=== PATIENT | female | born 1960 | race African-American/Black ===

== ENCOUNTER 2016-08-18 23:24 | Emergency (ER) | payer BC ==
[~2016-08-18] VITALS: Ht 167.6 cm; Wt 75.3 kg
[~2016-08-18 23:24] MED LIST: AMLO10TA4 PO; ASPI325T8 PO; CLOP75TA57 PO; INSU100C4 SQ; INSU100V13 SQ; LISI40TA PO; SIMV40TA3 PO
[2016-08-18] MEDS ORDERED: ONDANSETRON ODT 4 MG TAB.RAPDIS. PO ONE (23:45)
[2016-08-18] MEDS ORDERED: IV NORMAL SALINE 1000ML BAG 1,000 ML IV ONE (23:45)
[2016-08-18 23:48] LABS: BASO # 0.1 x10^3/uL (0.0-0.2); BASO % 1 % (0-3); EOS % 1 % (0-3); HEMATOCRIT 37.3 % (36.0-47.0); HEMOGLOBIN 12.2 g/dL (12.0-15.5); LYMPH # 2.1 x10^3/uL (1.0-4.8); LYMPH % 19 % (24-48); MEAN CORPUSCULAR HEMOGLOBIN 28 pg (25-35); MEAN CORPUSCULAR HGB CONC 33 g/dL (31-37); MEAN CORPUSCULAR VOLUME 85 fL (79-100); MONO % 5 % (0-9); NEUT % 74 % (31-73); PLATELET COUNT 390 x10^3/uL (140-400); RED BLOOD COUNT 4.38 x10^6/uL (3.50-5.40); RED CELL DISTRIBUTION WIDTH 14.1 % (11.5-14.5); WHITE BLOOD COUNT 11.4 x10^3/uL (4.0-11.0)
[2016-08-18 23:58] LABS: CREATININE 1.5 mg/dL (0.6-1.0); GFR 43.8; POTASSIUM 4.1 mmol/L (3.5-5.1)
[2016-08-19 00:04] LABS: ALBUMIN/GLOBULIN RATIO 0.6 (1.0-1.7); TOTAL BILIRUBIN 0.4 mg/dL (0.2-1.0); TOTAL PROTEIN 7.9 g/dL (6.4-8.2)
[2016-08-19 03:09] LABS: BACTERIA,URINE FEW /HPF (0-FEW); BILIRUBIN,URINE NEGATIVE (NEG); GLUCOSE,URINE 100 mg/dL (NEG); NITRITE,URINE NEGATIVE (NEG); PROTEIN,URINE >=300 mg/dL (NEG-TRACE); RBC,URINE OCC /HPF (0-2); SQUAMOUS EPITHELIAL CELL,UR FEW /LPF; UROBILINOGEN,URINE 0.2 mg/dL (0.2 mg/dL)
[2016-08-19] MEDS ORDERED: ONDANSETRON PF 4 MG/2 ML VIAL. IV ONE (03:30)
[2016-08-19 04:30] VITALS: BP 199/101
[2016-08-19 04:42] LABS: NEG OBC FOB NEG; POS OBC FOB POS
[2016-08-19] MEDS ORDERED: ONDA4TAB10 SL (05:08)
--- NOTE | 2016-08-19 05:08 | PHYS DOC ---
Past Medical History Past Medical History: Diabetes-Type II, GERD, Hypertension, Migraines, TIA, Other Additional Past Medical Histor: developmental delay Past Surgical History: Appendectomy Alcohol Use: None Drug Use: None Adult General Chief Complaint Chief Complaint: NAUSEA/VOMITING/DIARRHA HPI HPI Patient is a 56 year [id number] female who presents to the ER today secondary to nausea vomiting diarrhea. Patient denies any fevers shakes chills cough cold runny nose. Patient has any chest pain. Patient reports that she had a little bit of redness in one of the episodes of her vomiting today. Patient has any melena or bright red blood per rectum. Patient complains of some mild midepigastric discomfort in her abdomen. The well-developed well-nourished female in no acute distress. Patient's abdomen was soft nontender no rebound or guarding. Patient's rectal exam was heme-negative brown stool. Patient's ER workup consisted of normal labs. Patient's CBC and chemistry were within normal limits for the patient. Patient was monitored in the ED without any further episodes of nausea vomiting. Patient is given IV fluids and Zofran in the ED and feels much improved. Patient is requesting to be discharged home. Review of systems Constitutional: Denies fever or chills [] Eyes: Denies change in visual acuity, redness, or eye pain [] All other review systems are negative except as documented in the history of present illness portion. Physical exam Constitutional: Well developed, well nourished, no acute distress, non-toxic appearance. [] HENT: Normocephalic, atraumatic, bilateral external ears normal, oropharynx moist, no oral exudates, nose normal. [] Eyes: conjunctiva normal, no discharge. [] Neck: Normal range of motion, no tenderness, supple, no stridor. [] Cardiovascular:Heart rate regular rhythm, Lungs & Thorax: Bilateral breath sounds clear to auscultation [] Abdomen: Bowel sounds normal, soft, no tenderness, no masses, no pulsatile masses. [] Skin: Warm, dry, Back: No tenderness, Extremities: No tenderness, no cyanosis, Neurologic: Alert and oriented X 3, normal motor function, normal sensory function, no focal deficits noted. [] Psychologic: Affect normal, judgement normal, mood normal. [] Assessment and plan 36-year-old female who presents here today with nausea vomiting and diarrhea. Patient is clinically hemodynamically stable. Patient be discharged home in stable condition. Current Medications Current Medications Current Medications Medications (Trade) Dose Ordered Sig/Shirley Start Time Stop Time Status Last Admin Dose Admin Ondansetron HCl (Zofran Odt) 4 mg 1X ONCE 08/18/16 23:45 08/18/16 23:46 DC 08/18/16 23:49 4 MG Ondansetron HCl (Zofran) 4 mg 1X ONCE 08/19/16 03:30 08/19/16 03:31 DC 08/19/16 03:20 4 MG Sodium Chloride 1,000 ml @ 1,000 mls/hr 1X ONCE 08/18/16 23:45 08/19/16 00:44 DC 08/18/16 23:50 1,000 MLS/HR Allergies Allergies Allergies Coded Allergies Type Severity Reaction Last Updated Verified No Known Drug Allergies 12/25/14 No Current Patient Data Vital Signs Vital Signs Date Time Temp Pulse Resp B/P (MAP) Pulse Ox O2 Delivery O2 Flow Rate FiO2 08/19/16 04:30 88 18 199/101 (133) 97 Room Air 08/18/16 23:43 98.6 98.6 Lab Values Laboratory Tests Test 08/18/16 23:40 08/19/16 02:37 08/19/16 04:00 White Blood Count 11.4 x10^3/uL (4.0-11.0) H Red Blood Count 4.38 x10^6/uL (3.50-5.40) Hemoglobin 12.2 g/dL (12.0-15.5) Hematocrit 37.3 % (36.0-47.0) Mean Corpuscular Volume 85 fL (79-100) Mean Corpuscular Hemoglobin 28 pg (25-35) Mean Corpuscular Hemoglobin Concent 33 g/dL (31-37) Red Cell Distribution Width 14.1 % (11.5-14.5) Platelet Count 390 x10^3/uL (140-400) Neutrophils (%) (Auto) 74 % (31-73) H Lymphocytes (%) (Auto) 19 % (24-48) L Monocytes (%) (Auto) 5 % (0-9) Eosinophils (%) (Auto) 1 % (0-3) Basophils (%) (Auto) 1 % (0-3) Neutrophils # (Auto) 8.4 x10^3uL (1.8-7.7) H Lymphocytes # (Auto) 2.1 x10^3/uL (1.0-4.8) Monocytes # (Auto) 0.6 x10^3/uL (0.0-1.1) Eosinophils # (Auto) 0.1 x10^3/uL (0.0-0.7) Basophils # (Auto) 0.1 x10^3/uL (0.0-0.2) Sodium Level 138 mmol/L (136-145) Potassium Level 4.1 mmol/L (3.5-5.1) Chloride Level 101 mmol/L (98-107) Carbon Dioxide Level 29 mmol/L (21-32) Anion Gap 8 (6-14) Blood Urea Nitrogen 23 mg/dL (7-20) H Creatinine 1.5 mg/dL (0.6-1.0) H Estimated GFR (Cockcroft-Gault) 43.8 BUN/Creatinine Ratio 15 (6-20) Glucose Level 178 mg/dL (70-99) H Calcium Level 11.0 mg/dL (8.5-10.1) H Total Bilirubin 0.4 mg/dL (0.2-1.0) Aspartate Amino Transferase (AST) 18 U/L (15-37) Alanine Aminotransferase (ALT) 17 U/L (14-59) Alkaline Phosphatase 74 U/L (46-116) Total Protein 7.9 g/dL (6.4-8.2) Albumin 3.0 g/dL (3.4-5.0) L Albumin/Globulin Ratio 0.6 (1.0-1.7) L Lipase 150 U/L (73-393) Urine Collection Type Unknown Urine Color Yellow Urine Clarity Clear Urine pH 6.0 Urine Specific Dr[place] 1.015 Urine Protein >=300 mg/dL (NEG-TRACE) Urine Glucose (UA) 100 mg/dL (NEG) Urine Ketones (Stick) Trace mg/dL (NEG) Urine Blood Small (NEG) Urine Nitrite Negative (NEG) Urine Bilirubin Negative (NEG) Urine Urobilinogen Dipstick 0.2 mg/dL (0.2 mg/dL) Urine Leukocyte Esterase Negative (NEG) Urine RBC Occ /HPF (0-2) Urine WBC 1-4 /HPF (0-4) Urine Squamous Epithelial Cells Few /LPF Urine Bacteria Few /HPF (0-FEW) Urine Hyaline Casts Few /HPF Urine Mucus Mod /LPF Stool Occult Blood Negative (NEG) Laboratory Tests 08/18/16 23:40 Laboratory Tests 08/18/16 23:40 EKG EKG [] Radiology/Procedures Radiology/Procedures [] Course & Med Decision Making Course & Med Decision Making Pertinent Labs and Imaging studies reviewed. (See chart for details) [] Dragon Disclaimer Dragon Disclaimer This electronic medical record was generated, in whole or in part, using a voice recognition dictation system. Departure Departure Impression: Primary Impression: Vomiting Additional Impression: Hematemesis Disposition: HOME, SELF-CARE Condition: IMPROVED Referrals: UNKNOWN PCP NAME (PCP) Patient Instructions: Hematemesis, Nausea and Vomiting Scripts Ondansetron (ZOFRAN ODT) 4 Mg Tab.rapdis 1 TAB SL Q6HRS Y for NAUSEA, #12 TAB Prov: MIGUEL ANGEL BENITEZ MD 08/19/16 Problem Qualifiers MIGUEL ANGEL BENITEZ MD Aug 19, 2016 05:08
== END 2016-08-19 05:26 | disposition home or self-care (01) ==
LOC: ER 23:24
DX: K92.0 Hematemesis (principal); E11.9 Type 2 diabetes mellitus without complications; K21.9 Gastro-esophageal reflux disease without esophagitis; I10 Essential (primary) hypertension; G43.909 Migraine, unspecified, not intractable, without status migrainosus; R62.50 Unspecified lack of expected normal physiological development in childhood; Z86.73 Personal history of transient ischemic attack (TIA), and cerebral infarction without residual deficits; Z90.49 Acquired absence of other specified parts of digestive tract
CPT/HCPCS: 36415; 80053; 81001; 82274; 83690; 85027; 96361; 96374; 99285; J2405; J7030; Q0162

== ENCOUNTER → 2016-09-18 | Outpatient (CLI) | payer OTHER ==
[2016-08-19 04:30] VITALS: BP 199/101
[~2016-09-18] MED LIST changes: +ONDA4TAB10 SL
--- NOTE | 2016-09-18 12:32 | RAD ---
EXAM: Lumbar spine 2 or 3 views. HISTORY: Low back pain COMPARISON: None. FINDINGS: Alignment is maintained. Vertebral body heights are maintained, and no fractures are identified. Intervertebral disc heights are maintained. Facet osteoarthritis is at least mild from L4 through S1. Atherosclerotic calcifications are noted. An 8 mm calcification in the right flank may be a gallstone or renal calculus. A 15 mm calcification in the left hemipelvis suggests a degenerated fibroid. IMPRESSION: 1. Mild to moderate facet osteoarthritis from L4 through S1. 2. 8-mm gallstone versus right renal calculus.
== END | disposition home or self-care (01) ==
LOC: RAD 10:16
PROVIDERS: ATTEND Neuromusculoskeletal Medicine, Sports Medicine
DX: M47.897 Other spondylosis, lumbosacral region (principal)
CPT/HCPCS: 72100

== ENCOUNTER 2017-03-31 15:27 | Emergency (ER) | payer SELFPAY, OTHER | END 2017-03-31 16:26 | disposition home or self-care (01) | LOC: ER 15:27 | DX: S30.861A Insect bite (nonvenomous) of abdominal wall, initial encounter (principal); S40.862A Insect bite (nonvenomous) of left upper arm, initial encounter; S40.861A Insect bite (nonvenomous) of right upper arm, initial encounter; S00.96XA Insect bite (nonvenomous) of unspecified part of head, initial encounter; S80.862A Insect bite (nonvenomous), left lower leg, initial encounter; S80.861A Insect bite (nonvenomous), right lower leg, initial encounter; S10.96XA Insect bite of unspecified part of neck, initial encounter; S40.262A Insect bite (nonvenomous) of left shoulder, initial encounter; S40.261A Insect bite (nonvenomous) of right shoulder, initial encounter; S30.860A Insect bite (nonvenomous) of lower back and pelvis, initial encounter; S20.462A Insect bite (nonvenomous) of left back wall of thorax, initial encounter; S20.461A Insect bite (nonvenomous) of right back wall of thorax, initial encounter; E11.9 Type 2 diabetes mellitus without complications; K21.9 Gastro-esophageal reflux disease without esophagitis; I10 Essential (primary) hypertension; G43.909 Migraine, unspecified, not intractable, without status migrainosus; Z86.73 Personal history of transient ischemic attack (TIA), and cerebral infarction without residual deficits; Z90.49 Acquired absence of other specified parts of digestive tract; W57.XXXA Bitten or stung by nonvenomous insect and other nonvenomous arthropods, initial encounter; Y93.89 Activity, other specified; Y92.89 Other specified places as the place of occurrence of the external cause; Y99.8 Other external cause status | CPT/HCPCS: 99283 ==

== ENCOUNTER 2017-06-29 14:54 | Inpatient (IN) | payer SELFPAY ==
[2017-06-29 15:50] LABS: ADD MAN DIFF? NO
[2017-06-29 15:52] LABS: BASO # 0.1 x10^3/uL (0.0-0.2); BASO % 1 % (0-3); EOS # 0.1 x10^3/uL (0.0-0.7); EOS % 2 % (0-3); HEMOGLOBIN 10.1 g/dL (12.0-15.5); LYMPH # 2.1 x10^3/uL (1.0-4.8); LYMPH % 25 % (24-48); MEAN CORPUSCULAR HEMOGLOBIN 29 pg (25-35); MEAN CORPUSCULAR HGB CONC 34 g/dL (31-37); MEAN CORPUSCULAR VOLUME 86 fL (79-100); MONO # 0.6 x10^3/uL (0.0-1.1); MONO % 7 % (0-9); NEUT # 5.7 x10^3uL (1.8-7.7); NEUT % 66 % (31-73); PLATELET COUNT 433 x10^3/uL (140-400); RED CELL DISTRIBUTION WIDTH 13.7 % (11.5-14.5); WHITE BLOOD COUNT 8.6 x10^3/uL (4.0-11.0)
[2017-06-29 16:00] LABS: PROTHROMBIN TIME PATIENT 12.8 SEC (11.7-14.0)
[2017-06-29 16:09] LABS: ANION GAP 4 (6-14); BLOOD UREA NITROGEN 21 mg/dL (7-20); CALCIUM 9.3 mg/dL (8.5-10.1); CARBON DIOXIDE 29 mmol/L (21-32); CHLORIDE 103 mmol/L (98-107); GFR 31.3; GLUCOSE 240 mg/dL (70-99); POTASSIUM 5.1 mmol/L (3.5-5.1); SODIUM 136 mmol/L (136-145)
[2017-06-29 16:14] LABS: TROPONINI 0.019 ng/mL (0.000-0.055)
[2017-06-29 16:17] LABS: ALBUMIN 2.9 g/dL (3.4-5.0); ALK PHOS 79 U/L (46-116); ALT (SGPT) 14 U/L (14-59); AST (SGOT) 12 U/L (15-37); DIRECT BILIRUBIN 0.1 mg/dL (0.0-0.2); LIPASE 119 U/L (73-393); MAGNESIUM 1.8 mg/dL (1.8-2.4); TOTAL BILIRUBIN 0.2 mg/dL (0.2-1.0); TOTAL PROTEIN 6.4 g/dL (6.4-8.2)
[2017-06-29 16:21] LABS: THYROID STIM HORMONE (TSH) 1.646 uIU/mL (0.358-3.74)
[2017-06-29 16:23] LABS: CKMB INDEX 1.5 % (0-4); CKMB MASS 1.3 ng/mL (0.0-3.6); CREATINE KINASE 86 U/L (26-192)
[2017-06-29 16:23] LABS: NT-PRO BNP 1281 pg/mL (0-124)
[2017-06-29] MEDS ORDERED: ONDANSETRON PF 4 MG/2 ML VIAL. IV ×2 (17:00→18:15)
[2017-06-29] MEDS ORDERED: MORPHINE SULFATE 4 MG/ML DISP.SYRIN. IV (18:15)
[2017-06-29] MEDS ORDERED: traMADol 50 MG TABLET PO (18:15)
[2017-06-29] MEDS ORDERED: ACETAMINOPHEN 325 MG TABLET. PO (18:15)
[2017-06-29] MEDS ORDERED: DEXTROSE 50% 25 GM / 50ML DISP.SYRIN. IV (18:15)
[2017-06-29] MEDS ORDERED: DOCUSATE SODIUM 100 MG CAPSULE. PO (18:15)
[2017-06-29 18:43] LABS: VITAMIN-B12 517 pg/mL (247-911)
[2017-06-29 19:08] LABS: BARBITURATES NEG (NEG); BENZODIAZEPINES NEG (NEG); CANNABINOIDS NEG (NEG); COCAINE NEG (NEG); METHADONE NEG (NEG); OPIATES POS (NEG); PHENCYCLIDINE NEG (NEG)
[2017-06-29 19:09] LABS: AMPHETAMINE/METHAMPHETAMINE NEG (NEG); ETHANOL, URINE NEG (NEG)
[2017-06-29] MEDS: hydrALAZINE 20 MG/ML VIAL. IVP (20:41)
[2017-06-29] MEDS: HEPARIN PF for SUB-Q USE 5,000 UNIT/0.5 ML VIAL. SQ ×2 (20:42→23:28)
[2017-06-29 21:16] LABS: TROPONINI 0.018 ng/mL (0.000-0.055)
[2017-06-29 21:17] LABS: LACTIC ACID 1.8 mmol/L (0.4-2.0)
[2017-06-29] MEDS: IV NORMAL SALINE 1000ML BAG 1,000 ML IV ×2 (22:20→23:27)
[2017-06-30 05:26] LABS: ADD MAN DIFF? NO
[2017-06-30] MEDS: HEPARIN PF for SUB-Q USE 5,000 UNIT/0.5 ML VIAL. SQ ×3 (05:31→20:19)
[2017-06-30 05:48] LABS: BASO # 0.1 x10^3/uL (0.0-0.2); BASO % 1 % (0-3); EOS # 0.2 x10^3/uL (0.0-0.7); EOS % 2 % (0-3); HEMATOCRIT 30.2 % (36.0-47.0); HEMOGLOBIN 9.9 g/dL (12.0-15.5); LYMPH # 2.8 x10^3/uL (1.0-4.8); LYMPH % 30 % (24-48); MEAN CORPUSCULAR HEMOGLOBIN 28 pg (25-35); MEAN CORPUSCULAR HGB CONC 33 g/dL (31-37); MEAN CORPUSCULAR VOLUME 87 fL (79-100); MONO # 0.9 x10^3/uL (0.0-1.1); MONO % 10 % (0-9); NEUT # 5.2 x10^3uL (1.8-7.7); NEUT % 57 % (31-73); PLATELET COUNT 431 x10^3/uL (140-400); RED BLOOD COUNT 3.49 x10^6/uL (3.50-5.40); RED CELL DISTRIBUTION WIDTH 14.1 % (11.5-14.5); WHITE BLOOD COUNT 9.1 x10^3/uL (4.0-11.0)
[2017-06-30 05:58] LABS: ALBUMIN 2.9 g/dL (3.4-5.0); ALBUMIN/GLOBULIN RATIO 0.7 (1.0-1.7); ALK PHOS 75 U/L (46-116); ALT (SGPT) 14 U/L (14-59); ANION GAP 13 (6-14); AST (SGOT) 13 U/L (15-37); BLOOD UREA NITROGEN 23 mg/dL (7-20); BUN/CREATININE RATIO 12 (6-20); CALCIUM 9.1 mg/dL (8.5-10.1); CARBON DIOXIDE 25 mmol/L (21-32); CHLORIDE 101 mmol/L (98-107); GFR 31.3; GLUCOSE 264 mg/dL (70-99); POTASSIUM 4.8 mmol/L (3.5-5.1); SODIUM 139 mmol/L (136-145); TOTAL BILIRUBIN 0.2 mg/dL (0.2-1.0); TOTAL PROTEIN 7.3 g/dL (6.4-8.2)
[2017-06-30 07:28] LABS: POC GLUCOSE 145 mg/dL (70-99)
[2017-06-30] MEDS: INSULIN LISPRO 300 UNITS/3 ML INSULN.PEN. SQ ×3 (07:37→17:43)
[2017-06-30] MEDS: IV NORMAL SALINE 1000ML BAG 1,000 ML IV ×2 (08:40→20:19)
[2017-06-30 11:28] LABS: POC GLUCOSE 278 mg/dL (70-99)
[2017-06-30] MEDS ORDERED: CALCIUM CARBONATE 500 MG TAB.CHEW PO (12:45)
[2017-06-30] MEDS: PANTOPRAZOLE 40 MG TABLET.DR. PO (14:42)
[2017-06-30] MEDS: ASPIRIN 325 MG TABLET PO (16:15)
[2017-06-30 16:35] LABS: POC GLUCOSE 277 mg/dL (70-99)
[2017-06-30] MEDS: amLODIPine BESYLATE 5 MG TABLET PO (18:07)
[2017-06-30 20:19] LABS: POC GLUCOSE 150 mg/dL (70-99)
[2017-06-30] MEDS: SIMVASTATIN 40 MG TABLET. PO (20:19)
[2017-07-01 05:26] LABS: ADD MAN DIFF? NO
[2017-07-01 05:35] LABS: BASO % 0 % (0-3); EOS # 0.2 x10^3/uL (0.0-0.7); EOS % 2 % (0-3); HEMATOCRIT 27.3 % (36.0-47.0); HEMOGLOBIN 9.1 g/dL (12.0-15.5); LYMPH # 2.2 x10^3/uL (1.0-4.8); LYMPH % 31 % (24-48); MEAN CORPUSCULAR HEMOGLOBIN 29 pg (25-35); MEAN CORPUSCULAR HGB CONC 34 g/dL (31-37); MEAN CORPUSCULAR VOLUME 86 fL (79-100); MONO # 0.6 x10^3/uL (0.0-1.1); MONO % 8 % (0-9); NEUT # 4.1 x10^3uL (1.8-7.7); NEUT % 58 % (31-73); PLATELET COUNT 354 x10^3/uL (140-400); RED CELL DISTRIBUTION WIDTH 13.7 % (11.5-14.5); WHITE BLOOD COUNT 7.1 x10^3/uL (4.0-11.0)
[2017-07-01 05:53] LABS: ANION GAP 10 (6-14); BLOOD UREA NITROGEN 24 mg/dL (7-20); CARBON DIOXIDE 24 mmol/L (21-32); CHLORIDE 106 mmol/L (98-107); CREATININE 1.5 mg/dL (0.6-1.0); GFR 43.6; GLUCOSE 222 mg/dL (70-99); POTASSIUM 4.7 mmol/L (3.5-5.1); SODIUM 140 mmol/L (136-145)
[2017-07-01] MEDS: HEPARIN PF for SUB-Q USE 5,000 UNIT/0.5 ML VIAL. SQ ×3 (06:08→21:31)
[2017-07-01 07:19] LABS: POC GLUCOSE 204 mg/dL (70-99)
[2017-07-01] MEDS: ASPIRIN 325 MG TABLET PO (08:49)
[2017-07-01] MEDS: amLODIPine BESYLATE 5 MG TABLET PO (08:49)
[2017-07-01] MEDS: PANTOPRAZOLE 40 MG TABLET.DR. PO (08:49)
[2017-07-01] MEDS: INSULIN LISPRO 300 UNITS/3 ML INSULN.PEN. SQ ×3 (09:20→18:04)
[2017-07-01 11:40] LABS: POC GLUCOSE 158 mg/dL (70-99)
[2017-07-01] MEDS: IV NORMAL SALINE 1000ML BAG 1,000 ML IV ×2 (16:22→20:53)
[2017-07-01 16:32] LABS: POC GLUCOSE 231 mg/dL (70-99)
[2017-07-01] MEDS: SIMVASTATIN 40 MG TABLET. PO (21:18)
[2017-07-01] MEDS: METOPROLOL TART IMMED RELEASE 25 MG TABLET. PO (21:20)
[2017-07-01 21:24] LABS: POC GLUCOSE 250 mg/dL (70-99)
[2017-07-01] MEDS: INSULIN GLARGINE 300 UNITS/3 ML INSULN.PEN. SQ (21:30)
[2017-07-02 04:47] LABS: ADD MAN DIFF? NO
[2017-07-02 04:52] LABS: BASO # 0.1 x10^3/uL (0.0-0.2); BASO % 1 % (0-3); EOS # 0.2 x10^3/uL (0.0-0.7); EOS % 2 % (0-3); HEMOGLOBIN 9.2 g/dL (12.0-15.5); LYMPH # 2.2 x10^3/uL (1.0-4.8); LYMPH % 30 % (24-48); MEAN CORPUSCULAR HEMOGLOBIN 29 pg (25-35); MEAN CORPUSCULAR HGB CONC 34 g/dL (31-37); MEAN CORPUSCULAR VOLUME 85 fL (79-100); MONO # 0.6 x10^3/uL (0.0-1.1); MONO % 8 % (0-9); NEUT # 4.4 x10^3uL (1.8-7.7); NEUT % 59 % (31-73); PLATELET COUNT 368 x10^3/uL (140-400); RED BLOOD COUNT 3.18 x10^6/uL (3.50-5.40); RED CELL DISTRIBUTION WIDTH 13.5 % (11.5-14.5); WHITE BLOOD COUNT 7.5 x10^3/uL (4.0-11.0)
[2017-07-02 05:16] LABS: ANION GAP 9 (6-14); BLOOD UREA NITROGEN 16 mg/dL (7-20); CALCIUM 8.5 mg/dL (8.5-10.1); CARBON DIOXIDE 25 mmol/L (21-32); CHLORIDE 107 mmol/L (98-107); CREATININE 1.2 mg/dL (0.6-1.0); GFR 56.4; GLUCOSE 196 mg/dL (70-99); POTASSIUM 4.3 mmol/L (3.5-5.1); SODIUM 141 mmol/L (136-145)
[2017-07-02] MEDS: IV NORMAL SALINE 1000ML BAG 1,000 ML IV (05:26)
[2017-07-02] MEDS: HEPARIN PF for SUB-Q USE 5,000 UNIT/0.5 ML VIAL. SQ (05:32)
[2017-07-02 07:28] LABS: POC GLUCOSE 157 mg/dL (70-99)
[2017-07-02] MEDS: ASPIRIN 325 MG TABLET PO (08:13)
[2017-07-02] MEDS: PANTOPRAZOLE 40 MG TABLET.DR. PO (08:13)
[2017-07-02] MEDS: METOPROLOL TART IMMED RELEASE 25 MG TABLET. PO (08:13)
[2017-07-02] MEDS: INSULIN LISPRO 300 UNITS/3 ML INSULN.PEN. SQ ×2 (08:15→12:33)
[2017-07-02 11:37] LABS: POC GLUCOSE 158 mg/dL (70-99)
[2017-07-02] MEDS: NICOTINE 14MG PATCH. TD (11:42)
[2017-07-02] MEDS: CLOPIDOGREL BISULFATE 75 MG TABLET PO (12:32)
[2017-07-02] MEDS: hydrOXYzine PAMOATE 25 MG CAPSULE PO (14:35)
[2017-07-02] MEDS: GABAPENTIN 100 MG CAPSULE. PO (14:35)
[2017-07-02] MEDS ORDERED: SIMVASTATIN 40 MG TABLET. PO (21:00)
[2017-07-03] MEDS ORDERED: ASPIRIN 325 MG TABLET PO (08:00)
== END 2017-07-02 16:20 | disposition home or self-care (01) | DRG 683 ==
LOC: ER 14:54 → 6 SOUTH 16:55
DX: N17.0 Acute kidney failure with tubular necrosis (principal); E44.1 Mild protein-calorie malnutrition; E11.22 Type 2 diabetes mellitus with diabetic chronic kidney disease; E11.65 Type 2 diabetes mellitus with hyperglycemia; R13.10 Dysphagia, unspecified; D64.9 Anemia, unspecified; F17.210 Nicotine dependence, cigarettes, uncomplicated; G43.909 Migraine, unspecified, not intractable, without status migrainosus; I12.9 Hypertensive chronic kidney disease with stage 1 through stage 4 chronic kidney disease, or unspecified chronic kidney disease; I95.1 Orthostatic hypotension; K21.9 Gastro-esophageal reflux disease without esophagitis; N18.3 Chronic kidney disease, stage 3 (moderate); Z82.49 Family history of ischemic heart disease and other diseases of the circulatory system; Z83.3 Family history of diabetes mellitus; Z86.73 Personal history of transient ischemic attack (TIA), and cerebral infarction without residual deficits; Z90.49 Acquired absence of other specified parts of digestive tract; Z91.19 Patient's noncompliance with other medical treatment and regimen; Z91.11 Patient's noncompliance with dietary regimen; Z68.25 Body mass index [BMI] 25.0-25.9, adult
CPT/HCPCS: 36415; 70551; 71045; 76770; 80048; 80053; 80076; 80307; 82306; 82553; 82607; 82962; 83605; 83690; 83735; 83880; 84443; 84484; 85025; 85610; 93005; 97116-GP; 97162-GP; 97165-GO; 99285; 99285-25; J0360; J1815; J7030; Q0177

== ENCOUNTER 2018-05-08 18:36 | Emergency (ER) | payer MEDICAID, OTHER ==
[~2018-05-08] VITALS: Ht 167.6 cm; Wt 70.8 kg
[~2018-05-08 18:36] MED LIST changes: +GABA-585 PO; +HYDR25TA PO; +INSU100I13 SQ; +LISI-130 PO; -LISI40TA PO; +METO25TA4 PO
--- NOTE | 2018-05-08 21:32 | RAD ---
PQRS Compliance Statement: One or more of the following individualized dose reduction techniques were utilized for this examination: 1. Automated exposure control 2. Adjustment of the mA and/or kV according to patient size 3. Use of iterative reconstruction technique CT head, maxillofacial and cervical spine without contrast 05/08/2018 7:48 PM INDICATION: Fall with head and neck pain. COMPARISON: MRI brain June 29, 2017 TECHNIQUE: Multiple axial CT images of the head were obtained from skull base through the vertex without intravenous contrast. Multiple axial CT images of the cervical spine and maxillofacial structures were obtained without intravenous contrast. Coronal and sagittal reformats are provided. FINDINGS: Head and maxillofacial: Ventricles, sulci and basal cisterns are within normal limits. Low-attenuation in the periventricular white matter is suggestive of chronic small vessel ischemic changes. There is no hydrocephalus. Bob-white matter differentiation is normal. There is no acute intracranial hemorrhage. There is no mass, mass effect or midline shift. Posterior fossa is normal in appearance. Their is a remote lacunar infarct involving the left luna. There is a remote lacunar infarct involving the right thalamus. Orbits are normal in appearance. Globes are spherical and contour. There is no lens dislocation. Extraocular muscles are intact. No intraconal or extraconal masses are identified. No osseous deformity of the orbits. Maxillary sinuses are intact. Mild mucosal thickening of the maxillary sinuses is noted. There is occlusion of the left ostiomeatal unit secondary to mucosal thickening. The right ostiomeatal unit is patent. The nasal septum is minimally deviated to the left. Skull base is intact. Temporomandibular joints are well aligned. Middle ears are well aerated. Mastoid air cells are underdeveloped and under pneumatized. Maxilla and mandible are intact. Cervical spine: There is minimal retrolisthesis of C5 on C6. Skull base is intact. Craniocervical junction is normal in appearance. Atlantoaxial articulation is normal. Vertebral body heights are maintained without evidence for acute fracture. Facet joints are within normal limits. No significant osseous neural foraminal stenosis. No significant osseous spinal canal stenosis. Transverse foramen are intact. There is mild disc height loss at C5-C6 with mild anterior marginal osteophytosis at this level. There is no prevertebral soft tissue swelling. Thyroid gland is normal in appearance. Visualized portions of the lung apices are normal without evidence for suspicious pulmonary nodule or infiltrate. IMPRESSION: 1. No acute intracranial hemorrhage. Remote lacunar infarcts are noted involving the left luna and right thalamus. Low-attenuation in the periventricular white matter is suggestive of chronic small vessel ischemic changes. 2. No acute fracture of the cervical spine. There is minimal retrolisthesis of C5 on C6. 3. No acute maxillofacial fracture is identified. There is mild mucosal thickening of the maxillary sinuses. Nasal septum is minimally deviated to the left. 4. Underdeveloped mastoid air cells. Electronically signed by: Brittny Patel MD (05/08/2018 9:29 PM) [facility]
--- NOTE | 2018-05-08 21:58 | PHYS DOC ---
Past Medical History Past Medical History: CVA, Diabetes-Type II, GERD, High Cholesterol, Hypertension, Migraines, TIA, Other Additional Past Medical Histor: developmental delay,CVA X3 (GODFREY BANSAL APRN) Past Surgical History: Appendectomy (GODFREY BANSAL APRN) Alcohol Use: Sober Drug Use: Other (GODFREY BANSAL APRN) Adult General Chief Complaint Chief Complaint: MECHANICAL FALL HPI HPI Patient is a 57 year old female with developmental delay, CVA, hypertension, high cholesterol, who presents to the ED to be evaluated for headache and upper lip swelling after she fell at home. Patient states she sleeps on an air mattress on 05/05/2018 she was at the edge of the bed and fell face forward. Patient denies any loss of consciousness. (GODFREY BANSAL APRN) Review of Systems Review of Systems Constitutional: Denies fever or chills [] Eyes: Denies change in visual acuity, redness, or eye pain [] HENT: Reports upper lip swelling. Denies nasal congestion or sore throat Respiratory: Denies cough or shortness of breath [] Cardiovascular: No additional information not addressed in HPI [] GI: Denies abdominal pain, nausea, vomiting, bloody stools or diarrhea [] : Denies dysuria or hematuria [] Musculoskeletal: Denies back pain or joint pain [] Integument: Denies rash or skin lesions [] Neurologic: Reports headache, denies focal weakness or sensory changes [] All other systems were reviewed and found to be within normal limits, except as documented in this note. (GODFREY BANSAL APRN) Allergies Allergies Allergies Coded Allergies Type Severity Reaction Last Updated Verified No Known Drug Allergies 12/25/14 No (AGUSTÍN HARRINGTON DO) Physical Exam Physical Exam Constitutional: Well developed, well nourished, no acute distress, non-toxic appearance. [] HENT: Normocephalic, bilateral external ears normal, oropharynx moist, no oral exudates, nose normal. Upper lip with mild soft tissue swelling. There is swelling on bilateral lower eyelids, no ecchymosis. Tooth #7 is broken. Eyes: PERRLA, EOMI, conjunctiva normal, no discharge. [] Neck: Normal range of motion, no tenderness, supple, no stridor. [] Cardiovascular:Heart rate regular rhythm, no murmur [] Lungs & Thorax: Bilateral breath sounds clear to auscultation [] Abdomen: Bowel sounds normal, soft, no tenderness, no masses, no pulsatile masses. [] Skin: Warm, dry, no erythema, no rash. [] Back: No tenderness, no CVA tenderness. [] Extremities: No tenderness, no cyanosis, no clubbing, ROM intact, no edema. [] Neurologic: Alert and oriented X 3, normal motor function, normal sensory function, no focal deficits noted. [] Psychologic: Affect normal, judgement normal, mood normal. [] (GODFREY BANSAL APRN) Current Patient Data Vital Signs Vital Signs Date Time Temp Pulse Resp B/P (MAP) Pulse Ox O2 Delivery O2 Flow Rate FiO2 05/08/18 22:33 97 16 99 05/08/18 19:20 98.6 104/63 (77) Room Air 98.6 (HARRINGTONAGUSTÍN LOERA DO) EKG EKG [] (GODFREY BANSAL APRN) Radiology/Procedures Radiology/Procedures [] (GODFREY BANSAL APRN) Course & Med Decision Making Course & Med Decision Making Pertinent Labs and Imaging studies reviewed. (See chart for details) This is a 57-year-old female patient presenting to the ED today to be evaluated status post falling 3 days ago. Patient fell off her bed accidentally. She has developmental delay. She is in the ED with a caregiver who is also the son. Patient herself denies any abuse. CT of the head, face, cervical spine and negative. Discharged to home. Ice elevation of the affected area. Tylenol for pain. Follow-up with PCP in 1-2 weeks. (GODFREY BANSAL APRN) Dragon Disclaimer Dragon Disclaimer This electronic medical record was generated, in whole or in part, using a voice recognition dictation system. (GODFREY BANSAL APRN) Departure Departure Impression: Primary Impression: Fall from bed Additional Impressions: Head contusion Facial contusion Disposition: 01 HOME, SELF-CARE Condition: STABLE Referrals: QUINTIN MONROY JR, MD (PCP) follow up next week Patient Instructions: Contusion, [id number], Fall Prevention in Hospitals Additional Instructions: You were evaluated in the emergency room after falling off your bed. Your CT of the neck, face, and neck are negative for any acute findings. Try to ice and elevate your facial area especially applying ice to the upper lip. Take Tylenol as needed for pain. Follow-up with your own doctor next week. Attending Signature Attending Signature I have reviewed the PA/PRODUCTION WOOD CRAFTSMAN's note and plan of care. I was available for consultation as needed during the patient's visit in the emergency department. I agree with the clinical impression, plan, and disposition. (AGUSTÍN HARRINGTON DO) Problem Qualifiers Primary Impression: Fall from bed Encounter type: initial encounter Qualified Codes: W06.XXXA - Fall from bed , initial encounter Additional Impressions: Head contusion Encounter type: initial encounter Contusion of head detail: scalp Qualified Codes: S00.03XA - Contusion of scalp, initial encounter Facial contusion Encounter type: initial encounter Qualified Codes: S00.83XA - Contusion of other part of head, initial encounter GODFREY BANSAL APRN May 08, 2018 21:58 AGUSTÍN HARRINGTON DO May 09, 2018 04:28
[2018-05-08 22:33] VITALS: BP 134/61
== END 2018-05-08 22:34 | disposition home or self-care (01) ==
LOC: ER 18:36
DX: S00.83XA Contusion of other part of head, initial encounter (principal); S00.03XA Contusion of scalp, initial encounter; K13.0 Diseases of lips; E78.00 Pure hypercholesterolemia, unspecified; K21.9 Gastro-esophageal reflux disease without esophagitis; I10 Essential (primary) hypertension; G43.909 Migraine, unspecified, not intractable, without status migrainosus; E11.9 Type 2 diabetes mellitus without complications; Z86.73 Personal history of transient ischemic attack (TIA), and cerebral infarction without residual deficits; W06.XXXA Fall from bed, initial encounter; Y93.89 Activity, other specified; Y92.89 Other specified places as the place of occurrence of the external cause; Y99.8 Other external cause status
CPT/HCPCS: 70450; 70486; 72125; 99284-25

== ENCOUNTER 2018-05-10 14:21 | Emergency (ER) | payer MEDICAID ==
[~2018-05-10] VITALS: Ht 167.6 cm; Wt 69.9 kg
--- NOTE | 2018-05-10 14:40 | PHYS DOC ---
Past Medical History Past Medical History: CVA, Diabetes-Type II, GERD, High Cholesterol, Hypertension, Migraines, TIA, Other Additional Past Medical Histor: developmental delay,CVA X3 Past Surgical History: Appendectomy Alcohol Use: Sober Drug Use: Other Adult General Chief Complaint Chief Complaint: BLOOD SUGAR PROBLEM HPI HPI Patient is a 57 year old female who presents with elevated blood sugar. EMS reports that there may be a knowledge, family member who is supposed to administer the insulin did not administer it due to concern that it would make the blood sugar higher. Patient reports her blood sugar normally runs in the 200s 300 range. Patient was given insulin as well as 500 mL of saline from EMS due to their bedside glucose reading "high" indicating that would be greater than 600.. Patient denies any cough, chest pain, difficulty breathing, dysuria. Patient reports that there is urinary frequency.[] Review of Systems Review of Systems Constitutional: Denies fever or chills [] Eyes: Denies change in visual acuity, redness, or eye pain [] HENT: Denies nasal congestion or sore throat [] Respiratory: Denies cough or shortness of breath [] Cardiovascular: No chest pain or palpitations[] GI: Denies abdominal pain, nausea, vomiting, bloody stools or diarrhea [] : Denies dysuria or hematuria [] Musculoskeletal: Denies back pain or joint pain [] Integument: Denies rash or skin lesions [] Neurologic: Denies headache, focal weakness or sensory changes [] Endocrine: Denies polydipsia, reports polyuria [] All other systems were reviewed and found to be within normal limits, except as documented in this note. Current Medications Current Medications Current Medications Medications (Trade) Dose Ordered Sig/Shirley Start Time Stop Time Status Last Admin Dose Admin Sodium Chloride 1,000 ml @ 1,000 mls/hr Q1H 05/10/18 14:45 05/10/18 15:44 DC 05/10/18 14:46 1,000 MLS/HR Allergies Allergies Allergies Coded Allergies Type Severity Reaction Last Updated Verified No Known Drug Allergies 12/25/14 No Physical Exam Physical Exam Constitutional: Well developed, well nourished, no acute distress, non-toxic appearance. [] HENT: Normocephalic, atraumatic, bilateral external ears normal, oropharynx moist, no oral exudates, nose normal. [] Eyes: PERRLA, EOMI, conjunctiva normal, no discharge. [] Neck: Normal range of motion, no tenderness, supple, no stridor. [] Cardiovascular:Heart rate regular rhythm, no murmur [] Lungs & Thorax: Bilateral breath sounds clear to auscultation [] Abdomen: Bowel sounds normal, soft, no tenderness, no masses, no pulsatile masses. [] Skin: Warm, dry, no erythema, no rash. [] Back: No tenderness, no CVA tenderness. [] Extremities: No tenderness, no cyanosis, no clubbing, ROM intact, no edema. [] Neurologic: Alert and oriented X 3, normal motor function, normal sensory function, no focal deficits noted. [] Psychologic: Affect normal, judgement normal, mood normal. [] Current Patient Data Vital Signs Vital Signs Date Time Temp Pulse Resp B/P (MAP) Pulse Ox O2 Delivery O2 Flow Rate FiO2 05/10/18 14:35 98.6 81 20 178/79 (112) 100 Room Air 98.6 Lab Values Laboratory Tests Test 05/10/18 14:32 05/10/18 14:40 05/10/18 15:11 05/10/18 15:30 Glucose (Fingerstick) 409 mg/dL (70-99) H White Blood Count 10.7 x10^3/uL (4.0-11.0) Red Blood Count 3.93 x10^6/uL (3.50-5.40) Hemoglobin 10.4 g/dL (12.0-15.5) L Hematocrit 31.1 % (36.0-47.0) L Mean Corpuscular Volume 79 fL (79-100) Mean Corpuscular Hemoglobin 26 pg (25-35) Mean Corpuscular Hemoglobin Concent 33 g/dL (31-37) Red Cell Distribution Width 16.0 % (11.5-14.5) H Platelet Count 416 x10^3/uL (140-400) H Neutrophils (%) (Auto) 77 % (31-73) H Lymphocytes (%) (Auto) 14 % (24-48) L Monocytes (%) (Auto) 7 % (0-9) Eosinophils (%) (Auto) 1 % (0-3) Basophils (%) (Auto) 2 % (0-3) Neutrophils # (Auto) 8.2 x10^3uL (1.8-7.7) H Lymphocytes # (Auto) 1.5 x10^3/uL (1.0-4.8) Monocytes # (Auto) 0.8 x10^3/uL (0.0-1.1) Eosinophils # (Auto) 0.1 x10^3/uL (0.0-0.7) Basophils # (Auto) 0.2 x10^3/uL (0.0-0.2) Sodium Level 133 mmol/L (136-145) L Potassium Level 4.7 mmol/L (3.5-5.1) Chloride Level 97 mmol/L (98-107) L Carbon Dioxide Level 30 mmol/L (21-32) Anion Gap 6 (6-14) Blood Urea Nitrogen 25 mg/dL (7-20) H Creatinine 1.5 mg/dL (0.6-1.0) H Estimated GFR (Cockcroft-Gault) 43.6 BUN/Creatinine Ratio 17 (6-20) Glucose Level 384 mg/dL (70-99) H Calcium Level 8.0 mg/dL (8.5-10.1) L Total Bilirubin 0.2 mg/dL (0.2-1.0) Aspartate Amino Transferase (AST) 11 U/L (15-37) L Alanine Aminotransferase (ALT) 13 U/L (14-59) L Alkaline Phosphatase 105 U/L (46-116) Troponin I Quantitative 0.020 ng/mL (0.000-0.055) Total Protein 6.9 g/dL (6.4-8.2) Albumin 2.0 g/dL (3.4-5.0) L Albumin/Globulin Ratio 0.4 (1.0-1.7) L Acetone Level Neg (NEG) Urine Collection Type Unknown Urine Color Yellow Urine Clarity Clear Urine pH 6.0 Urine Specific [place] 1.020 Urine Protein >=300 mg/dL (NEG-TRACE) Urine Glucose (UA) >=1000 mg/dL (NEG) Urine Ketones (Stick) Negative mg/dL (NEG) Urine Blood Trace (NEG) Urine Nitrite Negative (NEG) Urine Bilirubin Negative (NEG) Urine Urobilinogen Dipstick 1.0 mg/dL (0.2 mg/dL) Urine Leukocyte Esterase Negative (NEG) Urine RBC 3-5 /HPF (0-2) Urine WBC 5-10 /HPF (0-4) Urine Squamous Epithelial Cells Mod /LPF Urine Bacteria Few /HPF (0-FEW) Test 05/10/18 15:40 05/10/18 16:46 Glucose (Fingerstick) 364 mg/dL (70-99) H 323 mg/dL (70-99) H Laboratory Tests 05/10/18 14:40 Laboratory Tests 05/10/18 15:11 EKG EKG EKG shows a sinus rhythm at 81 bpm, left axis, QTC 486 ms, no ST elevation, interpreted by me at 1451[] Radiology/Procedures Radiology/Procedures Portable chest, 05/10/2018: HISTORY: Elevated blood sugar Comparison is made to a study from 11/28/2017. The heart size and pulmonary vascularity are normal. No pulmonary infiltrate is seen. There is no evidence of pleural fluid. IMPRESSION: No acute cardiopulmonary abnormality is detected.[] Course & Med Decision Making Course & Med Decision Making Pertinent Labs and Imaging studies reviewed. (See chart for details) ED course and medical decision making: Patient arrived, was placed in bed, and tolerated exam well. She was noted to have a blood sugar in the 400s after the insulin EMS and given and it decreased to the 300s with additional fluids and additional time for the EMS insulin to work. She does not appear to be in T A, she does appear to have urinary tract infection evidence by the white cells in the urine. There is no evidence of pyelonephritis, patient has no costovertebral angle tenderness. He does not appear to have pneumonia. Believe this is a matter of education given that her family member would not administer insulin because he were concerned that it would raise her blood sugar. Have explained this to the patient to hopefully conveyed to the family member.[] Dragon Disclaimer Dragon Disclaimer This electronic medical record was generated, in whole or in part, using a voice recognition dictation system. Departure Departure Impression: Primary Impression: Poorly controlled diabetes mellitus Additional Impression: Urinary tract infection Disposition: HOME, SELF-CARE Condition: IMPROVED Referrals: QUINTIN MONROY JR, MD (PCP) Follow-up in 2 days Patient Instructions: 2400 Calorie Diet for Diabetes Meal Planning, Diabetes and Exercise-SportsMed, How to Avoid Diabetes Problems, Insulin Treatment in Diabetes, Urinary Tract Infection Additional Instructions: Follow your diabetic diet. Take the insulin and all of your medicines as prescribed. Follow-up with your regular doctor in 2 days. Return to the ER if you develop a fever of more than 101 or any other concerns. Drink plenty of water, coffee, or tea. Do not add sugar to these drinks or drink fruit juices unless your blood sugar is low. Scripts Cephalexin (CEPHALEXIN) 500 Mg Tablet 1 TAB PO TID, #30 TAB Prov: AMITA TURNER DO 05/10/18 Problem Qualifiers Additional Impression: Urinary tract infection Urinary tract infection type: site unspecified Hematuria presence: without hematuria Qualified Codes: N39.0 - Urinary tract infection, site not specified AMITA TURNER DO May 10, 2018 14:40
[2018-05-10] MEDS ORDERED: IV NORMAL SALINE 1000ML BAG 1,000 ML IV SCH (14:45)
[2018-05-10 14:57] LABS: BASO # 0.2 x10^3/uL (0.0-0.2); BASO % 2 % (0-3); EOS # 0.1 x10^3/uL (0.0-0.7); EOS % 1 % (0-3); HEMATOCRIT 31.1 % (36.0-47.0); HEMOGLOBIN 10.4 g/dL (12.0-15.5); LYMPH # 1.5 x10^3/uL (1.0-4.8); LYMPH % 14 % (24-48); MEAN CORPUSCULAR HEMOGLOBIN 26 pg (25-35); MEAN CORPUSCULAR HGB CONC 33 g/dL (31-37); MEAN CORPUSCULAR VOLUME 79 fL (79-100); MONO # 0.8 x10^3/uL (0.0-1.1); MONO % 7 % (0-9); NEUT # 8.2 x10^3uL (1.8-7.7); NEUT % 77 % (31-73); PLATELET COUNT 416 x10^3/uL (140-400); RED BLOOD COUNT 3.93 x10^6/uL (3.50-5.40); WHITE BLOOD COUNT 10.7 x10^3/uL (4.0-11.0)
--- NOTE | 2018-05-10 15:05 | RAD ---
Portable chest, 05/10/2018: HISTORY: Elevated blood sugar Comparison is made to a study from 11/28/2017. The heart size and pulmonary vascularity are normal. No pulmonary infiltrate is seen. There is no evidence of pleural fluid. IMPRESSION: No acute cardiopulmonary abnormality is detected. Electronically signed by: Shoaib Weiss MD (05/10/2018 3:03 PM) [facility]
--- NOTE | 2018-05-10 15:14 | EKG ---
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
[2018-05-10 15:45] LABS: BILIRUBIN,URINE NEGATIVE (NEG); CLARITY,URINE CLEAR; COLOR,URINE YELLOW; NITRITE,URINE NEGATIVE (NEG); PROTEIN,URINE >=300 mg/dL (NEG-TRACE)
[2018-05-10 15:46] LABS: ALBUMIN/GLOBULIN RATIO 0.4 (1.0-1.7); CREATININE 1.5 mg/dL (0.6-1.0); GFR 43.6; POTASSIUM 4.7 mmol/L (3.5-5.1); TOTAL BILIRUBIN 0.2 mg/dL (0.2-1.0); TOTAL PROTEIN 6.9 g/dL (6.4-8.2)
[2018-05-10 15:51] LABS: SQUAMOUS EPITHELIAL CELL,UR MOD /LPF
[2018-05-10 15:53] LABS: BACTERIA,URINE FEW /HPF (0-FEW)
[2018-05-10] MEDS ORDERED: CEPH500T PO (17:05)
[2018-05-10 19:15] VITALS: BP 172/77
== END 2018-05-10 19:33 | disposition home or self-care (01) ==
LOC: ER 14:21
DX: E11.65 Type 2 diabetes mellitus with hyperglycemia (principal); N39.0 Urinary tract infection, site not specified; I10 Essential (primary) hypertension; E78.00 Pure hypercholesterolemia, unspecified; K21.9 Gastro-esophageal reflux disease without esophagitis; G43.909 Migraine, unspecified, not intractable, without status migrainosus; Z86.73 Personal history of transient ischemic attack (TIA), and cerebral infarction without residual deficits; Z90.89 Acquired absence of other organs; Z79.4 Long term (current) use of insulin
CPT/HCPCS: 36415; 71045; 80053; 81001; 82010; 82962; 84484; 85025; 87086; 93005; 96360; 99284; J7030

== ENCOUNTER 2019-07-21 05:46 | Inpatient (IN) | payer MEDICARE, MEDICAID ==
[~2019-07-21] VITALS: Ht 162.6 cm; Wt 59.9 kg
[2019-07-21] VITALS (13 sets, daily range): BP systolic 103–148; BP diastolic 49–69
[~2019-07-21 05:46] MED LIST changes: +ALBU2.5V8 NEB; +BISA10SU4 PR; +CARV25TA2 PO; +CEPH500T PO; +CHOL3000 PO; +CITA20TA6 PO; +CLON1PAT6 TD; +CYAN100031 PO; +CYCL5TAB PO; +DEXTROSE 50% IV; +FERR325T14 PO; +GABA600T7 PO; +INSU100I11 SQ; +LORA2ORA2 PO; +MELA1TAB9 PO; +PANT40TA77 PO; +PANT40VI IVP; +POLY2500 PO; +SENN1TAB37 PO; +SIMV40TA18 PO; -SIMV40TA3 PO; +SODI44SP NS; +TRAM50TA PO; +Tpn Per Pharmacy MC; +WATER IV
[2019-07-21 06:28] LABS: BASE EXCESS ABG 2 mmol/L (-3-3); HCO3 ABG 25 mmol/L (21-28); PCO2 ABG 34 mmHg (35-46); PO2 ABG 102 mmHg (75-108); SAT O2 ABG 98 % (92-99)
[2019-07-21 06:36] LABS: ALBUMIN 1.9 g/dL (3.4-5.0); ALBUMIN/GLOBULIN RATIO 0.4 (1.0-1.7); CALCIUM 8.6 mg/dL (8.5-10.1); CREATININE 1.4 mg/dL (0.6-1.0); GFR 46.9; TOTAL BILIRUBIN 0.3 mg/dL (0.2-1.0); TOTAL PROTEIN 6.3 g/dL (6.4-8.2)
[2019-07-21] MEDS ORDERED: ONDANSETRON PF 4 MG/2 ML VIAL. ONE (06:37)
[2019-07-21 06:38] LABS: BASO % 0 % (0-3); EOS % 0 % (0-3); HEMATOCRIT 26.1 % (36.0-47.0); HEMOGLOBIN 8.2 g/dL (12.0-15.5); LYMPH % 5 % (24-48); MEAN CORPUSCULAR HEMOGLOBIN 27 pg (25-35); MEAN CORPUSCULAR HGB CONC 31 g/dL (31-37); MEAN CORPUSCULAR VOLUME 86 fL (79-100); MONO % 5 % (0-9); NEUT # 19.9 x10^3/uL (1.8-7.7); NEUT % 91 % (31-73); PLATELET COUNT 620 x10^3/uL (140-400); RED BLOOD COUNT 3.04 x10^6/uL (3.50-5.40); RED CELL DISTRIBUTION WIDTH 15.6 % (11.5-14.5); WHITE BLOOD COUNT 21.9 x10^3/uL (4.0-11.0)
[2019-07-21 06:39] LABS: POTASSIUM 6.6 mmol/L (3.5-5.1)
[2019-07-21 06:43] LABS: FIO2 ABG 32
--- NOTE | 2019-07-21 06:51 | EKG ---
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
[2019-07-21] MEDS ORDERED: ONDANSETRON PF 4 MG/2 ML VIAL. IVP ONE (07:00)
[2019-07-21] MEDS ORDERED: INSULIN REGULAR 100 UNIT/ML 3ML VIAL. IV ONE (07:30)
[2019-07-21] MEDS ORDERED: SODIUM BICARB ADULT 8.4% 50 MEQ/50 ML DISP.SYRIN. IV ONE (07:30)
--- NOTE | 2019-07-21 07:32 | RAD ---
CHEST AP ONLY INDICATION: Dyspnea. COMPARISON STUDY: 06/09/2019. FINDINGS: Lungs: Normal lung volume. Scattered left lung opacities. Pleura: No pleural effusion or pneumothorax. Heart and Mediastinum: The cardiomediastinal silhouette is normal. The great vessels of the thorax are normal. IMPRESSION: Scattered opacities in the left lung, concerning for an infectious/inflammatory process. Electronically signed by: Humberto Mccoy MD (07/21/2019 7:29 AM) [id number]
[2019-07-21] MEDS ORDERED: CLINDAMYCIN 900MG PREMIX 50 ML IV ONE (07:45)
[2019-07-21] MEDS ORDERED: CEFEPIME HCL IV Push 2 GM VIAL. IVP ONE (07:45)
--- NOTE | 2019-07-21 08:42 | PHYS DOC ---
Past Medical History Past Medical History: CVA, Diabetes-Type II, GERD, High Cholesterol, Hypertension, Migraines, TIA, Other Additional Past Medical Histor: developmental delay,CVA X3 Past Surgical History: Appendectomy Smoking Status: Former Smoker Alcohol Use: Sober Drug Use: None General Adult EDM: Chief Complaint: SHORTNESS OF BREATH HPI: HPI: Patient is a 59 year old -[place]oz[place] female with history of CVA with left- sided natividad-paresis, expressive aphasia who presents with acute respiratory distress. Patient has a PEG tube in place and reportedly vomited with possible aspiration episode prior to respiratory symptoms. EMS were contacted and patient was noted to be satting 57% on room air on EMS arrival. Patient placed on 3 and half liters of oxygen and maintaining saturation greater than 95%. Moderate tachypnea noted with coarse breath sounds bilaterally. History is limited due to aphasia. [] Review of Systems: Review of Systems: ROS: as per HPI[] Heart Score: Risk Factors: Risk Factors: DM, Current or recent (<one month) smoker, HTN, HLP, family history of CAD, obesity. Risk Scores: Score 0 - 3: 2.5% MACE over next 6 weeks - Discharge Home Score 4 - 6: 20.3% MACE over next 6 weeks - Admit for Clinical Observation Score 7 - 10: 72.7% MACE over next 6 weeks - Early Invasive Strategies Current Medications: Current Medications Medications (Trade) Dose Ordered Sig/Shirley Start Time Stop Time Status Last Admin Dose Admin Cefepime HCl (Maxipime) 2 gm 1X ONCE 07/21/19 07:45 07/21/19 07:46 DC 07/21/19 07:47 2 GM Clindamycin Phosphate 50 ml @ 100 mls/hr 1X ONCE 07/21/19 07:45 07/21/19 08:14 DC 07/21/19 08:31 100 MLS/HR Insulin Human Regular (HumuLIN R VIAL) 10 unit 1X ONCE 07/21/19 07:30 07/21/19 07:31 DC 07/21/19 07:30 10 UNIT Ondansetron HCl (Zofran) 4 mg STK-MED ONCE 07/21/19 06:37 07/21/19 06:37 DC Sodium Bicarbonate (Sodium Bicarb Adult 8.4% Syr) 50 meq 1X ONCE 07/21/19 07:30 07/21/19 07:31 DC 07/21/19 08:25 50 MEQ Allergies: Allergies: Allergies Coded Allergies Type Severity Reaction Last Updated Verified No Known Drug Allergies 06/17/19 No Physical Exam: PE: Constitutional: Well developed, well nourished, tachypnea with increased work of breathing [] HENT: Normocephalic, atraumatic, bilateral external ears normal, oropharynx moist, nose normal. [] Eyes: PERRLA, EOMI, conjunctiva normal. [] Neck: Normal range of motion, no tenderness, supple. [] Cardiovascular:Heart rate regular rhythm, no murmur. [] Lungs & Thorax: Bilateral breath sounds clear to auscultation [] Abdomen: Bowel sounds normal, soft, non-distended, no grimacing in exam. [] Skin: Warm, dry. [] Neurologic: Alert, Left hemiparesis. [] Current Patient Data: Labs: Laboratory Tests Test 07/21/19 06:00 07/21/19 06:25 White Blood Count 21.9 x10^3/uL (4.0-11.0) H Red Blood Count 3.04 x10^6/uL (3.50-5.40) L Hemoglobin 8.2 g/dL (12.0-15.5) L Hematocrit 26.1 % (36.0-47.0) L Mean Corpuscular Volume 86 fL (79-100) Mean Corpuscular Hemoglobin 27 pg (25-35) Mean Corpuscular Hemoglobin Concent 31 g/dL (31-37) Red Cell Distribution Width 15.6 % (11.5-14.5) H Platelet Count 620 x10^3/uL (140-400) H Neutrophils (%) (Auto) 91 % (31-73) H Lymphocytes (%) (Auto) 5 % (24-48) L Monocytes (%) (Auto) 5 % (0-9) Eosinophils (%) (Auto) 0 % (0-3) Basophils (%) (Auto) 0 % (0-3) Neutrophils # (Auto) 19.9 x10^3/uL (1.8-7.7) H Lymphocytes # (Auto) 1.0 x10^3/uL (1.0-4.8) Monocytes # (Auto) 1.0 x10^3/uL (0.0-1.1) Eosinophils # (Auto) 0.0 x10^3/uL (0.0-0.7) Basophils # (Auto) 0.0 x10^3/uL (0.0-0.2) Platelet Estimate Pending Sodium Level 142 mmol/L (136-145) Potassium Level 6.6 mmol/L (3.5-5.1) *H Chloride Level 103 mmol/L (98-107) Carbon Dioxide Level 31 mmol/L (21-32) Anion Gap 8 (6-14) Blood Urea Nitrogen 47 mg/dL (7-20) H Creatinine 1.4 mg/dL (0.6-1.0) H Estimated GFR (Cockcroft-Gault) 46.9 BUN/Creatinine Ratio 34 (6-20) H Glucose Level 290 mg/dL (70-99) H Lactic Acid Level 1.8 mmol/L (0.4-2.0) Calcium Level 8.6 mg/dL (8.5-10.1) Total Bilirubin 0.3 mg/dL (0.2-1.0) Aspartate Amino Transferase (AST) 41 U/L (15-37) H Alanine Aminotransferase (ALT) 73 U/L (14-59) H Alkaline Phosphatase 133 U/L (46-116) H Troponin I Quantitative < 0.017 ng/mL (0.000-0.055) VD-Bmw-Z-Type Natriuretic Peptide 87310 pg/mL (0-124) H Total Protein 6.3 g/dL (6.4-8.2) L Albumin 1.9 g/dL (3.4-5.0) L Albumin/Globulin Ratio 0.4 (1.0-1.7) L O2 Saturation 98 % (92-99) Arterial Blood pH 7.49 (7.35-7.45) H Arterial Blood pCO2 at Patient Temp 34 mmHg (35-46) L Arterial Blood pO2 at Patient Temp 102 mmHg (75-108) Arterial Blood HCO3 25 mmol/L (21-28) Arterial Blood Base Excess 2 mmol/L (-3-3) FiO2 32 Laboratory Tests 07/21/19 06:00 Laboratory Tests 07/21/19 06:00 Vital Signs: Vital Signs Date Time Temp Pulse Resp B/P (MAP) Pulse Ox O2 Delivery O2 Flow Rate FiO2 07/21/19 06:39 101 4 125/59 (81) 96 Nasal Cannula 3.0 07/21/19 05:46 99.1 99.1 EKG: EKG: EKG: reviewed[] Radiology/Procedures: Radiology/Procedures: [CXR: Radiology report reviewed.] Course & Med Decision Making: Course & Med Decision Making Pertinent Labs and Imaging studies reviewed. (See chart for details) Patient remains nauseated with vomiting episodes. IV Zofran given. Patient maintained on oxygen. IV antibiotics given for multi lobar pneumonia. COVID testing ordered. Hyperkalemia addressed. CT abdomen pending as ordered for abdominal evaluation prior to arrival to medical floor.] Dragon Disclaimer: Dragon Disclaimer: This electronic medical record was generated, in whole or in part, using a voice recognition dictation system. Departure Departure Impression: Primary Impression: HCAP (healthcare-associated pneumonia) Additional Impressions: Congestive heart failure Hyperkalemia Vomiting Aspiration into airway Disposition: ADMITTED INPATIENT Condition: GUARDED Referrals: MICHA RODRIGUEZ DO (PCP) CHANEL PARSONS DO July 21, 2019 08:42
[2019-07-21] MEDS ORDERED: METOCLOPRAMIDE HCL 10 MG/2 ML VIAL. IVP ONE (08:45)
[2019-07-21] MEDS ORDERED: IOHEXOL 300 MG/ML 100ML VIAL. IV ONE (09:00)
[2019-07-21 09:22] LABS: % BANDS 30 % (0-9); % LYMPHS 8 % (24-48); % MONOS 13 % (0-10); % SEGS 49 % (35-66); PLT ESTIMATE INCREASED (ADEQUATE)
[2019-07-21 09:24] LABS: ANISOCYTOSIS SLIGHT
[2019-07-21] MEDS ORDERED: ONDANSETRON PF 4 MG/2 ML VIAL. IV PRN ×2 (09:30→11:30)
[2019-07-21] MEDS: IPRATRPIUM/ALBUTEROL 0.5/2.5MG 3 ML NEBU. NEB SCH ×3 (09:50→20:00)
--- NOTE | 2019-07-21 10:40 | PDOC1 ---
History and Physical Date of Admission Date of Admission DATE: 07/21/19 TIME: 10:36 Identification/Chief Complaint Chief Complaint seen in er with suspected aspiration pneumonia , severe [id number] year old -[place]ian female with history of CVA with left-sided natividad-paresis, expressive aphasia who presents with acute respiratory distress. Patient has a PEG tube in place and reportedly vomited with possible aspiration episode prior to respiratory symptoms. EMS were contacted and patient was noted to be satting 57% on room air on EMS arrival. Patient placed on 3 and half liters of oxygen and maintaining saturation greater than 95%. Moderate tachypnea noted with coarse breath sounds bilaterally. screened for covid-19, admit icu bed Past Medical History Past Medical History Past Medical History Past Medical History Past Medical History: CVA, Diabetes-Type II, GERD, High Cholesterol, Hypertension, Migraines, TIA, Other Additional Past Medical Histor: developmental delay,CVA X3 Past Surgical History: Appendectomy Smoking Status: Former Smoker Alcohol Use: Sober Drug Use: None FHX HTN Cardiovascular: HTN Pulmonary: No pertinent hx CENTRAL NERVOUS SYSTEM: TIA GI: GERD, Other Heme/Onc: No pertinent hx Hepatobiliary: No pertinent hx Psych: No pertinent hx Musculoskeletal: low back pain Rheumatologic: No pertinent hx Infectious disease: No pertinent hx Renal/: Chronic renal insuff Endocrine: Diabetes Past Surgical History Past Surgical History: No pertinent history Family History Family History: Heart Disease, Family History Unknown Social History Smoke: No ALCOHOL: none Drugs: None Current Problem List Problem List Problems Medical Problems: (1) Aspiration into airway Status: Acute (2) Congestive heart failure Status: Acute (3) HCAP (healthcare-associated pneumonia) Status: Acute (4) Hyperkalemia Status: Acute Current Medications Current Medications Current Medications Ondansetron HCl (Zofran) 8 mg 1X ONCE IVP Last administered on 07/21/19at 07:42; Start 07/21/19 at 07:00; Stop 07/21/19 at 07:01; Status DC Ondansetron HCl (Zofran) 4 mg STK-MED ONCE .ROUTE ; Start 07/21/19 at 06:37; Stop 07/21/19 at 06:37; Status DC Insulin Human Regular (HumuLIN R VIAL) 10 unit 1X ONCE IV Last administered on 07/21/19at 07:30; Start 07/21/19 at 07:30; Stop 07/21/19 at 07:31; Status DC Sodium Bicarbonate (Sodium Bicarb Adult 8.4% Syr) 50 meq 1X ONCE IV Last administered on 07/21/19at 08:25; Start 07/21/19 at 07:30; Stop 07/21/19 at 07:31; Status DC Clindamycin Phosphate 50 ml @ 100 mls/hr 1X ONCE IV Last administered on 07/21/19at 08:31; Start 07/21/19 at 07:45; Stop 07/21/19 at 08:14; Status DC Cefepime HCl (Maxipime) 2 gm 1X ONCE IVP Last administered on 07/21/19at 07:47; Start 07/21/19 at 07:45; Stop 07/21/19 at 07:46; Status DC Metoclopramide HCl (Reglan Vial) 10 mg 1X ONCE IVP Last administered on 07/21/19at 09:05; Start 07/21/19 at 08:45; Stop 07/21/19 at 08:47; Status DC Iohexol (Omnipaque 300 Mg/ml) 75 ml 1X ONCE IV Last administered on 07/21/19at 10:01; Start 07/21/19 at 09:00; Stop 07/21/19 at 09:01; Status DC Ondansetron HCl (Zofran) 4 mg PRN Q8HRS PRN IV NAUSEA/VOMITING; Start 07/21/19 at 09:30; Stop 07/22/19 at 09:29 Albuterol/ Ipratropium (Duoneb) 3 ml RTQID NEB ; Start 07/21/19 at 12:00; Stop 07/22/19 at 11:59 Active Scripts Active [Tpn Per Pharmacy] 1 EACH Each 1 Each MC PRN DAILY PRN 14 Days Humalog (Insulin Lispro) 100 Unit/1 Ml Insuln.pen 0 Units SQ TIDWMEALS 14 Days Protonix Iv (Pantoprazole Sodium) 40 Mg Vial 40 Mg IVP DAILYAC 14 Days Bisacodyl 10 Mg Supp.rect [address] PRN DAILY PRN 30 Days Deep Sea (Sodium Chloride) 44 Ml [place] 1 Gaurang NS PRN Q1HR PRN 30 Days [Dextrose 50 % In Water] 50 ML Disp.syrin 12.5 Gm IV PRN Q15MIN PRN 10 Days Clonidine Tts-2 (Clonidine) 1 Each Patch.tdwk 1 Patch TD WEEKLY 14 Days Proair Hfa (Albuterol Sulfate) 8.5 Gm Hfa.aer.ad 2.5 Mg NEB PRN Q4HRS PRN 14 Days Zofran Odt (Ondansetron) 4 Mg Tab.rapdis 1 Tab SL Q6HRS PRN Allergies Allergies: Coded Allergies: No Known Drug Allergies (Unverified , 06/17/19) ROS Review of System unable to review due to dysphasia ALLERGY AND IMMUNOLOGY: No: Hives, Insect Bite Sensitivity, Itchy/Watery Eyes, Nasal Congestion, Post Nasal Drip, Seasonal Allergies, Other Respiratory: YES: Cough, Shortness of breath Physical Exam Physical Exam Well developed, well nourished, tachypnea with less increased work of breathing [] HENT: Normocephalic, atraumatic, bilateral external ears normal, oropharynx moist, nose normal. [] Eyes: PERRLA, EOMI, conjunctiva normal. [] Neck: Normal range of motion, no tenderness, supple. [] Cardiovascular:Heart rate regular rhythm, no murmur. [] Lungs & Thorax: Bilateral breath sounds coarse [] Abdomen: Bowel sounds normal, soft, non-distended, no grimacing in exam. [] Skin: Warm, dry. [] Neurologic: Alert, Left hemiparesis. [] General: Cooperative HEENT: Atraumatic Heart: RRR Breasts: Not examined Abdomen: Soft Rectal Exam: not examined PELVIC: Examination not indicated Extremities: No cyanosis, No edema Vitals Vitals Vital Signs Date Time Temp Pulse Resp B/P (MAP) Pulse Ox O2 Delivery O2 Flow Rate FiO2 07/21/19 06:39 101 4 125/59 (81) 96 Nasal Cannula 3.0 07/21/19 05:46 99.1 99.1 Labs Labs Laboratory Tests Test 07/21/19 06:00 07/21/19 06:25 White Blood Count 21.9 x10^3/uL (4.0-11.0) Red Blood Count 3.04 x10^6/uL (3.50-5.40) Hemoglobin 8.2 g/dL (12.0-15.5) Hematocrit 26.1 % (36.0-47.0) Mean Corpuscular Volume 86 fL (79-100) Mean Corpuscular Hemoglobin 27 pg (25-35) Mean Corpuscular Hemoglobin Concent 31 g/dL (31-37) Red Cell Distribution Width 15.6 % (11.5-14.5) Platelet Count 620 x10^3/uL (140-400) Neutrophils (%) (Auto) 91 % (31-73) Lymphocytes (%) (Auto) 5 % (24-48) Monocytes (%) (Auto) 5 % (0-9) Eosinophils (%) (Auto) 0 % (0-3) Basophils (%) (Auto) 0 % (0-3) Neutrophils # (Auto) 19.9 x10^3/uL (1.8-7.7) Lymphocytes # (Auto) 1.0 x10^3/uL (1.0-4.8) Monocytes # (Auto) 1.0 x10^3/uL (0.0-1.1) Eosinophils # (Auto) 0.0 x10^3/uL (0.0-0.7) Basophils # (Auto) 0.0 x10^3/uL (0.0-0.2) Segmented Neutrophils % 49 % (35-66) Band Neutrophils % 30 % (0-9) Lymphocytes % 8 % (24-48) Monocytes % 13 % (0-10) Platelet Estimate Increased (ADEQUATE) Large Platelets Few Giant Platelets Occ Anisocytosis Slight Sodium Level 142 mmol/L (136-145) Potassium Level 6.6 mmol/L (3.5-5.1) Chloride Level 103 mmol/L (98-107) Carbon Dioxide Level 31 mmol/L (21-32) Anion Gap 8 (6-14) Blood Urea Nitrogen 47 mg/dL (7-20) Creatinine 1.4 mg/dL (0.6-1.0) Estimated GFR (Cockcroft-Gault) 46.9 BUN/Creatinine Ratio 34 (6-20) Glucose Level 290 mg/dL (70-99) Lactic Acid Level 1.8 mmol/L (0.4-2.0) Calcium Level 8.6 mg/dL (8.5-10.1) Total Bilirubin 0.3 mg/dL (0.2-1.0) Aspartate Amino Transf (AST/SGOT) 41 U/L (15-37) Alanine Aminotransferase (ALT/SGPT) 73 U/L (14-59) Alkaline Phosphatase 133 U/L (46-116) Troponin I Quantitative < 0.017 ng/mL (0.000-0.055) HS-Swg-X-Type Natriuretic Peptide 61585 pg/mL (0-124) Total Protein 6.3 g/dL (6.4-8.2) Albumin 1.9 g/dL (3.4-5.0) Albumin/Globulin Ratio 0.4 (1.0-1.7) O2 Saturation 98 % (92-99) Arterial Blood pH 7.49 (7.35-7.45) Arterial Blood pCO2 at Patient Temp 34 mmHg (35-46) Arterial Blood pO2 at Patient Temp 102 mmHg (75-108) Arterial Blood HCO3 25 mmol/L (21-28) Arterial Blood Base Excess 2 mmol/L (-3-3) FiO2 32 Laboratory Tests Test 07/21/19 06:00 07/21/19 06:25 White Blood Count 21.9 x10^3/uL (4.0-11.0) Red Blood Count 3.04 x10^6/uL (3.50-5.40) Hemoglobin 8.2 g/dL (12.0-15.5) Hematocrit 26.1 % (36.0-47.0) Mean Corpuscular Volume 86 fL (79-100) Mean Corpuscular Hemoglobin 27 pg (25-35) Mean Corpuscular Hemoglobin Concent 31 g/dL (31-37) Red Cell Distribution Width 15.6 % (11.5-14.5) Platelet Count 620 x10^3/uL (140-400) Neutrophils (%) (Auto) 91 % (31-73) Lymphocytes (%) (Auto) 5 % (24-48) Monocytes (%) (Auto) 5 % (0-9) Eosinophils (%) (Auto) 0 % (0-3) Basophils (%) (Auto) 0 % (0-3) Neutrophils # (Auto) 19.9 x10^3/uL (1.8-7.7) Lymphocytes # (Auto) 1.0 x10^3/uL (1.0-4.8) Monocytes # (Auto) 1.0 x10^3/uL (0.0-1.1) Eosinophils # (Auto) 0.0 x10^3/uL (0.0-0.7) Basophils # (Auto) 0.0 x10^3/uL (0.0-0.2) Segmented Neutrophils % 49 % (35-66) Band Neutrophils % 30 % (0-9) Lymphocytes % 8 % (24-48) Monocytes % 13 % (0-10) Platelet Estimate Increased (ADEQUATE) Large Platelets Few Giant Platelets Occ Anisocytosis Slight Sodium Level 142 mmol/L (136-145) Potassium Level 6.6 mmol/L (3.5-5.1) Chloride Level 103 mmol/L (98-107) Carbon Dioxide Level 31 mmol/L (21-32) Anion Gap 8 (6-14) Blood Urea Nitrogen 47 mg/dL (7-20) Creatinine 1.4 mg/dL (0.6-1.0) Estimated GFR (Cockcroft-Gault) 46.9 BUN/Creatinine Ratio 34 (6-20) Glucose Level 290 mg/dL (70-99) Lactic Acid Level 1.8 mmol/L (0.4-2.0) Calcium Level 8.6 mg/dL (8.5-10.1) Total Bilirubin 0.3 mg/dL (0.2-1.0) Aspartate Amino Transf (AST/SGOT) 41 U/L (15-37) Alanine Aminotransferase (ALT/SGPT) 73 U/L (14-59) Alkaline Phosphatase 133 U/L (46-116) Troponin I Quantitative < 0.017 ng/mL (0.000-0.055) WG-Vts-D-Type Natriuretic Peptide 65404 pg/mL (0-124) Total Protein 6.3 g/dL (6.4-8.2) Albumin 1.9 g/dL (3.4-5.0) Albumin/Globulin Ratio 0.4 (1.0-1.7) O2 Saturation 98 % (92-99) Arterial Blood pH 7.49 (7.35-7.45) Arterial Blood pCO2 at Patient Temp 34 mmHg (35-46) Arterial Blood pO2 at Patient Temp 102 mmHg (75-108) Arterial Blood HCO3 25 mmol/L (21-28) Arterial Blood Base Excess 2 mmol/L (-3-3) FiO2 32 Images Images CHEST AP ONLY INDICATION: Dyspnea. COMPARISON STUDY: 06/09/2019. FINDINGS: Lungs: Normal lung volume. Scattered left lung opacities. Pleura: No pleural effusion or pneumothorax. Heart and Mediastinum: The cardiomediastinal silhouette is normal. The great vessels of the thorax are normal. IMPRESSION: Scattered opacities in the left lung, concerning for an infectious/inflammatory process. Electronically signed by: Humberto Mccyo MD (07/21/2019 7:29 AM) [id number] VTE Prophylaxis Ordered VTE Prophylaxis Devices: No VTE Pharmacological Prophylaxi: Yes Assessment/Plan Assessment/Plan Assessment/Plan Assessment/Plan impression Acute pneumonia, favor aspiration cannot exclude covid-19 Scattered opacities in the left lung, concerning for an infectious/inflammatory process. acute hypoxic respiratory failure H/o CVA, peg feeding dependent HTN, DM GERD CKD STAGE 3-4 severe hyperkalemia PLAN ADMIT consult pulm dvt prophylaxis o2 support icu bed covid-19 screen Nephrology consult emperic iv antibiotics iv fluid support iv pepsid bid COVID-19 CRITERIA: The patient was evaluated during the global COVID-19 pandemic, and that diagnosis was suspected/considered upon their initial presentation. Their evaluation, treatment and testing were consistent with current guidelines for patients who present with complaints or symptoms that may be related to COVID-19 38 min cc time FAUSTO MARCIAL MD July 21, 2019 10:40
--- NOTE | 2019-07-21 10:45 | RAD ---
PQRS Compliance Statement: One or more of the following individualized dose reduction techniques were utilized for this examination: 1. Automated exposure control 2. Adjustment of the mA and/or kV according to patient size 3. Use of iterative reconstruction technique CT abdomen/pelvis with contrast 07/21/2019 8:26 AM INDICATION: Abdominal pain, vomiting COMPARISON: None available TECHNIQUE: Multiple axial CT images of the abdomen and pelvis were obtained after the intravenous administration of 60 mL Omnipaque 300. Coronal and sagittal reformats are provided. FINDINGS: Patchy nodular airspace disease identified in the inferior lingula, left lower lobe and to lesser extent right lower lobe suspicious for pulmonary infiltrates. Heart size within normal limits. Liver, spleen, bilateral adrenal glands, pancreas and gallbladder are normal in appearance. Abdominal aorta is tortuous, normal in caliber with moderate calcified and noncalcified atheromatous plaque. No free fluid or free intraperitoneal air. Kidneys are normal in appearance. No suspicious renal mass is identified. No hydronephrosis. No calculi are identified in the kidneys, ureters or urinary bladder. Phleboliths are identified within the pelvis. Urinary bladder is within normal limits given degree of distention. Uterus contains coarse calcifications within the fundus measuring up to 11 mm which may reflect underlying uterine fibroid. No suspicious adnexal mass is identified. Gastrostomy tube is present. There are no dilated loops of small or large bowel. No bowel obstruction or inflammation. Appendix is not definitively visualized. No pericecal inflammatory changes are identified. No suspicious osseous abnormality is identified. Mild subcutaneous edema is noted along the right gluteal region without definite ulceration. IMPRESSION: 1. Patchy nodular consolidative changes identified predominantly involving the left lower lobe, however involving the inferior lingula and right middle lobe to lesser extent. Findings are most suggestive of pneumonia in the appropriate clinical setting. Aspiration pneumonitis may have similar appearance. Recommend follow-up to ensure resolution and exclude underlying neoplastic causes. 2. No acute abnormalities identified in abdomen and pelvis. Mild subcutis edema noted along the right gluteal region without ulceration. Correlate with any pressure related effect or trauma. Electronically signed by: Brittny Patel MD (07/21/2019 10:42 AM) [facility]
[2019-07-21] MEDS ORDERED: METO25TA4 PO (11:24)
[2019-07-21] MEDS ORDERED: CYCL5TAB PO (11:24)
[2019-07-21] MEDS ORDERED: POLY2500 PO (11:24)
[2019-07-21] MEDS ORDERED: OMEP20TA8 PO (11:24)
[2019-07-21] MEDS ORDERED: CLOP75TA PO (11:24)
[2019-07-21] MEDS ORDERED: BISA10SU4 RC (11:24)
[2019-07-21] MEDS ORDERED: ALBU2.5V5 NEB (11:24)
[2019-07-21] MEDS ORDERED: ACET325T9 PO (11:24)
[2019-07-21] MEDS ORDERED: CHOL500021 PO (11:24)
[2019-07-21] MEDS ORDERED: CARV25TA PO (11:24)
[2019-07-21] MEDS ORDERED: CYAN-25 PO (11:24)
[2019-07-21] MEDS ORDERED: DOCU100C28 PO (11:24)
[2019-07-21] MEDS ORDERED: SENN8.6T99 PO (11:24)
[2019-07-21] MEDS ORDERED: SIMV40TA PO (11:24)
[2019-07-21] MEDS ORDERED: CITA20TA9 PO (11:24)
[2019-07-21] MEDS ORDERED: HYDR25TA PO (11:24)
[2019-07-21] MEDS ORDERED: GABA600T7 PO (11:24)
[2019-07-21] MEDS ORDERED: TRAM50TA PO (11:24)
[2019-07-21] MEDS ORDERED: INSU100I13 SQ (11:24)
[2019-07-21] MEDS ORDERED: HYDR-3164 PO (11:24)
[2019-07-21] MEDS ORDERED: MELA3TAB4 PO (11:24)
[2019-07-21] MEDS ORDERED: ASPI325T8 PO (11:24)
[2019-07-21] MEDS ORDERED: ALBUTEROL SULFATE 2.5 MG/3 ML NEBU. NEB PRN (11:30)
[2019-07-21] MEDS ORDERED: cloNIDine HCL 0.1 MG TABLET PO PRN (11:30)
[2019-07-21] MEDS ORDERED: VANCOMYCIN 1 GM in IV DEXTROSE 5% 250 ML IV ONE (11:30)
[2019-07-21] MEDS ORDERED: SODIUM PHOSPHATES 19/7GM 133 ML ENEMA. PR PRN (11:30)
[2019-07-21] MEDS ORDERED: 0.9 % SODIUM CHLORIDE 10 ML DISP.SYRIN. IV PRN (11:30)
--- NOTE | 2019-07-21 11:30 | NUR ---
Patient has been received to room 115, placed in isolation pending COVID results. Specimen was obtained by ED. IVF NS started at 100ml/hr via IV access right anticubital. Patient NPO. No family present. No belongings brought with patient. O2 at 4L/nc, which was what patient was on in ER per Leia CUMMINGS. Patient went to CT prior to arriving in ICU. Call light within easy reach. Pt placed on telemetry.
--- NOTE | 2019-07-21 11:33 | NUR ---
Spoke with Chester gearcase assembler with [facility]. number [phone] Updated on pat status.
--- NOTE | 2019-07-21 11:33 | PDOC2 ---
CONSULT Date of Consult Date of Consult DATE: 07/21/19 TIME: 11:32 Reason for Consult Reason for Consult: CKD Identification/Chief Complaint Chief Complaint Non Verbal Source Source: Chart review History of Present Illness Reason for Visit: Hx Obtained from Chart review- Pt is Non verbal Pt is a 59 year old -[place] female with history of CVA with left- sided natividad-paresis, expressive aphasia who presents with acute respiratory distress. Patient has a PEG tube in place and reportedly vomited with possible aspiration episode prior to respiratory symptoms. EMS were contacted and patient was noted to be satting 57% on room air on EMS arrival. Patient placed on 3 and half liters of oxygen and maintaining saturation greater than 95%. Screened for covid-19, admit icu bed. K was elevated, repeat labs Normal . She has Dx of CKD Past Medical History Cardiovascular: HTN Pulmonary: No pertinent hx CENTRAL NERVOUS SYSTEM: TIA GI: GERD, Other Heme/Onc: No pertinent hx Hepatobiliary: No pertinent hx Psych: No pertinent hx Musculoskeletal: low back pain Rheumatologic: No pertinent hx Infectious disease: No pertinent hx Renal/: Chronic renal insuff Endocrine: Diabetes Past Surgical History Past Surgical History: No pertinent history Family History Family History: Heart Disease, Family History Unknown Social History No ALCOHOL: none Drugs: None Current Problem List Problem List Problems Medical Problems: (1) Aspiration into airway Status: Acute (2) Congestive heart failure Status: Acute (3) HCAP (healthcare-associated pneumonia) Status: Acute (4) Hyperkalemia Status: Acute Current Medications Current Medications Current Medications Ondansetron HCl (Zofran) 8 mg 1X ONCE IVP Last administered on 07/21/19at 07:42; Start 07/21/19 at 07:00; Stop 07/21/19 at 07:01; Status DC Ondansetron HCl (Zofran) 4 mg STK-MED ONCE .ROUTE ; Start 07/21/19 at 06:37; Stop 07/21/19 at 06:37; Status DC Insulin Human Regular (HumuLIN R VIAL) 10 unit 1X ONCE IV Last administered on 07/21/19at 07:30; Start 07/21/19 at 07:30; Stop 07/21/19 at 07:31; Status DC Sodium Bicarbonate (Sodium Bicarb Adult 8.4% Syr) 50 meq 1X ONCE IV Last administered on 07/21/19at 08:25; Start 07/21/19 at 07:30; Stop 07/21/19 at 07:31; Status DC Clindamycin Phosphate 50 ml @ 100 mls/hr 1X ONCE IV Last administered on at 08:31; Start 07/21/19 at 07:45; Stop 07/21/19 at 08:14; Status DC Cefepime HCl (Maxipime) 2 gm 1X ONCE IVP Last administered on 07/21/19at 07:47; Start 07/21/19 at 07:45; Stop 07/21/19 at 07:46; Status DC Metoclopramide HCl (Reglan Vial) 10 mg 1X ONCE IVP Last administered on 07/21/19at 09:05; Start 07/21/19 at 08:45; Stop 07/21/19 at 08:47; Status DC Iohexol (Omnipaque 300 Mg/ml) 75 ml 1X ONCE IV Last administered on 07/21/19at 10:01; Start 07/21/19 at 09:00; Stop 07/21/19 at 09:01; Status DC Ondansetron HCl (Zofran) 4 mg PRN Q8HRS PRN IV NAUSEA/VOMITING; Start 07/21/19 at 09:30; Stop 07/22/19 at 09:29 Albuterol/ Ipratropium (Duoneb) 3 ml RTQID NEB ; Start 07/21/19 at 12:00; Stop 07/22/19 at 11:59 Cefepime HCl (Maxipime) 2 gm Q12HR IVP ; Start 07/21/19 at 21:00 Sodium Chloride (Normal Saline Flush) 3 ml QSHIFT PRN IV AFTER MEDS AND BLOOD DRAWS; Start 07/21/19 at 11:30 Sodium Chloride 1,000 ml @ 100 mls/hr Q10H IV ; Start 07/21/19 at 11:19 Ondansetron HCl (Zofran) 4 mg PRN Q4HRS PRN IV NAUSEA/VOMITING; Start 07/21/19 at 11:30 Acetaminophen (Tylenol) 650 mg PRN Q4HRS PRN GT TEMP OVER 100.4F OR MILD PAIN; Start 07/21/19 at 11:30 Acetaminophen (Tylenol Supp) 650 mg PRN Q4HRS PRN CO TEMP OVER 100.4F OR MILD PAIN; Start 07/21/19 at 11:30 Clonidine HCl (Catapres) 0.1 mg PRN Q6HRS PRN PO SBP>160 OR DBP>90; Start 07/21/19 at 11:30 Sodium Monofluorophosphate (Fleet Adult) 133 ml PRN DAILY PRN CO CONSTIPATION; Start 07/21/19 at 11:30 Albuterol Sulfate (Ventolin Neb Soln) 2.5 mg PRN Q4HRS PRN NEB SHORTNESS OF BREATH; Start 07/21/19 at 11:30 Enoxaparin Sodium (Lovenox 40mg Syringe) 40 mg Q24H SQ ; Start 07/21/19 at 21:00 Vancomycin HCl 1 gm/Dextrose 250 ml @ 250 mls/hr 1X ONCE IV ; Start 07/21/19 at 11:30; Stop 07/21/19 at 12:29; Status UNV Vancomycin HCl (Vanco Per Pharmacy) 1 each PRN DAILY PRN MC SEE COMMENTS; Start 07/21/19 at 11:45 Active Scripts Active Humalog (Insulin Lispro) 100 Unit/1 Ml Insuln.pen 0 Units SQ TIDWMEALS 14 Days Zofran Odt (Ondansetron) 4 Mg Tab.rapdis 1 Tab SL Q6HRS PRN Reported Zocor (Simvastatin) 40 Mg Tablet 1 Tab PO DAILY Tramadol Hcl 50 Mg Tablet 50 Mg PO BID PRN Senokot (Sennosides) 8.6 Mg Tablet 1 Tab PO BID 20 Days Polyethylene Glycol 3350 2,500 Gm Powder 17 Gm PO DAILY 30 Days Omeprazole 20 Mg Tablet.dr 1 Tab PO DAILY [place] 5-325 Tablet (Acetaminophen/Hydrocodone Bitart) 1 Each Tablet 1 Tab PO BID Metoprolol Tartrate 25 Mg Tablet 1 Tab PO BID Melatonin 3 Mg Tablet 2 Tab PO QHS Lantus Solostar (Insulin Glargine,Hum.rec.anlog) 100 Unit/1 Ml Insuln.pen 30 Unit SQ QHS Hydroxyzine Hcl 25 Mg Tablet 1 Tab PO TID Gabapentin 600 Mg Tablet 600 Mg PO BID Docusate Sodium 100 Mg Capsule 1 Cap PO BID 15 Days Cyclobenzaprine Hcl 5 Mg Tablet 1 Tab PO QHS Vitamin B-12 (Cyanocobalamin (Vitamin B-12)) 1,000 Mcg Tablet 1 Tab PO DAILY 30 Days Coreg (Carvedilol) 25 Mg Tablet 12.5 Mg PO BIDWMEALS Clopidogrel (Clopidogrel Bisulfate) 75 Mg Tablet 1 Tab PO DAILY Celexa (Citalopram Hydrobromide) 20 Mg Tablet 1 Tab PO DAILY D3-50 (Cholecalciferol (Vitamin D3)) 50,000 Unit Capsule 2,000 Unit PO DAILY Bisacodyl 10 Mg Supp.rect 10 Mg RC PRN DAILY PRN Aspirin 325 Mg Tablet 1 Tab PO DAILY Albuterol Sulfate Neb Soln (Albuterol Sulfate) 2.5 Mg/3 Ml Vial.neb 1 Vial NEB PRN Q4HRS Tylenol (Acetaminophen) 325 Mg Tablet 2 Tab PO BID Allergies Allergies: Coded Allergies: No Known Drug Allergies (Unverified , 06/17/19) ROS Review of System Unable to Obtain, Pt is Non verbal Physical Exam Physical Exam GEN: nad HEEN: Om moist , O2 by NC NECK: supple CVS: RRR RESP: decreased at bases, Nonlabored GI: BS + ve Non Tender, PEG + : No CVA tenderness, No Suprapubic Tenderness Neuro- Non verbal Ext No edema Vital Signs Vital Signs Date Time Temp Pulse Resp B/P (MAP) Pulse Ox O2 Delivery O2 Flow Rate FiO2 07/21/19 10:03 95 16 140/60 (86) 100 Nasal Cannula 4.0 07/21/19 05:46 99.1 99.1 Assessment & Plan CKD stage 3 - reviewed labs from [facility] Baseline 1.5-1.8 since at least 2014, US in 2018 normal , stable renal function IVF, Supportive care, strict I/O , Avoid nephrotoxins, Monitor s/p IV contrast with CT this am - Monitor renal function for SHAYLA Fleets enema CI in CKD HyperKalemia- at presentation, Improved Acute hypoxic respiratory failure On o2 by NC, COVID pending Scattered opacities in the left lung, concerning for an infectious/inflammatory process. H/o CVA, peg feeding dependent HTN- stable DM Labs Labs Laboratory Tests Test 07/21/19 06:00 07/21/19 06:25 White Blood Count 21.9 x10^3/uL (4.0-11.0) Red Blood Count 3.04 x10^6/uL (3.50-5.40) Hemoglobin 8.2 g/dL (12.0-15.5) Hematocrit 26.1 % (36.0-47.0) Mean Corpuscular Volume 86 fL (79-100) Mean Corpuscular Hemoglobin 27 pg (25-35) Mean Corpuscular Hemoglobin Concent 31 g/dL (31-37) Red Cell Distribution Width 15.6 % (11.5-14.5) Platelet Count 620 x10^3/uL (140-400) Neutrophils (%) (Auto) 91 % (31-73) Lymphocytes (%) (Auto) 5 % (24-48) Monocytes (%) (Auto) 5 % (0-9) Eosinophils (%) (Auto) 0 % (0-3) Basophils (%) (Auto) 0 % (0-3) Neutrophils # (Auto) 19.9 x10^3/uL (1.8-7.7) Lymphocytes # (Auto) 1.0 x10^3/uL (1.0-4.8) Monocytes # (Auto) 1.0 x10^3/uL (0.0-1.1) Eosinophils # (Auto) 0.0 x10^3/uL (0.0-0.7) Basophils # (Auto) 0.0 x10^3/uL (0.0-0.2) Segmented Neutrophils % 49 % (35-66) Band Neutrophils % 30 % (0-9) Lymphocytes % 8 % (24-48) Monocytes % 13 % (0-10) Platelet Estimate Increased (ADEQUATE) Large Platelets Few Giant Platelets Occ Anisocytosis Slight Sodium Level 142 mmol/L (136-145) Potassium Level 6.6 mmol/L (3.5-5.1) Chloride Level 103 mmol/L (98-107) Carbon Dioxide Level 31 mmol/L (21-32) Anion Gap 8 (6-14) Blood Urea Nitrogen 47 mg/dL (7-20) Creatinine 1.4 mg/dL (0.6-1.0) Estimated GFR (Cockcroft-Gault) 46.9 BUN/Creatinine Ratio 34 (6-20) Glucose Level 290 mg/dL (70-99) Lactic Acid Level 1.8 mmol/L (0.4-2.0) Calcium Level 8.6 mg/dL (8.5-10.1) Total Bilirubin 0.3 mg/dL (0.2-1.0) Aspartate Amino Transf (AST/SGOT) 41 U/L (15-37) Alanine Aminotransferase (ALT/SGPT) 73 U/L (14-59) Alkaline Phosphatase 133 U/L (46-116) Troponin I Quantitative < 0.017 ng/mL (0.000-0.055) QO-Sdt-Z-Type Natriuretic Peptide 12653 pg/mL (0-124) Total Protein 6.3 g/dL (6.4-8.2) Albumin 1.9 g/dL (3.4-5.0) Albumin/Globulin Ratio 0.4 (1.0-1.7) O2 Saturation 98 % (92-99) Arterial Blood pH 7.49 (7.35-7.45) Arterial Blood pCO2 at Patient Temp 34 mmHg (35-46) Arterial Blood pO2 at Patient Temp 102 mmHg (75-108) Arterial Blood HCO3 25 mmol/L (21-28) Arterial Blood Base Excess 2 mmol/L (-3-3) FiO2 32 Laboratory Tests Test 07/21/19 06:00 07/21/19 06:25 White Blood Count 21.9 x10^3/uL (4.0-11.0) Red Blood Count 3.04 x10^6/uL (3.50-5.40) Hemoglobin 8.2 g/dL (12.0-15.5) Hematocrit 26.1 % (36.0-47.0) Mean Corpuscular Volume 86 fL (79-100) Mean Corpuscular Hemoglobin 27 pg (25-35) Mean Corpuscular Hemoglobin Concent 31 g/dL (31-37) Red Cell Distribution Width 15.6 % (11.5-14.5) Platelet Count 620 x10^3/uL (140-400) Neutrophils (%) (Auto) 91 % (31-73) Lymphocytes (%) (Auto) 5 % (24-48) Monocytes (%) (Auto) 5 % (0-9) Eosinophils (%) (Auto) 0 % (0-3) Basophils (%) (Auto) 0 % (0-3) Neutrophils # (Auto) 19.9 x10^3/uL (1.8-7.7) Lymphocytes # (Auto) 1.0 x10^3/uL (1.0-4.8) Monocytes # (Auto) 1.0 x10^3/uL (0.0-1.1) Eosinophils # (Auto) 0.0 x10^3/uL (0.0-0.7) Basophils # (Auto) 0.0 x10^3/uL (0.0-0.2) Segmented Neutrophils % 49 % (35-66) Band Neutrophils % 30 % (0-9) Lymphocytes % 8 % (24-48) Monocytes % 13 % (0-10) Platelet Estimate Increased (ADEQUATE) Large Platelets Few Giant Platelets Occ Anisocytosis Slight Sodium Level 142 mmol/L (136-145) Potassium Level 6.6 mmol/L (3.5-5.1) Chloride Level 103 mmol/L (98-107) Carbon Dioxide Level 31 mmol/L (21-32) Anion Gap 8 (6-14) Blood Urea Nitrogen 47 mg/dL (7-20) Creatinine 1.4 mg/dL (0.6-1.0) Estimated GFR (Cockcroft-Gault) 46.9 BUN/Creatinine Ratio 34 (6-20) Glucose Level 290 mg/dL (70-99) Lactic Acid Level 1.8 mmol/L (0.4-2.0) Calcium Level 8.6 mg/dL (8.5-10.1) Total Bilirubin 0.3 mg/dL (0.2-1.0) Aspartate Amino Transf (AST/SGOT) 41 U/L (15-37) Alanine Aminotransferase (ALT/SGPT) 73 U/L (14-59) Alkaline Phosphatase 133 U/L (46-116) Troponin I Quantitative < 0.017 ng/mL (0.000-0.055) DX-Gue-E-Type Natriuretic Peptide 94774 pg/mL (0-124) Total Protein 6.3 g/dL (6.4-8.2) Albumin 1.9 g/dL (3.4-5.0) Albumin/Globulin Ratio 0.4 (1.0-1.7) O2 Saturation 98 % (92-99) Arterial Blood pH 7.49 (7.35-7.45) Arterial Blood pCO2 at Patient Temp 34 mmHg (35-46) Arterial Blood pO2 at Patient Temp 102 mmHg (75-108) Arterial Blood HCO3 25 mmol/L (21-28) Arterial Blood Base Excess 2 mmol/L (-3-3) FiO2 32 Review All relevant outside records, renal labs, imaging studies, telemetry/EKG's were reviewed. Images Images . CT with IV contrast 07/20 Patchy nodular consolidative changes identified predominantly involving the left lower lobe, however involving the inferior lingula and right middle lobe to lesser extent. Findings are most suggestive of pneumonia in the appropriate clinical setting. Aspiration pneumonitis may have similar appearance. Recommend follow-up to ensure resolution and exclude underlying neoplastic causes. 2. No acute abnormalities identified in abdomen and pelvis. Mild subcutis edema noted along the right gluteal region without ulceration. Correlate with any pressure related effect or trauma. CHUY MITCHELL MD July 21, 2019 11:33
[2019-07-21 11:54] LABS: CREATININE 1.5 mg/dL (0.6-1.0); GFR 43.3; POTASSIUM 5.1 mmol/L (3.5-5.1)
[2019-07-21] MEDS: IV NORMAL SALINE 1000ML BAG 1,000 ML IV SCH ×2 (12:36→21:55)
[2019-07-21] MEDS: INSULIN LISPRO 300 UNITS/3 ML VIAL. SQ SCH ×2 (13:15→18:00)
[2019-07-21] MEDS: ACETAMINOPHEN 650 MG SUPP.RECT. PR PRN ×3 (13:21→21:55)
[2019-07-21] MEDS: VANCOMYCIN PER PHARMACY MC PRN (16:44)
--- NOTE | 2019-07-21 16:45 | NUR ---
Pharmacy Vancomycin Dosing Note S:Consulted to monitor and dose vancomycin started 07/21/19. O:ROBERT VILLA is a 59 year old F with HCAP . Height: 5 feet, 4 inches Weight: 58.0 kg [place] Body Weight: 54.70 Adjusted Body Weight: 56.02 Dosing Weight: Actual Other Antibiotics: CEFEPIME 2GM BID/CLEOCIN 1X LABS: Last BUN: Last Creatinine: 1.4 Creatinine Clearance: 37 mL/min Last WBC: 21.9 Last Procalcitonin: Tmax (past 24 hours): 101 Microbiology: I/O: Drug Levels: Last level: on at Last dose given 07/21/19 at 1230 Vancomycin Dosing: Loading Dose: 1000 mg x1 Dosing Weight: Actual Target Trough: 15-20 A: Based on: 1GM DOSE GIVEN AT 12:30PM TODAY, CRCL 37 P: 1. START Vancomycin 1000 mg IV q24h TOMORROW 2. Follow up Trough level on 07/23/19 at 1230 3. Pharmacy will continue to monitor, follow and adjust therapy as needed. DANTE WELCH Fuentes, 07/21/19 [id number]
--- NOTE | 2019-07-21 16:47 | PDOC ---
PULMONARY PROGRESS NOTES Vitals Vital Signs Date Time Temp Pulse Resp B/P (MAP) Pulse Ox O2 Delivery O2 Flow Rate FiO2 07/21/19 15:00 109 20 142/60 (87) Nasal Cannula 4.0 07/21/19 13:00 101.0 101.0 07/21/19 10:03 100 Lungs: Clear Cardiovascular: S1, S2 Labs Laboratory Tests Test 07/21/19 06:00 07/21/19 06:25 07/21/19 11:15 White Blood Count 21.9 x10^3/uL (4.0-11.0) Red Blood Count 3.04 x10^6/uL (3.50-5.40) Hemoglobin 8.2 g/dL (12.0-15.5) Hematocrit 26.1 % (36.0-47.0) Mean Corpuscular Volume 86 fL (79-100) Mean Corpuscular Hemoglobin 27 pg (25-35) Mean Corpuscular Hemoglobin Concent 31 g/dL (31-37) Red Cell Distribution Width 15.6 % (11.5-14.5) Platelet Count 620 x10^3/uL (140-400) Neutrophils (%) (Auto) 91 % (31-73) Lymphocytes (%) (Auto) 5 % (24-48) Monocytes (%) (Auto) 5 % (0-9) Eosinophils (%) (Auto) 0 % (0-3) Basophils (%) (Auto) 0 % (0-3) Neutrophils # (Auto) 19.9 x10^3/uL (1.8-7.7) Lymphocytes # (Auto) 1.0 x10^3/uL (1.0-4.8) Monocytes # (Auto) 1.0 x10^3/uL (0.0-1.1) Eosinophils # (Auto) 0.0 x10^3/uL (0.0-0.7) Basophils # (Auto) 0.0 x10^3/uL (0.0-0.2) Segmented Neutrophils % 49 % (35-66) Band Neutrophils % 30 % (0-9) Lymphocytes % 8 % (24-48) Monocytes % 13 % (0-10) Platelet Estimate Increased (ADEQUATE) Large Platelets Few Giant Platelets Occ Anisocytosis Slight Sodium Level 142 mmol/L (136-145) 143 mmol/L (136-145) Potassium Level 6.6 mmol/L (3.5-5.1) 5.1 mmol/L (3.5-5.1) Chloride Level 103 mmol/L (98-107) 102 mmol/L (98-107) Carbon Dioxide Level 31 mmol/L (21-32) 32 mmol/L (21-32) Anion Gap 8 (6-14) 9 (6-14) Blood Urea Nitrogen 47 mg/dL (7-20) 50 mg/dL (7-20) Creatinine 1.4 mg/dL (0.6-1.0) 1.5 mg/dL (0.6-1.0) Estimated GFR (Cockcroft-Gault) 46.9 43.3 BUN/Creatinine Ratio 34 (6-20) Glucose Level 290 mg/dL (70-99) 163 mg/dL (70-99) Lactic Acid Level 1.8 mmol/L (0.4-2.0) Calcium Level 8.6 mg/dL (8.5-10.1) 9.0 mg/dL (8.5-10.1) Total Bilirubin 0.3 mg/dL (0.2-1.0) Aspartate Amino Transf (AST/SGOT) 41 U/L (15-37) Alanine Aminotransferase (ALT/SGPT) 73 U/L (14-59) Alkaline Phosphatase 133 U/L (46-116) Troponin I Quantitative < 0.017 ng/mL (0.000-0.055) EG-Uhy-A-Type Natriuretic Peptide 94429 pg/mL (0-124) Total Protein 6.3 g/dL (6.4-8.2) Albumin 1.9 g/dL (3.4-5.0) Albumin/Globulin Ratio 0.4 (1.0-1.7) O2 Saturation 98 % (92-99) Arterial Blood pH 7.49 (7.35-7.45) Arterial Blood pCO2 at Patient Temp 34 mmHg (35-46) Arterial Blood pO2 at Patient Temp 102 mmHg (75-108) Arterial Blood HCO3 25 mmol/L (21-28) Arterial Blood Base Excess 2 mmol/L (-3-3) FiO2 32 Laboratory Tests Test 07/21/19 06:00 07/21/19 06:25 07/21/19 11:15 White Blood Count 21.9 x10^3/uL (4.0-11.0) Red Blood Count 3.04 x10^6/uL (3.50-5.40) Hemoglobin 8.2 g/dL (12.0-15.5) Hematocrit 26.1 % (36.0-47.0) Mean Corpuscular Volume 86 fL (79-100) Mean Corpuscular Hemoglobin 27 pg (25-35) Mean Corpuscular Hemoglobin Concent 31 g/dL (31-37) Red Cell Distribution Width 15.6 % (11.5-14.5) Platelet Count 620 x10^3/uL (140-400) Neutrophils (%) (Auto) 91 % (31-73) Lymphocytes (%) (Auto) 5 % (24-48) Monocytes (%) (Auto) 5 % (0-9) Eosinophils (%) (Auto) 0 % (0-3) Basophils (%) (Auto) 0 % (0-3) Neutrophils # (Auto) 19.9 x10^3/uL (1.8-7.7) Lymphocytes # (Auto) 1.0 x10^3/uL (1.0-4.8) Monocytes # (Auto) 1.0 x10^3/uL (0.0-1.1) Eosinophils # (Auto) 0.0 x10^3/uL (0.0-0.7) Basophils # (Auto) 0.0 x10^3/uL (0.0-0.2) Segmented Neutrophils % 49 % (35-66) Band Neutrophils % 30 % (0-9) Lymphocytes % 8 % (24-48) Monocytes % 13 % (0-10) Platelet Estimate Increased (ADEQUATE) Large Platelets Few Giant Platelets Occ Anisocytosis Slight Sodium Level 142 mmol/L (136-145) 143 mmol/L (136-145) Potassium Level 6.6 mmol/L (3.5-5.1) 5.1 mmol/L (3.5-5.1) Chloride Level 103 mmol/L (98-107) 102 mmol/L (98-107) Carbon Dioxide Level 31 mmol/L (21-32) 32 mmol/L (21-32) Anion Gap 8 (6-14) 9 (6-14) Blood Urea Nitrogen 47 mg/dL (7-20) 50 mg/dL (7-20) Creatinine 1.4 mg/dL (0.6-1.0) 1.5 mg/dL (0.6-1.0) Estimated GFR (Cockcroft-Gault) 46.9 43.3 BUN/Creatinine Ratio 34 (6-20) Glucose Level 290 mg/dL (70-99) 163 mg/dL (70-99) Lactic Acid Level 1.8 mmol/L (0.4-2.0) Calcium Level 8.6 mg/dL (8.5-10.1) 9.0 mg/dL (8.5-10.1) Total Bilirubin 0.3 mg/dL (0.2-1.0) Aspartate Amino Transf (AST/SGOT) 41 U/L (15-37) Alanine Aminotransferase (ALT/SGPT) 73 U/L (14-59) Alkaline Phosphatase 133 U/L (46-116) Troponin I Quantitative < 0.017 ng/mL (0.000-0.055) IS-Iku-E-Type Natriuretic Peptide 08875 pg/mL (0-124) Total Protein 6.3 g/dL (6.4-8.2) Albumin 1.9 g/dL (3.4-5.0) Albumin/Globulin Ratio 0.4 (1.0-1.7) O2 Saturation 98 % (92-99) Arterial Blood pH 7.49 (7.35-7.45) Arterial Blood pCO2 at Patient Temp 34 mmHg (35-46) Arterial Blood pO2 at Patient Temp 102 mmHg (75-108) Arterial Blood HCO3 25 mmol/L (21-28) Arterial Blood Base Excess 2 mmol/L (-3-3) FiO2 32 Medications Active Scripts Medications Dose Route/Sig Max Daily Dose Days Date Category Zocor (Simvastatin) 40 Mg Tablet 1 Tab PO DAILY 07/21/19 Reported Tramadol Hcl 50 Mg Tablet 50 Mg PO BID PRN 07/21/19 Reported Senokot (Sennosides) 8.6 Mg Tablet 1 Tab PO BID 20 07/21/19 Reported Polyethylene Glycol 3350 2,500 Gm Powder 17 Gm PO DAILY 30 07/21/19 Reported Omeprazole 20 Mg Tablet.dr 1 Tab PO DAILY 07/21/19 Reported [place] 5-325 Tablet (Acetaminophen/Hydrocodone Bitart) 1 Each Tablet 1 Tab PO BID 07/21/19 Reported Metoprolol Tartrate 25 Mg Tablet 1 Tab PO BID 07/21/19 Reported Melatonin 3 Mg Tablet 2 Tab PO QHS 07/21/19 Reported Lantus Solostar (Insulin Glargine,Hum.rec.anlog) 100 Unit/1 Ml Insuln.pen 30 Unit SQ QHS 07/21/19 Reported Hydroxyzine Hcl 25 Mg Tablet 1 Tab PO TID 07/21/19 Reported Gabapentin 600 Mg Tablet 600 Mg PO BID 07/21/19 Reported Docusate Sodium 100 Mg Capsule 1 Cap PO BID 15 07/21/19 Reported Cyclobenzaprine Hcl 5 Mg Tablet 1 Tab PO QHS 07/21/19 Reported Vitamin B-12 (Cyanocobalamin (Vitamin B-12)) 1,000 Mcg Tablet 1 Tab PO DAILY 30 07/21/19 Reported Coreg (Carvedilol) 25 Mg Tablet 12.5 Mg PO BIDWMEALS 07/21/19 Reported Clopidogrel (Clopidogrel Bisulfate) 75 Mg Tablet 1 Tab PO DAILY 07/21/19 Reported Celexa (Citalopram Hydrobromide) 20 Mg Tablet 1 Tab PO DAILY 07/21/19 Reported D3-50 (Cholecalciferol (Vitamin D3)) 50,000 Unit Capsule 2,000 Unit PO DAILY 07/21/19 Reported Bisacodyl 10 Mg Supp.rect 10 Mg RC PRN DAILY PRN 07/21/19 Reported Aspirin 325 Mg Tablet 1 Tab PO DAILY 07/21/19 Reported Albuterol Sulfate Neb Soln (Albuterol Sulfate) 2.5 Mg/3 Ml Vial.neb 1 Vial NEB PRN Q4HRS 07/21/19 Reported Tylenol (Acetaminophen) 325 Mg Tablet 2 Tab PO BID 07/21/19 Reported Humalog (Insulin Lispro) 100 Unit/1 Ml Insuln.pen 0 Units SQ TIDWMEALS 14 06/06/19 Rx Zofran Odt (Ondansetron) 4 Mg Tab.rapdis 1 Tab SL Q6HRS PRN 08/19/16 Rx Impression . Full note dictated Agree with current medical management, treat for aspiration pneumonia, possibly sepsis. HOLLY LI MD July 21, 2019 16:47
--- NOTE | 2019-07-21 17:42 | NUR ---
Wound Care Wound Type/Assessment: Right heel unstageable PU (Eschar and DTI), Right medial and lateral foot multiple DTI and unstageable PU's (dry slough and DTI) Coccyx unstageable PU (Slough covered). Treatment Recommendations/Plan: Coccyx dressing with aquacel ag and medi-honey covered with foam. Right foot and heel- all wounds painted with betadine and covered with ABDs and kerlix, recommend to change all every 3 days Education provided: Pt unable to retain teaching due to mental status Offloading surface/device: ICU bed, heel protector, pillows, will order rooke boot Recommended Referrals/Tests: none Discharge Recommendations for dressings: Continue as directed above
[2019-07-21] MEDS: FAMOTIDINE 20 MG/2 ML VIAL IVP SCH (20:45)
[2019-07-21] MEDS: CEFEPIME HCL IV Push 2 GM VIAL. IVP SCH (20:45)
[2019-07-21] MEDS: ENOXAPARIN 40 MG/0.4 ML SYRINGE. SQ SCH (20:45)
--- NOTE | 2019-07-21 21:47 | CONS ---
DATE OF CONSULTATION: 07/21/2019 ATTENDING PHYSICIAN: Flo Orosco M.D. CONSULTING PHYSICIAN: Holly Li M.D. REASON FOR CONSULTATION: The patient seen in pulmonary consultation at the request of Dr. Orosco for acute hypoxemic respiratory failure, possible aspiration. HISTORY OF PRESENT ILLNESS: The patient is a 59-year-old female with a history of cerebrovascular accident, left-sided hemiparesis, expressive aphasia with acute respiratory distress. The patient does have a PEG in place. There was some emesis reported prior to arrival to the Emergency Department. The patient was found to have saturation of 57% on room air by EMS. She was placed on oxygen. She is currently in the intensive care unit. She is currently being tested for SARS-CoV-2 during the COVID-19 pandemic, unable to obtain any information from the patient herself. PAST MEDICAL AND PAST SURGICAL HISTORY: Remarkable for cerebrovascular accident, type 2 diabetes, gastroesophageal reflux, hyperlipidemia, hypertension, migraine. She is status post appendectomy. SOCIAL HISTORY: She is a former smoker. REVIEW OF SYSTEMS: Unobtainable secondary to the patient's condition. CURRENT MEDICATION: List was reviewed. PHYSICAL EXAMINATION: VITAL SIGNS: Stable. O2 saturation was greater than 92%, currently on 3 liters. She has a temperature of 101.0. HEENT: Eyes, the sclerae were nonicteric. NECK: Jugular venous distention could not be assessed. LUNGS: Anteriorly with crackles. CARDIOVASCULAR: Regular rate and rhythm. ABDOMEN: PEG in place. EXTREMITIES: She has some contractures. LABORATORY DATA: White count was elevated. Hemoglobin and hematocrit were noted. She had lymphopenia. Arterial blood gas, pH of 7.49, PaCO2 of 34, pO2 of 102. Initially the potassium was elevated. BUN and creatinine elevated. BNP was elevated. Albumin was low. Chest x-ray was reviewed revealing scattered opacities. She had a CT abdomen and pelvis revealing patchy nodular consolidation in the bases of the left lung. No acute abnormalities are identified in the abdomen or pelvis. IMPRESSION: 1. Acute hypoxemic respiratory failure. 2. Aspiration pneumonia. 3. Rpjdw-bo-tjpgthg kidney disease. 4. Abnormal x-ray. 5. COVID-19 suspect. 6. 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 7. Severe protein malnutrition, present upon admission. 8. Hyperkalemia. 9. Elevated liver chemistries. PLAN: 1. We will continue support with antibiotics. 2. Oxygen supplementation. 3. Noticed the patient is a full code. We will try to see if she is truly a full code and has some advanced directive, she does get intubated. Prognosis will be very poor. 4. Empiric antibiotics to cover both gram-negative and gram-positive organisms. 5. Deep venous thrombosis prophylaxis. 6. IV fluids. 7. Follow Nephrology input. Total cumulative critical care time of 40 minutes reviewing data, chest x-ray, labs, and formulating a diet, formulating a plan. HOLLY LI MD DR: DANIEL/nitin JOB#: [id number] / [id number]
[2019-07-22] VITALS (12 sets, daily range): BP systolic 120–166; BP diastolic 49–83
[2019-07-22 04:43] LABS: BASO # 0.1 x10^3/uL (0.0-0.2); BASO % 0 % (0-3); EOS % 0 % (0-3); HEMATOCRIT 24.8 % (36.0-47.0); HEMOGLOBIN 7.8 g/dL (12.0-15.5); LYMPH # 1.6 x10^3/uL (1.0-4.8); LYMPH % 8 % (24-48); MEAN CORPUSCULAR HEMOGLOBIN 27 pg (25-35); MEAN CORPUSCULAR HGB CONC 32 g/dL (31-37); MEAN CORPUSCULAR VOLUME 87 fL (79-100); MONO # 1.6 x10^3/uL (0.0-1.1); MONO % 8 % (0-9); NEUT # 18.4 x10^3/uL (1.8-7.7); NEUT % 85 % (31-73); PLATELET COUNT 526 x10^3/uL (140-400); RED BLOOD COUNT 2.87 x10^6/uL (3.50-5.40); RED CELL DISTRIBUTION WIDTH 15.8 % (11.5-14.5); WHITE BLOOD COUNT 21.7 x10^3/uL (4.0-11.0)
[2019-07-22 05:08] LABS: CALCIUM 8.4 mg/dL (8.5-10.1); CREATININE 1.5 mg/dL (0.6-1.0); GFR 43.3; POTASSIUM 4.5 mmol/L (3.5-5.1)
[2019-07-22] MEDS: INSULIN LISPRO 300 UNITS/3 ML VIAL. SQ SCH ×4 (05:30→18:00)
[2019-07-22] MEDS ORDERED: ALBUTEROL SULFATE 2.5 MG/3 ML NEBU. NEB SCH (06:45)
[2019-07-22] MEDS: VANCOMYCIN PER PHARMACY MC PRN (07:29)
--- NOTE | 2019-07-22 08:23 | PDOC ---
PULMONARY PROGRESS NOTES Subjective Patient in no respiratory distress Vitals Vital Signs Date Time Temp Pulse Resp B/P (MAP) Pulse Ox O2 Delivery O2 Flow Rate FiO2 07/22/19 06:00 95 18 135/61 (85) 100 Nasal Cannula 2.0 07/22/19 04:00 98.9 98.9 Lungs: Clear Cardiovascular: S1, S2 Abdomen: Soft Extremities: Other (Contractures muscle wasting) Skin: Warm Labs Laboratory Tests Test 07/21/19 06:00 07/21/19 06:25 07/21/19 11:15 07/21/19 13:26 White Blood Count 21.9 x10^3/uL (4.0-11.0) Red Blood Count 3.04 x10^6/uL (3.50-5.40) Hemoglobin 8.2 g/dL (12.0-15.5) Hematocrit 26.1 % (36.0-47.0) Mean Corpuscular Volume 86 fL (79-100) Mean Corpuscular Hemoglobin 27 pg (25-35) Mean Corpuscular Hemoglobin Concent 31 g/dL (31-37) Red Cell Distribution Width 15.6 % (11.5-14.5) Platelet Count 620 x10^3/uL (140-400) Neutrophils (%) (Auto) 91 % (31-73) Lymphocytes (%) (Auto) 5 % (24-48) Monocytes (%) (Auto) 5 % (0-9) Eosinophils (%) (Auto) 0 % (0-3) Basophils (%) (Auto) 0 % (0-3) Neutrophils # (Auto) 19.9 x10^3/uL (1.8-7.7) Lymphocytes # (Auto) 1.0 x10^3/uL (1.0-4.8) Monocytes # (Auto) 1.0 x10^3/uL (0.0-1.1) Eosinophils # (Auto) 0.0 x10^3/uL (0.0-0.7) Basophils # (Auto) 0.0 x10^3/uL (0.0-0.2) Segmented Neutrophils % 49 % (35-66) Band Neutrophils % 30 % (0-9) Lymphocytes % 8 % (24-48) Monocytes % 13 % (0-10) Platelet Estimate Increased (ADEQUATE) Large Platelets Few Giant Platelets Occ Anisocytosis Slight Sodium Level 142 mmol/L (136-145) 143 mmol/L (136-145) Potassium Level 6.6 mmol/L (3.5-5.1) 5.1 mmol/L (3.5-5.1) Chloride Level 103 mmol/L (98-107) 102 mmol/L (98-107) Carbon Dioxide Level 31 mmol/L (21-32) 32 mmol/L (21-32) Anion Gap 8 (6-14) 9 (6-14) Blood Urea Nitrogen 47 mg/dL (7-20) 50 mg/dL (7-20) Creatinine 1.4 mg/dL (0.6-1.0) 1.5 mg/dL (0.6-1.0) Estimated GFR (Cockcroft-Gault) 46.9 43.3 BUN/Creatinine Ratio 34 (6-20) Glucose Level 290 mg/dL (70-99) 163 mg/dL (70-99) Lactic Acid Level 1.8 mmol/L (0.4-2.0) Calcium Level 8.6 mg/dL (8.5-10.1) 9.0 mg/dL (8.5-10.1) Total Bilirubin 0.3 mg/dL (0.2-1.0) Aspartate Amino Transf (AST/SGOT) 41 U/L (15-37) Alanine Aminotransferase (ALT/SGPT) 73 U/L (14-59) Alkaline Phosphatase 133 U/L (46-116) Troponin I Quantitative < 0.017 ng/mL (0.000-0.055) JH-Bfb-H-Type Natriuretic Peptide 11283 pg/mL (0-124) Total Protein 6.3 g/dL (6.4-8.2) Albumin 1.9 g/dL (3.4-5.0) Albumin/Globulin Ratio 0.4 (1.0-1.7) O2 Saturation 98 % (92-99) Arterial Blood pH 7.49 (7.35-7.45) Arterial Blood pCO2 at Patient Temp 34 mmHg (35-46) Arterial Blood pO2 at Patient Temp 102 mmHg (75-108) Arterial Blood HCO3 25 mmol/L (21-28) Arterial Blood Base Excess 2 mmol/L (-3-3) FiO2 32 Glucose (Fingerstick) 170 mg/dL (70-99) Test 07/21/19 17:58 07/21/19 23:46 07/22/19 04:30 07/22/19 05:24 Glucose (Fingerstick) 187 mg/dL (70-99) 203 mg/dL (70-99) 208 mg/dL (70-99) White Blood Count 21.7 x10^3/uL (4.0-11.0) Red Blood Count 2.87 x10^6/uL (3.50-5.40) Hemoglobin 7.8 g/dL (12.0-15.5) Hematocrit 24.8 % (36.0-47.0) Mean Corpuscular Volume 87 fL (79-100) Mean Corpuscular Hemoglobin 27 pg (25-35) Mean Corpuscular Hemoglobin Concent 32 g/dL (31-37) Red Cell Distribution Width 15.8 % (11.5-14.5) Platelet Count 526 x10^3/uL (140-400) Neutrophils (%) (Auto) 85 % (31-73) Lymphocytes (%) (Auto) 8 % (24-48) Monocytes (%) (Auto) 8 % (0-9) Eosinophils (%) (Auto) 0 % (0-3) Basophils (%) (Auto) 0 % (0-3) Neutrophils # (Auto) 18.4 x10^3/uL (1.8-7.7) Lymphocytes # (Auto) 1.6 x10^3/uL (1.0-4.8) Monocytes # (Auto) 1.6 x10^3/uL (0.0-1.1) Eosinophils # (Auto) 0.0 x10^3/uL (0.0-0.7) Basophils # (Auto) 0.1 x10^3/uL (0.0-0.2) Sodium Level 145 mmol/L (136-145) Potassium Level 4.5 mmol/L (3.5-5.1) Chloride Level 107 mmol/L (98-107) Carbon Dioxide Level 28 mmol/L (21-32) Anion Gap 10 (6-14) Blood Urea Nitrogen 52 mg/dL (7-20) Creatinine 1.5 mg/dL (0.6-1.0) Estimated GFR (Cockcroft-Gault) 43.3 Glucose Level 225 mg/dL (70-99) Calcium Level 8.4 mg/dL (8.5-10.1) Laboratory Tests Test 07/21/19 11:15 07/21/19 13:26 07/21/19 17:58 07/21/19 23:46 Sodium Level 143 mmol/L (136-145) Potassium Level 5.1 mmol/L (3.5-5.1) Chloride Level 102 mmol/L (98-107) Carbon Dioxide Level 32 mmol/L (21-32) Anion Gap 9 (6-14) Blood Urea Nitrogen 50 mg/dL (7-20) Creatinine 1.5 mg/dL (0.6-1.0) Estimated GFR (Cockcroft-Gault) 43.3 Glucose Level 163 mg/dL (70-99) Calcium Level 9.0 mg/dL (8.5-10.1) Glucose (Fingerstick) 170 mg/dL (70-99) 187 mg/dL (70-99) 203 mg/dL (70-99) Test 07/22/19 04:30 07/22/19 05:24 White Blood Count 21.7 x10^3/uL (4.0-11.0) Red Blood Count 2.87 x10^6/uL (3.50-5.40) Hemoglobin 7.8 g/dL (12.0-15.5) Hematocrit 24.8 % (36.0-47.0) Mean Corpuscular Volume 87 fL (79-100) Mean Corpuscular Hemoglobin 27 pg (25-35) Mean Corpuscular Hemoglobin Concent 32 g/dL (31-37) Red Cell Distribution Width 15.8 % (11.5-14.5) Platelet Count 526 x10^3/uL (140-400) Neutrophils (%) (Auto) 85 % (31-73) Lymphocytes (%) (Auto) 8 % (24-48) Monocytes (%) (Auto) 8 % (0-9) Eosinophils (%) (Auto) 0 % (0-3) Basophils (%) (Auto) 0 % (0-3) Neutrophils # (Auto) 18.4 x10^3/uL (1.8-7.7) Lymphocytes # (Auto) 1.6 x10^3/uL (1.0-4.8) Monocytes # (Auto) 1.6 x10^3/uL (0.0-1.1) Eosinophils # (Auto) 0.0 x10^3/uL (0.0-0.7) Basophils # (Auto) 0.1 x10^3/uL (0.0-0.2) Sodium Level 145 mmol/L (136-145) Potassium Level 4.5 mmol/L (3.5-5.1) Chloride Level 107 mmol/L (98-107) Carbon Dioxide Level 28 mmol/L (21-32) Anion Gap 10 (6-14) Blood Urea Nitrogen 52 mg/dL (7-20) Creatinine 1.5 mg/dL (0.6-1.0) Estimated GFR (Cockcroft-Gault) 43.3 Glucose Level 225 mg/dL (70-99) Calcium Level 8.4 mg/dL (8.5-10.1) Glucose (Fingerstick) 208 mg/dL (70-99) Medications Active Scripts Medications Dose Route/Sig Max Daily Dose Days Date Category Zocor (Simvastatin) 40 Mg Tablet 1 Tab PO DAILY 07/21/19 Reported Tramadol Hcl 50 Mg Tablet 50 Mg PO BID PRN 07/21/19 Reported Senokot (Sennosides) 8.6 Mg Tablet 1 Tab PO BID 20 07/21/19 Reported Polyethylene Glycol 3350 2,500 Gm Powder 17 Gm PO DAILY 30 07/21/19 Reported Omeprazole 20 Mg Tablet.dr 1 Tab PO DAILY 07/21/19 Reported [place] 5-325 Tablet (Acetaminophen/Hydrocodone Bitart) 1 Each Tablet 1 Tab PO BID 07/21/19 Reported Metoprolol Tartrate 25 Mg Tablet 1 Tab PO BID 07/21/19 Reported Melatonin 3 Mg Tablet 2 Tab PO QHS 07/21/19 Reported Lantus Solostar (Insulin Glargine,Hum.rec.anlog) 100 Unit/1 Ml Insuln.pen 30 Unit SQ QHS 07/21/19 Reported Hydroxyzine Hcl 25 Mg Tablet 1 Tab PO TID 07/21/19 Reported Gabapentin 600 Mg Tablet 600 Mg PO BID 07/21/19 Reported Docusate Sodium 100 Mg Capsule 1 Cap PO BID 15 07/21/19 Reported Cyclobenzaprine Hcl 5 Mg Tablet 1 Tab PO QHS 07/21/19 Reported Vitamin B-12 (Cyanocobalamin (Vitamin B-12)) 1,000 Mcg Tablet 1 Tab PO DAILY 30 07/21/19 Reported Coreg (Carvedilol) 25 Mg Tablet 12.5 Mg PO BIDWMEALS 07/21/19 Reported Clopidogrel (Clopidogrel Bisulfate) 75 Mg Tablet 1 Tab PO DAILY 07/21/19 Reported Celexa (Citalopram Hydrobromide) 20 Mg Tablet 1 Tab PO DAILY 07/21/19 Reported D3-50 (Cholecalciferol (Vitamin D3)) 50,000 Unit Capsule 2,000 Unit PO DAILY 07/21/19 Reported Bisacodyl 10 Mg Supp.rect 10 Mg RC PRN DAILY PRN 07/21/19 Reported Aspirin 325 Mg Tablet 1 Tab PO DAILY 07/21/19 Reported Albuterol Sulfate Neb Soln (Albuterol Sulfate) 2.5 Mg/3 Ml Vial.neb 1 Vial NEB PRN Q4HRS 07/21/19 Reported Tylenol (Acetaminophen) 325 Mg Tablet 2 Tab PO BID 07/21/19 Reported Humalog (Insulin Lispro) 100 Unit/1 Ml Insuln.pen 0 Units SQ TIDWMEALS 14 06/06/19 Rx Zofran Odt (Ondansetron) 4 Mg Tab.rapdis 1 Tab SL Q6HRS PRN 08/19/16 Rx Impression . IMPRESSION: 1. Acute hypoxemic respiratory failure. 2. Aspiration pneumonia. 3. Mtgfg-um-jiujhps kidney disease. 4. Abnormal x-ray. 5. COVID-19 suspect. 6. 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 7. Severe protein malnutrition, present upon admission. 8. Hyperkalemia. 9. Elevated liver chemistries. Plan . Continue current support 1. We will continue support with antibiotics. 2. Oxygen supplementation. 3. Noticed the patient is a full code. 4. Empiric antibiotics to cover both gram-negative and gram-positive organisms. 5. Deep venous thrombosis prophylaxis. 6. IV fluids. 7. Follow Nephrology input. Total cumulative critical care time of 30 minutes reviewing data, chest x-ray, labs, and formulating a diet, formulating a plan. HOLLY LI MD July 22, 2019 08:23
[2019-07-22] MEDS: IV NORMAL SALINE 1000ML BAG 1,000 ML IV SCH ×2 (08:38→21:01)
[2019-07-22] MEDS: CEFEPIME HCL IV Push 2 GM VIAL. IVP SCH ×2 (08:39→21:02)
--- NOTE | 2019-07-22 09:17 | PDOC ---
SUBJECTIVE ROS stable OBJECTIVE Vital Signs Vital Signs Date Time Temp Pulse Resp B/P (MAP) Pulse Ox O2 Delivery O2 Flow Rate FiO2 07/22/19 06:00 95 18 135/61 (85) 100 Nasal Cannula 2.0 07/22/19 04:00 98.9 98.9 I & 0 Intake and Output 07/22/19 07:00 Intake Total 1350 ml Output Total 300 ml Balance 1050 ml Intake IV Total 1350 ml Output Urine Total 300 ml # Voids 1 PHYSICAL EXAM Physical Exam GEN: nad HEEN: Om moist , O2 by NC NECK: supple CVS: RRR RESP: decreased at bases, Nonlabored GI: BS + ve Non Tender, PEG + : No CVA tenderness, No Suprapubic Tenderness, No stapleton Neuro- Non verbal Ext No edema DIAGNOSIS/ASSESSMENT Assessment & Plan CKD stage 3 - Baseline 1.5-1.8 since at least 2014, stable renal function Supportive care, strict I/O , Avoid nephrotoxins, Monitor s/p IV contrast with CT on 07/20 - Monitor renal function for SHAYLA Fleets enema CI in CKD HyperKalemia- at presentation, Improved Acute hypoxic respiratory failure On o2 by NC, COVID pending Scattered opacities in the left lung, concerning for an infectious/inflammatory process. H/o CVA, peg feeding dependent HTN- stable DM COMMENT/RELEVANT DATA Meds Current Medications Medications (Trade) Dose Ordered Sig/Shirley Start Time Stop Time Status Last Admin Dose Admin Acetaminophen (Tylenol Supp) 650 mg PRN Q4HRS PRN 07/21/19 11:30 07/21/19 21:55 650 MG Acetaminophen (Tylenol) 650 mg PRN Q4HRS PRN 07/21/19 11:30 Albuterol Sulfate (Ventolin Neb Soln) 2.5 mg PRN Q4HRS 07/22/19 06:45 07/22/19 11:59 Albuterol/ Ipratropium (Duoneb) 3 ml RTQID 07/21/19 12:00 07/22/19 06:42 DC Cefepime HCl (Maxipime) 2 gm Q12HR 07/21/19 21:00 07/22/19 08:39 2 GM Clindamycin Phosphate 50 ml @ 100 mls/hr 1X ONCE 07/21/19 07:45 07/21/19 08:14 DC 07/21/19 08:31 100 MLS/HR Clonidine HCl (Catapres) 0.1 mg PRN Q6HRS PRN 07/21/19 11:30 Dextrose (Dextrose 50%-Water Syringe) 12.5 gm PRN Q15MIN PRN 07/21/19 13:15 Enoxaparin Sodium (Lovenox 40mg Syringe) 40 mg Q24H 07/21/19 21:00 07/21/19 20:45 40 MG Famotidine (Pepcid Vial) 20 mg DAILY 07/21/19 21:00 07/21/19 20:45 20 MG Insulin Human Lispro (HumaLOG) 0-5 UNITS Q6HRS 07/21/19 13:15 Insulin Human Regular (HumuLIN R VIAL) 10 unit 1X ONCE 07/21/19 07:30 07/21/19 07:31 DC 07/21/19 07:30 10 UNIT Iohexol (Omnipaque 300 Mg/ml) 75 ml 1X ONCE 07/21/19 09:00 07/21/19 09:01 DC 07/21/19 10:01 75 ML Metoclopramide HCl (Reglan Vial) 10 mg 1X ONCE 07/21/19 08:45 07/21/19 08:47 DC 07/21/19 09:05 10 MG Ondansetron HCl (Zofran) 4 mg PRN Q4HRS PRN 07/21/19 11:30 Sodium Monofluorophosphate (Fleet Adult) 133 ml PRN DAILY PRN 07/21/19 11:30 Sodium Bicarbonate (Sodium Bicarb Adult 8.4% Syr) 50 meq 1X ONCE 07/21/19 07:30 07/21/19 07:31 DC 07/21/19 08:25 50 MEQ Sodium Chloride 1,000 ml @ 100 mls/hr Q10H 07/21/19 11:19 07/22/19 08:38 100 MLS/HR Sodium Chloride (Normal Saline Flush) 3 ml QSHIFT PRN 07/21/19 11:30 Vancomycin HCl (Vanco Per Pharmacy) 1 each PRN DAILY PRN 07/21/19 11:45 07/22/19 07:29 1 EACH Vancomycin HCl (Vancomycin Trough Level) 1 each 1X ONCE 07/23/19 12:30 07/23/19 12:31 Vancomycin HCl 1 gm/Dextrose 250 ml @ 250 mls/hr 1X ONCE 07/21/19 11:30 07/21/19 12:29 DC 07/21/19 12:36 250 MLS/HR Vancomycin HCl 1 gm/Sodium Chloride 250 ml @ 250 mls/hr Q24H 07/22/19 13:00 Lab Laboratory Tests Test 07/21/19 11:15 07/21/19 13:26 07/21/19 17:58 07/21/19 23:46 Sodium Level 143 mmol/L (136-145) Potassium Level 5.1 mmol/L (3.5-5.1) Chloride Level 102 mmol/L (98-107) Carbon Dioxide Level 32 mmol/L (21-32) Anion Gap 9 (6-14) Blood Urea Nitrogen 50 mg/dL (7-20) Creatinine 1.5 mg/dL (0.6-1.0) Estimated GFR (Cockcroft-Gault) 43.3 Glucose Level 163 mg/dL (70-99) Calcium Level 9.0 mg/dL (8.5-10.1) Glucose (Fingerstick) 170 mg/dL (70-99) 187 mg/dL (70-99) 203 mg/dL (70-99) Test 07/22/19 04:30 07/22/19 05:24 White Blood Count 21.7 x10^3/uL (4.0-11.0) Red Blood Count 2.87 x10^6/uL (3.50-5.40) Hemoglobin 7.8 g/dL (12.0-15.5) Hematocrit 24.8 % (36.0-47.0) Mean Corpuscular Volume 87 fL (79-100) Mean Corpuscular Hemoglobin 27 pg (25-35) Mean Corpuscular Hemoglobin Concent 32 g/dL (31-37) Red Cell Distribution Width 15.8 % (11.5-14.5) Platelet Count 526 x10^3/uL (140-400) Neutrophils (%) (Auto) 85 % (31-73) Lymphocytes (%) (Auto) 8 % (24-48) Monocytes (%) (Auto) 8 % (0-9) Eosinophils (%) (Auto) 0 % (0-3) Basophils (%) (Auto) 0 % (0-3) Neutrophils # (Auto) 18.4 x10^3/uL (1.8-7.7) Lymphocytes # (Auto) 1.6 x10^3/uL (1.0-4.8) Monocytes # (Auto) 1.6 x10^3/uL (0.0-1.1) Eosinophils # (Auto) 0.0 x10^3/uL (0.0-0.7) Basophils # (Auto) 0.1 x10^3/uL (0.0-0.2) Sodium Level 145 mmol/L (136-145) Potassium Level 4.5 mmol/L (3.5-5.1) Chloride Level 107 mmol/L (98-107) Carbon Dioxide Level 28 mmol/L (21-32) Anion Gap 10 (6-14) Blood Urea Nitrogen 52 mg/dL (7-20) Creatinine 1.5 mg/dL (0.6-1.0) Estimated GFR (Cockcroft-Gault) 43.3 Glucose Level 225 mg/dL (70-99) Calcium Level 8.4 mg/dL (8.5-10.1) Glucose (Fingerstick) 208 mg/dL (70-99) Results All relevant outside records, renal labs, imaging studies, telemetry/EKG's were reviewed. CHUY MITCHELL MD July 22, 2019 09:17
[2019-07-22] MEDS: FAMOTIDINE 20 MG/2 ML VIAL IVP SCH (09:33)
--- NOTE | 2019-07-22 09:39 | NUR ---
SS following for discharge planning. SS reviewed pt chart and discussed with RN, Jovanna. Pt is LTC resident from [facility], ; fax [phone]. Pt is COVID19 pending and is currently requiring oxygen. SS will continue to follow for discharge planning.
--- NOTE | 2019-07-22 11:55 | PDOC ---
[employer] PROGRESS NOTE Chief Complaint Chief Complaint Acute pneumonia, favor aspiration cannot exclude covid- Scattered opacities in the left lung, concerning for an infectious/inflammatory process. acute hypoxic respiratory failure H/o CVA, peg feeding dependent HTN, DM GERD CKD STAGE 3-4 severe hyperkalemia History of Present Illness History of Present Illness 07/22/2019 Patient seen and examined in the COVID-19 ICU Her test just came back negative we are planning to transfer to another floor Discussed with RN Chart reviewed Vitals/I&O Vitals/I&O: Vital Signs Date Time Temp Pulse Resp B/P (MAP) Pulse Ox O2 Delivery O2 Flow Rate FiO2 07/22/19 08:00 Nasal Cannula 2.0 07/22/19 06:00 95 18 135/61 (85) 100 07/22/19 04:00 98.9 98.9 l I & O 07/21/19 07/21/19 07/22/19 15:00 23:00 07:00 Intake Total 100 ml 1250 ml Output Total 300 ml Balance 100 ml 1250 ml -300 ml Physical Exam General: Cooperative Heart: Regular rate Lungs: Clear Abdomen: Soft Extremities: No cyanosis, No edema Skin: No rashes Labs Labs: Laboratory Tests Test 07/21/19 13:26 07/21/19 17:58 07/21/19 23:46 07/22/19 04:30 Glucose (Fingerstick) 170 mg/dL (70-99) 187 mg/dL (70-99) 203 mg/dL (70-99) White Blood Count 21.7 x10^3/uL (4.0-11.0) Red Blood Count 2.87 x10^6/uL (3.50-5.40) Hemoglobin 7.8 g/dL (12.0-15.5) Hematocrit 24.8 % (36.0-47.0) Mean Corpuscular Volume 87 fL (79-100) Mean Corpuscular Hemoglobin 27 pg (25-35) Mean Corpuscular Hemoglobin Concent 32 g/dL (31-37) Red Cell Distribution Width 15.8 % (11.5-14.5) Platelet Count 526 x10^3/uL (140-400) Neutrophils (%) (Auto) 85 % (31-73) Lymphocytes (%) (Auto) 8 % (24-48) Monocytes (%) (Auto) 8 % (0-9) Eosinophils (%) (Auto) 0 % (0-3) Basophils (%) (Auto) 0 % (0-3) Neutrophils # (Auto) 18.4 x10^3/uL (1.8-7.7) Lymphocytes # (Auto) 1.6 x10^3/uL (1.0-4.8) Monocytes # (Auto) 1.6 x10^3/uL (0.0-1.1) Eosinophils # (Auto) 0.0 x10^3/uL (0.0-0.7) Basophils # (Auto) 0.1 x10^3/uL (0.0-0.2) Sodium Level 145 mmol/L (136-145) Potassium Level 4.5 mmol/L (3.5-5.1) Chloride Level 107 mmol/L (98-107) Carbon Dioxide Level 28 mmol/L (21-32) Anion Gap 10 (6-14) Blood Urea Nitrogen 52 mg/dL (7-20) Creatinine 1.5 mg/dL (0.6-1.0) Estimated GFR (Cockcroft-Gault) 43.3 Glucose Level 225 mg/dL (70-99) Calcium Level 8.4 mg/dL (8.5-10.1) Test 07/22/19 05:24 Glucose (Fingerstick) 208 mg/dL (70-99) Review of Systems Review of Systems: No new Assessment and Plan Assessmemt and Plan Problems Medical Problems: (1) Aspiration into airway Status: Acute (2) Congestive heart failure Status: Acute (3) HCAP (healthcare-associated pneumonia) Status: Acute (4) Hyperkalemia Status: Acute Acute pneumonia, favor aspiration cannot exclude covid-19 Scattered opacities in the left lung, concerning for an infectious/inflammatory process. acute hypoxic respiratory failure H/o CVA, peg feeding dependent HTN, DM GERD CKD STAGE 3-4 severe hyperkalemia Plan IV antibiotics O2 per nasal cannula Nebulizers Home meds DVT prophylaxis PEG feeds Rehab screening Full code Pulmonary is following appreciate their input Nephrology is following as well GI prophylaxis Long-term prognosis guarded Comment Review of Relevant I have reviewed the following items satish (where applicable) has been applied. Medications: Current Medications Medications (Trade) Dose Ordered Sig/Shirley Route PRN Reason Start Time Stop Time Status Last Admin Dose Admin Cefepime HCl (Maxipime) 2 gm Q12HR IVP 07/21/19 21:00 07/22/19 08:39 Enoxaparin Sodium (Lovenox 40mg Syringe) 40 mg Q24H SQ 07/21/19 21:00 07/21/19 20:45 Famotidine (Pepcid Vial) 20 mg DAILY IVP 07/21/19 21:00 07/22/19 09:33 PRISCILLA MARK III DO July 22, 2019 11:55
[2019-07-22] MEDS: VANCOMYCIN 1 GM in IV NORMAL SALINE 250ML 250 ML IV SCH (12:48)
[2019-07-22] MEDS: ACETAMINOPHEN 650 MG/20.3 ML SOLUTION. GT PRN (21:02)
[2019-07-22] MEDS: ENOXAPARIN 40 MG/0.4 ML SYRINGE. SQ SCH (21:02)
[2019-07-23] VITALS (7 sets, daily range): BP systolic 146–166; BP diastolic 69–86
[2019-07-23] MEDS: INSULIN LISPRO 300 UNITS/3 ML VIAL. SQ SCH ×4 (06:00→16:42)
[2019-07-23 06:53] LABS: CREATININE 1.6 mg/dL (0.6-1.0); GFR 40.2
--- NOTE | 2019-07-23 07:12 | NUR ---
IP: Pt is COVID negative.
--- NOTE | 2019-07-23 08:31 | NUR ---
DR. LI NOTIFIED OF PATIENT NEGATIVE COVID TEST. NO ORDERS TO RE-SWAB AT THIS TIME. WILL CONTINUE TO MONITOR.
[2019-07-23] MEDS: CEFEPIME HCL IV Push 2 GM VIAL. IVP SCH ×2 (08:44→21:16)
[2019-07-23] MEDS: FAMOTIDINE 20 MG/2 ML VIAL IVP SCH (08:44)
[2019-07-23] MEDS: IV NORMAL SALINE 1000ML BAG 1,000 ML IV SCH ×3 (08:45→21:21)
[2019-07-23] MEDS: ACETAMINOPHEN 650 MG/20.3 ML SOLUTION. GT PRN (09:10)
--- NOTE | 2019-07-23 10:30 | NUR ---
DR. LUONG NOTIFIED OF PATIENT EPISODE OF VOMITING AFTER GIVEN TYLENOL VIA PEG TUBE. NO FURTHER ORDERS RECEIVED AT THIS TIME. WILL CONTINUE TO MONITOR.
[2019-07-23] MEDS: ACETAMINOPHEN 650 MG SUPP.RECT. PR PRN ×2 (11:55→16:52)
--- NOTE | 2019-07-23 12:55 | PDOC ---
SUBJECTIVE ROS stable OBJECTIVE Vital Signs Vital Signs Date Time Temp Pulse Resp B/P (MAP) Pulse Ox O2 Delivery O2 Flow Rate FiO2 07/23/19 11:49 100.1 107 18 160/79 (106) 100 Nasal Cannula 1.5 100.1 I & 0 Intake and Output 07/23/19 07:00 Intake Total 1950 ml Output Total 475 ml Balance 1475 ml Intake Oral 0 ml IV Total 1950 ml Output Urine Total 475 ml # Voids 1 PHYSICAL EXAM Physical Exam GEN: nad HEEN: Om moist , O2 by NC NECK: supple CVS: RRR RESP: decreased at bases, Nonlabored GI: BS + ve Non Tender, PEG + : No CVA tenderness, No Suprapubic Tenderness, No stapleton Neuro- Non verbal Ext No edema DIAGNOSIS/ASSESSMENT Assessment & Plan DIAGNOSIS/ASSESSMENT Assessment & Plan CKD stage 3 - Baseline 1.5-1.8 since at least 2014, stable renal function Supportive care, strict I/O , Avoid nephrotoxins, Monitor Recd IV contrast with CT on 07/20 - Monitor renal function for SHAYLA Fleets enema CI in CKD HyperKalemia- at presentation, Improved Acute hypoxic respiratory failure On o2 by NC, COVID pending Scattered opacities in the left lung, concerning for an infectious/inflammatory process. H/o CVA, peg feeding dependent HTN- stable DM COMMENT/RELEVANT DATA Meds Current Medications Medications (Trade) Dose Ordered Sig/Shirley Start Time Stop Time Status Last Admin Dose Admin Acetaminophen (Tylenol Supp) 650 mg PRN Q4HRS PRN 07/21/19 11:30 07/23/19 11:55 650 MG Acetaminophen (Tylenol) 650 mg PRN Q4HRS PRN 07/21/19 11:30 07/23/19 09:10 650 MG Albuterol Sulfate (Ventolin Neb Soln) 2.5 mg PRN Q4HRS 07/22/19 06:45 07/22/19 11:59 DC Albuterol/ Ipratropium (Duoneb) 3 ml RTQID 07/21/19 12:00 07/22/19 06:42 DC Cefepime HCl (Maxipime) 2 gm Q12HR 07/21/19 21:00 07/23/19 08:44 2 GM Clindamycin Phosphate 50 ml @ 100 mls/hr 1X ONCE 5/18/20 07:45 07/21/19 08:14 DC 07/21/19 08:31 100 MLS/HR Clonidine HCl (Catapres) 0.1 mg PRN Q6HRS PRN 07/21/19 11:30 Dextrose (Dextrose 50%-Water Syringe) 12.5 gm PRN Q15MIN PRN 07/21/19 13:15 Enoxaparin Sodium (Lovenox 40mg Syringe) 40 mg Q24H 07/21/19 21:00 07/22/19 21:02 40 MG Famotidine (Pepcid Vial) 20 mg DAILY 07/21/19 21:00 07/23/19 08:44 20 MG Insulin Human Lispro (HumaLOG) 0-5 UNITS Q6HRS 07/21/19 13:15 07/23/19 11:57 2 UNITS Insulin Human Regular (HumuLIN R VIAL) 10 unit 1X ONCE 07/21/19 07:30 07/21/19 07:31 DC 07/21/19 07:30 10 UNIT Iohexol (Omnipaque 300 Mg/ml) 75 ml 1X ONCE 07/21/19 09:00 07/21/19 09:01 DC 07/21/19 10:01 75 ML Metoclopramide HCl (Reglan Vial) 10 mg 1X ONCE 07/21/19 08:45 07/21/19 08:47 DC 07/21/19 09:05 10 MG Ondansetron HCl (Zofran) 4 mg PRN Q4HRS PRN 07/21/19 11:30 07/23/19 10:05 4 MG Sodium Monofluorophosphate (Fleet Adult) 133 ml PRN DAILY PRN 07/21/19 11:30 Sodium Bicarbonate (Sodium Bicarb Adult 8.4% Syr) 50 meq 1X ONCE 07/21/19 07:30 07/21/19 07:31 DC 07/21/19 08:25 50 MEQ Sodium Chloride 1,000 ml @ 100 mls/hr Q10H 07/21/19 11:19 07/23/19 08:45 100 MLS/HR Sodium Chloride (Normal Saline Flush) 3 ml QSHIFT PRN 07/21/19 11:30 Vancomycin HCl (Vanco Per Pharmacy) 1 each PRN DAILY PRN 07/21/19 11:45 07/22/19 07:29 1 EACH Vancomycin HCl (Vancomycin Trough Level) 1 each 1X ONCE 07/23/19 12:30 07/23/19 12:31 DC 07/23/19 11:57 1 EACH Vancomycin HCl 1 gm/Dextrose 250 ml @ 250 mls/hr 1X ONCE 07/21/19 11:30 07/21/19 12:29 DC 07/21/19 12:36 250 MLS/HR Vancomycin HCl 1 gm/Sodium Chloride 250 ml @ 250 mls/hr Q24H 07/22/19 13:00 07/22/19 12:48 250 MLS/HR Lab Laboratory Tests Test 07/22/19 18:18 07/23/19 02:56 07/23/19 03:40 07/23/19 05:26 Glucose (Fingerstick) 119 mg/dL (70-99) 227 mg/dL (70-99) 250 mg/dL (70-99) Creatinine 1.6 mg/dL (0.6-1.0) Estimated GFR (Cockcroft-Gault) 40.2 Test 07/23/19 10:52 Glucose (Fingerstick) 263 mg/dL (70-99) Results All relevant outside records, renal labs, imaging studies, telemetry/EKG's were reviewed. CHUY MITCHELL MD July 23, 2019 12:55
[2019-07-23] MEDS: VANCOMYCIN 1 GM in IV NORMAL SALINE 250ML 250 ML IV SCH (13:00)
--- NOTE | 2019-07-23 13:03 | PDOC ---
PULMONARY PROGRESS NOTES Subjective Patient in no respiratory distress Vitals Vital Signs Date Time Temp Pulse Resp B/P (MAP) Pulse Ox O2 Delivery O2 Flow Rate FiO2 07/23/19 11:49 100.1 107 18 160/79 (106) 100 Nasal Cannula 1.5 100.1 Lungs: Clear Cardiovascular: S1, S2 Abdomen: Soft Extremities: Other (Contractures muscle wasting) Skin: Warm Labs Laboratory Tests Test 07/21/19 13:26 07/21/19 17:58 07/21/19 23:46 07/22/19 04:30 Glucose (Fingerstick) 170 mg/dL (70-99) 187 mg/dL (70-99) 203 mg/dL (70-99) White Blood Count 21.7 x10^3/uL (4.0-11.0) Red Blood Count 2.87 x10^6/uL (3.50-5.40) Hemoglobin 7.8 g/dL (12.0-15.5) Hematocrit 24.8 % (36.0-47.0) Mean Corpuscular Volume 87 fL (79-100) Mean Corpuscular Hemoglobin 27 pg (25-35) Mean Corpuscular Hemoglobin Concent 32 g/dL (31-37) Red Cell Distribution Width 15.8 % (11.5-14.5) Platelet Count 526 x10^3/uL (140-400) Neutrophils (%) (Auto) 85 % (31-73) Lymphocytes (%) (Auto) 8 % (24-48) Monocytes (%) (Auto) 8 % (0-9) Eosinophils (%) (Auto) 0 % (0-3) Basophils (%) (Auto) 0 % (0-3) Neutrophils # (Auto) 18.4 x10^3/uL (1.8-7.7) Lymphocytes # (Auto) 1.6 x10^3/uL (1.0-4.8) Monocytes # (Auto) 1.6 x10^3/uL (0.0-1.1) Eosinophils # (Auto) 0.0 x10^3/uL (0.0-0.7) Basophils # (Auto) 0.1 x10^3/uL (0.0-0.2) Sodium Level 145 mmol/L (136-145) Potassium Level 4.5 mmol/L (3.5-5.1) Chloride Level 107 mmol/L (98-107) Carbon Dioxide Level 28 mmol/L (21-32) Anion Gap 10 (6-14) Blood Urea Nitrogen 52 mg/dL (7-20) Creatinine 1.5 mg/dL (0.6-1.0) Estimated GFR (Cockcroft-Gault) 43.3 Glucose Level 225 mg/dL (70-99) Calcium Level 8.4 mg/dL (8.5-10.1) Test 07/22/19 05:24 07/22/19 18:18 07/23/19 02:56 07/23/19 03:40 Glucose (Fingerstick) 208 mg/dL (70-99) 119 mg/dL (70-99) 227 mg/dL (70-99) Creatinine 1.6 mg/dL (0.6-1.0) Estimated GFR (Cockcroft-Gault) 40.2 Test 07/23/19 05:26 07/23/19 10:52 Glucose (Fingerstick) 250 mg/dL (70-99) 263 mg/dL (70-99) Laboratory Tests Test 07/22/19 18:18 07/23/19 02:56 07/23/19 03:40 07/23/19 05:26 Glucose (Fingerstick) 119 mg/dL (70-99) 227 mg/dL (70-99) 250 mg/dL (70-99) Creatinine 1.6 mg/dL (0.6-1.0) Estimated GFR (Cockcroft-Gault) 40.2 Test 07/23/19 10:52 Glucose (Fingerstick) 263 mg/dL (70-99) Medications Active Scripts Medications Dose Route/Sig Max Daily Dose Days Date Category Zocor (Simvastatin) 40 Mg Tablet 1 Tab PO DAILY 07/21/19 Reported Tramadol Hcl 50 Mg Tablet 50 Mg PO BID PRN 07/21/19 Reported Senokot (Sennosides) 8.6 Mg Tablet 1 Tab PO BID 20 07/21/19 Reported Polyethylene Glycol 3350 2,500 Gm Powder 17 Gm PO DAILY 30 07/21/19 Reported Omeprazole 20 Mg Tablet.dr 1 Tab PO DAILY 07/21/19 Reported [place] 5-325 Tablet (Acetaminophen/Hydrocodone Bitart) 1 Each Tablet 1 Tab PO BID 07/21/19 Reported Metoprolol Tartrate 25 Mg Tablet 1 Tab PO BID 07/21/19 Reported Melatonin 3 Mg Tablet 2 Tab PO QHS 07/21/19 Reported Lantus Solostar (Insulin Glargine,Hum.rec.anlog) 100 Unit/1 Ml Insuln.pen 30 Unit SQ QHS 07/21/19 Reported Hydroxyzine Hcl 25 Mg Tablet 1 Tab PO TID 07/21/19 Reported Gabapentin 600 Mg Tablet 600 Mg PO BID 07/21/19 Reported Docusate Sodium 100 Mg Capsule 1 Cap PO BID 15 07/21/19 Reported Cyclobenzaprine Hcl 5 Mg Tablet 1 Tab PO QHS 07/21/19 Reported Vitamin B-12 (Cyanocobalamin (Vitamin B-12)) 1,000 Mcg Tablet 1 Tab PO DAILY 30 07/21/19 Reported Coreg (Carvedilol) 25 Mg Tablet 12.5 Mg PO BIDWMEALS 07/21/19 Reported Clopidogrel (Clopidogrel Bisulfate) 75 Mg Tablet 1 Tab PO DAILY 07/21/19 Reported Celexa (Citalopram Hydrobromide) 20 Mg Tablet 1 Tab PO DAILY 07/21/19 Reported D3-50 (Cholecalciferol (Vitamin D3)) 50,000 Unit Capsule 2,000 Unit PO DAILY 07/21/19 Reported Bisacodyl 10 Mg Supp.rect 10 Mg RC PRN DAILY PRN 07/21/19 Reported Aspirin 325 Mg Tablet 1 Tab PO DAILY 07/21/19 Reported Albuterol Sulfate Neb Soln (Albuterol Sulfate) 2.5 Mg/3 Ml Vial.neb 1 Vial NEB PRN Q4HRS 07/21/19 Reported Tylenol (Acetaminophen) 325 Mg Tablet 2 Tab PO BID 07/21/19 Reported Humalog (Insulin Lispro) 100 Unit/1 Ml Insuln.pen 0 Units SQ TIDWMEALS 14 06/06/19 Rx Zofran Odt (Ondansetron) 4 Mg Tab.rapdis 1 Tab SL Q6HRS PRN 08/19/16 Rx Impression . IMPRESSION: 1. Acute hypoxemic respiratory failure. 2. Aspiration pneumonia. 3. Nwroj-ey-wjxwpra kidney disease. 4. Abnormal x-ray. 5. SARS-CoV-2 negative 6. 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 7. Severe protein malnutrition, present upon admission. 8. Hyperkalemia. 9. Elevated liver chemistries. Plan . Patient transferred out of the intensive care unit SARS-CoV-2 negative No need to retest Continue empiric antibiotics Follow nephrology input DVT GI prophylaxis If continues to improve may switch to oral antibiotics and transfer back to long term HOLLY LI MD July 23, 2019 13:03
[2019-07-23 13:57] LABS: VANC TR 17.3 mcg/mL (10.0-20.0)
--- NOTE | 2019-07-23 15:19 | PDOC ---
PROGRESS NOTES Chief Complaint Chief Complaint Acute pneumonia, favor aspiration cannot exclude covid-19 Scattered opacities in the left lung, concerning for an infectious/inflammatory process. acute hypoxic respiratory failure H/o CVA, peg feeding dependent, expressive aphasia HTN, DM GERD CKD STAGE 3-4 severe hyperkalemia Developmental delay History of Present Illness History of Present Illness 07/22/2019 Patient seen and examined in the COVID-19 ICU Her test just came back negative we are planning to transfer to another floor Discussed with RN Chart reviewed 07/23/2019 No acute events reported overnight, case discussed with nursing staff patient in no acute distress no complaints during my visit unable to have a meaningful conversation with the patient due to expressive aphasia as a consequence of her CVA Vitals Vitals Vital Signs Date Time Temp Pulse Resp B/P (MAP) Pulse Ox O2 Delivery O2 Flow Rate FiO2 07/23/19 11:49 100.1 107 18 160/79 (106) 100 Nasal Cannula 1.5 100.1 Physical Exam Physical Exam Well developed, well nourished, tachypnea with less increased work of breathing [] HENT: Normocephalic, atraumatic, bilateral external ears normal, oropharynx moist, nose normal. [] Eyes: PERRLA, EOMI, conjunctiva normal. [] Neck: Normal range of motion, no tenderness, supple. [] Cardiovascular:Heart rate regular rhythm, no murmur. [] Lungs & Thorax: Bilateral breath sounds coarse [] Abdomen: Bowel sounds normal, soft, non-distended, no grimacing in exam. [] Skin: Warm, dry. [] Neurologic: Alert, Left hemiparesis. [] General: Cooperative HEENT: Atraumatic Heart: RRR Breasts: Not examined Abdomen: Soft Rectal Exam: not examined PELVIC: Examination not indicated Extremities: No cyanosis, No edema General: Cooperative, No acute distress Heart: Regular rate Lungs: Clear Abdomen: Soft Extremities: No cyanosis, No edema Skin: No rashes Labs LABS Laboratory Tests Test 07/22/19 18:18 07/23/19 02:56 07/23/19 03:40 07/23/19 05:26 Glucose (Fingerstick) 119 mg/dL (70-99) 227 mg/dL (70-99) 250 mg/dL (70-99) Creatinine 1.6 mg/dL (0.6-1.0) Estimated GFR (Cockcroft-Gault) 40.2 Test 07/23/19 10:52 07/23/19 13:00 Glucose (Fingerstick) 263 mg/dL (70-99) Vancomycin Level Trough 17.3 mcg/mL (10.0-20.0) Vancomycin Last Dose Date 07/22/19 Vancomycin Last Dose Time 1300 Review of Systems Review of Systems Unable to assess Assessment and Plan Assessmemt and Plan Problems Medical Problems: (1) Aspiration into airway Status: Acute (2) Congestive heart failure Status: Acute (3) HCAP (healthcare-associated pneumonia) Status: Acute (4) Hyperkalemia Status: Acute Comment Review of Relevant I have reviewed the following items satish (where applicable) has been applied. Labs Laboratory Tests Test 07/21/19 17:58 07/21/19 23:46 07/22/19 04:30 07/22/19 05:24 Glucose (Fingerstick) 187 mg/dL (70-99) 203 mg/dL (70-99) 208 mg/dL (70-99) White Blood Count 21.7 x10^3/uL (4.0-11.0) Red Blood Count 2.87 x10^6/uL (3.50-5.40) Hemoglobin 7.8 g/dL (12.0-15.5) Hematocrit 24.8 % (36.0-47.0) Mean Corpuscular Volume 87 fL (79-100) Mean Corpuscular Hemoglobin 27 pg (25-35) Mean Corpuscular Hemoglobin Concent 32 g/dL (31-37) Red Cell Distribution Width 15.8 % (11.5-14.5) Platelet Count 526 x10^3/uL (140-400) Neutrophils (%) (Auto) 85 % (31-73) Lymphocytes (%) (Auto) 8 % (24-48) Monocytes (%) (Auto) 8 % (0-9) Eosinophils (%) (Auto) 0 % (0-3) Basophils (%) (Auto) 0 % (0-3) Neutrophils # (Auto) 18.4 x10^3/uL (1.8-7.7) Lymphocytes # (Auto) 1.6 x10^3/uL (1.0-4.8) Monocytes # (Auto) 1.6 x10^3/uL (0.0-1.1) Eosinophils # (Auto) 0.0 x10^3/uL (0.0-0.7) Basophils # (Auto) 0.1 x10^3/uL (0.0-0.2) Sodium Level 145 mmol/L (136-145) Potassium Level 4.5 mmol/L (3.5-5.1) Chloride Level 107 mmol/L (98-107) Carbon Dioxide Level 28 mmol/L (21-32) Anion Gap 10 (6-14) Blood Urea Nitrogen 52 mg/dL (7-20) Creatinine 1.5 mg/dL (0.6-1.0) Estimated GFR (Cockcroft-Gault) 43.3 Glucose Level 225 mg/dL (70-99) Calcium Level 8.4 mg/dL (8.5-10.1) Test 07/22/19 18:18 07/23/19 02:56 07/23/19 03:40 07/23/19 05:26 Glucose (Fingerstick) 119 mg/dL (70-99) 227 mg/dL (70-99) 250 mg/dL (70-99) Creatinine 1.6 mg/dL (0.6-1.0) Estimated GFR (Cockcroft-Gault) 40.2 Test 07/23/19 10:52 07/23/19 13:00 Glucose (Fingerstick) 263 mg/dL (70-99) Vancomycin Level Trough 17.3 mcg/mL (10.0-20.0) Vancomycin Last Dose Date 07/22/19 Vancomycin Last Dose Time 1300 Laboratory Tests Test 07/22/19 18:18 07/23/19 02:56 07/23/19 03:40 07/23/19 05:26 Glucose (Fingerstick) 119 mg/dL (70-99) 227 mg/dL (70-99) 250 mg/dL (70-99) Creatinine 1.6 mg/dL (0.6-1.0) Estimated GFR (Cockcroft-Gault) 40.2 Test 07/23/19 10:52 07/23/19 13:00 Glucose (Fingerstick) 263 mg/dL (70-99) Vancomycin Level Trough 17.3 mcg/mL (10.0-20.0) Vancomycin Last Dose Date 07/22/19 Vancomycin Last Dose Time 1300 Microbiology 07/21/19 Blood Culture - Preliminary, Resulted NO GROWTH AFTER 2 DAYS Medications Current Medications Ondansetron HCl (Zofran) 8 mg 1X ONCE IVP Last administered on 07/21/19at 07:42; Start 07/21/19 at 07:00; Stop 07/21/19 at 07:01; Status DC Ondansetron HCl (Zofran) 4 mg STK-MED ONCE .ROUTE ; Start 07/21/19 at 06:37; Stop 07/21/19 at 06:37; Status DC Insulin Human Regular (HumuLIN R VIAL) 10 unit 1X ONCE IV Last administered on 07/21/19at 07:30; Start 07/21/19 at 07:30; Stop 07/21/19 at 07:31; Status DC Sodium Bicarbonate (Sodium Bicarb Adult 8.4% Syr) 50 meq 1X ONCE IV Last administered on 07/21/19at 08:25; Start 07/21/19 at 07:30; Stop 07/21/19 at 07:31; Status DC Clindamycin Phosphate 50 ml @ 100 mls/hr 1X ONCE IV Last administered on 07/21/19at 08:31; Start 07/21/19 at 07:45; Stop 07/21/19 at 08:14; Status DC Cefepime HCl (Maxipime) 2 gm 1X ONCE IVP Last administered on 07/21/19at 07:47; Start 07/21/19 at 07:45; Stop 07/21/19 at 07:46; Status DC Metoclopramide HCl (Reglan Vial) 10 mg 1X ONCE IVP Last administered on 07/21/19at 09:05; Start 07/21/19 at 08:45; Stop 07/21/19 at 08:47; Status DC Iohexol (Omnipaque 300 Mg/ml) 75 ml 1X ONCE IV Last administered on 07/21/19at 10:01; Start 07/21/19 at 09:00; Stop 07/21/19 at 09:01; Status DC Ondansetron HCl (Zofran) 4 mg PRN Q8HRS PRN IV NAUSEA/VOMITING; Start 07/21/19 at 09:30; Stop 07/22/19 at 07:25; Status DC Albuterol/ Ipratropium (Duoneb) 3 ml RTQID NEB ; Start 07/21/19 at 12:00; Stop 07/22/19 at 06:42; Status DC Cefepime HCl (Maxipime) 2 gm Q12HR IVP Last administered on 07/23/19at 08:44; Start 07/21/19 at 21:00 Sodium Chloride (Normal Saline Flush) 3 ml QSHIFT PRN IV AFTER MEDS AND BLOOD DRAWS; Start 07/21/19 at 11:30 Sodium Chloride 1,000 ml @ 100 mls/hr Q10H IV Last administered on 07/23/19 08:45; Start 07/21/19 at 11:19 Ondansetron HCl (Zofran) 4 mg PRN Q4HRS PRN IV NAUSEA/VOMITING Last administered on 07/23/19at 10:05; Start 07/21/19 at 11:30 Acetaminophen (Tylenol) 650 mg PRN Q4HRS PRN GT TEMP OVER 100.4F OR MILD PAIN Last administered on 07/23/19at 09:10; Start 07/21/19 at 11:30 Acetaminophen (Tylenol Supp) 650 mg PRN Q4HRS PRN [place] TEMP OVER 100.4F OR MILD PAIN Last administered on 07/23/19at 11:55; Start 07/21/19 at 11:30 Clonidine HCl (Catapres) 0.1 mg PRN Q6HRS PRN PO SBP>160 OR DBP>90; Start 07/20 at 11:30 Sodium Monofluorophosphate (Fleet Adult) 133 ml PRN DAILY PRN [place] CONSTIPATION; Start 07/21/19 at 11:30 Albuterol Sulfate (Ventolin Neb Soln) 2.5 mg PRN Q4HRS PRN NEB SHORTNESS OF BREATH; Start 07/21/19 at 11:30; Status Cancel Enoxaparin Sodium (Lovenox 40mg Syringe) 40 mg Q24H SQ Last administered on 07/22/19at 21:02; Start 07/21/19 at 21:00 Vancomycin HCl 1 gm/Dextrose 250 ml @ 250 mls/hr 1X ONCE IV Last administered on 07/21/19at 12:36; Start 07/21/19 at 11:30; Stop 07/21/19 at 12:29; Status DC Vancomycin HCl (Vanco Per Pharmacy) 1 each PRN DAILY PRN MC SEE COMMENTS Last administered on 07/22/19at 07:29; Start 07/21/19 at 11:45 Famotidine (Pepcid Vial) 20 mg DAILY IVP Last administered on 07/23/19at 08:44; Start 07/21/19 at 21:00 Insulin Human Lispro (HumaLOG) 0-5 UNITS Q6HRS SQ Last administered on 07/23/19at 11:57; Start 07/21/19 at 13:15 Dextrose (Dextrose 50%-Water Syringe) 12.5 gm PRN Q15MIN PRN IV SEE COMMENTS; Start 07/21/19 at 13:15 Vancomycin HCl 1 gm/Sodium Chloride 250 ml @ 250 mls/hr Q24H IV Last administered on 07/23/19at 13:00; Start 07/22/19 at 13:00 Vancomycin HCl (Vancomycin Trough Level) 1 each 1X ONCE MC Last administered on 07/23/19at 11:57; Start 07/23/19 at 12:30; Stop 07/23/19 at 12:31; Status DC Albuterol Sulfate (Ventolin Neb Soln) 2.5 mg PRN Q4HRS NEB ; Start 07/22/19 at 06:45; Stop 07/22/19 at 11:59; Status DC Active Scripts Active Humalog (Insulin Lispro) 100 Unit/1 Ml Insuln.pen 0 Units SQ TIDWMEALS 14 Days Zofran Odt (Ondansetron) 4 Mg Tab.rapdis 1 Tab SL Q6HRS PRN Reported Zocor (Simvastatin) 40 Mg Tablet 1 Tab PO DAILY Tramadol Hcl 50 Mg Tablet 50 Mg PO BID PRN Senokot (Sennosides) 8.6 Mg Tablet 1 Tab PO BID 20 Days Polyethylene Glycol 3350 2,500 Gm Powder 17 Gm PO DAILY 30 Days Omeprazole 20 Mg Tablet.dr 1 Tab PO DAILY [place] 5-325 Tablet (Acetaminophen/Hydrocodone Bitart) 1 Each Tablet 1 Tab PO BID Metoprolol Tartrate 25 Mg Tablet 1 Tab PO BID Melatonin 3 Mg Tablet 2 Tab PO QHS Lantus Solostar (Insulin Glargine,Hum.rec.anlog) 100 Unit/1 Ml Insuln.pen 30 Unit SQ QHS Hydroxyzine Hcl 25 Mg Tablet 1 Tab PO TID Gabapentin 600 Mg Tablet 600 Mg PO BID Docusate Sodium 100 Mg Capsule 1 Cap PO BID 15 Days Cyclobenzaprine Hcl 5 Mg Tablet 1 Tab PO QHS Vitamin B-12 (Cyanocobalamin (Vitamin B-12)) 1,000 Mcg Tablet 1 Tab PO DAILY 30 Days Coreg (Carvedilol) 25 Mg Tablet 12.5 Mg PO BIDWMEALS Clopidogrel (Clopidogrel Bisulfate) 75 Mg Tablet 1 Tab PO DAILY Celexa (Citalopram Hydrobromide) 20 Mg Tablet 1 Tab PO DAILY D3-50 (Cholecalciferol (Vitamin D3)) 50,000 Unit Capsule 2,000 Unit PO DAILY Bisacodyl 10 Mg Supp.rect 10 Mg RC PRN DAILY PRN Aspirin 325 Mg Tablet 1 Tab PO DAILY Albuterol Sulfate Neb Soln (Albuterol Sulfate) 2.5 Mg/3 Ml Vial.neb 1 Vial NEB PRN Q4HRS Tylenol (Acetaminophen) 325 Mg Tablet 2 Tab PO BID Vitals/I & O Vital Sign - Last 24 Hours 07/22/19 07/22/19 07/22/19 07/23/19 16:00 20:00 20:00 00:00 Temp 99.3 98.7 98.3 99.3 98.7 98.3 Pulse 88 98 96 Resp 20 16 16 B/P (MAP) 131/67 (88) 160/82 (108) 166/76 (106) Pulse Ox 100 100 O2 Delivery Nasal Cannula Nasal Cannula Nasal Cannula Nasal Cannula O2 Flow Rate 2.0 1.0 2.0 07/23/19 07/23/19 07/23/19 07/23/19 03:00 07:00 08:00 11:49 Temp 98.6 100.2 100.1 98.6 100.2 100.1 Pulse 100 108 107 Resp 16 16 18 B/P (MAP) 164/74 (104) 152/72 (98) 160/79 (106) Pulse Ox 100 95 100 O2 Delivery Nasal Cannula Room Air Nasal Cannula Nasal Cannula O2 Flow Rate 1.0 2.0 1.5 Intake and Output 07/22/19 07/22/19 07/23/19 15:00 23:00 07:00 Intake Total 1000 ml 950 ml 0 ml Output Total 475 ml Balance 1000 ml 475 ml 0 ml Nutrition Consultation Dietary Evaluation: Recommendations by RD: Dietary education by RD, Increase Calorie Intake, Protein supplementation Comments: REC resume TFs per order at residential: Glucerna 1.5@goal rate 40 ml/hr w/120 ml water flushes q4 hrs REC Kalyan BID via PEG tube (wound healing), mix each packet w/4oz water to dissolve and flush tube w/~30 ml water after each packet REC liquid MVI via PEG (wound healing) Expected Outcomes/Goals: TF initiation/infusion to meet >75% est needs Malnutrition Findings: Body Fat Depletion (Non Severe: Mild Depletion Weight Status: Appropriate DOT LUONG MD July 23, 2019 15:19
--- NOTE | 2019-07-23 17:20 | NUR ---
NOTIFIED DR. HAMILTON OF PATIENT ELEVATED TEMPERATURE DESPITE TYLENOL ADMINISTRATION THROUGHOUT THE DAY. WAS ADVISED PATIENT WAS STILL ABLE TO MOVE OFF THE COVID UNIT. NO FURTHER ORDERS RECEIVED AT THIS TIME.
--- NOTE | 2019-07-23 18:54 | NUR ---
PT TRANSFERRED TO ROOM 436. REPORT CALLED TO MEILIANO CAMACHO. PT TRANSPORTED VIA BED, ALL BELONGINGS LEFT WITH PATIENT AT THE TIME OF TRANSFER.
[2019-07-23] MEDS: VANCOMYCIN PER PHARMACY MC PRN (19:01)
--- NOTE | 2019-07-23 19:01 | NUR ---
Pharmacy Vancomycin Dosing Note S:Consulted to monitor and dose vancomycin started 07/21/19. O:ROBERT VILLA is a 59 year old F with HCAP . Height: 5 feet, 4 inches Weight: 58.3 kg [place] Body Weight: 192.70 Adjusted Body Weight: 138.94 Dosing Weight: Actual Other Antibiotics: CEFEPIME 2GM BID/CLEOCIN 1X LABS: Last BUN: 52 Last Creatinine: 1.5 Creatinine Clearance: 37 mL/min Last WBC: 21.7 Last Procalcitonin: -- Tmax (past 24 hours): 99.8 Microbiology: 07/20: blood cx: NGTD I/O: 1350/ 300 (1 void) Drug Levels: Last Trough level: 17.3 on 07/23/19 at 1300 Last dose given 07/21/19 at 1236 Vancomycin Dosing: Loading Dose: 1000 mg x1 Dosing Weight: Actual Target Trough: 15-20 A: Based on: LEVEL P: 1. Continue Vancomycin 1000 mg IV q24h 2. Follow up Trough level NEEDED 3. Pharmacy will continue to monitor, follow and adjust therapy as needed. DANTE WELCH Fuentes, 07/23/19 [id number]
[2019-07-23] MEDS: ENOXAPARIN 40 MG/0.4 ML SYRINGE. SQ SCH (21:16)
[2019-07-24 02:58] VITALS: BP 150/72
[2019-07-24] MEDS: INSULIN LISPRO 300 UNITS/3 ML VIAL. SQ SCH ×5 (05:50→23:36)
[2019-07-24 06:44] LABS: CALCIUM 7.5 mg/dL (8.5-10.1); CREATININE 1.6 mg/dL (0.6-1.0); GFR 40.2; POTASSIUM 4.1 mmol/L (3.5-5.1)
[2019-07-24 07:00] VITALS: BP 152/76
[2019-07-24] MEDS: FAMOTIDINE 20 MG/2 ML VIAL IVP SCH (09:05)
[2019-07-24] MEDS: CEFEPIME HCL IV Push 2 GM VIAL. IVP SCH ×2 (09:09→22:35)
[2019-07-24] MEDS: INSULIN GLARGINE SYRINGE. SQ SCH ×2 (09:13→23:35)
[2019-07-24] MEDS: IV NORMAL SALINE 1000ML BAG 1,000 ML IV SCH (09:14)
[2019-07-24 10:45] VITALS: BP 117/62
--- NOTE | 2019-07-24 10:47 | PDOC ---
SUBJECTIVE ROS stable OBJECTIVE Vital Signs Vital Signs Date Time Temp Pulse Resp B/P (MAP) Pulse Ox O2 Delivery O2 Flow Rate FiO2 07/24/19 07:00 98.4 97 16 152/76 (101) 100 Nasal Cannula 1.5 98.4 I & 0 Intake and Output 07/24/19 07:00 Intake Total 250 ml Output Total 100 ml Balance 150 ml Intake Oral 0 ml IV Total 250 ml Output Urine Total 100 ml # Voids 5 PHYSICAL EXAM Physical Exam GEN: nad HEEN: Om moist , O2 by NC NECK: supple CVS: RRR RESP: decreased at bases, Nonlabored GI: BS + ve Non Tender, PEG + : No CVA tenderness, No Suprapubic Tenderness, No stapleton Neuro- Non verbal Ext No edema DIAGNOSIS/ASSESSMENT Assessment & Plan CKD stage 3 - Baseline 1.5-1.8 since at least 2014, stable renal function Supportive care, strict I/O , Avoid nephrotoxins, Monitor Recd IV contrast with CT on 07/20 - Monitor renal function for SHAYLA Fleets enema CI in CKD HyperKalemia- at presentation, Improved Acute hypoxic respiratory failure On o2 by NC, COVID pending Scattered opacities in the left lung, concerning for an infectious/inflammatory process. H/o CVA, peg feeding dependent HTN- stable DM COMMENT/RELEVANT DATA Meds Current Medications Medications (Trade) Dose Ordered Sig/Shirley Start Time Stop Time Status Last Admin Dose Admin Acetaminophen (Tylenol Supp) 650 mg PRN Q4HRS PRN 07/21/19 11:30 07/23/19 16:52 650 MG Acetaminophen (Tylenol) 650 mg PRN Q4HRS PRN 07/21/19 11:30 07/23/19 09:10 650 MG Albuterol Sulfate (Ventolin Neb Soln) 2.5 mg PRN Q4HRS 07/22/19 06:45 07/22/19 11:59 DC Albuterol/ Ipratropium (Duoneb) 3 ml RTQID 07/21/19 12:00 07/22/19 06:42 DC Cefepime HCl (Maxipime) 2 gm Q12HR 07/21/19 21:00 07/24/19 09:09 2 GM Clindamycin Phosphate 50 ml @ 100 mls/hr 1X ONCE 07/21/19 07:45 07/21/19 08:14 DC 07/21/19 08:31 100 MLS/HR Clonidine HCl (Catapres) 0.1 mg PRN Q6HRS PRN 07/21/19 11:30 Dextrose (Dextrose 50%-Water Syringe) 12.5 gm PRN Q15MIN PRN 07/21/19 13:15 Enoxaparin Sodium (Lovenox 40mg Syringe) 40 mg Q24H 07/21/19 21:00 07/23/19 21:16 40 MG Famotidine (Pepcid Vial) 20 mg DAILY 07/21/19 21:00 07/24/19 09:05 20 MG Insulin Glargine (Lantus Syringe) 8 unit BID 07/24/19 09:00 07/24/19 09:13 8 UNIT Insulin Human Lispro (HumaLOG) 0-5 UNITS Q6HRS 07/21/19 13:15 07/24/19 05:50 2 UNITS Insulin Human Regular (HumuLIN R VIAL) 10 unit 1X ONCE 07/21/19 07:30 07/21/19 07:31 DC 07/21/19 07:30 10 UNIT Iohexol (Omnipaque 300 Mg/ml) 75 ml 1X ONCE 07/21/19 09:00 07/21/19 09:01 DC 07/21/19 10:01 75 ML Metoclopramide HCl (Reglan Vial) 10 mg 1X ONCE 07/21/19 08:45 07/21/19 08:47 DC 07/21/19 09:05 10 MG Ondansetron HCl (Zofran) 4 mg PRN Q4HRS PRN 07/21/19 11:30 07/23/19 10:05 4 MG Sodium Monofluorophosphate (Fleet Adult) 133 ml PRN DAILY PRN 07/21/19 11:30 Sodium Bicarbonate (Sodium Bicarb Adult 8.4% Syr) 50 meq 1X ONCE 07/21/19 07:30 07/21/19 07:31 DC 07/21/19 08:25 50 MEQ Sodium Chloride 1,000 ml @ 100 mls/hr Q10H 07/21/19 11:19 07/24/19 09:14 100 MLS/HR Sodium Chloride (Normal Saline Flush) 3 ml QSHIFT PRN 07/21/19 11:30 Vancomycin HCl (Vanco Per Pharmacy) 1 each PRN DAILY PRN 07/21/19 11:45 07/23/19 19:01 1 EACH Vancomycin HCl (Vancomycin Trough Level) 1 each 1X ONCE 07/23/19 12:30 07/23/19 12:31 DC 07/23/19 11:57 1 EACH Vancomycin HCl 1 gm/Dextrose 250 ml @ 250 mls/hr 1X ONCE 07/21/19 11:30 07/21/19 12:29 DC 07/21/19 12:36 250 MLS/HR Vancomycin HCl 1 gm/Sodium Chloride 250 ml @ 250 mls/hr Q24H 07/22/19 13:00 07/23/19 13:00 250 MLS/HR Lab Laboratory Tests Test 07/23/19 10:52 07/23/19 13:00 07/23/19 16:38 07/24/19 00:00 Glucose (Fingerstick) 263 mg/dL (70-99) 163 mg/dL (70-99) 247 mg/dL (70-99) Vancomycin Level Trough 17.3 mcg/mL (10.0-20.0) Vancomycin Last Dose Date 07/22/19 Vancomycin Last Dose Time 1300 Test 07/24/19 05:43 07/24/19 06:00 Glucose (Fingerstick) 265 mg/dL (70-99) Sodium Level 154 mmol/L (136-145) Potassium Level 4.1 mmol/L (3.5-5.1) Chloride Level 117 mmol/L (98-107) Carbon Dioxide Level 21 mmol/L (21-32) Anion Gap 16 (6-14) Blood Urea Nitrogen 52 mg/dL (7-20) Creatinine 1.6 mg/dL (0.6-1.0) Estimated GFR (Cockcroft-Gault) 40.2 Glucose Level 284 mg/dL (70-99) Calcium Level 7.5 mg/dL (8.5-10.1) Results All relevant outside records, renal labs, imaging studies, telemetry/EKG's were reviewed. CHUY MITCHELL MD July 24, 2019 10:47
--- NOTE | 2019-07-24 11:19 | PDOC ---
PULMONARY PROGRESS NOTES Subjective Patient more awake today no apparent distress Vitals Vital Signs Date Time Temp Pulse Resp B/P (MAP) Pulse Ox O2 Delivery O2 Flow Rate FiO2 07/24/19 10:45 98.3 100 18 117/62 (80) 100 Nasal Cannula 1.5 98.3 Lungs: Clear Cardiovascular: S1, S2 Abdomen: Soft Extremities: Other (Contractures muscle wasting) Skin: Warm Labs Laboratory Tests Test 07/22/19 18:18 07/23/19 02:56 07/23/19 03:40 07/23/19 05:26 Glucose (Fingerstick) 119 mg/dL (70-99) 227 mg/dL (70-99) 250 mg/dL (70-99) Creatinine 1.6 mg/dL (0.6-1.0) Estimated GFR (Cockcroft-Gault) 40.2 Test 07/23/19 10:52 07/23/19 13:00 07/23/19 16:38 07/24/19 00:00 Glucose (Fingerstick) 263 mg/dL (70-99) 163 mg/dL (70-99) 247 mg/dL (70-99) Vancomycin Level Trough 17.3 mcg/mL (10.0-20.0) Vancomycin Last Dose Date 07/22/19 Vancomycin Last Dose Time 1300 Test 07/24/19 05:43 07/24/19 06:00 Glucose (Fingerstick) 265 mg/dL (70-99) Sodium Level 154 mmol/L (136-145) Potassium Level 4.1 mmol/L (3.5-5.1) Chloride Level 117 mmol/L (98-107) Carbon Dioxide Level 21 mmol/L (21-32) Anion Gap 16 (6-14) Blood Urea Nitrogen 52 mg/dL (7-20) Creatinine 1.6 mg/dL (0.6-1.0) Estimated GFR (Cockcroft-Gault) 40.2 Glucose Level 284 mg/dL (70-99) Calcium Level 7.5 mg/dL (8.5-10.1) Laboratory Tests Test 07/23/19 13:00 07/23/19 16:38 07/24/19 00:00 07/24/19 05:43 Vancomycin Level Trough 17.3 mcg/mL (10.0-20.0) Vancomycin Last Dose Date 07/22/19 Vancomycin Last Dose Time 1300 Glucose (Fingerstick) 163 mg/dL (70-99) 247 mg/dL (70-99) 265 mg/dL (70-99) Test 07/24/19 06:00 Sodium Level 154 mmol/L (136-145) Potassium Level 4.1 mmol/L (3.5-5.1) Chloride Level 117 mmol/L (98-107) Carbon Dioxide Level 21 mmol/L (21-32) Anion Gap 16 (6-14) Blood Urea Nitrogen 52 mg/dL (7-20) Creatinine 1.6 mg/dL (0.6-1.0) Estimated GFR (Cockcroft-Gault) 40.2 Glucose Level 284 mg/dL (70-99) Calcium Level 7.5 mg/dL (8.5-10.1) Medications Active Scripts Medications Dose Route/Sig Max Daily Dose Days Date Category Zocor (Simvastatin) 40 Mg Tablet 1 Tab PO DAILY 07/21/19 Reported Tramadol Hcl 50 Mg Tablet 50 Mg PO BID PRN 07/21/19 Reported Senokot (Sennosides) 8.6 Mg Tablet 1 Tab PO BID 20 07/21/19 Reported Polyethylene Glycol 3350 2,500 Gm Powder 17 Gm PO DAILY 30 07/21/19 Reported Omeprazole 20 Mg Tablet.dr 1 Tab PO DAILY 07/21/[address] [place] [address] 5-325 Tablet (Acetaminophen/Hydrocodone Bitart) 1 Each Tablet 1 Tab PO BID 07/21/19 Reported Metoprolol Tartrate 25 Mg Tablet 1 Tab PO BID 07/21/19 Reported Melatonin 3 Mg Tablet 2 Tab PO QHS 07/21/19 Reported Lantus Solostar (Insulin Glargine,Hum.rec.anlog) 100 Unit/1 Ml Insuln.pen 30 Unit SQ QHS 07/21/19 Reported Hydroxyzine Hcl 25 Mg Tablet 1 Tab PO TID 07/21/19 Reported Gabapentin 600 Mg Tablet 600 Mg PO BID 07/21/19 Reported Docusate Sodium 100 Mg Capsule 1 Cap PO BID 15 07/21/19 Reported Cyclobenzaprine Hcl 5 Mg Tablet 1 Tab PO QHS 07/21/19 Reported Vitamin B-12 (Cyanocobalamin (Vitamin B-12)) 1,000 Mcg Tablet 1 Tab PO DAILY 30 07/21/19 Reported Coreg (Carvedilol) 25 Mg Tablet 12.5 Mg PO BIDWMEALS 07/21/19 Reported Clopidogrel (Clopidogrel Bisulfate) 75 Mg Tablet 1 Tab PO DAILY 07/21/19 Reported Celexa (Citalopram Hydrobromide) 20 Mg Tablet 1 Tab PO DAILY 07/21/19 Reported D3-50 (Cholecalciferol (Vitamin D3)) 50,000 Unit Capsule 2,000 Unit PO DAILY 07/21/19 Reported Bisacodyl 10 Mg Supp.rect 10 Mg RC PRN DAILY PRN 07/21/19 Reported Aspirin 325 Mg Tablet 1 Tab PO DAILY 07/21/19 Reported Albuterol Sulfate Neb Soln (Albuterol Sulfate) 2.5 Mg/3 Ml Vial.neb 1 Vial NEB PRN Q4HRS 07/21/19 Reported Tylenol (Acetaminophen) 325 Mg Tablet 2 Tab PO BID 07/21/19 Reported Humalog (Insulin Lispro) 100 Unit/1 Ml Insuln.pen 0 Units SQ TIDWMEALS 14 06/06/19 Rx Zofran Odt (Ondansetron) 4 Mg Tab.rapdis 1 Tab SL Q6HRS PRN 08/19/16 Rx Impression . IMPRESSION: 1. Acute hypoxemic respiratory failure. 2. Aspiration pneumonia. 3. [id number] kidney disease. 4. Abnormal x-ray. 5. SARS-CoV-2 negative 6. 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 7. Severe protein malnutrition, present upon admission. 8. Hyperkalemia. 9. Elevated liver chemistries. Plan . Patient more awake today no apparent distress we will continue the same SARS-CoV-2 negative No need to retest Continue empiric antibiotics Follow nephrology input DVT GI prophylaxis If continues to improve may switch to oral antibiotics and transfer back to senior living HOLLY LI MD July 24, 2019 11:19
[2019-07-24] MEDS: VANCOMYCIN 1 GM in IV NORMAL SALINE 250ML 250 ML IV SCH (12:54)
--- NOTE | 2019-07-24 13:23 | NUR ---
Notified Dr. Green that patient vomited after radio news writer put Kalyan into peg tube. [employer] Marketing Manager set up tube feeding to start at 20mL/hour. Per Dr. Green if patient vomits again stop the tube feeding and consult GI.
[2019-07-24 14:43] VITALS: BP 141/63
[2019-07-24] MEDS: VANCOMYCIN PER PHARMACY MC PRN (15:52)
[2019-07-24 19:00] VITALS: BP 133/107
[2019-07-24] MEDS: ENOXAPARIN 40 MG/0.4 ML SYRINGE. SQ SCH (22:38)
[2019-07-24 23:00] VITALS: BP 153/80
[2019-07-25] VITALS (12 sets, daily range): BP systolic 149–162; BP diastolic 69–86
[2019-07-25] MEDS: INSULIN LISPRO 300 UNITS/3 ML VIAL. SQ SCH ×3 (07:32→17:04)
[2019-07-25] MEDS: FAMOTIDINE 20 MG/2 ML VIAL IVP SCH (08:59)
[2019-07-25] MEDS: CEFEPIME HCL IV Push 2 GM VIAL. IVP SCH ×2 (09:04→22:19)
[2019-07-25] MEDS: INSULIN GLARGINE SYRINGE. SQ SCH ×2 (09:07→22:46)
--- NOTE | 2019-07-25 10:16 | PDOC ---
PROGRESS NOTES Chief Complaint Chief Complaint IMPRESSION Acute pneumonia, favor aspiration cannot exclude covid-19 Scattered opacities in the left lung, concerning for an infectious/inflammatory process. acute hypoxic respiratory failure H/o CVA, peg feeding dependent, expressive aphasia HTN, DM GERD CKD STAGE 3-4 severe hyperkalemia HyperKalemia- at presentation, Improved Developmental delay D/W RN History of Present Illness History of Present Illness 07/22/2019 Patient seen and examined in the COVID-19 ICU Her test just came back negative we are planning to transfer to another floor Discussed with RN Chart reviewed 07/23/2019 No acute events reported overnight, case discussed with nursing staff patient in no acute distress no complaints during my visit unable to have a meaningful conversation with the patient due to expressive aphasia as a consequence of her CVA Vitals Vitals Vital Signs Date Time Temp Pulse Resp B/P (MAP) Pulse Ox O2 Delivery O2 Flow Rate FiO2 07/25/19 08:00 Nasal Cannula 1.5 07/25/19 07:00 99.7 110 16 159/81 (107) 96 99.7 Physical Exam Physical Exam Well developed, well nourished, tachypnea with less increased work of breathing [] HENT: Normocephalic, atraumatic, bilateral external ears normal, oropharynx moist, nose normal. [] Eyes: PERRLA, EOMI, conjunctiva normal. [] Neck: Normal range of motion, no tenderness, supple. [] Cardiovascular:Heart rate regular rhythm, no murmur. [] Lungs & Thorax: Bilateral breath sounds coarse [] Abdomen: Bowel sounds normal, soft, non-distended, no grimacing in exam. [] Skin: Warm, dry. [] Neurologic: Alert, Left hemiparesis. [] General: Cooperative HEENT: Atraumatic Heart: RRR Breasts: Not examined Abdomen: Soft Rectal Exam: not examined PELVIC: Examination not indicated Extremities: No cyanosis, No edema General: Cooperative, No acute distress Heart: Regular rate Lungs: Clear Abdomen: Soft Extremities: No cyanosis, No edema Skin: No rashes Labs LABS Laboratory Tests Test 07/24/19 11:35 07/24/19 17:39 07/24/19 23:34 07/25/19 06:36 Glucose (Fingerstick) 199 mg/dL (70-99) 266 mg/dL (70-99) 120 mg/dL (70-99) 211 mg/dL (70-99) Assessment and Plan Assessmemt and Plan Problems Medical Problems: (1) Aspiration into airway Status: Acute (2) Congestive heart failure Status: Acute (3) HCAP (healthcare-associated pneumonia) Status: Acute (4) Hyperkalemia Status: Acute Comment Review of Relevant I have reviewed the following items satish (where applicable) has been applied. Labs Laboratory Tests Test 07/23/19 10:52 07/23/19 13:00 07/23/19 16:38 07/24/19 00:00 Glucose (Fingerstick) 263 mg/dL (70-99) 163 mg/dL (70-99) 247 mg/dL (70-99) Vancomycin Level Trough 17.3 mcg/mL (10.0-20.0) Vancomycin Last Dose Date 07/22/19 Vancomycin Last Dose Time 1300 Test 07/24/19 05:43 07/24/19 06:00 07/24/19 11:35 07/24/19 17:39 Glucose (Fingerstick) 265 mg/dL (70-99) 199 mg/dL (70-99) 266 mg/dL (70-99) Sodium Level 154 mmol/L (136-145) Potassium Level 4.1 mmol/L (3.5-5.1) Chloride Level 117 mmol/L (98-107) Carbon Dioxide Level 21 mmol/L (21-32) Anion Gap 16 (6-14) Blood Urea Nitrogen 52 mg/dL (7-20) Creatinine 1.6 mg/dL (0.6-1.0) Estimated GFR (Cockcroft-Gault) 40.2 Glucose Level 284 mg/dL (70-99) Calcium Level 7.5 mg/dL (8.5-10.1) Test 07/24/19 23:34 07/25/19 06:36 Glucose (Fingerstick) 120 mg/dL (70-99) 211 mg/dL (70-99) Laboratory Tests Test 07/24/19 11:35 07/24/19 17:39 07/24/19 23:34 07/25/19 06:36 Glucose (Fingerstick) 199 mg/dL (70-99) 266 mg/dL (70-99) 120 mg/dL (70-99) 211 mg/dL (70-99) Microbiology 07/21/19 Blood Culture - Preliminary, Resulted NO GROWTH AFTER 4 DAYS Medications Current Medications Ondansetron HCl (Zofran) 8 mg 1X ONCE IVP Last administered on 07/21/19at 07:42; Start 07/21/19 at 07:00; Stop 07/21/19 at 07:01; Status DC Ondansetron HCl (Zofran) 4 mg STK-MED ONCE .ROUTE ; Start 07/21/19 at 06:37; Stop 07/21/19 at 06:37; Status DC Insulin Human Regular (HumuLIN R VIAL) 10 unit 1X ONCE IV Last administered on 07/21/19at 07:30; Start 07/21/19 at 07:30; Stop 07/21/19 at 07:31; Status DC Sodium Bicarbonate (Sodium Bicarb Adult 8.4% Syr) 50 meq 1X ONCE IV Last administered on 07/21/19at 08:25; Start 07/21/19 at 07:30; Stop 07/21/19 at 07:31; Status DC Clindamycin Phosphate 50 ml @ 100 mls/hr 1X ONCE IV Last administered on 07/21/19at 08:31; Start 07/21/19 at 07:45; Stop 07/21/19 at 08:14; Status DC Cefepime HCl (Maxipime) 2 gm 1X ONCE IVP Last administered on 07/21/19at 07:47; Start 07/21/19 at 07:45; Stop 07/21/19 at 07:46; Status DC Metoclopramide HCl (Reglan Vial) 10 mg 1X ONCE IVP Last administered on 07/21/19at 09:05; Start 07/21/19 at 08:45; Stop 07/21/19 at 08:47; Status DC Iohexol (Omnipaque 300 Mg/ml) 75 ml 1X ONCE IV Last administered on 07/21/19at 10:01; Start 07/21/19 at 09:00; Stop 07/21/19 at 09:01; Status DC Ondansetron HCl (Zofran) 4 mg PRN Q8HRS PRN IV NAUSEA/VOMITING; Start 07/21/19 at 09:30; Stop 07/22/19 at 07:25; Status DC Albuterol/ Ipratropium (Duoneb) 3 ml RTQID NEB ; Start 07/21/19 at 12:00; Stop 07/22/19 at 06:42; Status DC Cefepime HCl (Maxipime) 2 gm Q12HR IVP Last administered on 07/25/19at 09:04; Start 07/21/19 at 21:00 Sodium Chloride (Normal Saline Flush) 3 ml QSHIFT PRN IV AFTER MEDS AND BLOOD DRAWS; Start 07/21/19 at 11:30 Sodium Chloride 1,000 ml @ 100 mls/hr Q10H IV Last administered on 07/24/19at 09:14; Start 07/21/19 at 11:19; Stop 07/24/19 at 11:45; Status DC Ondansetron HCl (Zofran) 4 mg PRN Q4HRS PRN IV NAUSEA/VOMITING Last administered on 07/23/19at 10:05; Start 07/21/19 at 11:30 Acetaminophen (Tylenol) 650 mg PRN Q4HRS PRN GT TEMP OVER 100.4F OR MILD PAIN Last administered on 07/23/19at 09:10; Start 07/21/19 at 11:30 Acetaminophen (Tylenol Supp) 650 mg PRN Q4HRS PRN MT TEMP OVER 100.4F OR MILD PAIN Last administered on 07/23/19at 16:52; Start 07/21/19 at 11:30 Clonidine HCl (Catapres) 0.1 mg PRN Q6HRS PRN PO SBP>160 OR DBP>90; Start 07/21/19 at 11:30 Sodium Monofluorophosphate (Fleet Adult) 133 ml PRN DAILY PRN MT CONSTIPATION; Start 07/21/19 at 11:30 Albuterol Sulfate (Ventolin Neb Soln) 2.5 mg PRN Q4HRS PRN NEB SHORTNESS OF BREATH; Start 07/21/19 at 11:30; Status Cancel Enoxaparin Sodium (Lovenox 40mg Syringe) 40 mg Q24H SQ Last administered on 07/24/19at 22:38; Start 07/21/19 at 21:00 Vancomycin HCl 1 gm/Dextrose 250 ml @ 250 mls/hr 1X ONCE IV Last administered on 07/21/19at 12:36; Start 07/21/19 at 11:30; Stop 07/21/19 at 12:29; Status DC Vancomycin HCl (Vanco Per Pharmacy) 1 each PRN DAILY PRN MC SEE COMMENTS Last administered on 07/24/19at 15:52; Start 07/21/19 at 11:45 Famotidine (Pepcid Vial) 20 mg DAILY IVP Last administered on 07/25/19at 08:59; Start 07/21/19 at 21:00 Insulin Human Lispro (HumaLOG) 0-5 UNITS Q6HRS SQ Last administered on 07/25/19at 07:32; Start 07/21/19 at 13:15 Dextrose (Dextrose 50%-Water Syringe) 12.5 gm PRN Q15MIN PRN IV SEE COMMENTS; Start 07/21/19 at 13:15 Vancomycin HCl 1 gm/Sodium Chloride 250 ml @ 250 mls/hr Q24H IV Last administered on 07/24/19at 12:54; Start 07/22/19 at 13:00 Vancomycin HCl (Vancomycin Trough Level) 1 each 1X ONCE MC Last administered on 07/23/19at 11:57; Start 07/23/19 at 12:30; Stop 07/23/19 at 12:31; Status DC Albuterol Sulfate (Ventolin Neb Soln) 2.5 mg PRN Q4HRS NEB ; Start 07/22/19 at 06:45; Stop 07/22/19 at 11:59; Status DC Insulin Glargine (Lantus Syringe) 8 unit BID SQ Last administered on 07/25/19at 09:07; Start 07/24/19 at 09:00 Active Scripts Active Humalog (Insulin Lispro) 100 Unit/1 Ml Insuln.pen 0 Units SQ TIDWMEALS 14 Days Zofran Odt (Ondansetron) 4 Mg Tab.rapdis 1 Tab SL Q6HRS PRN Reported Zocor (Simvastatin) 40 Mg Tablet 1 Tab PO DAILY Tramadol Hcl 50 Mg Tablet 50 Mg PO BID PRN Senokot (Sennosides) 8.6 Mg Tablet 1 Tab PO BID 20 Days Polyethylene Glycol 3350 2,500 Gm Powder 17 Gm PO DAILY 30 Days Omeprazole 20 Mg Tablet.dr 1 Tab PO DAILY [place] 5-325 Tablet (Acetaminophen/Hydrocodone Bitart) 1 Each Tablet 1 Tab PO BID Metoprolol Tartrate 25 Mg Tablet 1 Tab PO BID Melatonin 3 Mg Tablet 2 Tab PO QHS Lantus Solostar (Insulin Glargine,Hum.rec.anlog) 100 Unit/1 Ml Insuln.pen 30 Unit SQ QHS Hydroxyzine Hcl 25 Mg Tablet 1 Tab PO TID Gabapentin 600 Mg Tablet 600 Mg PO BID Docusate Sodium 100 Mg Capsule 1 Cap PO BID 15 Days Cyclobenzaprine Hcl 5 Mg Tablet 1 Tab PO QHS Vitamin B-12 (Cyanocobalamin (Vitamin B-12)) 1,000 Mcg Tablet 1 Tab PO DAILY 30 Days Coreg (Carvedilol) 25 Mg Tablet 12.5 Mg PO BIDWMEALS Clopidogrel (Clopidogrel Bisulfate) 75 Mg Tablet 1 Tab PO DAILY Celexa (Citalopram Hydrobromide) 20 Mg Tablet 1 Tab PO DAILY D3-50 (Cholecalciferol (Vitamin D3)) 50,000 Unit Capsule 2,000 Unit PO DAILY Bisacodyl 10 Mg Supp.rect 10 Mg RC PRN DAILY PRN Aspirin 325 Mg Tablet 1 Tab PO DAILY Albuterol Sulfate Neb Soln (Albuterol Sulfate) 2.5 Mg/3 Ml Vial.neb 1 Vial NEB PRN Q4HRS Tylenol (Acetaminophen) 325 Mg Tablet 2 Tab PO BID Vitals/I & O Vital Sign - Last 24 Hours 07/24/19 07/24/19 07/24/19 07/24/19 10:45 14:43 19:00 20:00 Temp 98.3 98.4 98.3 98.3 98.4 98.3 Pulse 100 103 98 Resp 18 16 16 B/P (MAP) 117/62 (80) 141/63 (89) 133/107 (116) Pulse Ox 100 100 97 O2 Delivery Nasal Cannula Nasal Cannula Nasal Cannula Nasal Cannula O2 Flow Rate 1.5 1.5 1.5 1.5 07/24/19 07/25/19 07/25/19 07/25/19 23:00 03:00 07:00 08:00 Temp 98.0 98.0 99.7 98.0 98.0 99.7 Pulse 99 118 110 Resp 16 16 16 B/P (MAP) 153/80 (104) 152/84 (106) 159/81 (107) Pulse Ox 96 95 96 O2 Delivery Nasal Cannula Nasal Cannula Room Air Nasal Cannula O2 Flow Rate 1.5 1.5 1.5 Intake and Output 07/24/19 07/24/19 07/25/19 15:00 23:00 07:00 Intake Total 120 ml Balance 120 ml Nutrition Consultation Dietary Evaluation: Recommendations by RD: Dietary education by RD, Increase Calorie Intake, Protein supplementation Comments: REC TFs per order at long-term: Glucerna 1.5@goal rate 40 ml/hr w/120 ml water flushes q4 hrs REC Kalyan BID via PEG tube (wound healing), mix each packet w/4oz water to dissolve and flush tube w/~30 ml water after each packet REC liquid MVI via PEG (wound healing) Expected Outcomes/Goals: TF initiation/infusion to meet >75% est needs Malnutrition Findings: Body Fat Depletion (Non Severe: Mild Depletion Weight Status: Appropriate FAUSTO MARCIAL MD July 25, 2019 10:16
--- NOTE | 2019-07-25 10:54 | PDOC ---
SUBJECTIVE ROS stable OBJECTIVE Vital Signs Vital Signs Date Time Temp Pulse Resp B/P (MAP) Pulse Ox O2 Delivery O2 Flow Rate FiO2 07/25/19 08:00 Nasal Cannula 1.5 07/25/19 07:00 99.7 110 16 159/81 (107) 96 99.7 I & 0 Intake and Output 07/25/19 07:00 Intake Total 120 ml Balance 120 ml Tube Feeding 120 ml # Voids 4 # Bowel Movements 1 PHYSICAL EXAM Physical Exam GEN: nad HEEN: Om moist , O2 by NC NECK: supple CVS: RRR RESP: decreased at bases, Nonlabored GI: BS + ve Non Tender, PEG + : No CVA tenderness, No Suprapubic Tenderness, No stapleton Neuro- Non verbal Ext No edema DIAGNOSIS/ASSESSMENT Assessment & Plan CKD stage 3 - Baseline 1.5-1.8 since at least 2014, stable renal function, Supportive care, strict I/O , Avoid nephrotoxins, Monitor Recd IV contrast with CT on 07/20 - Monitor renal function for SHAYLA Fleets enema CI in CKD HyperKalemia- at presentation, Improved Acute hypoxic respiratory failure On o2 by NC, COVID pending Scattered opacities in the left lung, concerning for an infectious/inflammatory process. H/o CVA, peg feeding dependent HTN- stable DM COMMENT/RELEVANT DATA Meds Current Medications Medications (Trade) Dose Ordered Sig/Shirley Start Time Stop Time Status Last Admin Dose Admin Acetaminophen (Tylenol Supp) 650 mg PRN Q4HRS PRN 07/21/19 11:30 07/23/19 16:52 650 MG Acetaminophen (Tylenol) 650 mg PRN Q4HRS PRN 07/21/19 11:30 07/23/19 09:10 650 MG Albuterol Sulfate (Ventolin Neb Soln) 2.5 mg PRN Q4HRS 07/22/19 06:45 07/22/19 11:59 DC Albuterol/ Ipratropium (Duoneb) 3 ml RTQID 07/21/19 12:00 07/22/19 06:42 DC Cefepime HCl (Maxipime) 2 gm Q12HR 07/21/19 21:00 07/25/19 09:04 2 GM Clindamycin Phosphate 50 ml @ 100 mls/hr 1X ONCE 07/21/19 07:45 07/21/19 08:14 DC 07/21/19 08:31 100 MLS/HR Clonidine HCl (Catapres) 0.1 mg PRN Q6HRS PRN 07/21/19 11:30 Dextrose (Dextrose 50%-Water Syringe) 12.5 gm PRN Q15MIN PRN 07/21/19 13:15 Enoxaparin Sodium (Lovenox 40mg Syringe) 40 mg Q24H 07/21/19 21:00 07/24/19 22:38 40 MG Famotidine (Pepcid Vial) 20 mg DAILY 07/21/19 21:00 07/25/19 08:59 20 MG Insulin Glargine (Lantus Syringe) 8 unit BID 07/24/19 09:00 07/25/19 09:07 8 UNIT Insulin Human Lispro (HumaLOG) 0-5 UNITS Q6HRS 07/21/19 13:15 07/25/19 07:32 3 UNITS Insulin Human Regular (HumuLIN R VIAL) 10 unit 1X ONCE 07/21/19 07:30 07/21/19 07:31 DC 07/21/19 07:30 10 UNIT Iohexol (Omnipaque 300 Mg/ml) 75 ml 1X ONCE 07/21/19 09:00 07/21/19 09:01 DC 07/21/19 10:01 75 ML Metoclopramide HCl (Reglan Vial) 10 mg 1X ONCE 07/21/19 08:45 07/21/19 08:47 DC 07/21/19 09:05 10 MG Ondansetron HCl (Zofran) 4 mg PRN Q4HRS PRN 07/21/19 11:30 07/23/19 10:05 4 MG Sodium Monofluorophosphate (Fleet Adult) 133 ml PRN DAILY PRN 07/21/19 11:30 Sodium Bicarbonate (Sodium Bicarb Adult 8.4% Syr) 50 meq 1X ONCE 07/21/19 07:30 07/21/19 07:31 DC 07/21/19 08:25 50 MEQ Sodium Chloride 1,000 ml @ 100 mls/hr Q10H 07/21/19 11:19 07/24/19 11:45 DC 07/24/19 09:14 100 MLS/HR Sodium Chloride (Normal Saline Flush) 3 ml QSHIFT PRN 07/21/19 11:30 Vancomycin HCl (Vanco Per Pharmacy) 1 each PRN DAILY PRN 07/21/19 11:45 07/24/19 15:52 1 EACH Vancomycin HCl (Vancomycin Trough Level) 1 each 1X ONCE 07/23/19 12:30 07/23/19 12:31 DC 07/23/19 11:57 1 EACH Vancomycin HCl 1 gm/Dextrose 250 ml @ 250 mls/hr 1X ONCE 07/21/19 11:30 07/21/19 12:29 DC 07/21/19 12:36 250 MLS/HR Vancomycin HCl 1 gm/Sodium Chloride 250 ml @ 250 mls/hr Q24H 07/22/19 13:00 07/24/19 12:54 250 MLS/HR Lab Laboratory Tests Test 07/24/19 11:35 07/24/19 17:39 07/24/19 23:34 07/25/19 06:36 Glucose (Fingerstick) 199 mg/dL (70-99) 266 mg/dL (70-99) 120 mg/dL (70-99) 211 mg/dL (70-99) Results All relevant outside records, renal labs, imaging studies, telemetry/EKG's were reviewed. CHUY MITCHELL MD July 25, 2019 10:54
[2019-07-25] MEDS: VANCOMYCIN 1 GM in IV NORMAL SALINE 250ML 250 ML IV SCH (11:53)
[2019-07-25 13:28] LABS: BASO % 0 % (0-3); EOS % 0 % (0-3); HEMATOCRIT 22.8 % (36.0-47.0); LYMPH # 1.8 x10^3/uL (1.0-4.8); LYMPH % 10 % (24-48); MEAN CORPUSCULAR HEMOGLOBIN 26 pg (25-35); MEAN CORPUSCULAR HGB CONC 31 g/dL (31-37); MEAN CORPUSCULAR VOLUME 86 fL (79-100); MONO # 1.4 x10^3/uL (0.0-1.1); MONO % 8 % (0-9); NEUT # 15.2 x10^3/uL (1.8-7.7); NEUT % 83 % (31-73); PLATELET COUNT 467 x10^3/uL (140-400); RED BLOOD COUNT 2.66 x10^6/uL (3.50-5.40); RED CELL DISTRIBUTION WIDTH 15.6 % (11.5-14.5); WHITE BLOOD COUNT 18.3 x10^3/uL (4.0-11.0)
[2019-07-25 13:38] LABS: ALBUMIN 1.6 g/dL (3.4-5.0); ALBUMIN/GLOBULIN RATIO 0.3 (1.0-1.7); CALCIUM 7.5 mg/dL (8.5-10.1); CREATININE 1.5 mg/dL (0.6-1.0); GFR 43.3; TOTAL BILIRUBIN 0.3 mg/dL (0.2-1.0); TOTAL PROTEIN 6.4 g/dL (6.4-8.2)
[2019-07-25 13:45] LABS: POTASSIUM 2.9 mmol/L (3.5-5.1)
--- NOTE | 2019-07-25 13:49 | PDOC ---
PULMONARY PROGRESS NOTES Subjective Patient less responsive today Vitals Vital Signs Date Time Temp Pulse Resp B/P (MAP) Pulse Ox O2 Delivery O2 Flow Rate FiO2 07/25/19 11:00 98.3 113 18 162/78 (106) 94 Room Air 98.3 07/25/19 08:00 1.5 Lungs: Clear Cardiovascular: S1, S2 Abdomen: Soft Extremities: Other (Contractures muscle wasting) Skin: Warm Labs Laboratory Tests Test 07/23/19 16:38 07/24/19 00:00 07/24/19 05:43 07/24/19 06:00 Glucose (Fingerstick) 163 mg/dL (70-99) 247 mg/dL (70-99) 265 mg/dL (70-99) Sodium Level 154 mmol/L (136-145) Potassium Level 4.1 mmol/L (3.5-5.1) Chloride Level 117 mmol/L (98-107) Carbon Dioxide Level 21 mmol/L (21-32) Anion Gap 16 (6-14) Blood Urea Nitrogen 52 mg/dL (7-20) Creatinine 1.6 mg/dL (0.6-1.0) Estimated GFR (Cockcroft-Gault) 40.2 Glucose Level 284 mg/dL (70-99) Calcium Level 7.5 mg/dL (8.5-10.1) Test 07/24/19 11:35 07/24/19 17:39 07/24/19 23:34 07/25/19 06:36 Glucose (Fingerstick) 199 mg/dL (70-99) 266 mg/dL (70-99) 120 mg/dL (70-99) 211 mg/dL (70-99) Test 07/25/19 10:55 07/25/19 13:10 Glucose (Fingerstick) 118 mg/dL (70-99) White Blood Count 18.3 x10^3/uL (4.0-11.0) Red Blood Count 2.66 x10^6/uL (3.50-5.40) Hemoglobin 7.0 g/dL (12.0-15.5) Hematocrit 22.8 % (36.0-47.0) Mean Corpuscular Volume 86 fL (79-100) Mean Corpuscular Hemoglobin 26 pg (25-35) Mean Corpuscular Hemoglobin Concent 31 g/dL (31-37) Red Cell Distribution Width 15.6 % (11.5-14.5) Platelet Count 467 x10^3/uL (140-400) Neutrophils (%) (Auto) 83 % (31-73) Lymphocytes (%) (Auto) 10 % (24-48) Monocytes (%) (Auto) 8 % (0-9) Eosinophils (%) (Auto) 0 % (0-3) Basophils (%) (Auto) 0 % (0-3) Neutrophils # (Auto) 15.2 x10^3/uL (1.8-7.7) Lymphocytes # (Auto) 1.8 x10^3/uL (1.0-4.8) Monocytes # (Auto) 1.4 x10^3/uL (0.0-1.1) Eosinophils # (Auto) 0.0 x10^3/uL (0.0-0.7) Basophils # (Auto) 0.0 x10^3/uL (0.0-0.2) Sodium Level 161 mmol/L (136-145) Potassium Level 2.9 mmol/L (3.5-5.1) Chloride Level 123 mmol/L (98-107) Carbon Dioxide Level 25 mmol/L (21-32) Anion Gap 13 (6-14) Blood Urea Nitrogen 52 mg/dL (7-20) Creatinine 1.5 mg/dL (0.6-1.0) Estimated GFR (Cockcroft-Gault) 43.3 BUN/Creatinine Ratio 35 (6-20) Glucose Level 101 mg/dL (70-99) Calcium Level 7.5 mg/dL (8.5-10.1) Total Bilirubin 0.3 mg/dL (0.2-1.0) Aspartate Amino Transf (AST/SGOT) 28 U/L (15-37) Alanine Aminotransferase (ALT/SGPT) 66 U/L (14-59) Alkaline Phosphatase 153 U/L (46-116) Total Protein 6.4 g/dL (6.4-8.2) Albumin 1.6 g/dL (3.4-5.0) Albumin/Globulin Ratio 0.3 (1.0-1.7) Laboratory Tests Test 07/24/19 17:39 07/24/19 23:34 07/25/19 06:36 07/25/19 10:55 Glucose (Fingerstick) 266 mg/dL (70-99) 120 mg/dL (70-99) 211 mg/dL (70-99) 118 mg/dL (70-99) Test 07/25/19 13:10 White Blood Count 18.3 x10^3/uL (4.0-11.0) Red Blood Count 2.66 x10^6/uL (3.50-5.40) Hemoglobin 7.0 g/dL (12.0-15.5) Hematocrit 22.8 % (36.0-47.0) Mean Corpuscular Volume 86 fL (79-100) Mean Corpuscular Hemoglobin 26 pg (25-35) Mean Corpuscular Hemoglobin Concent 31 g/dL (31-37) Red Cell Distribution Width 15.6 % (11.5-14.5) Platelet Count 467 x10^3/uL (140-400) Neutrophils (%) (Auto) 83 % (31-73) Lymphocytes (%) (Auto) 10 % (24-48) Monocytes (%) (Auto) 8 % (0-9) Eosinophils (%) (Auto) 0 % (0-3) Basophils (%) (Auto) 0 % (0-3) Neutrophils # (Auto) 15.2 x10^3/uL (1.8-7.7) Lymphocytes # (Auto) 1.8 x10^3/uL (1.0-4.8) Monocytes # (Auto) 1.4 x10^3/uL (0.0-1.1) Eosinophils # (Auto) 0.0 x10^3/uL (0.0-0.7) Basophils # (Auto) 0.0 x10^3/uL (0.0-0.2) Sodium Level 161 mmol/L (136-145) Potassium Level 2.9 mmol/L (3.5-5.1) Chloride Level 123 mmol/L (98-107) Carbon Dioxide Level 25 mmol/L (21-32) Anion Gap 13 (6-14) Blood Urea Nitrogen 52 mg/dL (7-20) Creatinine 1.5 mg/dL (0.6-1.0) Estimated GFR (Cockcroft-Gault) 43.3 BUN/Creatinine Ratio 35 (6-20) Glucose Level 101 mg/dL (70-99) Calcium Level 7.5 mg/dL (8.5-10.1) Total Bilirubin 0.3 mg/dL (0.2-1.0) Aspartate Amino Transf (AST/SGOT) 28 U/L (15-37) Alanine Aminotransferase (ALT/SGPT) 66 U/L (14-59) Alkaline Phosphatase 153 U/L (46-116) Total Protein 6.4 g/dL (6.4-8.2) Albumin 1.6 g/dL (3.4-5.0) Albumin/Globulin Ratio 0.3 (1.0-1.7) Medications Active Scripts Medications Dose Route/Sig Max Daily Dose Days Date Category Zocor (Simvastatin) 40 Mg Tablet 1 Tab PO DAILY 07/21/19 Reported Tramadol Hcl 50 Mg Tablet 50 Mg PO BID PRN 07/21/19 Reported Senokot (Sennosides) 8.6 Mg Tablet 1 Tab PO BID 20 07/21/19 Reported Polyethylene Glycol 3350 2,500 Gm Powder 17 Gm PO DAILY 30 07/21/19 Reported Omeprazole 20 Mg Tablet.dr 1 Tab PO DAILY 07/21/19 Reported [place] 5-325 Tablet (Acetaminophen/Hydrocodone Bitart) 1 Each Tablet 1 Tab PO BID 07/21/19 Reported Metoprolol Tartrate 25 Mg Tablet 1 Tab PO BID 07/21/19 Reported Melatonin 3 Mg Tablet 2 Tab PO QHS 07/21/19 Reported Lantus Solostar (Insulin Glargine,Hum.rec.anlog) 100 Unit/1 Ml Insuln.pen 30 Unit SQ QHS 07/21/19 Reported Hydroxyzine Hcl 25 Mg Tablet 1 Tab PO TID 07/21/19 Reported Gabapentin 600 Mg Tablet 600 Mg PO BID 07/21/19 Reported Docusate Sodium 100 Mg Capsule 1 Cap PO BID 15 07/21/19 Reported Cyclobenzaprine Hcl 5 Mg Tablet 1 Tab PO QHS 07/21/19 Reported Vitamin B-12 (Cyanocobalamin (Vitamin B-12)) 1,000 Mcg Tablet 1 Tab PO DAILY 30 07/21/19 Reported Coreg (Carvedilol) 25 Mg Tablet 12.5 Mg PO BIDWMEALS 07/21/19 Reported Clopidogrel (Clopidogrel Bisulfate) 75 Mg Tablet 1 Tab PO DAILY 07/21/19 Reported Celexa (Citalopram Hydrobromide) 20 Mg Tablet 1 Tab PO DAILY 07/21/19 Reported D3-50 (Cholecalciferol (Vitamin D3)) 50,000 Unit Capsule 2,000 Unit PO DAILY 07/21/19 Reported Bisacodyl 10 Mg Supp.rect 10 Mg RC PRN DAILY PRN 07/21/19 Reported Aspirin 325 Mg Tablet 1 Tab PO DAILY 07/21/19 Reported Albuterol Sulfate Neb Soln (Albuterol Sulfate) 2.5 Mg/3 Ml Vial.neb 1 Vial NEB PRN Q4HRS 07/21/19 Reported Tylenol (Acetaminophen) 325 Mg Tablet 2 Tab PO BID 07/21/19 Reported Humalog (Insulin Lispro) 100 Unit/1 Ml Insuln.pen 0 Units SQ TIDWMEALS 14 06/06/19 Rx Zofran Odt (Ondansetron) 4 Mg Tab.rapdis 1 Tab SL Q6HRS PRN 08/19/16 Rx Impression . IMPRESSION: 1. Acute hypoxemic respiratory failure. 2. Aspiration pneumonia. 3. [id number] kidney disease. 4. Abnormal x-ray. 5. SARS-CoV-2 negative 6. 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 7. Severe protein malnutrition, present upon admission. 8. Hyperkalemia. 9. Elevated liver chemistries. 10. Hype per natremia 11. Hypokalemia Plan . Nephrology following replace potassium, monitor BUN and creatinine SARS-CoV-2 negative, No need to retest Continue empiric antibiotics Follow nephrology input DVT GI prophylaxis HOLLY LI MD July 25, 2019 13:49
[2019-07-25] MEDS: IV DEXTROSE 5% 1,000 ML IV SCH (14:31)
[2019-07-25] MEDS: POTASSIUM CHLORIDE 10MEQ 100 ML IV SCH ×3 (14:36→17:33)
[2019-07-25 15:06] LABS: % BANDS 1 % (0-9); % LYMPHS 15 % (24-48); % MONOS 2 % (0-10); % SEGS 82 % (35-66); NUCLEATED RBC 1
[2019-07-25 15:07] LABS: PLT ESTIMATE INCREASED (ADEQUATE); SMUDGE CELLS PRESENT
[2019-07-25] MEDS: VANCOMYCIN PER PHARMACY MC PRN (16:02)
[2019-07-25] MEDS: ENOXAPARIN 40 MG/0.4 ML SYRINGE. SQ SCH (22:20)
--- NOTE | 2019-07-25 23:37 | NUR ---
Administered adelso this evening. Pt. tolerated well.
[2019-07-26] VITALS (7 sets, daily range): BP systolic 135–163; BP diastolic 66–83
[2019-07-26 00:15] LABS: HEMATOCRIT 26.6 % (36.0-47.0); HEMOGLOBIN 8.5 g/dL (12.0-15.5)
[2019-07-26] MEDS: INSULIN LISPRO 300 UNITS/3 ML VIAL. SQ SCH ×5 (00:17→23:38)
[2019-07-26] MEDS: IV DEXTROSE 5% 1,000 ML IV SCH (00:20)
--- NOTE | 2019-07-26 00:42 | NUR ---
New bottle of glucerna was hung. RN changed tubing at this time.
[2019-07-26 08:51] LABS: BASO % 0 % (0-3); EOS # 0.2 x10^3/uL (0.0-0.7); EOS % 1 % (0-3); HEMATOCRIT 25.8 % (36.0-47.0); HEMOGLOBIN 8.2 g/dL (12.0-15.5); LYMPH # 1.6 x10^3/uL (1.0-4.8); LYMPH % 9 % (24-48); MEAN CORPUSCULAR HEMOGLOBIN 27 pg (25-35); MEAN CORPUSCULAR HGB CONC 32 g/dL (31-37); MEAN CORPUSCULAR VOLUME 84 fL (79-100); MONO # 1.2 x10^3/uL (0.0-1.1); MONO % 7 % (0-9); NEUT # 14.7 x10^3/uL (1.8-7.7); NEUT % 83 % (31-73); PLATELET COUNT 424 x10^3/uL (140-400); RED BLOOD COUNT 3.08 x10^6/uL (3.50-5.40); WHITE BLOOD COUNT 17.8 x10^3/uL (4.0-11.0)
[2019-07-26 09:04] LABS: CALCIUM 7.4 mg/dL (8.5-10.1); CREATININE 1.4 mg/dL (0.6-1.0); GFR 46.9; POTASSIUM 3.2 mmol/L (3.5-5.1)
[2019-07-26] MEDS: FAMOTIDINE 20 MG/2 ML VIAL IVP SCH (10:03)
[2019-07-26] MEDS: CEFEPIME HCL IV Push 2 GM VIAL. IVP SCH ×2 (10:05→22:17)
[2019-07-26] MEDS: INSULIN GLARGINE SYRINGE. SQ SCH ×2 (10:22→22:31)
[2019-07-26] MEDS: VANCOMYCIN PER PHARMACY MC PRN (11:28)
--- NOTE | 2019-07-26 11:56 | PDOC ---
PULMONARY PROGRESS NOTES Subjective on , open eyes w verbal stimuli, appears comfortable. Vitals Vital Signs Date Time Temp Pulse Resp B/P (MAP) Pulse Ox O2 Delivery O2 Flow Rate FiO2 07/26/19 07:59 98.5 100 22 143/83 (103) 100 Nasal Cannula 1.5 98.5 Lungs: Clear Cardiovascular: S1, S2 Abdomen: Soft Extremities: Other (Contractures muscle wasting) Skin: Warm Labs Laboratory Tests Test 07/24/19 17:39 07/24/19 23:34 07/25/19 06:36 07/25/19 10:55 Glucose (Fingerstick) 266 mg/dL (70-99) 120 mg/dL (70-99) 211 mg/dL (70-99) 118 mg/dL (70-99) Test 07/25/19 13:10 07/25/19 16:46 07/26/19 00:05 07/26/19 00:12 White Blood Count 18.3 x10^3/uL (4.0-11.0) Red Blood Count 2.66 x10^6/uL (3.50-5.40) Hemoglobin 7.0 g/dL (12.0-15.5) 8.5 g/dL (12.0-15.5) Hematocrit 22.8 % (36.0-47.0) 26.6 % (36.0-47.0) Mean Corpuscular Volume 86 fL (79-100) Mean Corpuscular Hemoglobin 26 pg (25-35) Mean Corpuscular Hemoglobin Concent 31 g/dL (31-37) 32 g/dL (31-37) Red Cell Distribution Width 15.6 % (11.5-14.5) Platelet Count 467 x10^3/uL (140-400) Neutrophils (%) (Auto) 83 % (31-73) Lymphocytes (%) (Auto) 10 % (24-48) Monocytes (%) (Auto) 8 % (0-9) Eosinophils (%) (Auto) 0 % (0-3) Basophils (%) (Auto) 0 % (0-3) Neutrophils # (Auto) 15.2 x10^3/uL (1.8-7.7) Lymphocytes # (Auto) 1.8 x10^3/uL (1.0-4.8) Monocytes # (Auto) 1.4 x10^3/uL (0.0-1.1) Eosinophils # (Auto) 0.0 x10^3/uL (0.0-0.7) Basophils # (Auto) 0.0 x10^3/uL (0.0-0.2) Segmented Neutrophils % 82 % (35-66) Band Neutrophils % 1 % (0-9) Lymphocytes % 15 % (24-48) Monocytes % 2 % (0-10) Nucleated Red Blood Cells 1 Smudge Cells Present Platelet Estimate Increased (ADEQUATE) Sodium Level 161 mmol/L (136-145) Potassium Level 2.9 mmol/L (3.5-5.1) Chloride Level 123 mmol/L (98-107) Carbon Dioxide Level 25 mmol/L (21-32) Anion Gap 13 (6-14) Blood Urea Nitrogen 52 mg/dL (7-20) Creatinine 1.5 mg/dL (0.6-1.0) Estimated GFR (Cockcroft-Gault) 43.3 BUN/Creatinine Ratio 35 (6-20) Glucose Level 101 mg/dL (70-99) Calcium Level 7.5 mg/dL (8.5-10.1) Total Bilirubin 0.3 mg/dL (0.2-1.0) Aspartate Amino Transf (AST/SGOT) 28 U/L (15-37) Alanine Aminotransferase (ALT/SGPT) 66 U/L (14-59) Alkaline Phosphatase 153 U/L (46-116) Total Protein 6.4 g/dL (6.4-8.2) Albumin 1.6 g/dL (3.4-5.0) Albumin/Globulin Ratio 0.3 (1.0-1.7) Glucose (Fingerstick) 100 mg/dL (70-99) 164 mg/dL (70-99) Test 07/26/19 01:45 07/26/19 06:08 07/26/19 07:36 07/26/19 08:30 Lactic Acid Level 1.6 mmol/L (0.4-2.0) Glucose (Fingerstick) 145 mg/dL (70-99) 157 mg/dL (70-99) White Blood Count 17.8 x10^3/uL (4.0-11.0) Red Blood Count 3.08 x10^6/uL (3.50-5.40) Hemoglobin 8.2 g/dL (12.0-15.5) Hematocrit 25.8 % (36.0-47.0) Mean Corpuscular Volume 84 fL (79-100) Mean Corpuscular Hemoglobin 27 pg (25-35) Mean Corpuscular Hemoglobin Concent 32 g/dL (31-37) Red Cell Distribution Width 17.0 % (11.5-14.5) Platelet Count 424 x10^3/uL (140-400) Neutrophils (%) (Auto) 83 % (31-73) Lymphocytes (%) (Auto) 9 % (24-48) Monocytes (%) (Auto) 7 % (0-9) Eosinophils (%) (Auto) 1 % (0-3) Basophils (%) (Auto) 0 % (0-3) Neutrophils # (Auto) 14.7 x10^3/uL (1.8-7.7) Lymphocytes # (Auto) 1.6 x10^3/uL (1.0-4.8) Monocytes # (Auto) 1.2 x10^3/uL (0.0-1.1) Eosinophils # (Auto) 0.2 x10^3/uL (0.0-0.7) Basophils # (Auto) 0.0 x10^3/uL (0.0-0.2) Sodium Level 151 mmol/L (136-145) Potassium Level 3.2 mmol/L (3.5-5.1) Chloride Level 114 mmol/L (98-107) Carbon Dioxide Level 26 mmol/L (21-32) Anion Gap 11 (6-14) Blood Urea Nitrogen 43 mg/dL (7-20) Creatinine 1.4 mg/dL (0.6-1.0) Estimated GFR (Cockcroft-Gault) 46.9 Glucose Level 167 mg/dL (70-99) Calcium Level 7.4 mg/dL (8.5-10.1) Test 07/26/19 11:41 Glucose (Fingerstick) 163 mg/dL (70-99) Laboratory Tests Test 07/25/19 13:10 07/25/19 16:46 07/26/19 00:05 07/26/19 00:12 White Blood Count 18.3 x10^3/uL (4.0-11.0) Red Blood Count 2.66 x10^6/uL (3.50-5.40) Hemoglobin 7.0 g/dL (12.0-15.5) 8.5 g/dL (12.0-15.5) Hematocrit 22.8 % (36.0-47.0) 26.6 % (36.0-47.0) Mean Corpuscular Volume 86 fL (79-100) Mean Corpuscular Hemoglobin 26 pg (25-35) Mean Corpuscular Hemoglobin Concent 31 g/dL (31-37) 32 g/dL (31-37) Red Cell Distribution Width 15.6 % (11.5-14.5) Platelet Count 467 x10^3/uL (140-400) Neutrophils (%) (Auto) 83 % (31-73) Lymphocytes (%) (Auto) 10 % (24-48) Monocytes (%) (Auto) 8 % (0-9) Eosinophils (%) (Auto) 0 % (0-3) Basophils (%) (Auto) 0 % (0-3) Neutrophils # (Auto) 15.2 x10^3/uL (1.8-7.7) Lymphocytes # (Auto) 1.8 x10^3/uL (1.0-4.8) Monocytes # (Auto) 1.4 x10^3/uL (0.0-1.1) Eosinophils # (Auto) 0.0 x10^3/uL (0.0-0.7) Basophils # (Auto) 0.0 x10^3/uL (0.0-0.2) Segmented Neutrophils % 82 % (35-66) Band Neutrophils % 1 % (0-9) Lymphocytes % 15 % (24-48) Monocytes % 2 % (0-10) Nucleated Red Blood Cells 1 Smudge Cells Present Platelet Estimate Increased (ADEQUATE) Sodium Level 161 mmol/L (136-145) Potassium Level 2.9 mmol/L (3.5-5.1) Chloride Level 123 mmol/L (98-107) Carbon Dioxide Level 25 mmol/L (21-32) Anion Gap 13 (6-14) Blood Urea Nitrogen 52 mg/dL (7-20) Creatinine 1.5 mg/dL (0.6-1.0) Estimated GFR (Cockcroft-Gault) 43.3 BUN/Creatinine Ratio 35 (6-20) Glucose Level 101 mg/dL (70-99) Calcium Level 7.5 mg/dL (8.5-10.1) Total Bilirubin 0.3 mg/dL (0.2-1.0) Aspartate Amino Transf (AST/SGOT) 28 U/L (15-37) Alanine Aminotransferase (ALT/SGPT) 66 U/L (14-59) Alkaline Phosphatase 153 U/L (46-116) Total Protein 6.4 g/dL (6.4-8.2) Albumin 1.6 g/dL (3.4-5.0) Albumin/Globulin Ratio 0.3 (1.0-1.7) Glucose (Fingerstick) 100 mg/dL (70-99) 164 mg/dL (70-99) Test 07/26/19 01:45 07/26/19 06:08 07/26/19 07:36 07/26/19 08:30 Lactic Acid Level 1.6 mmol/L (0.4-2.0) Glucose (Fingerstick) 145 mg/dL (70-99) 157 mg/dL (70-99) White Blood Count 17.8 x10^3/uL (4.0-11.0) Red Blood Count 3.08 x10^6/uL (3.50-5.40) Hemoglobin 8.2 g/dL (12.0-15.5) Hematocrit 25.8 % (36.0-47.0) Mean Corpuscular Volume 84 fL (79-100) Mean Corpuscular Hemoglobin 27 pg (25-35) Mean Corpuscular Hemoglobin Concent 32 g/dL (31-37) Red Cell Distribution Width 17.0 % (11.5-14.5) Platelet Count 424 x10^3/uL (140-400) Neutrophils (%) (Auto) 83 % (31-73) Lymphocytes (%) (Auto) 9 % (24-48) Monocytes (%) (Auto) 7 % (0-9) Eosinophils (%) (Auto) 1 % (0-3) Basophils (%) (Auto) 0 % (0-3) Neutrophils # (Auto) 14.7 x10^3/uL (1.8-7.7) Lymphocytes # (Auto) 1.6 x10^3/uL (1.0-4.8) Monocytes # (Auto) 1.2 x10^3/uL (0.0-1.1) Eosinophils # (Auto) 0.2 x10^3/uL (0.0-0.7) Basophils # (Auto) 0.0 x10^3/uL (0.0-0.2) Sodium Level 151 mmol/L (136-145) Potassium Level 3.2 mmol/L (3.5-5.1) Chloride Level 114 mmol/L (98-107) Carbon Dioxide Level 26 mmol/L (21-32) Anion Gap 11 (6-14) Blood Urea Nitrogen 43 mg/dL (7-20) Creatinine 1.4 mg/dL (0.6-1.0) Estimated GFR (Cockcroft-Gault) 46.9 Glucose Level 167 mg/dL (70-99) Calcium Level 7.4 mg/dL (8.5-10.1) Test 07/26/19 11:41 Glucose (Fingerstick) 163 mg/dL (70-99) Medications Active Scripts Medications Dose Route/Sig Max Daily Dose Days Date Category Zocor (Simvastatin) 40 Mg Tablet 1 Tab PO DAILY 07/21/19 Reported Tramadol Hcl 50 Mg Tablet 50 Mg PO BID PRN 07/21/19 Reported Senokot (Sennosides) 8.6 Mg Tablet 1 Tab PO BID 20 07/21/19 Reported Polyethylene Glycol 3350 2,500 Gm Powder 17 Gm PO DAILY 30 07/21/19 Reported Omeprazole 20 Mg Tablet.dr 1 Tab PO DAILY 07/21/19 Reported [place] 5-325 Tablet (Acetaminophen/Hydrocodone Bitart) 1 Each Tablet 1 Tab PO BID 07/21/19 Reported Metoprolol Tartrate 25 Mg Tablet 1 Tab PO BID 07/21/19 Reported Melatonin 3 Mg Tablet 2 Tab PO QHS 07/21/19 Reported Lantus Solostar (Insulin Glargine,Hum.rec.anlog) 100 Unit/1 Ml Insuln.pen 30 Unit SQ QHS 07/21/19 Reported Hydroxyzine Hcl 25 Mg Tablet 1 Tab PO TID 07/21/19 Reported Gabapentin 600 Mg Tablet 600 Mg PO BID 07/21/19 Reported Docusate Sodium 100 Mg Capsule 1 Cap PO BID 15 07/21/19 Reported Cyclobenzaprine Hcl 5 Mg Tablet 1 Tab PO QHS 07/21/19 Reported Vitamin B-12 (Cyanocobalamin (Vitamin B-12)) 1,000 Mcg Tablet 1 Tab PO DAILY 30 07/21/19 Reported Coreg (Carvedilol) 25 Mg Tablet 12.5 Mg PO BIDWMEALS 07/21/19 Reported Clopidogrel (Clopidogrel Bisulfate) 75 Mg Tablet 1 Tab PO DAILY 07/21/19 Reported Celexa (Citalopram Hydrobromide) 20 Mg Tablet 1 Tab PO DAILY 07/21/19 Reported D3-50 (Cholecalciferol (Vitamin D3)) 50,000 Unit Capsule 2,000 Unit PO DAILY 07/21/19 Reported Bisacodyl 10 Mg Supp.rect 10 Mg RC PRN DAILY PRN 07/21/19 Reported Aspirin 325 Mg Tablet 1 Tab PO DAILY 07/21/19 Reported Albuterol Sulfate Neb Soln (Albuterol Sulfate) 2.5 Mg/3 Ml Vial.neb 1 Vial NEB PRN Q4HRS 07/21/19 Reported Tylenol (Acetaminophen) 325 Mg Tablet 2 Tab PO BID 07/21/19 Reported Humalog (Insulin Lispro) 100 Unit/1 Ml Insuln.pen 0 Units SQ TIDWMEALS 14 06/06/19 Rx Zofran Odt (Ondansetron) 4 Mg Tab.rapdis 1 Tab SL Q6HRS PRN 08/19/16 Rx Impression . IMPRESSION: 1. Acute hypoxemic respiratory failure. 2. Aspiration pneumonia. 3. Zkdxu-ov-ufourzn kidney disease. 4. Abnormal x-ray. 5. SARS-CoV-2 negative 6. 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 7. Severe protein malnutrition, present upon admission. 8. Hypokalemia. 9. Elevated liver chemistries. 10. Hype per natremia Plan . Nephrology following replace potassium, monitor BUN and creatinine SARS-CoV-2 negative, No need to retest Continue empiric antibiotics Follow nephrology input DVT GI prophylaxis elevate hob discussed w MANUEL Jaquez MD July 26, 2019 11:56
[2019-07-26] MEDS: VANCOMYCIN 1 GM in IV NORMAL SALINE 250ML 250 ML IV SCH (13:18)
--- NOTE | 2019-07-26 13:22 | PDOC ---
SUBJECTIVE ROS Follow-up for chronic kidney disease/ELISA/electrolyte abnormalities Patient remains nonverbal. Tolerating tube feeds well OBJECTIVE Vital Signs Vital Signs Date Time Temp Pulse Resp B/P (MAP) Pulse Ox O2 Delivery O2 Flow Rate FiO2 07/26/19 11:59 98.6 95 22 138/66 (90) 97 Nasal Cannula 1.5 98.6 I & 0 Intake and Output 07/26/19 07:00 Intake Total 240 ml Balance 240 ml Tube Feeding 240 ml # Voids 5 # Bowel Movements 6 PHYSICAL EXAM Physical Exam GEN: nad HEEN: Om moist NECK: supple CVS: S1-S2 RESP: decreased at bases, Nonlabored GI: BS + ve Non Tender, PEG + : No CVA tenderness, No Suprapubic Tenderness, No stapleton Neuro- Non verbal Ext No edema, contractures DIAGNOSIS/ASSESSMENT Assessment & Plan CKD stage 3 : Baseline 1.5-1.8 since at least 2014, stable renal function, for now. Creatinine slightly better HypoKalemia-supplement as needed. Nonrenal tube feeds ongoing currently. Check mag and correct if needed Acute hypoxic respiratory failure: Appears to be much improved currently Hypernatremia: Continue free water repletion is ongoing COMMENT/RELEVANT DATA Meds Current Medications Medications (Trade) Dose Ordered Sig/Shirley Start Time Stop Time Status Last Admin Dose Admin Acetaminophen (Tylenol Supp) 650 mg PRN Q4HRS PRN 07/21/19 11:30 07/23/19 16:52 650 MG Acetaminophen (Tylenol) 650 mg PRN Q4HRS PRN 07/21/19 11:30 07/23/19 09:10 650 MG Albuterol Sulfate (Ventolin Neb Soln) 2.5 mg PRN Q4HRS 07/22/19 06:45 07/22/19 11:59 DC Albuterol/ Ipratropium (Duoneb) 3 ml RTQID 07/21/19 12:00 07/22/19 06:42 DC Cefepime HCl (Maxipime) 2 gm Q12HR 07/21/19 21:00 07/26/19 10:05 2 GM Clindamycin Phosphate 50 ml @ 100 mls/hr 1X ONCE 07/21/19 07:45 07/21/19 08:14 DC 07/21/19 08:31 100 MLS/HR Clonidine HCl (Catapres) 0.1 mg PRN Q6HRS PRN 07/21/19 11:30 Dextrose 1,000 ml @ 100 mls/hr Q10H 07/25/19 14:00 07/26/19 00:20 100 MLS/HR Dextrose (Dextrose 50%-Water Syringe) 12.5 gm PRN Q15MIN PRN 07/21/19 13:15 Enoxaparin Sodium (Lovenox 40mg Syringe) 40 mg Q24H 07/21/19 21:00 07/25/19 22:20 40 MG Famotidine (Pepcid Vial) 20 mg DAILY 07/21/19 21:00 07/26/19 10:03 20 MG Insulin Glargine (Lantus Syringe) 8 unit BID 07/24/19 09:00 07/26/19 10:22 8 UNIT Insulin Human Lispro (HumaLOG) 0-5 UNITS Q6HRS 07/21/19 13:15 07/26/19 00:17 2 UNITS Insulin Human Regular (HumuLIN R VIAL) 10 unit 1X ONCE 07/21/19 07:30 07/21/19 07:31 DC 07/21/19 07:30 10 UNIT Iohexol (Omnipaque 300 Mg/ml) 75 ml 1X ONCE 07/21/19 09:00 07/21/19 09:01 DC 07/21/19 10:01 75 ML Metoclopramide HCl (Reglan Vial) 10 mg 1X ONCE 07/21/19 08:45 07/21/19 08:47 DC 07/21/19 09:05 10 MG Ondansetron HCl (Zofran) 4 mg PRN Q4HRS PRN 07/21/19 11:30 07/23/19 10:05 4 MG Potassium Chloride/Water 100 ml @ 75 mls/hr 1400,1520,1640 07/25/19 14:00 07/25/19 17:59 DC 07/25/19 17:33 75 MLS/HR Sodium Monofluorophosphate (Fleet Adult) 133 ml PRN DAILY PRN 07/21/19 11:30 Sodium Bicarbonate (Sodium Bicarb Adult 8.4% Syr) 50 meq 1X ONCE 07/21/19 07:30 07/21/19 07:31 DC 07/21/19 08:25 50 MEQ Sodium Chloride 1,000 ml @ 100 mls/hr Q10H 07/21/19 11:19 07/24/19 11:45 DC 07/24/19 09:14 100 MLS/HR Sodium Chloride (Normal Saline Flush) 3 ml QSHIFT PRN 07/21/19 11:30 Vancomycin HCl (Vanco Per Pharmacy) 1 each PRN DAILY PRN 07/21/19 11:45 07/26/19 11:28 1 EACH Vancomycin HCl (Vancomycin Trough Level) 1 each 1X ONCE 07/23/19 12:30 07/23/19 12:31 DC 07/23/19 11:57 1 EACH Vancomycin HCl 1 gm/Dextrose 250 ml @ 250 mls/hr 1X ONCE 07/21/19 11:30 07/21/19 12:29 DC 07/21/19 12:36 250 MLS/HR Vancomycin HCl 1 gm/Sodium Chloride 250 ml @ 250 mls/hr Q24H 07/22/19 13:00 07/25/19 11:53 250 MLS/HR Lab Laboratory Tests Test 07/25/19 16:46 07/26/19 00:05 07/26/19 00:12 07/26/19 01:45 Glucose (Fingerstick) 100 mg/dL (70-99) 164 mg/dL (70-99) Hemoglobin 8.5 g/dL (12.0-15.5) Hematocrit 26.6 % (36.0-47.0) Mean Corpuscular Hemoglobin Concent 32 g/dL (31-37) Lactic Acid Level 1.6 mmol/L (0.4-2.0) Test 07/26/19 06:08 07/26/19 07:36 07/26/19 08:30 07/26/19 11:41 Glucose (Fingerstick) 145 mg/dL (70-99) 157 mg/dL (70-99) 163 mg/dL (70-99) White Blood Count 17.8 x10^3/uL (4.0-11.0) Red Blood Count 3.08 x10^6/uL (3.50-5.40) Hemoglobin 8.2 g/dL (12.0-15.5) Hematocrit 25.8 % (36.0-47.0) Mean Corpuscular Volume 84 fL (79-100) Mean Corpuscular Hemoglobin 27 pg (25-35) Mean Corpuscular Hemoglobin Concent 32 g/dL (31-37) Red Cell Distribution Width 17.0 % (11.5-14.5) Platelet Count 424 x10^3/uL (140-400) Neutrophils (%) (Auto) 83 % (31-73) Lymphocytes (%) (Auto) 9 % (24-48) Monocytes (%) (Auto) 7 % (0-9) Eosinophils (%) (Auto) 1 % (0-3) Basophils (%) (Auto) 0 % (0-3) Neutrophils # (Auto) 14.7 x10^3/uL (1.8-7.7) Lymphocytes # (Auto) 1.6 x10^3/uL (1.0-4.8) Monocytes # (Auto) 1.2 x10^3/uL (0.0-1.1) Eosinophils # (Auto) 0.2 x10^3/uL (0.0-0.7) Basophils # (Auto) 0.0 x10^3/uL (0.0-0.2) Sodium Level 151 mmol/L (136-145) Potassium Level 3.2 mmol/L (3.5-5.1) Chloride Level 114 mmol/L (98-107) Carbon Dioxide Level 26 mmol/L (21-32) Anion Gap 11 (6-14) Blood Urea Nitrogen 43 mg/dL (7-20) Creatinine 1.4 mg/dL (0.6-1.0) Estimated GFR (Cockcroft-Gault) 46.9 Glucose Level 167 mg/dL (70-99) Calcium Level 7.4 mg/dL (8.5-10.1) Results All relevant outside records, renal labs, imaging studies, telemetry/EKG's were reviewed. DAVID GARCIA MD July 26, 2019 13:22
[2019-07-26] MEDS ORDERED: MAGNESIUM SULFATE 2GM 50 ML IV PRN (13:30)
[2019-07-26] MEDS: DEXTROSE 5% IV SCH ×2 (17:17→23:39)
[2019-07-26] MEDS: POTASSIUM CHLORIDE IV SCH ×2 (17:17→23:39)
--- NOTE | 2019-07-26 18:18 | PDOC ---
PROGRESS NOTES Chief Complaint Chief Complaint IMPRESSION Acute pneumonia, favor aspiration negative COVID testing Scattered opacities in the left lung, concerning for an infectious/inflammatory process. Hypernatremia secondary to severe dehydration acute hypoxic respiratory failure H/o CVA, peg feeding dependent, expressive aphasia HTN, DM GERD CKD STAGE 3-4 HyperKalemia- at presentation, Improved Developmental delay D/W RN History of Present Illness History of Present Illness 07/22/2019 Patient seen and examined in the [facility] ICU Her test just came back negative we are planning to transfer to another floor Discussed with RN Chart reviewed 07/23/2019 No acute events reported overnight, case discussed with nursing staff patient in no acute distress no complaints during my visit unable to have a meaningful conversation with the patient due to expressive aphasia as a consequence of her CVA 07/26/2019 No acute events reported overnight, case discussed with nursing staff patient in no acute distress no complaints during my visit, electrolyte disturbance seems to be improving now that her feeding tubes have been restarted, appreciate nephrology recommendation Vitals Vitals Vital Signs Date Time Temp Pulse Resp B/P (MAP) Pulse Ox O2 Delivery O2 Flow Rate FiO2 07/26/19 15:59 98.1 99 20 137/77 (97) 100 Nasal Cannula 1.5 98.1 Physical Exam Physical Exam Well developed, well nourished, tachypnea with less increased work of breathing [] HENT: Normocephalic, atraumatic, bilateral external ears normal, oropharynx moist, nose normal. [] Eyes: PERRLA, EOMI, conjunctiva normal. [] Neck: Normal range of motion, no tenderness, supple. [] Cardiovascular:Heart rate regular rhythm, no murmur. [] Lungs & Thorax: Bilateral breath sounds coarse [] Abdomen: Bowel sounds normal, soft, non-distended, no grimacing in exam. [] Skin: Warm, dry. [] Neurologic: Alert, Left hemiparesis. [] General: Cooperative HEENT: Atraumatic Heart: RRR Breasts: Not examined Abdomen: Soft Rectal Exam: not examined PELVIC: Examination not indicated Extremities: No cyanosis, No edema General: Cooperative, No acute distress Heart: Regular rate Lungs: Clear Abdomen: Soft Extremities: No cyanosis, No edema Skin: No rashes Labs LABS Laboratory Tests Test 07/26/19 00:05 07/26/19 00:12 07/26/19 01:45 07/26/19 06:08 Hemoglobin 8.5 g/dL (12.0-15.5) Hematocrit 26.6 % (36.0-47.0) Mean Corpuscular Hemoglobin Concent 32 g/dL (31-37) Glucose (Fingerstick) 164 mg/dL (70-99) 145 mg/dL (70-99) Lactic Acid Level 1.6 mmol/L (0.4-2.0) Test 07/26/19 07:36 07/26/19 08:30 07/26/19 11:41 07/26/19 17:12 Glucose (Fingerstick) 157 mg/dL (70-99) 163 mg/dL (70-99) 96 mg/dL (70-99) White Blood Count 17.8 x10^3/uL (4.0-11.0) Red Blood Count 3.08 x10^6/uL (3.50-5.40) Hemoglobin 8.2 g/dL (12.0-15.5) Hematocrit 25.8 % (36.0-47.0) Mean Corpuscular Volume 84 fL (79-100) Mean Corpuscular Hemoglobin 27 pg (25-35) Mean Corpuscular Hemoglobin Concent 32 g/dL (31-37) Red Cell Distribution Width 17.0 % (11.5-14.5) Platelet Count 424 x10^3/uL (140-400) Neutrophils (%) (Auto) 83 % (31-73) Lymphocytes (%) (Auto) 9 % (24-48) Monocytes (%) (Auto) 7 % (0-9) Eosinophils (%) (Auto) 1 % (0-3) Basophils (%) (Auto) 0 % (0-3) Neutrophils # (Auto) 14.7 x10^3/uL (1.8-7.7) Lymphocytes # (Auto) 1.6 x10^3/uL (1.0-4.8) Monocytes # (Auto) 1.2 x10^3/uL (0.0-1.1) Eosinophils # (Auto) 0.2 x10^3/uL (0.0-0.7) Basophils # (Auto) 0.0 x10^3/uL (0.0-0.2) Sodium Level 151 mmol/L (136-145) Potassium Level 3.2 mmol/L (3.5-5.1) Chloride Level 114 mmol/L (98-107) Carbon Dioxide Level 26 mmol/L (21-32) Anion Gap 11 (6-14) Blood Urea Nitrogen 43 mg/dL (7-20) Creatinine 1.4 mg/dL (0.6-1.0) Estimated GFR (Cockcroft-Gault) 46.9 Glucose Level 167 mg/dL (70-99) Calcium Level 7.4 mg/dL (8.5-10.1) Assessment and Plan Assessmemt and Plan Problems Medical Problems: (1) Aspiration into airway Status: Acute (2) Congestive heart failure Status: Acute (3) HCAP (healthcare-associated pneumonia) Status: Acute (4) Hyperkalemia Status: Acute Comment Review of Relevant I have reviewed the following items satish (where applicable) has been applied. Labs Laboratory Tests Test 07/24/19 23:34 07/25/19 06:36 07/25/19 10:55 07/25/19 13:10 Glucose (Fingerstick) 120 mg/dL (70-99) 211 mg/dL (70-99) 118 mg/dL (70-99) White Blood Count 18.3 x10^3/uL (4.0-11.0) Red Blood Count 2.66 x10^6/uL (3.50-5.40) Hemoglobin 7.0 g/dL (12.0-15.5) Hematocrit 22.8 % (36.0-47.0) Mean Corpuscular Volume 86 fL (79-100) Mean Corpuscular Hemoglobin 26 pg (25-35) Mean Corpuscular Hemoglobin Concent 31 g/dL (31-37) Red Cell Distribution Width 15.6 % (11.5-14.5) Platelet Count 467 x10^3/uL (140-400) Neutrophils (%) (Auto) 83 % (31-73) Lymphocytes (%) (Auto) 10 % (24-48) Monocytes (%) (Auto) 8 % (0-9) Eosinophils (%) (Auto) 0 % (0-3) Basophils (%) (Auto) 0 % (0-3) Neutrophils # (Auto) 15.2 x10^3/uL (1.8-7.7) Lymphocytes # (Auto) 1.8 x10^3/uL (1.0-4.8) Monocytes # (Auto) 1.4 x10^3/uL (0.0-1.1) Eosinophils # (Auto) 0.0 x10^3/uL (0.0-0.7) Basophils # (Auto) 0.0 x10^3/uL (0.0-0.2) Segmented Neutrophils % 82 % (35-66) Band Neutrophils % 1 % (0-9) Lymphocytes % 15 % (24-48) Monocytes % 2 % (0-10) Nucleated Red Blood Cells 1 Smudge Cells Present Platelet Estimate Increased (ADEQUATE) Sodium Level 161 mmol/L (136-145) Potassium Level 2.9 mmol/L (3.5-5.1) Chloride Level 123 mmol/L (98-107) Carbon Dioxide Level 25 mmol/L (21-32) Anion Gap 13 (6-14) Blood Urea Nitrogen 52 mg/dL (7-20) Creatinine 1.5 mg/dL (0.6-1.0) Estimated GFR (Cockcroft-Gault) 43.3 BUN/Creatinine Ratio 35 (6-20) Glucose Level 101 mg/dL (70-99) Calcium Level 7.5 mg/dL (8.5-10.1) Total Bilirubin 0.3 mg/dL (0.2-1.0) Aspartate Amino Transf (AST/SGOT) 28 U/L (15-37) Alanine Aminotransferase (ALT/SGPT) 66 U/L (14-59) Alkaline Phosphatase 153 U/L (46-116) Total Protein 6.4 g/dL (6.4-8.2) Albumin 1.6 g/dL (3.4-5.0) Albumin/Globulin Ratio 0.3 (1.0-1.7) Test 07/25/19 16:46 07/26/19 00:05 07/26/19 00:12 07/26/19 01:45 Glucose (Fingerstick) 100 mg/dL (70-99) 164 mg/dL (70-99) Hemoglobin 8.5 g/dL (12.0-15.5) Hematocrit 26.6 % (36.0-47.0) Mean Corpuscular Hemoglobin Concent 32 g/dL (31-37) Lactic Acid Level 1.6 mmol/L (0.4-2.0) Test 07/26/19 06:08 07/26/19 07:36 07/26/19 08:30 07/26/19 11:41 Glucose (Fingerstick) 145 mg/dL (70-99) 157 mg/dL (70-99) 163 mg/dL (70-99) White Blood Count 17.8 x10^3/uL (4.0-11.0) Red Blood Count 3.08 x10^6/uL (3.50-5.40) Hemoglobin 8.2 g/dL (12.0-15.5) Hematocrit 25.8 % (36.0-47.0) Mean Corpuscular Volume 84 fL (79-100) Mean Corpuscular Hemoglobin 27 pg (25-35) Mean Corpuscular Hemoglobin Concent 32 g/dL (31-37) Red Cell Distribution Width 17.0 % (11.5-14.5) Platelet Count 424 x10^3/uL (140-400) Neutrophils (%) (Auto) 83 % (31-73) Lymphocytes (%) (Auto) 9 % (24-48) Monocytes (%) (Auto) 7 % (0-9) Eosinophils (%) (Auto) 1 % (0-3) Basophils (%) (Auto) 0 % (0-3) Neutrophils # (Auto) 14.7 x10^3/uL (1.8-7.7) Lymphocytes # (Auto) 1.6 x10^3/uL (1.0-4.8) Monocytes # (Auto) 1.2 x10^3/uL (0.0-1.1) Eosinophils # (Auto) 0.2 x10^3/uL (0.0-0.7) Basophils # (Auto) 0.0 x10^3/uL (0.0-0.2) Sodium Level 151 mmol/L (136-145) Potassium Level 3.2 mmol/L (3.5-5.1) Chloride Level 114 mmol/L (98-107) Carbon Dioxide Level 26 mmol/L (21-32) Anion Gap 11 (6-14) Blood Urea Nitrogen 43 mg/dL (7-20) Creatinine 1.4 mg/dL (0.6-1.0) Estimated GFR (Cockcroft-Gault) 46.9 Glucose Level 167 mg/dL (70-99) Calcium Level 7.4 mg/dL (8.5-10.1) Test 07/26/19 17:12 Glucose (Fingerstick) 96 mg/dL (70-99) Laboratory Tests Test 07/26/19 00:05 07/26/19 00:12 07/26/19 01:45 07/26/19 06:08 Hemoglobin 8.5 g/dL (12.0-15.5) Hematocrit 26.6 % (36.0-47.0) Mean Corpuscular Hemoglobin Concent 32 g/dL (31-37) Glucose (Fingerstick) 164 mg/dL (70-99) 145 mg/dL (70-99) Lactic Acid Level 1.6 mmol/L (0.4-2.0) Test 07/26/19 07:36 07/26/19 08:30 07/26/19 11:41 07/26/19 17:12 Glucose (Fingerstick) 157 mg/dL (70-99) 163 mg/dL (70-99) 96 mg/dL (70-99) White Blood Count 17.8 x10^3/uL (4.0-11.0) Red Blood Count 3.08 x10^6/uL (3.50-5.40) Hemoglobin 8.2 g/dL (12.0-15.5) Hematocrit 25.8 % (36.0-47.0) Mean Corpuscular Volume 84 fL (79-100) Mean Corpuscular Hemoglobin 27 pg (25-35) Mean Corpuscular Hemoglobin Concent 32 g/dL (31-37) Red Cell Distribution Width 17.0 % (11.5-14.5) Platelet Count 424 x10^3/uL (140-400) Neutrophils (%) (Auto) 83 % (31-73) Lymphocytes (%) (Auto) 9 % (24-48) Monocytes (%) (Auto) 7 % (0-9) Eosinophils (%) (Auto) 1 % (0-3) Basophils (%) (Auto) 0 % (0-3) Neutrophils # (Auto) 14.7 x10^3/uL (1.8-7.7) Lymphocytes # (Auto) 1.6 x10^3/uL (1.0-4.8) Monocytes # (Auto) 1.2 x10^3/uL (0.0-1.1) Eosinophils # (Auto) 0.2 x10^3/uL (0.0-0.7) Basophils # (Auto) 0.0 x10^3/uL (0.0-0.2) Sodium Level 151 mmol/L (136-145) Potassium Level 3.2 mmol/L (3.5-5.1) Chloride Level 114 mmol/L (98-107) Carbon Dioxide Level 26 mmol/L (21-32) Anion Gap 11 (6-14) Blood Urea Nitrogen 43 mg/dL (7-20) Creatinine 1.4 mg/dL (0.6-1.0) Estimated GFR (Cockcroft-Gault) 46.9 Glucose Level 167 mg/dL (70-99) Calcium Level 7.4 mg/dL (8.5-10.1) Microbiology 07/21/19 Blood Culture - Final, Complete NO GROWTH AFTER 5 DAYS Medications Current Medications Ondansetron HCl (Zofran) 8 mg 1X ONCE IVP Last administered on 07/21/19at 07:42; Start 07/21/19 at 07:00; Stop 07/21/19 at 07:01; Status DC Ondansetron HCl (Zofran) 4 mg STK-MED ONCE .ROUTE ; Start 07/21/19 at 06:37; Stop 07/21/19 at 06:37; Status DC Insulin Human Regular (HumuLIN R VIAL) 10 unit 1X ONCE IV Last administered on 07/21/19at 07:30; Start 07/21/19 at 07:30; Stop 07/21/19 at 07:31; Status DC Sodium Bicarbonate (Sodium Bicarb Adult 8.4% Syr) 50 meq 1X ONCE IV Last administered on 07/21/19at 08:25; Start 07/21/19 at 07:30; Stop 07/21/19 at 07:31; Status DC Clindamycin Phosphate 50 ml @ 100 mls/hr 1X ONCE IV Last administered on 07/21/19at 08:31; Start 07/21/19 at 07:45; Stop 07/21/19 at 08:14; Status DC Cefepime HCl (Maxipime) 2 gm 1X ONCE IVP Last administered on 07/21/19at 07:47; Start 07/21/19 at 07:45; Stop 07/21/19 at 07:46; Status DC Metoclopramide HCl (Reglan Vial) 10 mg 1X ONCE IVP Last administered on 07/21/19at 09:05; Start 07/21/19 at 08:45; Stop 07/21/19 at 08:47; Status DC Iohexol (Omnipaque 300 Mg/ml) 75 ml 1X ONCE IV Last administered on 07/21/19at 10:01; Start 07/21/19 at 09:00; Stop 07/21/19 at 09:01; Status DC Ondansetron HCl (Zofran) 4 mg PRN Q8HRS PRN IV NAUSEA/VOMITING; Start 07/21/19 at 09:30; Stop 07/22/19 at 07:25; Status DC Albuterol/ Ipratropium (Duoneb) 3 ml RTQID NEB ; Start 07/21/19 at 12:00; Stop 07/22/19 at 06:42; Status DC Cefepime HCl (Maxipime) 2 gm Q12HR IVP Last administered on 07/26/19at 10:05; Start 07/21/19 at 21:00 Sodium Chloride (Normal Saline Flush) 3 ml QSHIFT PRN IV AFTER MEDS AND BLOOD DRAWS; Start 07/21/19 at 11:30 Sodium Chloride 1,000 ml @ 100 mls/hr Q10H IV Last administered on 07/24/19at 09:14; Start 07/21/19 at 11:19; Stop 07/24/19 at 11:45; Status DC Ondansetron HCl (Zofran) 4 mg PRN Q4HRS PRN IV NAUSEA/VOMITING Last administered on 07/23/19at 10:05; Start 07/21/19 at 11:30 Acetaminophen (Tylenol) 650 mg PRN Q4HRS PRN GT TEMP OVER 100.4F OR MILD PAIN Last administered on 07/23/19at 09:10; Start 07/21/19 at 11:30 Acetaminophen (Tylenol Supp) 650 mg PRN Q4HRS PRN OH TEMP OVER 100.4F OR MILD PAIN Last administered on 07/23/19at 16:52; Start 07/21/19 at 11:30 Clonidine HCl (Catapres) 0.1 mg PRN Q6HRS PRN PO SBP>160 OR DBP>90; Start 07/21/19 at 11:30 Sodium Monofluorophosphate (Fleet Adult) 133 ml PRN DAILY PRN OH CONSTIPATION; Start 07/21/19 at 11:30; Stop 07/26/19 at 13:25; Status DC Albuterol Sulfate (Ventolin Neb Soln) 2.5 mg PRN Q4HRS PRN NEB SHORTNESS OF BREATH; Start 07/21/19 at 11:30; Status Cancel Enoxaparin Sodium (Lovenox 40mg Syringe) 40 mg Q24H SQ Last administered on 07/25/19at 22:20; Start 07/21/19 at 21:00 Vancomycin HCl 1 gm/Dextrose 250 ml @ 250 mls/hr 1X ONCE IV Last administered on 07/21/19at 12:36; Start 07/21/19 at 11:30; Stop 07/21/19 at 12:29; Status DC Vancomycin HCl (Vanco Per Pharmacy) 1 each PRN DAILY PRN MC SEE COMMENTS Last administered on 07/26/19at 11:28; Start 07/21/19 at 11:45 Famotidine (Pepcid Vial) 20 mg DAILY IVP Last administered on 07/26/19at 10:03; Start 07/21/19 at 21:00 Insulin Human Lispro (HumaLOG) 0-5 UNITS Q6HRS SQ Last administered on 07/26/19at 13:27; Start 07/21/19 at 13:15 Dextrose (Dextrose 50%-Water Syringe) 12.5 gm PRN Q15MIN PRN IV SEE COMMENTS; Start 07/21/19 at 13:15 Vancomycin HCl 1 gm/Sodium Chloride 250 ml @ 250 mls/hr Q24H IV Last administered on 07/26/19at 13:18; Start 07/22/19 at 13:00 Vancomycin HCl (Vancomycin Trough Level) 1 each 1X ONCE MC Last administered on 07/23/19at 11:57; Start 07/23/19 at 12:30; Stop 07/23/19 at 12:31; Status DC Albuterol Sulfate (Ventolin Neb Soln) 2.5 mg PRN Q4HRS NEB ; Start 07/22/19 at 06:45; Stop 07/22/19 at 11:59; Status DC Insulin Glargine (Lantus Syringe) 8 unit BID SQ Last administered on 07/26/19at 10:22; Start 07/24/19 at 09:00 Potassium Chloride/Water 100 ml @ 75 mls/hr 1400,1520,1640 IV Last administered on 07/25/19at 17:33; Start 07/25/19 at 14:00; Stop 07/25/19 at 17: 59; Status DC Dextrose 1,000 ml @ 100 mls/hr Q10H IV Last administered on 07/26/19at 00:20; Start 07/25/19 at 14:00; Stop 07/26/19 at 13:25; Status DC Potassium Chloride 30 meq/ Dextrose 1,015 ml @ 100 mls/hr Q10H9M IV Last administered on 07/26/19at 17:17; Start 07/26/19 at 13:30 Magnesium Sulfate 50 ml @ 25 mls/hr PRN DAILY PRN IV for Mag < 1.7 on am labs; Start 07/26/19 at 13:30 Active Scripts Active Humalog (Insulin Lispro) 100 Unit/1 Ml Insuln.pen 0 Units SQ TIDWMEALS 14 Days Zofran Odt (Ondansetron) 4 Mg Tab.rapdis 1 Tab SL Q6HRS PRN Reported Zocor (Simvastatin) 40 Mg Tablet 1 Tab PO DAILY Tramadol Hcl 50 Mg Tablet 50 Mg PO BID PRN Senokot (Sennosides) 8.6 Mg Tablet 1 Tab PO BID 20 Days Polyethylene Glycol 3350 2,500 Gm Powder 17 Gm PO DAILY 30 Days Omeprazole 20 Mg Tablet.dr 1 Tab PO DAILY [place] 5-325 Tablet (Acetaminophen/Hydrocodone Bitart) 1 Each Tablet 1 Tab PO BID Metoprolol Tartrate 25 Mg Tablet 1 Tab PO BID Melatonin 3 Mg Tablet 2 Tab PO QHS Lantus Solostar (Insulin Glargine,Hum.rec.anlog) 100 Unit/1 Ml Insuln.pen 30 Unit SQ QHS Hydroxyzine Hcl 25 Mg Tablet 1 Tab PO TID Gabapentin 600 Mg Tablet 600 Mg PO BID Docusate Sodium 100 Mg Capsule 1 Cap PO BID 15 Days Cyclobenzaprine Hcl 5 Mg Tablet 1 Tab PO QHS Vitamin B-12 (Cyanocobalamin (Vitamin B-12)) 1,000 Mcg Tablet 1 Tab PO DAILY 30 Days Coreg (Carvedilol) 25 Mg Tablet 12.5 Mg PO BIDWMEALS Clopidogrel (Clopidogrel Bisulfate) 75 Mg Tablet 1 Tab PO DAILY Celexa (Citalopram Hydrobromide) 20 Mg Tablet 1 Tab PO DAILY D3-50 (Cholecalciferol (Vitamin D3)) 50,000 Unit Capsule 2,000 Unit PO DAILY Bisacodyl 10 Mg Supp.rect 10 Mg RC PRN DAILY PRN Aspirin 325 Mg Tablet 1 Tab PO DAILY Albuterol Sulfate Neb Soln (Albuterol Sulfate) 2.5 Mg/3 Ml Vial.neb 1 Vial NEB PRN Q4HRS Tylenol (Acetaminophen) 325 Mg Tablet 2 Tab PO BID Vitals/I & O Vital Sign - Last 24 Hours 07/25/19 07/25/19 07/25/19 07/25/19 19:30 20:00 20:08 20:23 Temp 98.2 98.9 98.5 98.2 98.9 98.5 Pulse 103 104 102 Resp B/P (MAP) 149/71 (97) 150/74 153/76 Pulse Ox 100 O2 Delivery Nasal Cannula Nasal Cannula O2 Flow Rate 1.5 1.5 07/25/19 07/25/19 07/25/19 07/25/19 21:25 21:31 22:23 23:00 Temp 98.0 98.0 98.1 98.2 98.0 98.0 98.1 98.2 Pulse 64 97 98 101 Resp B/P (MAP) 161/85 161/85 (110) 158/86 155/77 (103) Pulse Ox 100 100 O2 Delivery Nasal Cannula Nasal Cannula O2 Flow Rate 1.5 1.5 07/25/19 07/26/19 07/26/19 07/26/19 23:09 00:10 03:30 07:59 Temp 98.2 98.0 99.0 98.5 98.2 98.0 99.0 98.5 Pulse 101 104 101 100 Resp B/P (MAP) 155/77 151/73 135/68 (90) 143/83 (103) Pulse Ox 100 100 O2 Delivery Nasal Cannula Nasal Cannula O2 Flow Rate 1.5 1.5 07/26/19 07/26/19 07/26/19 08:00 11:59 15:59 Temp 98.6 98.1 98.6 98.1 Pulse 95 99 Resp 20 B/P (MAP) 138/66 (90) 137/77 (97) Pulse Ox 97 100 O2 Delivery Nasal Cannula Nasal Cannula Nasal Cannula O2 Flow Rate 1.5 1.5 1.5 Intake and Output 07/25/19 07/25/19 07/26/19 15:00 23:00 07:00 Intake Total 120 ml 120 ml Balance 120 ml 120 ml Nutrition Consultation Dietary Evaluation: Recommendations by RD: Dietary education by RD, Increase Calorie Intake, Protein supplementation Comments: REC TFs per order at [facility]: Glucerna 1.5@goal rate 40 ml/hr w/120 ml water flushes q4 hrs REC Kalyan BID via PEG tube (wound healing), mix each packet w/4oz water to dissolve and flush tube w/~30 ml water after each packet REC liquid MVI via PEG (wound healing) Expected Outcomes/Goals: TF initiation/infusion to meet >75% est needs Malnutrition Findings: Body Fat Depletion (Non Severe: Mild Depletion Weight Status: Appropriate DOT LUONG MD July 26, 2019 18:18
[2019-07-26] MEDS: ENOXAPARIN 40 MG/0.4 ML SYRINGE. SQ SCH (22:17)
[2019-07-27 03:00] VITALS: BP 141/80
[2019-07-27] MEDS: INSULIN LISPRO 300 UNITS/3 ML VIAL. SQ SCH ×4 (06:00→23:39)
[2019-07-27 07:59] VITALS: BP 124/57
[2019-07-27] MEDS: FAMOTIDINE 20 MG/2 ML VIAL IVP SCH (09:18)
[2019-07-27] MEDS: CEFEPIME HCL IV Push 2 GM VIAL. IVP SCH ×2 (09:19→22:03)
[2019-07-27] MEDS: INSULIN GLARGINE SYRINGE. SQ SCH ×2 (09:34→22:04)
[2019-07-27] MEDS: DEXTROSE 5% IV SCH (09:48)
[2019-07-27] MEDS: POTASSIUM CHLORIDE IV SCH (09:48)
--- NOTE | 2019-07-27 10:30 | PDOC ---
PROGRESS NOTES Chief Complaint Chief Complaint IMPRESSION Acute pneumonia, favor aspiration negative COVID testing Scattered opacities in the left lung, concerning for an infectious/inflammatory process. Hypernatremia secondary to severe dehydration acute hypoxic respiratory failure H/o CVA, peg feeding dependent, expressive aphasia HTN, DM GERD CKD STAGE 3-4 HyperKalemia- at presentation, Improved Developmental delay D/W RN CXR 37 MIN pt exam, chart review, > 50% of time spent with exam, chart review, pt care coordination History of Present Illness History of Present Illness 07/26 Patient seen and examined more coarse Discussed with RN Chart reviewed 07/23/2019 No acute events reported overnight, case discussed with nursing staff patient in no acute distress no complaints during my visit unable to have a meaningful conversation with the patient due to expressive aphasia as a consequence of her CVA 07/26/2019 No acute events reported overnight, case discussed with nursing staff patient in no acute distress no complaints during my visit, electrolyte disturbance seems to be improving now that her feeding tubes have been restarted, appreciate nephrology recommendation Vitals Vitals Vital Signs Date Time Temp Pulse Resp B/P (MAP) Pulse Ox O2 Delivery O2 Flow Rate FiO2 07/27/19 08:00 Nasal Cannula 1.5 07/27/19 07:59 99.3 100 18 124/57 (79) 100 99.3 Physical Exam Physical Exam Well developed, well nourished, tachypnea with less increased work of breathing [] HENT: Normocephalic, atraumatic, bilateral external ears normal, oropharynx moist, nose normal. [] Eyes: PERRLA, EOMI, conjunctiva normal. [] Neck: Normal range of motion, no tenderness, supple. [] Cardiovascular:Heart rate regular rhythm, no murmur. [] Lungs & Thorax: Bilateral breath sounds coarse [] Abdomen: Bowel sounds normal, soft, non-distended, no grimacing in exam. [] Skin: Warm, dry. [] Neurologic: Alert, Left hemiparesis. [] General: Cooperative HEENT: Atraumatic Heart: RRR Breasts: Not examined Abdomen: Soft Rectal Exam: not examined PELVIC: Examination not indicated Extremities: No cyanosis, No edema General: Alert, Cooperative, No acute distress Heart: Regular rate Lungs: Clear, Wheezing, Crackles, Other (COARSE) Abdomen: Soft, No tenderness Extremities: No cyanosis, No edema Skin: No rashes Labs LABS Laboratory Tests Test 07/26/19 11:41 07/26/19 17:12 07/26/19 23:37 07/27/19 06:00 Glucose (Fingerstick) 163 mg/dL (70-99) 96 mg/dL (70-99) 188 mg/dL (70-99) Magnesium Level 1.4 mg/dL (1.8-2.4) Test 07/27/19 06:28 Glucose (Fingerstick) 193 mg/dL (70-99) Assessment and Plan Assessmemt and Plan Problems Medical Problems: (1) Aspiration into airway Status: Acute (2) Congestive heart failure Status: Acute (3) HCAP (healthcare-associated pneumonia) Status: Acute (4) Hyperkalemia Status: Acute Comment Review of Relevant I have reviewed the following items satish (where applicable) has been applied. Labs Laboratory Tests Test 07/25/19 10:55 07/25/19 13:10 07/25/19 16:46 07/26/19 00:05 Glucose (Fingerstick) 118 mg/dL (70-99) 100 mg/dL (70-99) White Blood Count 18.3 x10^3/uL (4.0-11.0) Red Blood Count 2.66 x10^6/uL (3.50-5.40) Hemoglobin 7.0 g/dL (12.0-15.5) 8.5 g/dL (12.0-15.5) Hematocrit 22.8 % (36.0-47.0) 26.6 % (36.0-47.0) Mean Corpuscular Volume 86 fL (79-100) Mean Corpuscular Hemoglobin 26 pg (25-35) Mean Corpuscular Hemoglobin Concent 31 g/dL (31-37) 32 g/dL (31-37) Red Cell Distribution Width 15.6 % (11.5-14.5) Platelet Count 467 x10^3/uL (140-400) Neutrophils (%) (Auto) 83 % (31-73) Lymphocytes (%) (Auto) 10 % (24-48) Monocytes (%) (Auto) 8 % (0-9) Eosinophils (%) (Auto) 0 % (0-3) Basophils (%) (Auto) 0 % (0-3) Neutrophils # (Auto) 15.2 x10^3/uL (1.8-7.7) Lymphocytes # (Auto) 1.8 x10^3/uL (1.0-4.8) Monocytes # (Auto) 1.4 x10^3/uL (0.0-1.1) Eosinophils # (Auto) 0.0 x10^3/uL (0.0-0.7) Basophils # (Auto) 0.0 x10^3/uL (0.0-0.2) Segmented Neutrophils % 82 % (35-66) Band Neutrophils % 1 % (0-9) Lymphocytes % 15 % (24-48) Monocytes % 2 % (0-10) Nucleated Red Blood Cells 1 Smudge Cells Present Platelet Estimate Increased (ADEQUATE) Sodium Level 161 mmol/L (136-145) Potassium Level 2.9 mmol/L (3.5-5.1) Chloride Level 123 mmol/L (98-107) Carbon Dioxide Level 25 mmol/L (21-32) Anion Gap 13 (6-14) Blood Urea Nitrogen 52 mg/dL (7-20) Creatinine 1.5 mg/dL (0.6-1.0) Estimated GFR (Cockcroft-Gault) 43.3 BUN/Creatinine Ratio 35 (6-20) Glucose Level 101 mg/dL (70-99) Calcium Level 7.5 mg/dL (8.5-10.1) Total Bilirubin 0.3 mg/dL (0.2-1.0) Aspartate Amino Transf (AST/SGOT) 28 U/L (15-37) Alanine Aminotransferase (ALT/SGPT) 66 U/L (14-59) Alkaline Phosphatase 153 U/L (46-116) Total Protein 6.4 g/dL (6.4-8.2) Albumin 1.6 g/dL (3.4-5.0) Albumin/Globulin Ratio 0.3 (1.0-1.7) Test 07/26/19 00:12 07/26/19 01:45 07/26/19 06:08 07/26/19 07:36 Glucose (Fingerstick) 164 mg/dL (70-99) 145 mg/dL (70-99) 157 mg/dL (70-99) Lactic Acid Level 1.6 mmol/L (0.4-2.0) Test 07/26/19 08:30 07/26/19 11:41 07/26/19 17:12 07/26/19 23:37 White Blood Count 17.8 x10^3/uL (4.0-11.0) Red Blood Count 3.08 x10^6/uL (3.50-5.40) Hemoglobin 8.2 g/dL (12.0-15.5) Hematocrit 25.8 % (36.0-47.0) Mean Corpuscular Volume 84 fL (79-100) Mean Corpuscular Hemoglobin 27 pg (25-35) Mean Corpuscular Hemoglobin Concent 32 g/dL (31-37) Red Cell Distribution Width 17.0 % (11.5-14.5) Platelet Count 424 x10^3/uL (140-400) Neutrophils (%) (Auto) 83 % (31-73) Lymphocytes (%) (Auto) 9 % (24-48) Monocytes (%) (Auto) 7 % (0-9) Eosinophils (%) (Auto) 1 % (0-3) Basophils (%) (Auto) 0 % (0-3) Neutrophils # (Auto) 14.7 x10^3/uL (1.8-7.7) Lymphocytes # (Auto) 1.6 x10^3/uL (1.0-4.8) Monocytes # (Auto) 1.2 x10^3/uL (0.0-1.1) Eosinophils # (Auto) 0.2 x10^3/uL (0.0-0.7) Basophils # (Auto) 0.0 x10^3/uL (0.0-0.2) Sodium Level 151 mmol/L (136-145) Potassium Level 3.2 mmol/L (3.5-5.1) Chloride Level 114 mmol/L (98-107) Carbon Dioxide Level 26 mmol/L (21-32) Anion Gap 11 (6-14) Blood Urea Nitrogen 43 mg/dL (7-20) Creatinine 1.4 mg/dL (0.6-1.0) Estimated GFR (Cockcroft-Gault) 46.9 Glucose Level 167 mg/dL (70-99) Calcium Level 7.4 mg/dL (8.5-10.1) Glucose (Fingerstick) 163 mg/dL (70-99) 96 mg/dL (70-99) 188 mg/dL (70-99) Test 07/27/19 06:00 07/27/19 06:28 Magnesium Level 1.4 mg/dL (1.8-2.4) Glucose (Fingerstick) 193 mg/dL (70-99) Laboratory Tests Test 07/26/19 11:41 07/26/19 17:12 07/26/19 23:37 07/27/19 06:00 Glucose (Fingerstick) 163 mg/dL (70-99) 96 mg/dL (70-99) 188 mg/dL (70-99) Magnesium Level 1.4 mg/dL (1.8-2.4) Test 07/27/19 06:28 Glucose (Fingerstick) 193 mg/dL (70-99) Microbiology 07/26/19 Blood Culture - Preliminary, Resulted NO GROWTH AFTER 1 DAY Medications Current Medications Ondansetron HCl (Zofran) 8 mg 1X ONCE IVP Last administered on 07/21/19at 07:42; Start 07/21/19 at 07:00; Stop 07/21/19 at 07:01; Status DC Ondansetron HCl (Zofran) 4 mg STK-MED ONCE .ROUTE ; Start 07/21/19 at 06:37; Stop 07/21/19 at 06:37; Status DC Insulin Human Regular (HumuLIN R VIAL) 10 unit 1X ONCE IV Last administered on 07/21/19at 07:30; Start 07/21/19 at 07:30; Stop 07/21/19 at 07:31; Status DC Sodium Bicarbonate (Sodium Bicarb Adult 8.4% Syr) 50 meq 1X ONCE IV Last adm inistered on 07/21/19at 08:25; Start 07/21/19 at 07:30; Stop 07/21/19 at 07:31; Status DC Clindamycin Phosphate 50 ml @ 100 mls/hr 1X ONCE IV Last administered on 07/21/19at 08:31; Start 07/21/19 at 07:45; Stop 07/21/19 at 08:14; Status DC Cefepime HCl (Maxipime) 2 gm 1X ONCE IVP Last administered on 07/21/19at 07:47; Start 07/21/19 at 07:45; Stop 07/21/19 at 07:46; Status DC Metoclopramide HCl (Reglan Vial) 10 mg 1X ONCE IVP Last administered on 07/21/19at 09:05; Start 07/21/19 at 08:45; Stop 07/21/19 at 08:47; Status DC Iohexol (Omnipaque 300 Mg/ml) 75 ml 1X ONCE IV Last administered on 07/21/19at 10:01; Start 07/21/19 at 09:00; Stop 07/21/19 at 09:01; Status DC Ondansetron HCl (Zofran) 4 mg PRN Q8HRS PRN IV NAUSEA/VOMITING; Start 07/21/19 at 09:30; Stop 07/22/19 at 07:25; Status DC Albuterol/ Ipratropium (Duoneb) 3 ml RTQID NEB ; Start 07/21/19 at 12:00; Stop 07/22/19 at 06:42; Status DC Cefepime HCl (Maxipime) 2 gm Q12HR IVP Last administered on 07/27/19at 09:19; Start 07/21/19 at 21:00 Sodium Chloride (Normal Saline Flush) 3 ml QSHIFT PRN IV AFTER MEDS AND BLOOD DRAWS; Start 07/21/19 at 11:30 Sodium Chloride 1,000 ml @ 100 mls/hr Q10H IV Last administered on 07/24/19at 09:14; Start 07/21/19 at 11:19; Stop 07/24/19 at 11:45; Status DC Ondansetron HCl (Zofran) 4 mg PRN Q4HRS PRN IV NAUSEA/VOMITING Last administered on 07/23/19at 10:05; Start 07/21/19 at 11:30 Acetaminophen (Tylenol) 650 mg PRN Q4HRS PRN GT TEMP OVER 100.4F OR MILD PAIN Last administered on 07/23/19at 09:10; Start 07/21/19 at 11:30 Acetaminophen (Tylenol Supp) 650 mg PRN Q4HRS PRN [place] TEMP OVER 100.4F OR MILD PAIN Last administered on 07/23/19at 16:52; Start 07/21/19 at 11:30 Clonidine HCl (Catapres) 0.1 mg PRN Q6HRS PRN PO SBP>160 OR DBP>90; Start 07/21/19 at 11:30 Sodium Monofluorophosphate (Fleet Adult) 133 ml PRN DAILY PRN [place] CONSTIPATION; Start 07/21/19 at 11:30; Stop 07/26/19 at 13:25; Status DC Albuterol Sulfate (Ventolin Neb Soln) 2.5 mg PRN Q4HRS PRN NEB SHORTNESS OF BREATH; Start 07/21/19 at 11:30; Status Cancel Enoxaparin Sodium (Lovenox 40mg Syringe) 40 mg Q24H SQ Last administered on 07/26/19at 22:17; Start 07/21/19 at 21:00 Vancomycin HCl 1 gm/Dextrose 250 ml @ 250 mls/hr 1X ONCE IV Last administered on 07/21/19at 12:36; Start 07/21/19 at 11:30; Stop 07/21/19 at 12:29; Status DC Vancomycin HCl (Vanco Per Pharmacy) 1 each PRN DAILY PRN MC SEE COMMENTS Last administered on 07/26/19at 11:28; Start 07/21/19 at 11:45 Famotidine (Pepcid Vial) 20 mg DAILY IVP Last administered on 07/27/19at 09:18; Start 07/21/19 at 21:00 Insulin Human Lispro (HumaLOG) 0-5 UNITS Q6HRS SQ Last administered on 07/26/19at 13:27; Start 07/21/19 at 13:15 Dextrose (Dextrose 50%-Water Syringe) 12.5 gm PRN Q15MIN PRN IV SEE COMMENTS; Start 07/21/19 at 13:15 Vancomycin HCl 1 gm/Sodium Chloride 250 ml @ 250 mls/hr Q24H IV Last administered on 07/26/19at 13:18; Start 07/22/19 at 13:00 Vancomycin HCl (Vancomycin Trough Level) 1 each 1X ONCE MC Last administered on 07/23/19at 11:57; Start 07/23/19 at 12:30; Stop 07/23/19 at 12:31; Status DC Albuterol Sulfate (Ventolin Neb Soln) 2.5 mg PRN Q4HRS NEB ; Start 07/22/19 at 06:45; Stop 07/22/19 at 11:59; Status DC Insulin Glargine (Lantus Syringe) 8 unit BID SQ Last administered on 07/27/19at 09:34; Start 07/24/19 at 09:00 Potassium Chloride/Water 100 ml @ 75 mls/hr 1400,1520,1640 IV Last administered on 07/25/19at 17:33; Start 07/25/19 at 14:00; Stop 07/25/19 at 17:59; Status DC Dextrose 1,000 ml @ 100 mls/hr Q10H IV Last administered on 07/26/19at 00:20; Start 07/25/19 at 14:00; Stop 07/26/19 at 13:25; Status DC Potassium Chloride 30 meq/ Dextrose 1,015 ml @ 100 mls/hr Q10H9M IV Last administered on 07/26/19at 23:39; Start 07/26/19 at 13:30 Magnesium Sulfate 50 ml @ 25 mls/hr PRN DAILY PRN IV for Mag < 1.7 on am labs; Start 07/26/19 at 13:30 Active Scripts Active Humalog (Insulin Lispro) 100 Unit/1 Ml Insuln.pen 0 Units SQ TIDWMEALS 14 Days Zofran Odt (Ondansetron) 4 Mg Tab.rapdis 1 Tab SL Q6HRS PRN Reported Zocor (Simvastatin) 40 Mg Tablet 1 Tab PO DAILY Tramadol Hcl 50 Mg Tablet 50 Mg PO BID PRN Senokot (Sennosides) 8.6 Mg Tablet 1 Tab PO BID 20 Days Polyethylene Glycol 3350 2,500 Gm Powder 17 Gm PO DAILY 30 Days Omeprazole 20 Mg Tablet.dr 1 Tab PO DAILY [place] 5-325 Tablet (Acetaminophen/Hydrocodone Bitart) 1 Each Tablet 1 Tab PO BID Metoprolol Tartrate 25 Mg Tablet 1 Tab PO BID Melatonin 3 Mg Tablet 2 Tab PO QHS Lantus Solostar (Insulin Glargine,Hum.rec.anlog) 100 Unit/1 Ml Insuln.pen 30 Unit SQ QHS Hydroxyzine Hcl 25 Mg Tablet 1 Tab PO TID Gabapentin 600 Mg Tablet 600 Mg PO BID Docusate Sodium 100 Mg Capsule 1 Cap PO BID 15 Days Cyclobenzaprine Hcl 5 Mg Tablet 1 Tab PO QHS Vitamin B-12 (Cyanocobalamin (Vitamin B-12)) 1,000 Mcg Tablet 1 Tab PO DAILY 30 Days Coreg (Carvedilol) 25 Mg Tablet 12.5 Mg PO BIDWMEALS Clopidogrel (Clopidogrel Bisulfate) 75 Mg Tablet 1 Tab PO DAILY Celexa (Citalopram Hydrobromide) 20 Mg Tablet 1 Tab PO DAILY D3-50 (Cholecalciferol (Vitamin D3)) 50,000 Unit Capsule 2,000 Unit PO DAILY Bisacodyl 10 Mg Supp.rect 10 Mg RC PRN DAILY PRN Aspirin 325 Mg Tablet 1 Tab PO DAILY Albuterol Sulfate Neb Soln (Albuterol Sulfate) 2.5 Mg/3 Ml Vial.neb 1 Vial NEB PRN Q4HRS Tylenol (Acetaminophen) 325 Mg Tablet 2 Tab PO BID Vitals/I & O Vital Sign - Last 24 Hours 07/26/19 07/26/19 07/26/19 07/26/19 11:59 15:59 19:00 20:00 Temp 98.6 98.1 100.7 98.6 98.1 100.7 Pulse 95 99 102 Resp 22 20 18 B/P (MAP) 138/66 (90) 137/77 (97) 163/80 (107) Pulse Ox 97 100 100 O2 Delivery Nasal Cannula Nasal Cannula Nasal Cannula Nasal Cannula O2 Flow Rate 1.5 1.5 1.5 1.5 07/26/19 07/27/19 07/27/19 07/27/19 23:00 03:00 07:59 08:00 Temp 99.8 99.8 99.3 99.8 99.8 99.3 Pulse 103 100 100 Resp 16 18 18 B/P (MAP) 139/74 (95) 141/80 (100) 124/57 (79) Pulse Ox 100 100 100 O2 Delivery Nasal Cannula Nasal Cannula Nasal Cannula Nasal Cannula O2 Flow Rate 1.5 1.5 1.5 1.5 Intake and Output 07/26/19 07/26/19 07/27/19 15:00 23:00 07:00 Intake Total 356 ml 356 ml Output Total 150 ml Balance 206 ml 356 ml Nutrition Consultation Dietary Evaluation: Recommendations by RD: Dietary education by RD, Increase Calorie Intake, Protein supplementation Comments: REC TFs per order at retirement: Glucerna 1.5@goal rate 40 ml/hr w/120 ml water flushes q4 hrs REC Kalyan BID via PEG tube (wound healing), mix each packet w/4oz water to dissolve and flush tube w/~30 ml water after each packet REC liquid MVI via PEG (wound healing) Expected Outcomes/Goals: TF initiation/infusion to meet >75% est needs Malnutrition Findings: Body Fat Depletion (Non Severe: Mild Depletion Weight Status: Appropriate FAUSTO MARCIAL MD July 27, 2019 10:30
[2019-07-27] MEDS: VANCOMYCIN PER PHARMACY MC PRN (11:00)
--- NOTE | 2019-07-27 12:37 | PDOC ---
SUBJECTIVE ROS Follow-up for ELISA and electrolyte abnormalities Patient remains nonverbal has numerous contractures OBJECTIVE Vital Signs Vital Signs Date Time Temp Pulse Resp B/P (MAP) Pulse Ox O2 Delivery O2 Flow Rate FiO2 07/27/19 08:00 Nasal Cannula 1.5 07/27/19 07:59 99.3 100 18 124/57 (79) 100 99.3 I & 0 Intake and Output 07/27/19 07:00 Intake Total 712 ml Output Total 150 ml Balance 562 ml Tube Feeding 712 ml Output Urine Total 150 ml Gastric Drainage Total 0 ml # Voids 3 # Bowel Movements 6 PHYSICAL EXAM Physical Exam GEN: nad HEEN: Om moist NECK: supple CVS: S1-S2 RESP: decreased at bases, Nonlabored GI: BS + ve Non Tender, PEG + : No CVA tenderness, No Suprapubic Tenderness, No stapleton Neuro- Non verbal Ext No edema, contractures DIAGNOSIS/ASSESSMENT Assessment & Plan CKD stage 3 : Baseline 1.5-1.8 since at least 2014, stable renal function, for now. Creatinine slightly better yesterday. No labs for today HypoKalemia-supplement as needed. Nonrenal tube feeds ongoing currently. Mag will need correction. No reliable IV access available. Hypernatremia: Continue free water repletion is ongoing. Check labs in the morning Hypomagnesemia: Replace as ordered. Marginal calcium levels, no recent albumin levels. Reevaluate after mag is replaced COMMENT/RELEVANT DATA Meds Current Medications Medications (Trade) Dose Ordered Sig/Shirley Start Time Stop Time Status Last Admin Dose Admin Acetaminophen (Tylenol Supp) 650 mg PRN Q4HRS PRN 07/21/19 11:30 07/23/19 16:52 650 MG Acetaminophen (Tylenol) 650 mg PRN Q4HRS PRN 07/21/19 11:30 07/23/19 09:10 650 MG Albuterol Sulfate (Ventolin Neb Soln) 2.5 mg PRN Q4HRS 07/22/19 06:45 07/22/19 11:59 DC Albuterol/ Ipratropium (Duoneb) 3 ml RTQID 07/21/19 12:00 07/22/19 06:42 DC Cefepime HCl (Maxipime) 2 gm Q12HR 07/21/19 21:00 07/27/19 09:19 2 GM Clindamycin Phosphate 50 ml @ 100 mls/hr 1X ONCE 07/21/19 07:45 07/21/19 08:14 DC 07/21/19 08:31 100 MLS/HR Clonidine HCl (Catapres) 0.1 mg PRN Q6HRS PRN 07/21/19 11:30 Dextrose 1,000 ml @ 100 mls/hr Q10H 07/25/19 14:00 07/26/19 13:25 DC 07/26/19 00:20 100 MLS/HR Dextrose (Dextrose 50%-Water Syringe) 12.5 gm PRN Q15MIN PRN 07/21/19 13:15 Enoxaparin Sodium (Lovenox 40mg Syringe) 40 mg Q24H 07/21/19 21:00 07/26/19 22:17 40 MG Famotidine (Pepcid Vial) 20 mg DAILY 07/21/19 21:00 07/27/19 09:18 20 MG Insulin Glargine (Lantus Syringe) 8 unit BID 07/24/19 09:00 07/27/19 09:34 8 UNIT Insulin Human Lispro (HumaLOG) 0-5 UNITS Q6HRS 07/21/19 13:15 07/26/19 13:27 2 UNITS Insulin Human Regular (HumuLIN R VIAL) 10 unit 1X ONCE 07/21/19 07:30 07/21/19 07:31 DC 07/21/19 07:30 10 UNIT Iohexol (Omnipaque 300 Mg/ml) 75 ml 1X ONCE 07/21/19 09:00 07/21/19 09:01 DC 07/21/19 10:01 75 ML Magnesium Sulfate 50 ml @ 25 mls/hr PRN DAILY PRN 07/26/19 13:30 Metoclopramide HCl (Reglan Vial) 10 mg 1X ONCE 07/21/19 08:45 07/21/19 08:47 DC 07/21/19 09:05 10 MG Ondansetron HCl (Zofran) 4 mg PRN Q4HRS PRN 07/21/19 11:30 07/23/19 10:05 4 MG Potassium Chloride 30 meq/ Dextrose 1,015 ml @ 100 mls/hr Q10H9M 07/26/19 13:30 07/26/19 23:39 100 MLS/HR Potassium Chloride/Water 100 ml @ 75 mls/hr 1400,1520,1640 07/25/19 14:00 07/25/19 17:59 DC 07/25/19 17:33 75 MLS/HR Sodium Monofluorophosphate (Fleet Adult) 133 ml PRN DAILY PRN 07/21/19 11:30 07/26/19 13:25 DC Sodium Bicarbonate (Sodium Bicarb Adult 8.4% Syr) 50 meq 1X ONCE 07/21/19 07:30 07/21/19 07:31 DC 07/21/19 08:25 50 MEQ Sodium Chloride 1,000 ml @ 100 mls/hr Q10H 07/21/19 11:19 07/24/19 11:45 DC 07/24/19 09:14 100 MLS/HR Sodium Chloride (Normal Saline Flush) 3 ml QSHIFT PRN 07/21/19 11:30 Vancomycin HCl (Vanco Per Pharmacy) 1 each PRN DAILY PRN 07/21/19 11:45 07/27/19 11:00 1 EACH Vancomycin HCl (Vancomycin Trough Level) 1 each 1X ONCE 07/28/19 12:30 07/28/19 12:31 Vancomycin HCl 1 gm/Dextrose 250 ml @ 250 mls/hr 1X ONCE 07/21/19 11:30 07/21/19 12:29 DC 07/21/19 12:36 250 MLS/HR Vancomycin HCl 1 gm/Sodium Chloride 250 ml @ 250 mls/hr Q24H 07/22/19 13:00 07/26/19 13:18 250 MLS/HR Lab Laboratory Tests Test 07/26/19 17:12 07/26/19 23:37 07/27/19 06:00 07/27/19 06:28 Glucose (Fingerstick) 96 mg/dL (70-99) 188 mg/dL (70-99) 193 mg/dL (70-99) Magnesium Level 1.4 mg/dL (1.8-2.4) Test 07/27/19 12:07 Glucose (Fingerstick) 188 mg/dL (70-99) Results All relevant outside records, renal labs, imaging studies, telemetry/EKG's were reviewed. DAVID GARCIA MD July 27, 2019 12:37
--- NOTE | 2019-07-27 13:22 | RAD ---
Single view chest dated 07/27/2019. Comparison made to 07/21/2019. CLINICAL INDICATION: Pneumonia. FINDINGS: Single upright portable exam performed. Heart and mediastinal contours are stable. Patchy airspace disease in the left perihilar region is somewhat improved from prior study. There is blunting of the left costophrenic sulcus. No pneumothorax. Right lung remains clear. IMPRESSION: 1. Improving left-sided airspace disease. 2. Possible small left pleural effusion. Electronically signed by: Anton Keenan MD (07/27/2019 1:20 PM) PATRIZIA
[2019-07-27] MEDS: IV DEXTROSE 5% 1,000 ML IV SCH ×2 (14:10→23:39)
[2019-07-27] MEDS: ACETAMINOPHEN 650 MG/20.3 ML SOLUTION. GT PRN (14:11)
[2019-07-27] MEDS: VANCOMYCIN 1 GM in IV NORMAL SALINE 250ML 250 ML IV SCH (14:11)
[2019-07-27 15:00] VITALS: BP 137/74
[2019-07-27] MEDS: IPRATRPIUM/ALBUTEROL 0.5/2.5MG 3 ML NEBU. NEB SCH ×2 (16:00→19:42)
[2019-07-27] MEDS: MAGNESIUM OXIDE 400 MG TABLET PO SCH ×2 (18:03→22:01)
--- NOTE | 2019-07-27 18:43 | PDOC ---
PULMONARY PROGRESS NOTES Subjective on 02, open eyes w verbal stimuli, appears comfortable. per rn the pt answered some Qs Vitals Vital Signs Date Time Temp Pulse Resp B/P (MAP) Pulse Ox O2 Delivery O2 Flow Rate FiO2 07/27/19 16:00 100 1.5 07/27/19 15:00 99.1 96 16 137/74 (95) Nasal Cannula 99.1 Lungs: Wheezing, Crackles, Other (COARSE) Cardiovascular: S1, S2 Abdomen: Soft Extremities: Other (Contractures muscle wasting) Skin: Warm Labs Laboratory Tests Test 07/26/19 00:05 07/26/19 00:12 07/26/19 01:45 07/26/19 06:08 Hemoglobin 8.5 g/dL (12.0-15.5) Hematocrit 26.6 % (36.0-47.0) Mean Corpuscular Hemoglobin Concent 32 g/dL (31-37) Glucose (Fingerstick) 164 mg/dL (70-99) 145 mg/dL (70-99) Lactic Acid Level 1.6 mmol/L (0.4-2.0) Test 07/26/19 07:36 07/26/19 08:30 07/26/19 11:41 07/26/19 17:12 Glucose (Fingerstick) 157 mg/dL (70-99) 163 mg/dL (70-99) 96 mg/dL (70-99) White Blood Count 17.8 x10^3/uL (4.0-11.0) Red Blood Count 3.08 x10^6/uL (3.50-5.40) Hemoglobin 8.2 g/dL (12.0-15.5) Hematocrit 25.8 % (36.0-47.0) Mean Corpuscular Volume 84 fL (79-100) Mean Corpuscular Hemoglobin 27 pg (25-35) Mean Corpuscular Hemoglobin Concent 32 g/dL (31-37) Red Cell Distribution Width 17.0 % (11.5-14.5) Platelet Count 424 x10^3/uL (140-400) Neutrophils (%) (Auto) 83 % (31-73) Lymphocytes (%) (Auto) 9 % (24-48) Monocytes (%) (Auto) 7 % (0-9) Eosinophils (%) (Auto) 1 % (0-3) Basophils (%) (Auto) 0 % (0-3) Neutrophils # (Auto) 14.7 x10^3/uL (1.8-7.7) Lymphocytes # (Auto) 1.6 x10^3/uL (1.0-4.8) Monocytes # (Auto) 1.2 x10^3/uL (0.0-1.1) Eosinophils # (Auto) 0.2 x10^3/uL (0.0-0.7) Basophils # (Auto) 0.0 x10^3/uL (0.0-0.2) Sodium Level 151 mmol/L (136-145) Potassium Level 3.2 mmol/L (3.5-5.1) Chloride Level 114 mmol/L (98-107) Carbon Dioxide Level 26 mmol/L (21-32) Anion Gap 11 (6-14) Blood Urea Nitrogen 43 mg/dL (7-20) Creatinine 1.4 mg/dL (0.6-1.0) Estimated GFR (Cockcroft-Gault) 46.9 Glucose Level 167 mg/dL (70-99) Calcium Level 7.4 mg/dL (8.5-10.1) Test 07/26/19 23:37 07/27/19 06:00 07/27/19 06:28 07/27/19 12:07 Glucose (Fingerstick) 188 mg/dL (70-99) 193 mg/dL (70-99) 188 mg/dL (70-99) Potassium Level 4.9 mmol/L (3.5-5.1) Magnesium Level 1.4 mg/dL (1.8-2.4) Test 07/27/19 17:51 Glucose (Fingerstick) 154 mg/dL (70-99) Laboratory Tests Test 07/26/19 23:37 07/27/19 06:00 07/27/19 06:28 07/27/19 12:07 Glucose (Fingerstick) 188 mg/dL (70-99) 193 mg/dL (70-99) 188 mg/dL (70-99) Potassium Level 4.9 mmol/L (3.5-5.1) Magnesium Level 1.4 mg/dL (1.8-2.4) Test 07/27/19 17:51 Glucose (Fingerstick) 154 mg/dL (70-99) Medications Active Scripts Medications Dose Route/Sig Max Daily Dose Days Date Category Zocor (Simvastatin) 40 Mg Tablet 1 Tab PO DAILY 07/21/19 Reported Tramadol Hcl 50 Mg Tablet 50 Mg PO BID PRN 07/21/19 Reported Senokot (Sennosides) 8.6 Mg Tablet 1 Tab PO BID 20 07/21/19 Reported Polyethylene Glycol 3350 2,500 Gm Powder 17 Gm PO DAILY 30 07/21/19 Reported Omeprazole 20 Mg Tablet.dr 1 Tab PO DAILY 07/21/19 Reported [place] 5-325 Tablet (Acetaminophen/Hydrocodone Bitart) 1 Each Tablet 1 Tab PO BID 07/21/19 Reported Metoprolol Tartrate 25 Mg Tablet 1 Tab PO BID 07/21/19 Reported Melatonin 3 Mg Tablet 2 Tab PO QHS 07/21/19 Reported Lantus Solostar (Insulin Glargine,Hum.rec.anlog) 100 Unit/1 Ml Insuln.pen 30 Unit SQ QHS 07/21/19 Reported Hydroxyzine Hcl 25 Mg Tablet 1 Tab PO TID 07/21/19 Reported Gabapentin 600 Mg Tablet 600 Mg PO BID 07/21/19 Reported Docusate Sodium 100 Mg Capsule 1 Cap PO BID 15 07/21/19 Reported Cyclobenzaprine Hcl 5 Mg Tablet 1 Tab PO QHS 07/21/19 Reported Vitamin B-12 (Cyanocobalamin (Vitamin B-12)) 1,000 Mcg Tablet 1 Tab PO DAILY 30 07/21/19 Reported Coreg (Carvedilol) 25 Mg Tablet 12.5 Mg PO BIDWMEALS 07/21/19 Reported Clopidogrel (Clopidogrel Bisulfate) 75 Mg Tablet 1 Tab PO DAILY 07/21/19 Reported Celexa (Citalopram Hydrobromide) 20 Mg Tablet 1 Tab PO DAILY 07/21/19 Reported D3-50 (Cholecalciferol (Vitamin D3)) 50,000 Unit Capsule 2,000 Unit PO DAILY 07/21/19 Reported Bisacodyl 10 Mg Supp.rect 10 Mg RC PRN DAILY PRN 07/21/19 Reported Aspirin 325 Mg Tablet 1 Tab PO DAILY 07/21/19 Reported Albuterol Sulfate Neb Soln (Albuterol Sulfate) 2.5 Mg/3 Ml Vial.neb 1 Vial NEB PRN Q4HRS 07/21/19 Reported Tylenol (Acetaminophen) 325 Mg Tablet 2 Tab PO BID 07/21/19 Reported Humalog (Insulin Lispro) 100 Unit/1 Ml Insuln.pen 0 Units SQ TIDWMEALS 14 06/06/19 Rx Zofran Odt (Ondansetron) 4 Mg Tab.rapdis 1 Tab SL Q6HRS PRN 08/19/16 Rx Impression . IMPRESSION: 1. Acute hypoxemic respiratory failure. 2. Aspiration pneumonia. 3. Xqjel-xh-cviksyg kidney disease. 4. Abnormal x-ray. 5. SARS-CoV-2 negative 6. 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 7. Severe protein malnutrition, present upon admission. 8. Hypokalemia. 9. Elevated liver chemistries. 10. wheezing Plan . has wheezing, add BD Nephrology following replace potassium, monitor BUN and creatinine SARS-CoV-2 negative, No need to retest Continue empiric antibiotics Follow nephrology input DVT GI prophylaxis elevate hob discussed w MANUEL Jaquez MD July 27, 2019 18:43
[2019-07-27 19:00] VITALS: BP 121/56
[2019-07-27] MEDS: ENOXAPARIN 40 MG/0.4 ML SYRINGE. SQ SCH (22:01)
[2019-07-27 23:00] VITALS: BP 140/82
[2019-07-28 03:08] VITALS: BP 126/71
[2019-07-28] MEDS: INSULIN LISPRO 300 UNITS/3 ML VIAL. SQ SCH ×3 (06:00→18:00)
[2019-07-28 07:00] VITALS: BP 160/76
[2019-07-28] MEDS: IPRATRPIUM/ALBUTEROL 0.5/2.5MG 3 ML NEBU. NEB SCH ×4 (07:22→19:55)
--- NOTE | 2019-07-28 08:24 | PDOC ---
PULMONARY PROGRESS NOTES Subjective Pt. doesn't verbally interact, awake and alert, on room air no S/S of distress Vitals Vital Signs Date Time Temp Pulse Resp B/P (MAP) Pulse Ox O2 Delivery O2 Flow Rate FiO2 07/28/19 07:22 Room Air 07/28/19 03:08 98.1 101 18 126/71 (89) 100 98.1 07/27/19 20:00 1.5 Comments unable to report ROS 2/2 non-verbal General: Alert Lungs: Clear Cardiovascular: S1, S2 Abdomen: Soft, Non-tender, Other (Peg in place ) Extremities: Other (Contractures muscle wasting, BLE wounds ) Skin: Warm Labs Laboratory Tests Test 07/26/19 08:30 07/26/19 11:41 07/26/19 17:12 07/26/19 23:37 White Blood Count 17.8 x10^3/uL (4.0-11.0) Red Blood Count 3.08 x10^6/uL (3.50-5.40) Hemoglobin 8.2 g/dL (12.0-15.5) Hematocrit 25.8 % (36.0-47.0) Mean Corpuscular Volume 84 fL (79-100) Mean Corpuscular Hemoglobin 27 pg (25-35) Mean Corpuscular Hemoglobin Concent 32 g/dL (31-37) Red Cell Distribution Width 17.0 % (11.5-14.5) Platelet Count 424 x10^3/uL (140-400) Neutrophils (%) (Auto) 83 % (31-73) Lymphocytes (%) (Auto) 9 % (24-48) Monocytes (%) (Auto) 7 % (0-9) Eosinophils (%) (Auto) 1 % (0-3) Basophils (%) (Auto) 0 % (0-3) Neutrophils # (Auto) 14.7 x10^3/uL (1.8-7.7) Lymphocytes # (Auto) 1.6 x10^3/uL (1.0-4.8) Monocytes # (Auto) 1.2 x10^3/uL (0.0-1.1) Eosinophils # (Auto) 0.2 x10^3/uL (0.0-0.7) Basophils # (Auto) 0.0 x10^3/uL (0.0-0.2) Sodium Level 151 mmol/L (136-145) Potassium Level 3.2 mmol/L (3.5-5.1) Chloride Level 114 mmol/L (98-107) Carbon Dioxide Level 26 mmol/L (21-32) Anion Gap 11 (6-14) Blood Urea Nitrogen 43 mg/dL (7-20) Creatinine 1.4 mg/dL (0.6-1.0) Estimated GFR (Cockcroft-Gault) 46.9 Glucose Level 167 mg/dL (70-99) Calcium Level 7.4 mg/dL (8.5-10.1) Glucose (Fingerstick) 163 mg/dL (70-99) 96 mg/dL (70-99) 188 mg/dL (70-99) Test 07/27/19 06:00 07/27/19 06:28 07/27/19 12:07 07/27/19 17:51 Potassium Level 4.9 mmol/L (3.5-5.1) Magnesium Level 1.4 mg/dL (1.8-2.4) Glucose (Fingerstick) 193 mg/dL (70-99) 188 mg/dL (70-99) 154 mg/dL (70-99) Test 07/27/19 20:33 07/27/19 23:35 07/28/19 05:35 Glucose (Fingerstick) 166 mg/dL (70-99) 186 mg/dL (70-99) 159 mg/dL (70-99) Laboratory Tests Test 07/27/19 12:07 07/27/19 17:51 07/27/19 20:33 07/27/19 23:35 Glucose (Fingerstick) 188 mg/dL (70-99) 154 mg/dL (70-99) 166 mg/dL (70-99) 186 mg/dL (70-99) Test 07/28/19 05:35 Glucose (Fingerstick) 159 mg/dL (70-99) Medications Active Scripts Medications Dose Route/Sig Max Daily Dose Days Date Category Zocor (Simvastatin) 40 Mg Tablet 1 Tab PO DAILY 07/21/19 Reported Tramadol Hcl 50 Mg Tablet 50 Mg PO BID PRN 07/21/19 Reported Senokot (Sennosides) 8.6 Mg Tablet 1 Tab PO BID 20 07/21/19 Reported Polyethylene Glycol 3350 2,500 Gm Powder 17 Gm PO DAILY 30 07/21/19 Reported Omeprazole 20 Mg Tablet.dr 1 Tab PO DAILY 07/21/19 Reported Scammon 5-325 Tablet (Acetaminophen/Hydrocodone Bitart) 1 Each Tablet 1 Tab PO BID 07/21/19 Reported Metoprolol Tartrate 25 Mg Tablet 1 Tab PO BID 07/21/19 Reported Melatonin 3 Mg Tablet 2 Tab PO QHS 07/21/19 Reported Lantus Solostar (Insulin Glargine,Hum.rec.anlog) 100 Unit/1 Ml Insuln.pen 30 Unit SQ QHS 07/21/19 Reported Hydroxyzine Hcl 25 Mg Tablet 1 Tab PO TID 07/21/19 Reported Gabapentin 600 Mg Tablet 600 Mg PO BID 07/21/19 Reported Docusate Sodium 100 Mg Capsule 1 Cap PO BID 15 07/21/19 Reported Cyclobenzaprine Hcl 5 Mg Tablet 1 Tab PO QHS 07/21/19 Reported Vitamin B-12 (Cyanocobalamin (Vitamin B-12)) 1,000 Mcg Tablet 1 Tab PO DAILY 30 07/21/19 Reported Coreg (Carvedilol) 25 Mg Tablet 12.5 Mg PO BIDWMEALS 07/21/19 Reported Clopidogrel (Clopidogrel Bisulfate) 75 Mg Tablet 1 Tab PO DAILY 07/21/19 Reported Celexa (Citalopram Hydrobromide) 20 Mg Tablet 1 Tab PO DAILY 07/21/19 Reported D3-50 (Cholecalciferol (Vitamin D3)) 50,000 Unit Capsule 2,000 Unit PO DAILY 07/21/19 Reported Bisacodyl 10 Mg Supp.rect 10 Mg RC PRN DAILY PRN 07/21/19 Reported Aspirin 325 Mg Tablet 1 Tab PO DAILY 07/21/19 Reported Albuterol Sulfate Neb Soln (Albuterol Sulfate) 2.5 Mg/3 Ml Vial.neb 1 Vial NEB PRN Q4HRS 07/21/19 Reported Tylenol (Acetaminophen) 325 Mg Tablet 2 Tab PO BID 07/21/19 Reported Humalog (Insulin Lispro) 100 Unit/1 Ml Insuln.pen 0 Units SQ TIDWMEALS 14 06/06/19 Rx Zofran Odt (Ondansetron) 4 Mg Tab.rapdis 1 Tab SL Q6HRS PRN 08/19/16 Rx Comments CXR - 07/27/2019 IMPRESSION: 1. Improving left-sided airspace disease. 2. Possible small left pleural effusion. Impression . IMPRESSION: 1. Acute hypoxemic respiratory failure--resolved 2. Aspiration pneumonia. 3. Zhaol-ln-kkvtxcz kidney disease. 4. Abnormal x-ray. 5. SARS-CoV-2 negative 6. 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 7. Severe protein malnutrition, present upon admission. 8. Hypokalemia. 9. Elevated liver chemistries. 10. wheezing-resolved 11. Hypernatermia Plan . 1. supplemental oxygen if needed, on room air, continue bronchodilators 2. Follow nephrology recs 3. COVID-19(-) 4. Cont. ABX 5. Continue TF , with HOB elevated 30 degrees 6. Monitor Electrolytes-- NA+ was improved on 07/26/2019 7. Q 2 turn and wound care as needed D/W RN DVT/GI PPX: lovenox/ pepcid HOLLY LI MD July 28, 2019 08:24
[2019-07-28] MEDS: FAMOTIDINE 20 MG/2 ML VIAL IVP SCH (09:00)
[2019-07-28] MEDS: CEFEPIME HCL IV Push 2 GM VIAL. IVP SCH (09:00)
[2019-07-28] MEDS: MAGNESIUM OXIDE 400 MG TABLET PO SCH ×2 (09:58→20:12)
[2019-07-28] MEDS: IV DEXTROSE 5% 1,000 ML IV SCH ×2 (10:00→20:00)
[2019-07-28] MEDS: INSULIN GLARGINE SYRINGE. SQ SCH ×2 (10:00→20:51)
--- NOTE | 2019-07-28 10:58 | PDOC ---
PROGRESS NOTES Chief Complaint Chief Complaint A/P: Acute pneumonia, favor aspiration negative COVID testing Scattered opacities in the left lung, concerning for an infectious/inflammatory process. Hypernatremia secondary to severe dehydration acute hypoxic respiratory failure H/o CVA, peg feeding dependent, expressive aphasia HTN, DM GERD HyperKalemia- at presentation, Improved Developmental delay Acute hypoxemic respiratory failure. Pedbj-yw-dnqqvoo kidney disease. Abnormal x-ray. COVID-19 suspected - negative Previous cerebrovascular accident with hemiparesis and expressive aphasia. Severe protein malnutrition, present upon admission. Hyperkalemia. Elevated liver chemistries. D/W RN CXR 37 MIN pt exam, chart review, > 50% of time spent with exam, chart review, pt care coordination History of Present Illness History of Present Illness Ms Parker is a 59 yo F w/ PMHx DM2, GERD, HLD, HTN, migraines, CVA with left- sided hemiparesis, expressive aphasia s/p PEG placement who presented to ED with acute respiratory distress, found to have O2 saturation of 57% on room air by EMS. Negative for SARS-CoV-2 during the COVID-19 pandemic, unable to obtain any information from the patient herself. 07/24: No acute events reported overnight, case discussed with nursing staff patient in no acute distress no complaints during my visit unable to have a meaningful conversation with the patient due to expressive aphasia as a consequence of her CVA 07/25: No acute events reported overnight, case discussed with nursing staff patient in no acute distress no complaints during my visit, electrolyte disturbance seems to be improving now that her feeding tubes have been restarted, appreciate nephrology recommendation 07/26: more coarse Lost IV access. Afebrile. Some sputum this morning, unclear if it is emesis. 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 Faye MIRANDA, requests not to place another PICC line and informs me that she is FULL CODE but is on comfort care measures at her SNF and she would like her to return [facility]. She wants patient to remain full code, states she is waiting for life insurance. She does note the patient had previously noted she would never want to be on a ventilator. Plan: Change to PO augmentin syrup TF on hold, can resume at 33cc/hr Vitals Vitals Vital Signs Date Time Temp Pulse Resp B/P (MAP) Pulse Ox O2 Delivery O2 Flow Rate FiO2 07/28/19 08:00 Room Air 07/28/19 07:00 97.8 107 16 160/76 (104) 99 97.8 07/27/19 20:00 1.5 Physical Exam Physical Exam Well developed, well nourished, tachypnea with less increased work of breathing [] HENT: Normocephalic, atraumatic, bilateral external ears normal, oropharynx moist, nose normal. [] Eyes: PERRLA, EOMI, conjunctiva normal. [] Neck: Normal range of motion, no tenderness, supple. [] Cardiovascular:Heart rate regular rhythm, no murmur. [] Lungs & Thorax: Bilateral breath sounds coarse [] Abdomen: Bowel sounds normal, soft, non-distended, no grimacing in exam. [] Skin: Warm, dry. [] Neurologic: Alert, Left hemiparesis. [] General: Cooperative HEENT: Atraumatic Heart: RRR Breasts: Not examined Abdomen: Soft Rectal Exam: not examined PELVIC: Examination not indicated Extremities: No cyanosis, No edema General: Alert, Cooperative, No acute distress Heart: Regular rate Lungs: Clear Abdomen: Soft, No tenderness Extremities: No cyanosis, No edema Skin: No rashes Labs LABS Laboratory Tests Test 07/27/19 12:07 07/27/19 17:51 07/27/19 20:33 07/27/19 23:35 Glucose (Fingerstick) 188 mg/dL (70-99) 154 mg/dL (70-99) 166 mg/dL (70-99) 186 mg/dL (70-99) Test 07/28/19 05:35 Glucose (Fingerstick) 159 mg/dL (70-99) Assessment and Plan Assessmemt and Plan Problems Medical Problems: (1) Aspiration into airway Status: Acute (2) Congestive heart failure Status: Acute (3) HCAP (healthcare-associated pneumonia) Status: Acute (4) Hyperkalemia Status: Acute Comment Review of Relevant I have reviewed the following items satish (where applicable) has been applied. Labs Laboratory Tests Test 07/26/19 11:41 07/26/19 17:12 07/26/19 23:37 07/27/19 06:00 Glucose (Fingerstick) 163 mg/dL (70-99) 96 mg/dL (70-99) 188 mg/dL (70-99) Potassium Level 4.9 mmol/L (3.5-5.1) Magnesium Level 1.4 mg/dL (1.8-2.4) Test 07/27/19 06:28 07/27/19 12:07 07/27/19 17:51 07/27/19 20:33 Glucose (Fingerstick) 193 mg/dL (70-99) 188 mg/dL (70-99) 154 mg/dL (70-99) 166 mg/dL (70-99) Test 07/27/19 23:35 07/28/19 05:35 Glucose (Fingerstick) 186 mg/dL (70-99) 159 mg/dL (70-99) Laboratory Tests Test 07/27/19 12:07 07/27/19 17:51 07/27/19 20:33 07/27/19 23:35 Glucose (Fingerstick) 188 mg/dL (70-99) 154 mg/dL (70-99) 166 mg/dL (70-99) 186 mg/dL (70-99) Test 07/28/19 05:35 Glucose (Fingerstick) 159 mg/dL (70-99) Microbiology 07/26/19 Blood Culture - Preliminary, Resulted NO GROWTH AFTER 2 DAYS Medications Current Medications Ondansetron HCl (Zofran) 8 mg 1X ONCE IVP Last administered on 07/21/19at 07:42; Start 07/21/19 at 07:00; Stop 07/21/19 at 07:01; Status DC Ondansetron HCl (Zofran) 4 mg STK-MED ONCE .ROUTE ; Start 07/21/19 at 06:37; Stop 07/21/19 at 06:37; Status DC Insulin Human Regular (HumuLIN R VIAL) 10 unit 1X ONCE IV Last administered on 07/21/19at 07:30; Start 07/21/19 at 07:30; Stop 07/21/19 at 07:31; Status DC Sodium Bicarbonate (Sodium Bicarb Adult 8.4% Syr) 50 meq 1X ONCE IV Last administered on 07/21/19at 08:25; Start 07/21/19 at 07:30; Stop 07/21/19 at 07:31; Status DC Clindamycin Phosphate 50 ml @ 100 mls/hr 1X ONCE IV Last administered on 07/21/19at 08:31; Start 07/21/19 at 07:45; Stop 07/21/19 at 08:14; Status DC Cefepime HCl (Maxipime) 2 gm 1X ONCE IVP Last administered on 07/21/19at 07:47; Start 07/21/19 at 07:45; Stop 07/21/19 at 07:46; Status DC Metoclopramide HCl (Reglan Vial) 10 mg 1X ONCE IVP Last administered on 07/21/19at 09:05; Start 07/21/19 at 08:45; Stop 07/21/19 at 08:47; Status DC Iohexol (Omnipaque 300 Mg/ml) 75 ml 1X ONCE IV Last administered on 07/21/19at 10:01; Start 07/21/19 at 09:00; Stop 07/21/19 at 09:01; Status DC Ondansetron HCl (Zofran) 4 mg PRN Q8HRS PRN IV NAUSEA/VOMITING; Start 07/21/19 at 09:30; Stop 07/22/19 at 07:25; Status DC Albuterol/ Ipratropium (Duoneb) 3 ml RTQID NEB ; Start 07/21/19 at 12:00; Stop 07/22/19 at 06:42; Status DC Cefepime HCl (Maxipime) 2 gm Q12HR IVP Last administered on 07/27/19at 22:03; Start 07/21/19 at 21:00 Sodium Chloride (Normal Saline Flush) 3 ml QSHIFT PRN IV AFTER MEDS AND BLOOD DRAWS; Start 07/21/19 at 11:30 Sodium Chloride 1,000 ml @ 100 mls/hr Q10H IV Last administered on 07/24/19at 09:14; Start 07/21/19 at 11:19; Stop 07/24/19 at 11:45; Status DC Ondansetron HCl (Zofran) 4 mg PRN Q4HRS PRN IV NAUSEA/VOMITING Last administered on 07/23/19at 10:05; Start 07/21/19 at 11:30 Acetaminophen (Tylenol) 650 mg PRN Q4HRS PRN GT TEMP OVER 100.4F OR MILD PAIN Last administered on 07/27/19at 14:11; Start 07/21/19 at 11:30 Acetaminophen (Tylenol Supp) [address] Q4HRS [address] TEMP OVER 100.4F OR MILD PAIN Last administered on 07/23/19 16:52; Start 07/21/19 at 11:30 Clonidine HCl (Catapres) 0.1 mg PRN Q6HRS PRN PO SBP>160 OR DBP>90; Start 07/21/19 at 11:30 Sodium Monofluorophosphate (Fleet Adult) [address] CONSTIPATION; Start 07/21/19 at 11:30; Stop 07/26/19 at 13:25; Status DC Albuterol Sulfate (Ventolin Neb Soln) 2.5 mg PRN Q4HRS PRN NEB SHORTNESS OF BREATH; Start 07/21/19 at 11:30; Status Cancel Enoxaparin Sodium (Lovenox 40mg Syringe) 40 mg Q24H SQ Last administered on 07/27/19 22:01; Start 07/21/19 at 21:00 Vancomycin HCl 1 gm/Dextrose 250 ml @ 250 mls/hr 1X ONCE IV Last administered on 07/21/19 12:36; Start 07/21/19 at 11:30; Stop 07/21/19 at 12:29; Status DC Vancomycin HCl (Vanco Per Pharmacy) 1 each PRN DAILY PRN MC SEE COMMENTS Last administered on 07/27/19at 11:00; Start 07/21/19 at 11:45 Famotidine (Pepcid Vial) 20 mg DAILY IVP Last administered on 07/27/19at 09:18; Start 07/21/19 at 21:00 Insulin Human Lispro (HumaLOG) 0-5 UNITS Q6HRS SQ Last administered on 07/27/19 14:27; Start 07/21/19 at 13:15 Dextrose (Dextrose 50%-Water Syringe) 12.5 gm PRN Q15MIN PRN IV SEE COMMENTS; Start 07/21/19 at 13:15 Vancomycin HCl 1 gm/Sodium Chloride 250 ml @ 250 mls/hr Q24H IV Last administered on 07/27/19at 14:11; Start 07/22/19 at 13:00 Vancomycin HCl (Vancomycin Trough Level) 1 each 1X ONCE MC Last administered on 07/23/19at 11:57; Start 07/23/19 at 12:30; Stop 07/23/19 at 12:31; Status DC Albuterol Sulfate (Ventolin Neb Soln) 2.5 mg PRN Q4HRS NEB ; Start 07/22/19 at 06:45; Stop 07/22/19 at 11:59; Status DC Insulin Glargine (Lantus Syringe) 8 unit BID SQ Last administered on 07/28/19at 10:00; Start 07/24/19 at 09:00 Potassium Chloride/Water 100 ml @ 75 mls/hr 1400,1520,1640 IV Last administered on 07/25/19at 17:33; Start 07/25/19 at 14:00; Stop 07/25/19 at 17:59; Status DC Dextrose 1,000 ml @ 100 mls/hr Q10H IV Last administered on 07/26/19at 00:20; Start 07/25/19 at 14:00; Stop 07/26/19 at 13:25; Status DC Potassium Chloride 30 meq/ Dextrose 1,015 ml @ 100 mls/hr Q10H9M IV Last administered on 07/26/19at 23:39; Start 07/26/19 at 13:30; Stop 07/27/19 at 13:44; Status DC Magnesium Sulfate 50 ml @ 25 mls/hr PRN DAILY PRN IV for Mag < 1.7 on am labs; Start 07/26/19 at 13:30; Stop 07/27/19 at 13:44; Status DC Vancomycin HCl (Vancomycin Trough Level) 1 each 1X ONCE MC ; Start 07/28/19 at 12:30; Stop 07/28/19 at 12:31 Albuterol/ Ipratropium (Duoneb) 3 ml RTQID NEB Last administered on 07/28/19at 07:22; Start 07/27/19 at 16:00 Magnesium Oxide (Magnesium Oxide) 400 mg BID PO Last administered on 07/28/19at 09:58; Start 07/27/19 at 15:00; Stop 07/28/19 at 21:01 Dextrose 1,000 ml @ 100 mls/hr Q10H IV Last administered on 07/27/19at 14:10; Start 07/27/19 at 14:00 Active Scripts Active Humalog (Insulin Lispro) 100 Unit/1 Ml Insuln.pen 0 Units SQ TIDWMEALS 14 Days Zofran Odt (Ondansetron) 4 Mg Tab.rapdis 1 Tab SL Q6HRS PRN Reported Zocor (Simvastatin) 40 Mg Tablet 1 Tab PO DAILY Tramadol Hcl 50 Mg Tablet 50 Mg PO BID PRN Senokot (Sennosides) 8.6 Mg Tablet 1 Tab PO BID 20 Days Polyethylene Glycol 3350 2,500 Gm Powder 17 Gm PO DAILY 30 Days Omeprazole 20 Mg Tablet.dr 1 Tab PO DAILY Bowen 5-325 Tablet (Acetaminophen/Hydrocodone Bitart) 1 Each Tablet 1 Tab PO BID Metoprolol Tartrate 25 Mg Tablet 1 Tab PO BID Melatonin 3 Mg Tablet 2 Tab PO QHS Lantus Solostar (Insulin Glargine,Hum.rec.anlog) 100 Unit/1 Ml Insuln.pen 30 Unit SQ QHS Hydroxyzine Hcl 25 Mg Tablet 1 Tab PO TID Gabapentin 600 Mg Tablet 600 Mg PO BID Docusate Sodium 100 Mg Capsule 1 Cap PO BID 15 Days Cyclobenzaprine Hcl 5 Mg Tablet 1 Tab PO QHS Vitamin B-12 (Cyanocobalamin (Vitamin B-12)) 1,000 Mcg Tablet 1 Tab PO DAILY 30 Days Coreg (Carvedilol) 25 Mg Tablet 12.5 Mg PO BIDWMEALS Clopidogrel (Clopidogrel Bisulfate) 75 Mg Tablet 1 Tab PO DAILY Celexa (Citalopram Hydrobromide) 20 Mg Tablet 1 Tab PO DAILY D3-50 (Cholecalciferol (Vitamin D3)) 50,000 Unit Capsule 2,000 Unit PO DAILY Bisacodyl 10 Mg Supp.rect 10 Mg RC PRN DAILY PRN Aspirin 325 Mg Tablet 1 Tab PO DAILY Albuterol Sulfate Neb Soln (Albuterol Sulfate) 2.5 Mg/3 Ml Vial.neb 1 Vial NEB PRN Q4HRS Tylenol (Acetaminophen) 325 Mg Tablet 2 Tab PO BID Vitals/I & O Vital Sign - Last 24 Hours 07/27/19 07/27/19 07/27/19 07/27/19 15:00 16:00 19:00 19:44 Temp 99.1 99.0 99.1 99.0 Pulse 96 99 Resp 16 20 B/P (MAP) 137/74 (95) 121/56 (77) Pulse Ox 100 100 99 95 O2 Delivery Nasal Cannula Room Air Room Air O2 Flow Rate 1.5 1.5 07/27/19 07/27/19 07/28/19 07/28/19 20:00 23:00 03:08 07:00 Temp 99.4 98.1 97.8 99.4 98.1 97.8 Pulse 106 101 107 Resp 20 18 16 B/P (MAP) 140/82 (101) 126/71 (89) 160/76 (104) Pulse Ox 100 100 99 O2 Delivery Nasal Cannula Room Air Room Air Room Air O2 Flow Rate 1.5 07/28/19 07/28/19 07:22 08:00 O2 Delivery Room Air Room Air Intake and Output 07/27/19 07/27/19 07/28/19 15:00 23:00 07:00 Intake Total 356 ml 356 ml Balance 356 ml 356 ml Nutrition Consultation Dietary Evaluation: Recommendations by RD: Dietary education by RD, Increase Calorie Intake, Protein supplementation Comments: REC TFs per order at retirement: Glucerna 1.5@goal rate 40 ml/hr w/120 ml water flushes q4 hrs REC Kalyan BID via PEG tube (wound healing), mix each packet w/4oz water to dissolve and flush tube w/~30 ml water after each packet REC liquid MVI via PEG (wound healing) Expected Outcomes/Goals: TF initiation/infusion to meet >75% est needs Malnutrition Findings: Body Fat Depletion (Non Severe: Mild Depletion Weight Status: Appropriate LINDSAY GARG MD July 28, 2019 10:58
[2019-07-28 11:00] VITALS: BP 160/74
[2019-07-28 13:32] LABS: BASO % 0 % (0-3); EOS # 0.2 x10^3/uL (0.0-0.7); EOS % 1 % (0-3); HEMATOCRIT 27.1 % (36.0-47.0); HEMOGLOBIN 8.7 g/dL (12.0-15.5); LYMPH # 1.3 x10^3/uL (1.0-4.8); LYMPH % 9 % (24-48); MEAN CORPUSCULAR HEMOGLOBIN 27 pg (25-35); MEAN CORPUSCULAR HGB CONC 32 g/dL (31-37); MEAN CORPUSCULAR VOLUME 84 fL (79-100); MONO # 1.1 x10^3/uL (0.0-1.1); MONO % 7 % (0-9); NEUT # 12.7 x10^3/uL (1.8-7.7); NEUT % 83 % (31-73); PLATELET COUNT 529 x10^3/uL (140-400); RED BLOOD COUNT 3.25 x10^6/uL (3.50-5.40); RED CELL DISTRIBUTION WIDTH 16.3 % (11.5-14.5); WHITE BLOOD COUNT 15.3 x10^3/uL (4.0-11.0)
[2019-07-28 13:45] LABS: CALCIUM 7.7 mg/dL (8.5-10.1); CREATININE 1.3 mg/dL (0.6-1.0); GFR 51.1; MAGNESIUM 1.6 mg/dL (1.8-2.4); POTASSIUM 3.8 mmol/L (3.5-5.1)
[2019-07-28] MEDS: AMOXICILLIN/CLAV 400MG/57MG 5 ML ORAL.SUSP. PEG SCH ×2 (14:12→20:13)
[2019-07-28 15:00] VITALS: BP 158/72
[2019-07-28 19:00] VITALS: BP 97/58
[2019-07-28] MEDS: ENOXAPARIN 40 MG/0.4 ML SYRINGE. SQ SCH (20:14)
[2019-07-28 23:00] VITALS: BP 165/86
[2019-07-29] MEDS ORDERED: GLUCAGON,HUMAN RECOMBINANT 1 MG/ML VIAL. IM ONE (01:00)
[2019-07-29 03:00] VITALS: BP 115/77
[2019-07-29 05:15] LABS: CALCIUM 7.5 mg/dL (8.5-10.1); CREATININE 1.1 mg/dL (0.6-1.0); GFR 61.9; MAGNESIUM 1.7 mg/dL (1.8-2.4); POTASSIUM 3.9 mmol/L (3.5-5.1)
[2019-07-29] MEDS: IV DEXTROSE 5% 1,000 ML IV SCH (06:00)
[2019-07-29] MEDS: INSULIN LISPRO 300 UNITS/3 ML VIAL. SQ SCH ×4 (06:00→18:00)
[2019-07-29 07:00] VITALS: BP 124/64
[2019-07-29] MEDS: IPRATRPIUM/ALBUTEROL 0.5/2.5MG 3 ML NEBU. NEB SCH ×4 (07:08→20:12)
[2019-07-29] MEDS: INSULIN GLARGINE SYRINGE. SQ SCH ×2 (09:00→21:00)
[2019-07-29] MEDS: FAMOTIDINE 20 MG/2 ML VIAL IVP SCH (09:00)
[2019-07-29] MEDS: AMOXICILLIN/CLAV 400MG/57MG 5 ML ORAL.SUSP. PEG SCH ×2 (09:43→22:21)
--- NOTE | 2019-07-29 10:56 | PDOC ---
Renal-Progress Notes Subjective Notes Notes NO NEW COMPLAINTS History of Present Illness Hx of present illness STABLE Vitals Vitals Vital Signs Date Time Temp Pulse Resp B/P (MAP) Pulse Ox O2 Delivery O2 Flow Rate FiO2 07/29/19 08:00 Room Air 07/29/19 07:00 98.0 107 16 124/64 (84) 97 98.0 Weight Weight [ ] I.O. Intake and Output Intake and Output 07/29/19 07:00 Intake Total 590 ml Balance 590 ml Tube Feeding 590 ml # Voids 3 # Bowel Movements 1 Labs Labs Laboratory Tests Test 07/28/19 13:00 07/28/19 18:17 07/29/19 00:07 07/29/19 00:50 White Blood Count 15.3 x10^3/uL (4.0-11.0) Red Blood Count 3.25 x10^6/uL (3.50-5.40) Hemoglobin 8.7 g/dL (12.0-15.5) Hematocrit 27.1 % (36.0-47.0) Mean Corpuscular Volume 84 fL (79-100) Mean Corpuscular Hemoglobin 27 pg (25-35) Mean Corpuscular Hemoglobin Concent 32 g/dL (31-37) Red Cell Distribution Width 16.3 % (11.5-14.5) Platelet Count 529 x10^3/uL (140-400) Neutrophils (%) (Auto) 83 % (31-73) Lymphocytes (%) (Auto) 9 % (24-48) Monocytes (%) (Auto) 7 % (0-9) Eosinophils (%) (Auto) 1 % (0-3) Basophils (%) (Auto) 0 % (0-3) Neutrophils # (Auto) 12.7 x10^3/uL (1.8-7.7) Lymphocytes # (Auto) 1.3 x10^3/uL (1.0-4.8) Monocytes # (Auto) 1.1 x10^3/uL (0.0-1.1) Eosinophils # (Auto) 0.2 x10^3/uL (0.0-0.7) Basophils # (Auto) 0.0 x10^3/uL (0.0-0.2) Sodium Level 143 mmol/L (136-145) Potassium Level 3.8 mmol/L (3.5-5.1) Chloride Level 107 mmol/L (98-107) Carbon Dioxide Level 27 mmol/L (21-32) Anion Gap 9 (6-14) Blood Urea Nitrogen 42 mg/dL (7-20) Creatinine 1.3 mg/dL (0.6-1.0) Estimated GFR (Cockcroft-Gault) 51.1 Glucose Level 163 mg/dL (70-99) Calcium Level 7.7 mg/dL (8.5-10.1) Magnesium Level 1.6 mg/dL (1.8-2.4) Glucose (Fingerstick) 87 mg/dL (70-99) 58 mg/dL (70-99) 73 mg/dL (70-99) Test 07/29/19 01:17 07/29/19 04:30 07/29/19 06:20 07/29/19 07:06 Glucose (Fingerstick) 101 mg/dL (70-99) 69 mg/dL (70-99) 74 mg/dL (70-99) Sodium Level 145 mmol/L (136-145) Potassium Level 3.9 mmol/L (3.5-5.1) Chloride Level 110 mmol/L (98-107) Carbon Dioxide Level 27 mmol/L (21-32) Anion Gap 8 (6-14) Blood Urea Nitrogen 34 mg/dL (7-20) Creatinine 1.1 mg/dL (0.6-1.0) Estimated GFR (Cockcroft-Gault) 61.9 Glucose Level 68 mg/dL (70-99) Calcium Level 7.5 mg/dL (8.5-10.1) Magnesium Level 1.7 mg/dL (1.8-2.4) Micro Micro Microbiology 07/26/19 Blood Culture - Preliminary, Resulted NO GROWTH AFTER 3 DAYS Review of Systems Constitutional: yes: alert Ears/Nose/Throat: Yes: no symptom reported Eyes: Yes: no symptom reported Pulmonary: Yes dyspnea Cardiovascular: Yes no symptom reported Gastrointestional: Yes: constipation Genitourinary: Yes: no symptom reported Musculoskeletal: Yes: muscle stiffness Skin: Yes no symptom reported Psychiatric/Neurological: Yes: no symptom reported Endocrine: Yes: no symptom reported Physical Exam General Appearance: no apparent distress Skin: warm Respiratory: decreased breath sounds Heart: S1S2 Abdomen: soft, bowel sounds present Genitourinary: bladder flat Neurology: alert Musculoskeletal: low back pain Assessment Assessment IMP ELISA-RESOLVING WITH CR OF 1.1 HYPOMAGNESEMIA DEHYDRATION ACUTE PNEUMONIA HYPERNATREMIA HX CVA WITH EXPRESSIVE APHASIA PLAN HYDRATION FREE WATER ANTIBIOTICS REPLACE MAG LOUISE SELBY MD July 29, 2019 10:56
[2019-07-29 11:00] VITALS: BP 146/73
--- NOTE | 2019-07-29 11:22 | PDOC ---
PROGRESS NOTES Chief Complaint Chief Complaint impression Acute pneumonia, favor aspiration negative COVID testing Scattered opacities in the left lung, concerning for an infectious/inflammatory process. Hypernatremia secondary to severe dehydration acute hypoxic respiratory failure H/o CVA, peg feeding dependent, expressive aphasia HTN, DM GERD HyperKalemia- at presentation, Improved Developmental delay Acute hypoxemic respiratory failure. [id number] kidney disease. Abnormal x-ray. COVID-19 suspected - negative Previous cerebrovascular accident with hemiparesis and expressive aphasia. Severe protein malnutrition, present upon admission. Hyperkalemia. Elevated liver chemistries. D/W RN tube feeding ,HOB elevated 30 degrees DVT/GI PPX: lovenox/ pepcid 27 MIN pt exam, chart review, > 50% of time spent with exam, chart review, pt care coordination History of Present Illness History of Present Illness Ms Parker is a 59 yo F w/ PMHx DM2, GERD, HLD, HTN, migraines, CVA with left- sided hemiparesis, expressive aphasia s/p PEG placement who presented to ED with acute respiratory distress, found to have O2 saturation of 57% on room air by EMS. Negative for SARS-CoV-2 during the COVID-19 pandemic, unable to obtain any information from the patient herself. 07/24: No acute events reported overnight, case discussed with nursing staff patient in no acute distress no complaints during my visit unable to have a meaningful conversation with the patient due to expressive aphasia as a consequence of her CVA 07/25: No acute events reported overnight, case discussed with nursing staff patient in no acute distress no complaints during my visit, electrolyte disturbance seems to be improving now that her feeding tubes have been restarted, appreciate nephrology recommendation 07/26: more coarse Lost IV access. Afebrile. Some sputum this morning, unclear if it is emesis. 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 Faye MIRANDA, requests not to place another PICC line and informs me that she is FULL CODE but is on comfort care measures at her SNF and she would like her to return [place]. She wants patient to remain full code, states she is waiting for life insurance. She does note the patient had previously noted she would never want to be on a ventilator. Plan: Change to PO augmentin syrup TF on hold, can resume at 33cc/hr Vitals Vitals Vital Signs Date Time Temp Pulse Resp B/P (MAP) Pulse Ox O2 Delivery O2 Flow Rate FiO2 07/29/19 08:00 Room Air 07/29/19 07:00 98.0 107 16 124/64 (84) 97 98.0 Physical Exam Physical Exam Well developed, well nourished, tachypnea with less increased work of breathing [] HENT: Normocephalic, atraumatic, bilateral external ears normal, oropharynx moist, nose normal. [] Eyes: PERRLA, EOMI, conjunctiva normal. [] Neck: Normal range of motion, no tenderness, supple. [] Cardiovascular:Heart rate regular rhythm, no murmur. [] Lungs & Thorax: Bilateral breath sounds coarse [] Abdomen: Bowel sounds normal, soft, non-distended, no grimacing in exam. [] Skin: Warm, dry. [] Neurologic: Alert, Left hemiparesis. [] General: Cooperative HEENT: Atraumatic Heart: RRR Breasts: Not examined Abdomen: Soft Rectal Exam: not examined PELVIC: Examination not indicated Extremities: No cyanosis, No edema General: Alert, Cooperative, No acute distress Heart: Regular rate Lungs: Other (coarse ) Abdomen: Soft, No tenderness Extremities: No cyanosis, No edema Skin: No rashes Labs LABS Single view chest dated 07/27/2019. Comparison made to 07/21/2019. CLINICAL INDICATION: Pneumonia. FINDINGS: Single upright portable exam performed. Heart and mediastinal contours are stable. Patchy airspace disease in the left perihilar region is somewhat improved from prior study. There is blunting of the left costophrenic sulcus. No pneumothorax. Right lung remains clear. IMPRESSION: 1. Improving left-sided airspace disease. 2. Possible small left pleural effusion. Electronically signed by: Anton Keenan MD (07/27/2019 1:20 PM) [facility] [place] DICTATED and SIGNED BY: ANTON KEENAN MD DATE: 07/27/19 1320 Laboratory Tests Test 07/28/19 13:00 07/28/19 18:17 07/29/19 00:07 07/29/19 00:50 White Blood Count 15.3 x10^3/uL (4.0-11.0) Red Blood Count 3.25 x10^6/uL (3.50-5.40) Hemoglobin 8.7 g/dL (12.0-15.5) Hematocrit 27.1 % (36.0-47.0) Mean Corpuscular Volume 84 fL (79-100) Mean Corpuscular Hemoglobin 27 pg (25-35) Mean Corpuscular Hemoglobin Concent 32 g/dL (31-37) Red Cell Distribution Width 16.3 % (11.5-14.5) Platelet Count 529 x10^3/uL (140-400) Neutrophils (%) (Auto) 83 % (31-73) Lymphocytes (%) (Auto) 9 % (24-48) Monocytes (%) (Auto) 7 % (0-9) Eosinophils (%) (Auto) 1 % (0-3) Basophils (%) (Auto) 0 % (0-3) Neutrophils # (Auto) 12.7 x10^3/uL (1.8-7.7) Lymphocytes # (Auto) 1.3 x10^3/uL (1.0-4.8) Monocytes # (Auto) 1.1 x10^3/uL (0.0-1.1) Eosinophils # (Auto) 0.2 x10^3/uL (0.0-0.7) Basophils # (Auto) 0.0 x10^3/uL (0.0-0.2) Sodium Level 143 mmol/L (136-145) Potassium Level 3.8 mmol/L (3.5-5.1) Chloride Level 107 mmol/L (98-107) Carbon Dioxide Level 27 mmol/L (21-32) Anion Gap 9 (6-14) Blood Urea Nitrogen 42 mg/dL (7-20) Creatinine 1.3 mg/dL (0.6-1.0) Estimated GFR (Cockcroft-Gault) 51.1 Glucose Level 163 mg/dL (70-99) Calcium Level 7.7 mg/dL (8.5-10.1) Magnesium Level 1.6 mg/dL (1.8-2.4) Glucose (Fingerstick) 87 mg/dL (70-99) 58 mg/dL (70-99) 73 mg/dL (70-99) Test 07/29/19 01:17 07/29/19 04:30 07/29/19 06:20 07/29/19 07:06 Glucose (Fingerstick) 101 mg/dL (70-99) 69 mg/dL (70-99) 74 mg/dL (70-99) Sodium Level 145 mmol/L (136-145) Potassium Level 3.9 mmol/L (3.5-5.1) Chloride Level 110 mmol/L (98-107) Carbon Dioxide Level 27 mmol/L (21-32) Anion Gap 8 (6-14) Blood Urea Nitrogen 34 mg/dL (7-20) Creatinine 1.1 mg/dL (0.6-1.0) Estimated GFR (Cockcroft-Gault) 61.9 Glucose Level 68 mg/dL (70-99) Calcium Level 7.5 mg/dL (8.5-10.1) Magnesium Level 1.7 mg/dL (1.8-2.4) Assessment and Plan Assessmemt and Plan Problems Medical Problems: (1) Aspiration into airway Status: Acute (2) Congestive heart failure Status: Acute (3) HCAP (healthcare-associated pneumonia) Status: Acute (4) Hyperkalemia Status: Acute Comment Review of Relevant I have reviewed the following items satish (where applicable) has been applied. Labs Laboratory Tests Test 07/27/19 12:07 07/27/19 17:51 07/27/19 20:33 07/27/19 23:35 Glucose (Fingerstick) 188 mg/dL (70-99) 154 mg/dL (70-99) 166 mg/dL (70-99) 186 mg/dL (70-99) Test 07/28/19 05:35 07/28/19 13:00 07/28/19 18:17 07/29/19 00:07 Glucose (Fingerstick) 159 mg/dL (70-99) 87 mg/dL (70-99) 58 mg/dL (70-99) White Blood Count 15.3 x10^3/uL (4.0-11.0) Red Blood Count 3.25 x10^6/uL (3.50-5.40) Hemoglobin 8.7 g/dL (12.0-15.5) Hematocrit 27.1 % (36.0-47.0) Mean Corpuscular Volume 84 fL (79-100) Mean Corpuscular Hemoglobin 27 pg (25-35) Mean Corpuscular Hemoglobin Concent 32 g/dL (31-37) Red Cell Distribution Width 16.3 % (11.5-14.5) Platelet Count 529 x10^3/uL (140-400) Neutrophils (%) (Auto) 83 % (31-73) Lymphocytes (%) (Auto) 9 % (24-48) Monocytes (%) (Auto) 7 % (0-9) Eosinophils (%) (Auto) 1 % (0-3) Basophils (%) (Auto) 0 % (0-3) Neutrophils # (Auto) 12.7 x10^3/uL (1.8-7.7) Lymphocytes # (Auto) 1.3 x10^3/uL (1.0-4.8) Monocytes # (Auto) 1.1 x10^3/uL (0.0-1.1) Eosinophils # (Auto) 0.2 x10^3/uL (0.0-0.7) Basophils # (Auto) 0.0 x10^3/uL (0.0-0.2) Sodium Level 143 mmol/L (136-145) Potassium Level 3.8 mmol/L (3.5-5.1) Chloride Level 107 mmol/L (98-107) Carbon Dioxide Level 27 mmol/L (21-32) Anion Gap 9 (6-14) Blood Urea Nitrogen 42 mg/dL (7-20) Creatinine 1.3 mg/dL (0.6-1.0) Estimated GFR (Cockcroft-Gault) 51.1 Glucose Level 163 mg/dL (70-99) Calcium Level 7.7 mg/dL (8.5-10.1) Magnesium Level 1.6 mg/dL (1.8-2.4) Test 07/29/19 00:50 07/29/19 01:17 07/29/19 04:30 07/29/19 06:20 Glucose (Fingerstick) 73 mg/dL (70-99) 101 mg/dL (70-99) 69 mg/dL (70-99) Sodium Level 145 mmol/L (136-145) Potassium Level 3.9 mmol/L (3.5-5.1) Chloride Level 110 mmol/L (98-107) Carbon Dioxide Level 27 mmol/L (21-32) Anion Gap 8 (6-14) Blood Urea Nitrogen 34 mg/dL (7-20) Creatinine 1.1 mg/dL (0.6-1.0) Estimated GFR (Cockcroft-Gault) 61.9 Glucose Level 68 mg/dL (70-99) Calcium Level 7.5 mg/dL (8.5-10.1) Magnesium Level 1.7 mg/dL (1.8-2.4) Test 07/29/19 07:06 Glucose (Fingerstick) 74 mg/dL (70-99) Laboratory Tests Test 07/28/19 13:00 07/28/19 18:17 07/29/19 00:07 07/29/19 00:50 White Blood Count 15.3 x10^3/uL (4.0-11.0) Red Blood Count 3.25 x10^6/uL (3.50-5.40) Hemoglobin 8.7 g/dL (12.0-15.5) Hematocrit 27.1 % (36.0-47.0) Mean Corpuscular Volume 84 fL (79-100) Mean Corpuscular Hemoglobin 27 pg (25-35) Mean Corpuscular Hemoglobin Concent 32 g/dL (31-37) Red Cell Distribution Width 16.3 % (11.5-14.5) Platelet Count 529 x10^3/uL (140-400) Neutrophils (%) (Auto) 83 % (31-73) Lymphocytes (%) (Auto) 9 % (24-48) Monocytes (%) (Auto) 7 % (0-9) Eosinophils (%) (Auto) 1 % (0-3) Basophils (%) (Auto) 0 % (0-3) Neutrophils # (Auto) 12.7 x10^3/uL (1.8-7.7) Lymphocytes # (Auto) 1.3 x10^3/uL (1.0-4.8) Monocytes # (Auto) 1.1 x10^3/uL (0.0-1.1) Eosinophils # (Auto) 0.2 x10^3/uL (0.0-0.7) Basophils # (Auto) 0.0 x10^3/uL (0.0-0.2) Sodium Level 143 mmol/L (136-145) Potassium Level 3.8 mmol/L (3.5-5.1) Chloride Level 107 mmol/L (98-107) Carbon Dioxide Level 27 mmol/L (21-32) Anion Gap 9 (6-14) Blood Urea Nitrogen 42 mg/dL (7-20) Creatinine 1.3 mg/dL (0.6-1.0) Estimated GFR (Cockcroft-Gault) 51.1 Glucose Level 163 mg/dL (70-99) Calcium Level 7.7 mg/dL (8.5-10.1) Magnesium Level 1.6 mg/dL (1.8-2.4) Glucose (Fingerstick) 87 mg/dL (70-99) 58 mg/dL (70-99) 73 mg/dL (70-99) Test 07/29/19 01:17 07/29/19 04:30 07/29/19 06:20 07/29/19 07:06 Glucose (Fingerstick) 101 mg/dL (70-99) 69 mg/dL (70-99) 74 mg/dL (70-99) Sodium Level 145 mmol/L (136-145) Potassium Level 3.9 mmol/L (3.5-5.1) Chloride Level 110 mmol/L (98-107) Carbon Dioxide Level 27 mmol/L (21-32) Anion Gap 8 (6-14) Blood Urea Nitrogen 34 mg/dL (7-20) Creatinine 1.1 mg/dL (0.6-1.0) Estimated GFR (Cockcroft-Gault) 61.9 Glucose Level 68 mg/dL (70-99) Calcium Level 7.5 mg/dL (8.5-10.1) Magnesium Level 1.7 mg/dL (1.8-2.4) Microbiology 07/26/19 Blood Culture - Preliminary, Resulted NO GROWTH AFTER 3 DAYS Medications Current Medications Ondansetron HCl (Zofran) 8 mg 1X ONCE IVP Last administered on 07/21/19at 07:42; Start 07/21/19 at 07:00; Stop 07/21/19 at 07:01; Status DC Ondansetron HCl (Zofran) 4 mg STK-MED ONCE .ROUTE ; Start 07/21/19 at 06:37; Stop 07/21/19 at 06:37; Status DC Insulin Human Regular (HumuLIN R VIAL) 10 unit 1X ONCE IV Last administered on 07/21/19at 07:30; Start 07/21/19 at 07:30; Stop 07/21/19 at 07:31; Status DC Sodium Bicarbonate (Sodium Bicarb Adult 8.4% Syr) 50 meq 1X ONCE IV Last administered on 07/21/19at 08:25; Start 07/21/19 at 07:30; Stop 07/21/19 at 07:31; Status DC Clindamycin Phosphate 50 ml @ 100 mls/hr 1X ONCE IV Last administered on 07/21/19at 08:31; Start 07/21/19 at 07:45; Stop 07/21/19 at 08:14; Status DC Cefepime HCl (Maxipime) 2 gm 1X ONCE IVP Last administered on 07/21/19at 07:47; Start 07/21/19 at 07:45; Stop 07/21/19 at 07:46; Status DC Metoclopramide HCl (Reglan Vial) 10 mg 1X ONCE IVP Last administered on 07/21/19at 09:05; Start 07/21/19 at 08:45; Stop 07/21/19 at 08:47; Status DC Iohexol (Omnipaque 300 Mg/ml) 75 ml 1X ONCE IV Last administered on 07/21/19at 10:01; Start 07/21/19 at 09:00; Stop 07/21/19 at 09:01; Status DC Ondansetron HCl (Zofran) 4 mg PRN Q8HRS PRN IV NAUSEA/VOMITING; Start 07/21/19 at 09:30; Stop 07/22/19 at 07:25; Status DC Albuterol/ Ipratropium (Duoneb) 3 ml RTQID NEB ; Start 07/21/19 at 12:00; Stop 07/22/19 at 06:42; Status DC Cefepime HCl (Maxipime) 2 gm Q12HR IVP Last administered on 07/27/19at 22:03; Start 07/21/19 at 21:00; Stop 07/28/19 at 12:16; Status DC Sodium Chloride (Normal Saline Flush) 3 ml QSHIFT PRN IV AFTER MEDS AND BLOOD DRAWS; Start 5/18/20 at 11:30 Sodium Chloride 1,000 ml @ 100 mls/hr Q10H IV Last administered on 07/24/19at 09:14; Start 07/21/19 at 11:19; Stop 07/24/19 at 11:45; Status DC Ondansetron HCl (Zofran) 4 mg PRN Q4HRS PRN IV NAUSEA/VOMITING Last administered on 07/23/19at 10:05; Start 07/21/19 at 11:30 Acetaminophen (Tylenol) 650 mg PRN Q4HRS PRN GT TEMP OVER 100.4F OR MILD PAIN Last administered on 07/27/19at 14:11; Start 07/21/19 at 11:30 Acetaminophen (Tylenol Supp) 650 mg PRN Q4HRS PRN FL TEMP OVER 100.4F OR MILD PAIN Last administered on 07/23/19at 16:52; Start 07/21/19 at 11:30 Clonidine HCl (Catapres) 0.1 mg PRN Q6HRS PRN PO SBP>160 OR DBP>90; Start 07/21/19 at 11:30 Sodium Monofluorophosphate (Fleet Adult) 133 ml PRN DAILY PRN FL CONSTIPATION; Start 07/21/19 at 11:30; Stop 07/26/19 at 13:25; Status DC Albuterol Sulfate (Ventolin Neb Soln) 2.5 mg PRN Q4HRS PRN NEB SHORTNESS OF BREATH; Start 07/21/19 at 11:30; Status Cancel Enoxaparin Sodium (Lovenox 40mg Syringe) 40 mg Q24H SQ Last administered on 07/28/19at 20:14; Start 07/21/19 at 21:00 Vancomycin HCl 1 gm/Dextrose 250 ml @ 250 mls/hr 1X ONCE IV Last administered on 07/21/19at 12:36; Start 07/21/19 at 11:30; Stop 07/21/19 at 12:29; Status DC Vancomycin HCl (Vanco Per Pharmacy) 1 each PRN DAILY PRN MC SEE COMMENTS Last administered on 07/27/19at 11:00; Start 07/21/19 at 11:45; Stop 07/28/19 at 12:16; Status DC Famotidine (Pepcid Vial) 20 mg DAILY IVP Last administered on 07/27/19at 09:18; Start 07/21/19 at 21:00 Insulin Human Lispro (HumaLOG) 0-5 UNITS Q6HRS SQ Last administered on 07/27/19at 14:27; Start 07/21/19 at 13:15 Dextrose (Dextrose 50%-Water Syringe) 12.5 gm PRN Q15MIN PRN IV SEE COMMENTS; Start 07/21/19 at 13:15 Vancomycin HCl 1 gm/Sodium Chloride 250 ml @ 250 mls/hr Q24H IV Last administered on 07/27/19at 14:11; Start 07/22/19 at 13:00; Stop 07/28/19 at 12:16; Status DC Vancomycin HCl (Vancomycin Trough Level) 1 each 1X ONCE MC Last administered on 07/23/19at 11:57; Start 07/23/19 at 12:30; Stop 07/23/19 at 12:31; Status DC Albuterol Sulfate (Ventolin Neb Soln) 2.5 mg PRN Q4HRS NEB ; Start 07/22/19 at 06:45; Stop 07/22/19 at 11:59; Status DC Insulin Glargine (Lantus Syringe) 8 unit BID SQ Last administered on 07/28/19at 20:51; Start 07/24/19 at 09:00 Potassium Chloride/Water 100 ml @ 75 mls/hr 1400,1520,1640 IV Last administered on 07/25/19at 17:33; Start 07/25/19 at 14:00; Stop 07/25/19 at 17:59; Status DC Dextrose 1,000 ml @ 100 mls/hr Q10H IV Last administered on 07/26/19at 00:20; Start 07/25/19 at 14:00; Stop 07/26/19 at 13:25; Status DC Potassium Chloride 30 meq/ Dextrose 1,015 ml @ 100 mls/hr Q10H9M IV Last administered on 07/26/19at 23:39; Start 07/26/19 at 13:30; Stop 07/27/19 at 13:44; Status DC Magnesium Sulfate 50 ml @ 25 mls/hr PRN DAILY PRN IV for Mag < 1.7 on am labs; Start 07/26/19 at 13:30; Stop 07/27/19 at 13:44; Status DC Vancomycin HCl (Vancomycin Trough Level) 1 each 1X ONCE MC ; Start 07/28/19 at 12:30; Stop 07/28/19 at 12:31; Status Cancel Albuterol/ Ipratropium (Duoneb) 3 ml RTQID NEB Last administered on 07/29/19at 11:16; Start 07/27/19 at 16:00 Magnesium Oxide (Magnesium Oxide) 400 mg BID PO Last administered on 07/28/19at 20:12; Start 07/27/19 at 15:00; Stop 07/28/19 at 21:01; Status DC Dextrose 1,000 ml @ 100 mls/hr Q10H IV Last administered on 07/27/19at 14:10; Start 07/27/19 at 14:00 Amoxicillin/ Clavulanate Potassium (Augmentin 400-57mg/5ml Susp) 5 ml Q12HR PEG Last administered on 07/29/19at 09:43; Start 07/28/19 at 13:00 Glucagon (Glucagen) 1 mg 1X ONCE IM Last administered on 07/29/19at 00:28; Start 07/29/19 at 01:00; Stop 07/29/19 at 01:01; Status DC Active Scripts Active Humalog (Insulin Lispro) 100 Unit/1 Ml Insuln.pen 0 Units SQ TIDWMEALS 14 Days Zofran Odt (Ondansetron) 4 Mg Tab.rapdis 1 Tab SL Q6HRS PRN Reported Zocor (Simvastatin) 40 Mg Tablet 1 Tab PO DAILY Tramadol Hcl 50 Mg Tablet 50 Mg PO BID PRN Senokot (Sennosides) 8.6 Mg Tablet 1 Tab PO BID 20 Days Polyethylene Glycol 3350 2,500 Gm Powder 17 Gm PO DAILY 30 Days Omeprazole 20 Mg Tablet.dr 1 Tab PO DAILY [place] 5-325 Tablet (Acetaminophen/Hydrocodone Bitart) 1 Each Tablet 1 Tab PO BID Metoprolol Tartrate 25 Mg Tablet 1 Tab PO BID Melatonin 3 Mg Tablet 2 Tab PO QHS Lantus Solostar (Insulin Glargine,Hum.rec.anlog) 100 Unit/1 Ml Insuln.pen 30 Unit SQ QHS Hydroxyzine Hcl 25 Mg Tablet 1 Tab PO TID Gabapentin 600 Mg Tablet 600 Mg PO BID Docusate Sodium 100 Mg Capsule 1 Cap PO BID 15 Days Cyclobenzaprine Hcl 5 Mg Tablet 1 Tab PO QHS Vitamin B-12 (Cyanocobalamin (Vitamin B-12)) 1,000 Mcg Tablet 1 Tab PO DAILY 30 Days Coreg (Carvedilol) 25 Mg Tablet 12.5 Mg PO BIDWMEALS Clopidogrel (Clopidogrel Bisulfate) 75 Mg Tablet 1 Tab PO DAILY Celexa (Citalopram Hydrobromide) 20 Mg Tablet 1 Tab PO DAILY D3-50 (Cholecalciferol (Vitamin D3)) 50,000 Unit Capsule 2,000 Unit PO DAILY Bisacodyl 10 Mg Supp.rect 10 Mg RC PRN DAILY PRN Aspirin 325 Mg Tablet 1 Tab PO DAILY Albuterol Sulfate Neb Soln (Albuterol Sulfate) 2.5 Mg/3 Ml Vial.neb 1 Vial NEB PRN Q4HRS Tylenol (Acetaminophen) 325 Mg Tablet 2 Tab PO BID Vitals/I & O Vital Sign - Last 24 Hours 07/28/19 07/28/19 07/28/19 07/28/19 12:43 15:00 15:49 19:00 Temp 97.8 98.2 97.8 98.2 Pulse 104 102 Resp 16 18 B/P (MAP) 158/72 (100) 97/58 (71) Pulse Ox 100 96 O2 Delivery Room Air Room Air Room Air Room Air 07/28/19 07/28/19 07/28/19 07/29/19 19:56 20:00 23:00 03:00 Temp 99.7 97.8 99.7 97.8 Pulse 113 111 Resp 18 B/P (MAP) 165/86 (112) 115/77 (90) Pulse Ox 98 99 95 O2 Delivery Room Air Room Air Room Air Room Air 07/29/19 07/29/19 07/29/19 07:00 07:11 08:00 Temp 98.0 98.0 Pulse 107 Resp 16 B/P (MAP) 124/64 (84) Pulse Ox 97 O2 Delivery Room Air Room Air Room Air Intake and Output 07/28/19 07/28/19 07/29/19 14:59 22:59 06:59 Intake Total 295 ml 295 ml Balance 295 ml 295 ml Nutrition Consultation Dietary Evaluation: Recommendations by RD: Dietary education by RD, Increase Calorie Intake, Protein supplementation Comments: REC TFs per order at detention: Glucerna 1.5@goal rate 40 ml/hr w/120 ml water flushes q4 hrs REC Kalyan BID via PEG tube (wound healing), mix each packet w/4oz water to dissolve and flush tube w/~30 ml water after each packet REC liquid MVI via PEG (wound healing) Expected Outcomes/Goals: TF initiation/infusion to meet >75% est needs Malnutrition Findings: Body Fat Depletion (Non Severe: Mild Depletion Weight Status: Appropriate FAUSTO MARCIAL MD July 29, 2019 11:22
--- NOTE | 2019-07-29 11:35 | PDOC ---
PULMONARY PROGRESS NOTES Subjective Pt. doesn't verbally interact, awake and alert, on room air no S/S of distress Vitals Vital Signs Date Time Temp Pulse Resp B/P (MAP) Pulse Ox O2 Delivery O2 Flow Rate FiO2 07/29/19 11:20 Room Air 07/29/19 11:00 98.3 103 16 146/73 (97) 100 98.3 Comments unable to report ROS 2/2 non-verbal General: Alert Lungs: Other (coarse ) Cardiovascular: S1, S2 Abdomen: Soft, Non-tender, Other (Peg in place ) Extremities: Other (Contractures muscle wasting, BLE wounds ) Skin: Warm Labs Laboratory Tests Test 07/27/19 12:07 07/27/19 17:51 07/27/19 20:33 07/27/19 23:35 Glucose (Fingerstick) 188 mg/dL (70-99) 154 mg/dL (70-99) 166 mg/dL (70-99) 186 mg/dL (70-99) Test 07/28/19 05:35 07/28/19 13:00 07/28/19 18:17 07/29/19 00:07 Glucose (Fingerstick) 159 mg/dL (70-99) 87 mg/dL (70-99) 58 mg/dL (70-99) White Blood Count 15.3 x10^3/uL (4.0-11.0) Red Blood Count 3.25 x10^6/uL (3.50-5.40) Hemoglobin 8.7 g/dL (12.0-15.5) Hematocrit 27.1 % (36.0-47.0) Mean Corpuscular Volume 84 fL (79-100) Mean Corpuscular Hemoglobin 27 pg (25-35) Mean Corpuscular Hemoglobin Concent 32 g/dL (31-37) Red Cell Distribution Width 16.3 % (11.5-14.5) Platelet Count 529 x10^3/uL (140-400) Neutrophils (%) (Auto) 83 % (31-73) Lymphocytes (%) (Auto) 9 % (24-48) Monocytes (%) (Auto) 7 % (0-9) Eosinophils (%) (Auto) 1 % (0-3) Basophils (%) (Auto) 0 % (0-3) Neutrophils # (Auto) 12.7 x10^3/uL (1.8-7.7) Lymphocytes # (Auto) 1.3 x10^3/uL (1.0-4.8) Monocytes # (Auto) 1.1 x10^3/uL (0.0-1.1) Eosinophils # (Auto) 0.2 x10^3/uL (0.0-0.7) Basophils # (Auto) 0.0 x10^3/uL (0.0-0.2) Sodium Level 143 mmol/L (136-145) Potassium Level 3.8 mmol/L (3.5-5.1) Chloride Level 107 mmol/L (98-107) Carbon Dioxide Level 27 mmol/L (21-32) Anion Gap 9 (6-14) Blood Urea Nitrogen 42 mg/dL (7-20) Creatinine 1.3 mg/dL (0.6-1.0) Estimated GFR (Cockcroft-Gault) 51.1 Glucose Level 163 mg/dL (70-99) Calcium Level 7.7 mg/dL (8.5-10.1) Magnesium Level 1.6 mg/dL (1.8-2.4) Test 07/29/19 00:50 07/29/19 01:17 07/29/19 04:30 07/29/19 06:20 Glucose (Fingerstick) 73 mg/dL (70-99) 101 mg/dL (70-99) 69 mg/dL (70-99) Sodium Level 145 mmol/L (136-145) Potassium Level 3.9 mmol/L (3.5-5.1) Chloride Level 110 mmol/L (98-107) Carbon Dioxide Level 27 mmol/L (21-32) Anion Gap 8 (6-14) Blood Urea Nitrogen 34 mg/dL (7-20) Creatinine 1.1 mg/dL (0.6-1.0) Estimated GFR (Cockcroft-Gault) 61.9 Glucose Level 68 mg/dL (70-99) Calcium Level 7.5 mg/dL (8.5-10.1) Magnesium Level 1.7 mg/dL (1.8-2.4) Test 07/29/19 07:06 Glucose (Fingerstick) 74 mg/dL (70-99) Laboratory Tests Test 07/28/19 13:00 07/28/19 18:17 07/29/19 00:07 07/29/19 00:50 White Blood Count 15.3 x10^3/uL (4.0-11.0) Red Blood Count 3.25 x10^6/uL (3.50-5.40) Hemoglobin 8.7 g/dL (12.0-15.5) Hematocrit 27.1 % (36.0-47.0) Mean Corpuscular Volume 84 fL (79-100) Mean Corpuscular Hemoglobin 27 pg (25-35) Mean Corpuscular Hemoglobin Concent 32 g/dL (31-37) Red Cell Distribution Width 16.3 % (11.5-14.5) Platelet Count 529 x10^3/uL (140-400) Neutrophils (%) (Auto) 83 % (31-73) Lymphocytes (%) (Auto) 9 % (24-48) Monocytes (%) (Auto) 7 % (0-9) Eosinophils (%) (Auto) 1 % (0-3) Basophils (%) (Auto) 0 % (0-3) Neutrophils # (Auto) 12.7 x10^3/uL (1.8-7.7) Lymphocytes # (Auto) 1.3 x10^3/uL (1.0-4.8) Monocytes # (Auto) 1.1 x10^3/uL (0.0-1.1) Eosinophils # (Auto) 0.2 x10^3/uL (0.0-0.7) Basophils # (Auto) 0.0 x10^3/uL (0.0-0.2) Sodium Level 143 mmol/L (136-145) Potassium Level 3.8 mmol/L (3.5-5.1) Chloride Level 107 mmol/L (98-107) Carbon Dioxide Level 27 mmol/L (21-32) Anion Gap 9 (6-14) Blood Urea Nitrogen 42 mg/dL (7-20) Creatinine 1.3 mg/dL (0.6-1.0) Estimated GFR (Cockcroft-Gault) 51.1 Glucose Level 163 mg/dL (70-99) Calcium Level 7.7 mg/dL (8.5-10.1) Magnesium Level 1.6 mg/dL (1.8-2.4) Glucose (Fingerstick) 87 mg/dL (70-99) 58 mg/dL (70-99) 73 mg/dL (70-99) Test 07/29/19 01:17 07/29/19 04:30 07/29/19 06:20 07/29/19 07:06 Glucose (Fingerstick) 101 mg/dL (70-99) 69 mg/dL (70-99) 74 mg/dL (70-99) Sodium Level 145 mmol/L (136-145) Potassium Level 3.9 mmol/L (3.5-5.1) Chloride Level 110 mmol/L (98-107) Carbon Dioxide Level 27 mmol/L (21-32) Anion Gap 8 (6-14) Blood Urea Nitrogen 34 mg/dL (7-20) Creatinine 1.1 mg/dL (0.6-1.0) Estimated GFR (Cockcroft-Gault) 61.9 Glucose Level 68 mg/dL (70-99) Calcium Level 7.5 mg/dL (8.5-10.1) Magnesium Level 1.7 mg/dL (1.8-2.4) Medications Active Scripts Medications Dose Route/Sig Max Daily Dose Days Date Category Zocor (Simvastatin) 40 Mg Tablet 1 Tab PO DAILY 07/21/19 Reported Tramadol Hcl 50 Mg Tablet 50 Mg PO BID PRN 07/21/19 Reported Senokot (Sennosides) 8.6 Mg Tablet 1 Tab PO BID 20 07/21/19 Reported Polyethylene Glycol 3350 2,500 Gm Powder 17 Gm PO DAILY 30 07/21/19 Reported Omeprazole 20 Mg Tablet.dr 1 Tab PO DAILY 07/21/19 Reported [place] 5-325 Tablet (Acetaminophen/Hydrocodone Bitart) 1 Each Tablet 1 Tab PO BID 07/21/19 Reported Metoprolol Tartrate 25 Mg Tablet 1 Tab PO BID 07/21/19 Reported Melatonin 3 Mg Tablet 2 Tab PO QHS 07/21/19 Reported Lantus Solostar (Insulin Glargine,Hum.rec.anlog) 100 Unit/1 Ml Insuln.pen 30 Unit SQ QHS 07/21/19 Reported Hydroxyzine Hcl 25 Mg Tablet 1 Tab PO TID 07/21/19 Reported Gabapentin 600 Mg Tablet 600 Mg PO BID 07/21/19 Reported Docusate Sodium 100 Mg Capsule 1 Cap PO BID 15 07/21/19 Reported Cyclobenzaprine Hcl 5 Mg Tablet 1 Tab PO QHS 07/21/19 Reported Vitamin B-12 (Cyanocobalamin (Vitamin B-12)) 1,000 Mcg Tablet 1 Tab PO DAILY 30 07/21/19 Reported Coreg (Carvedilol) 25 Mg Tablet 12.5 Mg PO BIDWMEALS 07/21/19 Reported Clopidogrel (Clopidogrel Bisulfate) 75 Mg Tablet 1 Tab PO DAILY 07/21/19 Reported Celexa (Citalopram Hydrobromide) 20 Mg Tablet 1 Tab PO DAILY 07/21/19 Reported D3-50 (Cholecalciferol (Vitamin D3)) 50,000 Unit Capsule 2,000 Unit PO DAILY 07/21/19 Reported Bisacodyl 10 Mg Supp.rect 10 Mg RC PRN DAILY PRN 07/21/19 Reported Aspirin 325 Mg Tablet 1 Tab PO DAILY 07/21/19 Reported Albuterol Sulfate Neb Soln (Albuterol Sulfate) 2.5 Mg/3 Ml Vial.neb 1 Vial NEB PRN Q4HRS 07/21/19 Reported Tylenol (Acetaminophen) 325 Mg Tablet 2 Tab PO BID 07/21/19 Reported Humalog (Insulin Lispro) 100 Unit/1 Ml Insuln.pen 0 Units SQ TIDWMEALS 14 06/06/19 Rx Zofran Odt (Ondansetron) 4 Mg Tab.rapdis 1 Tab SL Q6HRS PRN 08/19/16 Rx Comments CXR - 07/27/2019 IMPRESSION: 1. Improving left-sided airspace disease. 2. Possible small left pleural effusion. Impression . IMPRESSION: 1. Acute hypoxemic respiratory failure--resolved 2. Aspiration pneumonia. 3. Cbhvv-uw-tkewawo kidney disease. 4. Abnormal x-ray. 5. SARS-CoV-2 negative 6. 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 7. Severe protein malnutrition, present upon admission. 8. Hypokalemia. 9. Elevated liver chemistries. 10. wheezing-resolved 11. Hypernatermia Plan . 1. supplemental oxygen if needed, on room air, continue bronchodilators 2. Follow nephrology recs 3. COVID-19(-) 4. Cont. ABX 5. Continue TF , with HOB elevated 30 degrees 6. Monitor Electrolytes-- NA+ was improved on 07/26/2019 7. wound care as needed D/W RN DVT/GI PPX: lovenox/ pepcid ANJALI TEIXEIRA MD July 29, 2019 11:35
[2019-07-29] MEDS ORDERED: MAGNESIUM SULFATE 1GM 100 ML IV ONE (13:15)
[2019-07-29 15:00] VITALS: BP 120/72
--- NOTE | 2019-07-29 17:00 | NUR ---
Pt vomiting. Paged Dr. Lacey received orders for zofran. Stopped tube feeding.
[2019-07-29] MEDS ORDERED: ONDANSETRON ODT 4 MG TAB.RAPDIS. PEG PRN (17:45)
[2019-07-29] MEDS: ONDANSETRON ODT 4 MG TAB.RAPDIS. PEG PRN (18:31)
[2019-07-29 19:35] VITALS: BP 186/93
[2019-07-29] MEDS: ENOXAPARIN 40 MG/0.4 ML SYRINGE. SQ SCH (22:21)
[2019-07-29 23:18] VITALS: BP 166/94
[2019-07-30] MEDS: ONDANSETRON ODT 4 MG TAB.RAPDIS. PEG PRN ×2 (01:43→10:52)
[2019-07-30] MEDS: ACETAMINOPHEN 650 MG/20.3 ML SOLUTION. GT PRN ×2 (02:08→10:51)
[2019-07-30 03:24] LABS: ALBUMIN 1.6 g/dL (3.4-5.0); ALBUMIN/GLOBULIN RATIO 0.3 (1.0-1.7); CALCIUM 8.2 mg/dL (8.5-10.1); CREATININE 1.2 mg/dL (0.6-1.0); MAGNESIUM 1.8 mg/dL (1.8-2.4); POTASSIUM 4.2 mmol/L (3.5-5.1); TOTAL BILIRUBIN 0.2 mg/dL (0.2-1.0); TOTAL PROTEIN 6.8 g/dL (6.4-8.2)
[2019-07-30 03:27] VITALS: BP 158/92
[2019-07-30] MEDS: INSULIN LISPRO 300 UNITS/3 ML VIAL. SQ SCH ×4 (06:00→18:00)
[2019-07-30 07:00] VITALS: BP 150/87
--- NOTE | 2019-07-30 07:24 | NUR ---
Patient has had 3-4 episodes of vomiting, with brownish in color, her lantus and novolog ss held due to low blood glucose, and nothing going through her peg tube,
[2019-07-30] MEDS: IPRATRPIUM/ALBUTEROL 0.5/2.5MG 3 ML NEBU. NEB SCH ×4 (07:43→20:34)
[2019-07-30] MEDS: FAMOTIDINE 20 MG/2 ML VIAL IVP SCH (09:00)
[2019-07-30] MEDS: INSULIN GLARGINE SYRINGE. SQ SCH ×2 (09:00→21:00)
[2019-07-30] MEDS: AMOXICILLIN/CLAV 400MG/57MG 5 ML ORAL.SUSP. PEG SCH ×2 (10:52→21:55)
--- NOTE | 2019-07-30 10:57 | PDOC ---
PROGRESS NOTES Chief Complaint Chief Complaint impression Acute pneumonia, favor aspiration negative COVID testing Scattered opacities in the left lung, concerning for an infectious/inflammatory process. Hypernatremia secondary to severe dehydration acute hypoxic respiratory failure H/o CVA, peg feeding dependent, expressive aphasia HTN, DM GERD HyperKalemia- at presentation, Improved na =146 Developmental delay Acute hypoxemic respiratory failure. [id number] kidney disease. Abnormal x-ray. COVID-19 suspected - negative Previous cerebrovascular accident with hemiparesis and expressive aphasia. Severe protein malnutrition, present upon admission. Hyperkalemia. Elevated liver chemistries. D/W RN tube feeding ,HOB elevated 30 degrees iv fluids if family consents, nephrology following DVT/GI PPX: lovenox/ pepcid 07/29 emeis today, family refusing picc line 28 MIN pt exam, chart review, > 50% of time spent with exam, chart review, pt care coordination History of Present Illness History of Present Illness Ms Parker is a 59 yo F w/ PMHx DM2, GERD, HLD, HTN, migraines, CVA with left- sided hemiparesis, expressive aphasia s/p PEG placement who presented to ED with acute respiratory distress, found to have O2 saturation of 57% on room air by EMS. Negative for SARS-CoV-2 during the COVID- pandemic, unable to obtain any information from the patient herself. 07/24: No acute events reported overnight, case discussed with nursing staff patient in no acute distress no complaints during my visit unable to have a meaningful conversation with the patient due to expressive aphasia as a consequence of her CVA 07/25: No acute events reported overnight, case discussed with nursing staff patient in no acute distress no complaints during my visit, electrolyte disturbance seems to be improving now that her feeding tubes have been restarted, appreciate nephrology recommendation 07/26: more coarse Lost IV access. Afebrile. Some sputum this morning, unclear if it is emesis. 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 Faye MIRANDA, requests not to place another PICC line and informs me that she is FULL CODE but is on comfort care measures at her SNF and she would like her to return [place]. She wants patient to remain full code, states she is waiting for life insurance. She does note the patient had previously noted she would never want to be on a ventilator. Plan: Change to PO augmentin syrup TF on hold, can resume at 33cc/hr Vitals Vitals Vital Signs Date Time Temp Pulse Resp B/P (MAP) Pulse Ox O2 Delivery O2 Flow Rate FiO2 07/30/19 07:44 98 Room Air 07/30/19 07:00 99.5 121 20 150/87 (108) 99.5 Physical Exam Physical Exam Well developed, well nourished, tachypnea with less increased work of breathing [] HENT: Normocephalic, atraumatic, bilateral external ears normal, oropharynx moist, nose normal. [] Eyes: PERRLA, EOMI, conjunctiva normal. [] Neck: Normal range of motion, no tenderness, supple. [] Cardiovascular:Heart rate regular rhythm, no murmur. [] Lungs & Thorax: Bilateral breath sounds coarse [] Abdomen: Bowel sounds normal, soft, non-distended, no grimacing in exam. [] Skin: Warm, dry. [] Neurologic: Alert, Left hemiparesis. [] General: Cooperative HEENT: Atraumatic Heart: RRR Breasts: Not examined Abdomen: Soft Rectal Exam: not examined PELVIC: Examination not indicated Extremities: No cyanosis, No edema General: Alert, Cooperative, No acute distress Heart: Regular rate Lungs: Other (coarse ) Abdomen: Soft, No tenderness Extremities: No cyanosis, No edema Skin: No rashes Labs LABS Laboratory Tests Test 07/29/19 12:09 07/30/19 00:13 07/30/19 02:23 07/30/19 06:23 Glucose (Fingerstick) 76 mg/dL (70-99) 124 mg/dL (70-99) 112 mg/dL (70-99) Sodium Level 146 mmol/L (136-145) Potassium Level 4.2 mmol/L (3.5-5.1) Chloride Level 108 mmol/L (98-107) Carbon Dioxide Level 27 mmol/L (21-32) Anion Gap 11 (6-14) Blood Urea Nitrogen 31 mg/dL (7-20) Creatinine 1.2 mg/dL (0.6-1.0) Estimated GFR (Cockcroft-Gault) 56.0 BUN/Creatinine Ratio 26 (6-20) Glucose Level 143 mg/dL (70-99) Calcium Level 8.2 mg/dL (8.5-10.1) Magnesium Level 1.8 mg/dL (1.8-2.4) Total Bilirubin 0.2 mg/dL (0.2-1.0) Aspartate Amino Transf (AST/SGOT) 17 U/L (15-37) Alanine Aminotransferase (ALT/SGPT) 27 U/L (14-59) Alkaline Phosphatase 115 U/L (46-116) Total Protein 6.8 g/dL (6.4-8.2) Albumin 1.6 g/dL (3.4-5.0) Albumin/Globulin Ratio 0.3 (1.0-1.7) Assessment and Plan Assessmemt and Plan Problems Medical Problems: (1) Aspiration into airway Status: Acute (2) Congestive heart failure Status: Acute (3) HCAP (healthcare-associated pneumonia) Status: Acute (4) Hyperkalemia Status: Acute Comment Review of Relevant I have reviewed the following items satish (where applicable) has been applied. Labs Laboratory Tests Test 07/28/19 13:00 07/28/19 18:17 07/29/19 00:07 07/29/19 00:50 White Blood Count 15.3 x10^3/uL (4.0-11.0) Red Blood Count 3.25 x10^6/uL (3.50-5.40) Hemoglobin 8.7 g/dL (12.0-15.5) Hematocrit 27.1 % (36.0-47.0) Mean Corpuscular Volume 84 fL (79-100) Mean Corpuscular Hemoglobin 27 pg (25-35) Mean Corpuscular Hemoglobin Concent 32 g/dL (31-37) Red Cell Distribution Width 16.3 % (11.5-14.5) Platelet Count 529 x10^3/uL (140-400) Neutrophils (%) (Auto) 83 % (31-73) Lymphocytes (%) (Auto) 9 % (24-48) Monocytes (%) (Auto) 7 % (0-9) Eosinophils (%) (Auto) 1 % (0-3) Basophils (%) (Auto) 0 % (0-3) Neutrophils # (Auto) 12.7 x10^3/uL (1.8-7.7) Lymphocytes # (Auto) 1.3 x10^3/uL (1.0-4.8) Monocytes # (Auto) 1.1 x10^3/uL (0.0-1.1) Eosinophils # (Auto) 0.2 x10^3/uL (0.0-0.7) Basophils # (Auto) 0.0 x10^3/uL (0.0-0.2) Sodium Level 143 mmol/L (136-145) Potassium Level 3.8 mmol/L (3.5-5.1) Chloride Level 107 mmol/L (98-107) Carbon Dioxide Level 27 mmol/L (21-32) Anion Gap 9 (6-14) Blood Urea Nitrogen 42 mg/dL (7-20) Creatinine 1.3 mg/dL (0.6-1.0) Estimated GFR (Cockcroft-Gault) 51.1 Glucose Level 163 mg/dL (70-99) Calcium Level 7.7 mg/dL (8.5-10.1) Magnesium Level 1.6 mg/dL (1.8-2.4) Glucose (Fingerstick) 87 mg/dL (70-99) 58 mg/dL (70-99) 73 mg/dL (70-99) Test 07/29/19 01:17 07/29/19 04:30 07/29/19 06:20 07/29/19 07:06 Glucose (Fingerstick) 101 mg/dL (70-99) 69 mg/dL (70-99) 74 mg/dL (70-99) Sodium Level 145 mmol/L (136-145) Potassium Level 3.9 mmol/L (3.5-5.1) Chloride Level 110 mmol/L (98-107) Carbon Dioxide Level 27 mmol/L (21-32) Anion Gap 8 (6-14) Blood Urea Nitrogen 34 mg/dL (7-20) Creatinine 1.1 mg/dL (0.6-1.0) Estimated GFR (Cockcroft-Gault) 61.9 Glucose Level 68 mg/dL (70-99) Calcium Level 7.5 mg/dL (8.5-10.1) Magnesium Level 1.7 mg/dL (1.8-2.4) Test 07/29/19 12:09 07/30/19 00:13 07/30/19 02:23 07/30/19 06:23 Glucose (Fingerstick) 76 mg/dL (70-99) 124 mg/dL (70-99) 112 mg/dL (70-99) Sodium Level 146 mmol/L (136-145) Potassium Level 4.2 mmol/L (3.5-5.1) Chloride Level 108 mmol/L (98-107) Carbon Dioxide Level 27 mmol/L (21-32) Anion Gap 11 (6-14) Blood Urea Nitrogen 31 mg/dL (7-20) Creatinine 1.2 mg/dL (0.6-1.0) Estimated GFR (Cockcroft-Gault) 56.0 BUN/Creatinine Ratio 26 (6-20) Glucose Level 143 mg/dL (70-99) Calcium Level 8.2 mg/dL (8.5-10.1) Magnesium Level 1.8 mg/dL (1.8-2.4) Total Bilirubin 0.2 mg/dL (0.2-1.0) Aspartate Amino Transf (AST/SGOT) 17 U/L (15-37) Alanine Aminotransferase (ALT/SGPT) 27 U/L (14-59) Alkaline Phosphatase 115 U/L (46-116) Total Protein 6.8 g/dL (6.4-8.2) Albumin 1.6 g/dL (3.4-5.0) Albumin/Globulin Ratio 0.3 (1.0-1.7) Laboratory Tests Test 07/29/19 12:09 07/30/19 00:13 07/30/19 02:23 07/30/19 06:23 Glucose (Fingerstick) 76 mg/dL (70-99) 124 mg/dL (70-99) 112 mg/dL (70-99) Sodium Level 146 mmol/L (136-145) Potassium Level 4.2 mmol/L (3.5-5.1) Chloride Level 108 mmol/L (98-107) Carbon Dioxide Level 27 mmol/L (21-32) Anion Gap 11 (6-14) Blood Urea Nitrogen 31 mg/dL (7-20) Creatinine 1.2 mg/dL (0.6-1.0) Estimated GFR (Cockcroft-Gault) 56.0 BUN/Creatinine Ratio 26 (6-20) Glucose Level 143 mg/dL (70-99) Calcium Level 8.2 mg/dL (8.5-10.1) Magnesium Level 1.8 mg/dL (1.8-2.4) Total Bilirubin 0.2 mg/dL (0.2-1.0) Aspartate Amino Transf (AST/SGOT) 17 U/L (15-37) Alanine Aminotransferase (ALT/SGPT) 27 U/L (14-59) Alkaline Phosphatase 115 U/L (46-116) Total Protein 6.8 g/dL (6.4-8.2) Albumin 1.6 g/dL (3.4-5.0) Albumin/Globulin Ratio 0.3 (1.0-1.7) Microbiology 07/26/19 Blood Culture - Preliminary, Resulted NO GROWTH AFTER 4 DAYS Medications Current Medications Ondansetron HCl (Zofran) 8 mg 1X ONCE IVP Last administered on 07/21/19at 07:42; Start 07/21/19 at 07:00; Stop 07/21/19 at 07:01; Status DC Ondansetron HCl (Zofran) 4 mg STK-MED ONCE .ROUTE ; Start 07/21/19 at 06:37; Stop 07/21/19 at 06:37; Status DC Insulin Human Regular (HumuLIN R VIAL) 10 unit 1X ONCE IV Last administered on 07/21/19at 07:30; Start 07/21/19 at 07:30; Stop 07/21/19 at 07:31; Status DC Sodium Bicarbonate (Sodium Bicarb Adult 8.4% Syr) 50 meq 1X ONCE IV Last administered on 07/21/19at 08:25; Start 07/21/19 at 07:30; Stop 07/21/19 at 07:31; Status DC Clindamycin Phosphate 50 ml @ 100 mls/hr 1X ONCE IV Last administered on 07/21/19at 08:31; Start 07/21/19 at 07:45; Stop 07/21/19 at 08:14; Status DC Cefepime HCl (Maxipime) 2 gm 1X ONCE IVP Last administered on 07/21/19at 07:47; Start 07/21/19 at 07:45; Stop 07/21/19 at 07:46; Status DC Metoclopramide HCl (Reglan Vial) 10 mg 1X ONCE IVP Last administered on 07/21/19at 09:05; Start 07/21/19 at 08:45; Stop 07/21/19 at 08:47; Status DC Iohexol (Omnipaque 300 Mg/ml) 75 ml 1X ONCE IV Last administered on 07/21/19at 10:01; Start 07/21/19 at 09:00; Stop 07/21/19 at 09:01; Status DC Ondansetron HCl (Zofran) 4 mg PRN Q8HRS PRN IV NAUSEA/VOMITING; Start 07/21/19 at 09:30; Stop 07/22/19 at 07:25; Status DC Albuterol/ Ipratropium (Duoneb) 3 ml RTQID NEB ; Start 07/21/19 at 12:00; Stop 07/22/19 at 06:42; Status DC Cefepime HCl (Maxipime) 2 gm Q12HR IVP Last administered on 07/27/19at 22:03; Start 07/21/19 at 21:00; Stop 07/28/19 at 12:16; Status DC Sodium Chloride (Normal Saline Flush) 3 ml QSHIFT PRN IV AFTER MEDS AND BLOOD DRAWS; Start 07/21/19 at 11:30 Sodium Chloride 1,000 ml @ 100 mls/hr Q10H IV Last administered on 07/24/19at 09:14; Start 07/21/19 at 11:19; Stop 07/24/19 at 11:45; Status DC Ondansetron HCl (Zofran) 4 mg PRN Q4HRS PRN IV NAUSEA/VOMITING Last administered on 07/23/19at 10:05; Start 07/21/19 at 11:30 Acetaminophen (Tylenol) 650 mg PRN Q4HRS PRN GT TEMP OVER 100.4F OR MILD PAIN Last administered on 07/30/19at 10:51; Start 07/21/19 at 11:30 Acetaminophen (Tylenol Supp) 650 mg PRN Q4HRS PRN VT TEMP OVER 100.4F OR MILD PAIN Last administered on 07/23/19at 16:52; Start 07/21/19 at 11:30 Clonidine HCl (Catapres) 0.1 mg PRN Q6HRS PRN PO SBP>160 OR DBP>90 Last administered on 07/29/19at 22:21; Start 07/21/19 at 11:30 Sodium Monofluorophosphate (Fleet Adult) 133 ml PRN DAILY PRN VT CONSTIPATION; Start 07/21/19 at 11:30; Stop 07/26/19 at 13:25; Status DC Albuterol Sulfate (Ventolin Neb Soln) 2.5 mg PRN Q4HRS PRN NEB SHORTNESS OF BREATH; Start 07/21/19 at 11:30; Status Cancel Enoxaparin Sodium (Lovenox 40mg Syringe) 40 mg Q24H SQ Last administered on 07/29/19at 22:21; Start 07/21/19 at 21:00 Vancomycin HCl 1 gm/Dextrose 250 ml @ 250 mls/hr 1X ONCE IV Last administered on 07/21/19at 12:36; Start 07/21/19 at 11:30; Stop 07/21/19 at 12:29; Status DC Vancomycin HCl (Vanco Per Pharmacy) 1 each PRN DAILY PRN MC SEE COMMENTS Last administered on 07/27/19at 11:00; Start 07/21/19 at 11:45; Stop 07/28/19 at 12:16; Status DC Famotidine (Pepcid Vial) 20 mg DAILY IVP Last administered on 07/27/19at 09:18; Start 07/21/19 at 21:00 Insulin Human Lispro (HumaLOG) 0-5 UNITS Q6HRS SQ Last administered on 07/27/19at 14:27; Start 07/21/19 at 13:15 Dextrose (Dextrose 50%-Water Syringe) 12.5 gm PRN Q15MIN PRN IV SEE COMMENTS; Start 07/21/19 at 13:15 Vancomycin HCl 1 gm/Sodium Chloride 250 ml @ 250 mls/hr Q24H IV Last administered on 07/27/19at 14:11; Start 07/22/19 at 13:00; Stop 07/28/19 at 12:16; Status DC Vancomycin HCl (Vancomycin Trough Level) 1 each 1X ONCE MC Last administered on 07/23/19at 11:57; Start 07/23/19 at 12:30; Stop 07/23/19 at 12:31; Status DC Albuterol Sulfate (Ventolin Neb Soln) 2.5 mg PRN Q4HRS NEB ; Start 07/22/19 at 06:45; Stop 07/22/19 at 11:59; Status DC Insulin Glargine (Lantus Syringe) 8 unit BID SQ Last administered on 07/28/19at 20:51; Start 07/24/19 at 09:00 Potassium Chloride/Water 100 ml @ 75 mls/hr 1400,1520,1640 IV Last administered on 07/25/19at 17:33; Start 07/25/19 at 14:00; Stop 07/25/19 at 17:59; Status DC Dextrose 1,000 ml @ 100 mls/hr Q10H IV Last administered on 07/26/19at 00:20; Start 07/25/19 at 14:00; Stop 07/26/19 at 13:25; Status DC Potassium Chloride 30 meq/ Dextrose 1,015 ml @ 100 mls/hr Q10H9M IV Last administered on 07/26/19at 23:39; Start 07/26/19 at 13:30; Stop 07/27/19 at 13:44; Status DC Magnesium Sulfate 50 ml @ 25 mls/hr PRN DAILY PRN IV for Mag < 1.7 on am labs; Start 07/26/19 at 13:30; Stop 07/27/19 at 13:44; Status DC Vancomycin HCl (Vancomycin Trough Level) 1 each 1X ONCE MC ; Start 07/28/19 at 12:30; Stop 07/28/19 at 12:31; Status Cancel Albuterol/ Ipratropium (Duoneb) 3 ml RTQID NEB Last administered on 07/30/19at 07:43; Start 07/27/19 at 16:00 Magnesium Oxide (Magnesium Oxide) 400 mg BID PO Last administered on 07/28/19at 20:12; Start 07/27/19 at 15:00; Stop 07/28/19 at 21:01; Status DC Dextrose 1,000 ml @ 100 mls/hr Q10H IV Last administered on 07/27/19at 14:10; Start 07/27/19 at 14:00; Stop 07/29/19 at 13:16; Status DC Amoxicillin/ Clavulanate Potassium (Augmentin 400-57mg/5ml Susp) 5 ml Q12HR PEG Last administered on 07/30/19at 10:52; Start 07/28/19 at 13:00 Glucagon (Glucagen) 1 mg 1X ONCE IM Last administered on 07/29/19at 00:28; Start 07/29/19 at 01:00; Stop 07/29/19 at 01:01; Status DC Magnesium Sulfate/ Dextrose 100 ml @ 100 mls/hr 1X ONCE IV ; Start 07/29/19 at 13:15; Stop 07/29/19 at 13:16; Status DC Ondansetron HCl (Zofran Odt) 4 mg PRN Q8HRS PRN PEG NAUSEA/VOMITING; Start 07/29/19 at 17:45; Stop 07/29/19 at 17:46; Status DC Ondansetron HCl (Zofran Odt) 8 mg PRN Q4HRS PRN PEG NAUSEA/VOMITING Last administered on 07/30/19at 10:52; Start 07/29/19 at 17:45 Active Scripts Active Humalog (Insulin Lispro) 100 Unit/1 Ml Insuln.pen 0 Units SQ TIDWMEALS 14 Days Zofran Odt (Ondansetron) 4 Mg Tab.rapdis 1 Tab SL Q6HRS PRN Reported Zocor (Simvastatin) 40 Mg Tablet 1 Tab PO DAILY Tramadol Hcl 50 Mg Tablet 50 Mg PO BID PRN Senokot (Sennosides) 8.6 Mg Tablet 1 Tab PO BID 20 Days Polyethylene Glycol 3350 2,500 Gm Powder 17 Gm PO DAILY 30 Days Omeprazole 20 Mg Tablet.dr 1 Tab PO DAILY [place] 5-325 Tablet (Acetaminophen/Hydrocodone Bitart) 1 Each Tablet 1 Tab PO BID Metoprolol Tartrate 25 Mg Tablet 1 Tab PO BID Melatonin 3 Mg Tablet 2 Tab PO QHS Lantus Solostar (Insulin Glargine,Hum.rec.anlog) 100 Unit/1 Ml Insuln.pen 30 Unit SQ QHS Hydroxyzine Hcl 25 Mg Tablet 1 Tab PO TID Gabapentin 600 Mg Tablet 600 Mg PO BID Docusate Sodium 100 Mg Capsule 1 Cap PO BID 15 Days Cyclobenzaprine Hcl 5 Mg Tablet 1 Tab PO QHS Vitamin B-12 (Cyanocobalamin (Vitamin B-12)) 1,000 Mcg Tablet 1 Tab PO DAILY 30 Days Coreg (Carvedilol) 25 Mg Tablet 12.5 Mg PO BIDWMEALS Clopidogrel (Clopidogrel Bisulfate) 75 Mg Tablet 1 Tab PO DAILY Celexa (Citalopram Hydrobromide) 20 Mg Tablet 1 Tab PO DAILY D3-50 (Cholecalciferol (Vitamin D3)) 50,000 Unit Capsule 2,000 Unit PO DAILY Bisacodyl 10 Mg Supp.rect 10 Mg RC PRN DAILY PRN Aspirin 325 Mg Tablet 1 Tab PO DAILY Albuterol Sulfate Neb Soln (Albuterol Sulfate) 2.5 Mg/3 Ml Vial.neb 1 Vial NEB PRN Q4HRS Tylenol (Acetaminophen) 325 Mg Tablet 2 Tab PO BID Vitals/I & O Vital Sign - Last 24 Hours 07/29/19 07/29/19 07/29/19 07/29/19 11:00 11:20 15:00 15:36 Temp 98.3 97.9 98.3 97.9 Pulse 103 109 Resp 16 16 B/P (MAP) 146/73 (97) 120/72 (88) Pulse Ox 100 98 O2 Delivery Room Air Room Air Room Air Room Air 07/29/19 07/29/19 07/29/19 07/29/19 19:35 20:17 20:20 22:21 Temp 98.2 98.2 Pulse 100 100 Resp 20 B/P (MAP) 186/93 (124) 186/93 Pulse Ox 98 100 O2 Delivery Room Air Room Air Room Air 07/29/19 07/30/19 07/30/19 07/30/19 23:18 03:27 07:00 07:44 Temp 98.4 98.4 99.5 98.4 98.4 99.5 Pulse 109 107 121 Resp 22 20 20 B/P (MAP) 166/94 (118) 158/92 (114) 150/87 (108) Pulse Ox 98 98 99 98 O2 Delivery Room Air Room Air Room Air Intake and Output 07/29/19 07/29/19 07/30/19 15:00 23:00 07:00 Intake Total 175 ml Balance 175 ml Nutrition Consultation Dietary Evaluation: Recommendations by RD: Dietary education by RD, Increase Calorie Intake, Protein supplementation Comments: REC TFs per order at [facility]: Glucerna 1.5@goal rate 40 ml/hr w/120 ml water flushes q4 hrs REC Kalyan BID via PEG tube (wound healing), mix each packet w/4oz water to dissolve and flush tube w/~30 ml water after each packet REC liquid MVI via PEG (wound healing) Expected Outcomes/Goals: TF initiation/infusion to meet >75% est needs Malnutrition Findings: Body Fat Depletion (Non Severe: Mild Depletion Weight Status: Appropriate FAUSTO MARCIAL MD July 30, 2019 10:57
[2019-07-30 11:10] VITALS: BP 150/73
--- NOTE | 2019-07-30 11:13 | PDOC ---
Renal-Progress Notes Subjective Notes Notes NO COMPLAINTS EXCEPT NOTED THAT SHE HAS VOMITING. DOES NOT COMMUNICATE History of Present Illness Hx of present illness STABLE Vitals Vitals Vital Signs Date Time Temp Pulse Resp B/P (MAP) Pulse Ox O2 Delivery O2 Flow Rate FiO2 07/30/19 11:10 97.0 111 18 150/73 (98) 95 97.0 07/30/19 07:44 Room Air Weight Weight [ ] I.O. Intake and Output Intake and Output 07/30/19 07:00 Intake Total 175 ml Balance 175 ml Tube Feeding 175 ml # Voids 6 Labs Labs Laboratory Tests Test 07/29/19 12:09 07/30/19 00:13 07/30/19 02:23 07/30/19 06:23 Glucose (Fingerstick) 76 mg/dL (70-99) 124 mg/dL (70-99) 112 mg/dL (70-99) Sodium Level 146 mmol/L (136-145) Potassium Level 4.2 mmol/L (3.5-5.1) Chloride Level 108 mmol/L (98-107) Carbon Dioxide Level 27 mmol/L (21-32) Anion Gap 11 (6-14) Blood Urea Nitrogen 31 mg/dL (7-20) Creatinine 1.2 mg/dL (0.6-1.0) Estimated GFR (Cockcroft-Gault) 56.0 BUN/Creatinine Ratio 26 (6-20) Glucose Level 143 mg/dL (70-99) Calcium Level 8.2 mg/dL (8.5-10.1) Magnesium Level 1.8 mg/dL (1.8-2.4) Total Bilirubin 0.2 mg/dL (0.2-1.0) Aspartate Amino Transf (AST/SGOT) 17 U/L (15-37) Alanine Aminotransferase (ALT/SGPT) 27 U/L (14-59) Alkaline Phosphatase 115 U/L (46-116) Total Protein 6.8 g/dL (6.4-8.2) Albumin 1.6 g/dL (3.4-5.0) Albumin/Globulin Ratio 0.3 (1.0-1.7) Micro Micro Microbiology 07/26/19 Blood Culture - Preliminary, Resulted NO GROWTH AFTER 4 DAYS Review of Systems Constitutional: yes: alert Ears/Nose/Throat: Yes: no symptom reported Eyes: Yes: no symptom reported Pulmonary: Yes dyspnea Cardiovascular: Yes no symptom reported Gastrointestional: Yes: constipation Genitourinary: Yes: no symptom reported Musculoskeletal: Yes: muscle stiffness Skin: Yes no symptom reported Psychiatric/Neurological: Yes: no symptom reported Endocrine: Yes: no symptom reported Physical Exam General Appearance: no apparent distress Skin: warm Respiratory: decreased breath sounds Heart: S1S2 Abdomen: soft, bowel sounds present Genitourinary: bladder flat Neurology: alert Musculoskeletal: low back pain Assessment Assessment IMP ELISA-RESOLVING WITH CR OF 1.1 HYPOMAGNESEMIA DEHYDRATION ACUTE PNEUMONIA HYPERNATREMIA HX CVA WITH EXPRESSIVE APHASIA PLAN HYDRATION PPN FOR NOW NOT TOLERATING TF ANTIBIOTICS LOUISE SELBY MD July 30, 2019 11:13
[2019-07-30] MEDS: AMINO AC 3%/ELECTROLYTE/GLYCER 1,000 ML IV SCH ×2 (11:15→21:58)
--- NOTE | 2019-07-30 11:39 | PDOC ---
PULMONARY PROGRESS NOTES Subjective Pt. doesn't verbally interact, awake and alert, on room air no S/S of distress Vitals Vital Signs Date Time Temp Pulse Resp B/P (MAP) Pulse Ox O2 Delivery O2 Flow Rate FiO2 07/30/19 11:27 99 Room Air 07/30/19 11:10 97.0 111 18 150/73 (98) 97.0 Comments unable to report ROS 2/2 non-verbal General: Alert Lungs: Other (coarse ) Cardiovascular: S1, S2 Abdomen: Soft, Non-tender, Other (Peg in place ) Extremities: Other (Contractures muscle wasting, BLE wounds ) Skin: Warm Labs Laboratory Tests Test 07/28/19 13:00 07/28/19 18:17 07/29/19 00:07 07/29/19 00:50 White Blood Count 15.3 x10^3/uL (4.0-11.0) Red Blood Count 3.25 x10^6/uL (3.50-5.40) Hemoglobin 8.7 g/dL (12.0-15.5) Hematocrit 27.1 % (36.0-47.0) Mean Corpuscular Volume 84 fL (79-100) Mean Corpuscular Hemoglobin 27 pg (25-35) Mean Corpuscular Hemoglobin Concent 32 g/dL (31-37) Red Cell Distribution Width 16.3 % (11.5-14.5) Platelet Count 529 x10^3/uL (140-400) Neutrophils (%) (Auto) 83 % (31-73) Lymphocytes (%) (Auto) 9 % (24-48) Monocytes (%) (Auto) 7 % (0-9) Eosinophils (%) (Auto) 1 % (0-3) Basophils (%) (Auto) 0 % (0-3) Neutrophils # (Auto) 12.7 x10^3/uL (1.8-7.7) Lymphocytes # (Auto) 1.3 x10^3/uL (1.0-4.8) Monocytes # (Auto) 1.1 x10^3/uL (0.0-1.1) Eosinophils # (Auto) 0.2 x10^3/uL (0.0-0.7) Basophils # (Auto) 0.0 x10^3/uL (0.0-0.2) Sodium Level 143 mmol/L (136-145) Potassium Level 3.8 mmol/L (3.5-5.1) Chloride Level 107 mmol/L (98-107) Carbon Dioxide Level 27 mmol/L (21-32) Anion Gap 9 (6-14) Blood Urea Nitrogen 42 mg/dL (7-20) Creatinine 1.3 mg/dL (0.6-1.0) Estimated GFR (Cockcroft-Gault) 51.1 Glucose Level 163 mg/dL (70-99) Calcium Level 7.7 mg/dL (8.5-10.1) Magnesium Level 1.6 mg/dL (1.8-2.4) Glucose (Fingerstick) 87 mg/dL (70-99) 58 mg/dL (70-99) 73 mg/dL (70-99) Test 07/29/19 01:17 07/29/19 04:30 07/29/19 06:20 07/29/19 07:06 Glucose (Fingerstick) 101 mg/dL (70-99) 69 mg/dL (70-99) 74 mg/dL (70-99) Sodium Level 145 mmol/L (136-145) Potassium Level 3.9 mmol/L (3.5-5.1) Chloride Level 110 mmol/L (98-107) Carbon Dioxide Level 27 mmol/L (21-32) Anion Gap 8 (6-14) Blood Urea Nitrogen 34 mg/dL (7-20) Creatinine 1.1 mg/dL (0.6-1.0) Estimated GFR (Cockcroft-Gault) 61.9 Glucose Level 68 mg/dL (70-99) Calcium Level 7.5 mg/dL (8.5-10.1) Magnesium Level 1.7 mg/dL (1.8-2.4) Test 07/29/19 12:09 07/30/19 00:13 07/30/19 02:23 07/30/19 06:23 Glucose (Fingerstick) 76 mg/dL (70-99) 124 mg/dL (70-99) 112 mg/dL (70-99) Sodium Level 146 mmol/L (136-145) Potassium Level 4.2 mmol/L (3.5-5.1) Chloride Level 108 mmol/L (98-107) Carbon Dioxide Level 27 mmol/L (21-32) Anion Gap 11 (6-14) Blood Urea Nitrogen 31 mg/dL (7-20) Creatinine 1.2 mg/dL (0.6-1.0) Estimated GFR (Cockcroft-Gault) 56.0 BUN/Creatinine Ratio 26 (6-20) Glucose Level 143 mg/dL (70-99) Calcium Level 8.2 mg/dL (8.5-10.1) Magnesium Level 1.8 mg/dL (1.8-2.4) Total Bilirubin 0.2 mg/dL (0.2-1.0) Aspartate Amino Transf (AST/SGOT) 17 U/L (15-37) Alanine Aminotransferase (ALT/SGPT) 27 U/L (14-59) Alkaline Phosphatase 115 U/L (46-116) Total Protein 6.8 g/dL (6.4-8.2) Albumin 1.6 g/dL (3.4-5.0) Albumin/Globulin Ratio 0.3 (1.0-1.7) Test 07/30/19 11:34 Glucose (Fingerstick) 114 mg/dL (70-99) Laboratory Tests Test 07/29/19 12:09 07/30/19 00:13 07/30/19 02:23 07/30/19 06:23 Glucose (Fingerstick) 76 mg/dL (70-99) 124 mg/dL (70-99) 112 mg/dL (70-99) Sodium Level 146 mmol/L (136-145) Potassium Level 4.2 mmol/L (3.5-5.1) Chloride Level 108 mmol/L (98-107) Carbon Dioxide Level 27 mmol/L (21-32) Anion Gap 11 (6-14) Blood Urea Nitrogen 31 mg/dL (7-20) Creatinine 1.2 mg/dL (0.6-1.0) Estimated GFR (Cockcroft-Gault) 56.0 BUN/Creatinine Ratio 26 (6-20) Glucose Level 143 mg/dL (70-99) Calcium Level 8.2 mg/dL (8.5-10.1) Magnesium Level 1.8 mg/dL (1.8-2.4) Total Bilirubin 0.2 mg/dL (0.2-1.0) Aspartate Amino Transf (AST/SGOT) 17 U/L (15-37) Alanine Aminotransferase (ALT/SGPT) 27 U/L (14-59) Alkaline Phosphatase 115 U/L (46-116) Total Protein 6.8 g/dL (6.4-8.2) Albumin 1.6 g/dL (3.4-5.0) Albumin/Globulin Ratio 0.3 (1.0-1.7) Test 07/30/19 11:34 Glucose (Fingerstick) 114 mg/dL (70-99) Medications Active Scripts Medications Dose Route/Sig Max Daily Dose Days Date Category Zocor (Simvastatin) 40 Mg Tablet 1 Tab PO DAILY 07/21/19 Reported Tramadol Hcl 50 Mg Tablet 50 Mg PO BID PRN 07/21/19 Reported Senokot (Sennosides) 8.6 Mg Tablet 1 Tab PO BID 20 07/21/19 Reported Polyethylene Glycol 3350 2,500 Gm Powder 17 Gm PO DAILY 30 07/21/19 Reported Omeprazole 20 Mg Tablet.dr 1 Tab PO DAILY 07/21/19 Reported [place] 5-325 Tablet (Acetaminophen/Hydrocodone Bitart) 1 Each Tablet 1 Tab PO BID 07/21/19 Reported Metoprolol Tartrate 25 Mg Tablet 1 Tab PO BID 07/21/19 Reported Melatonin 3 Mg Tablet 2 Tab PO QHS 07/21/19 Reported Lantus Solostar (Insulin Glargine,Hum.rec.anlog) 100 Unit/1 Ml Insuln.pen 30 Unit SQ QHS 07/21/19 Reported Hydroxyzine Hcl 25 Mg Tablet 1 Tab PO TID 07/21/19 Reported Gabapentin 600 Mg Tablet 600 Mg PO BID 07/21/19 Reported Docusate Sodium 100 Mg Capsule 1 Cap PO BID 15 07/21/19 Reported Cyclobenzaprine Hcl 5 Mg Tablet 1 Tab PO QHS 07/21/19 Reported Vitamin B-12 (Cyanocobalamin (Vitamin B-12)) 1,000 Mcg Tablet 1 Tab PO DAILY 30 07/21/19 Reported Coreg (Carvedilol) 25 Mg Tablet 12.5 Mg PO BIDWMEALS 07/21/19 Reported Clopidogrel (Clopidogrel Bisulfate) 75 Mg Tablet 1 Tab PO DAILY 07/21/19 Reported Celexa (Citalopram Hydrobromide) 20 Mg Tablet 1 Tab PO DAILY 07/21/19 Reported D3-50 (Cholecalciferol (Vitamin D3)) 50,000 Unit Capsule 2,000 Unit PO DAILY 07/21/19 Reported Bisacodyl 10 Mg Supp.rect 10 Mg RC PRN DAILY PRN 07/21/19 Reported Aspirin 325 Mg Tablet 1 Tab PO DAILY 07/21/19 Reported Albuterol Sulfate Neb Soln (Albuterol Sulfate) 2.5 Mg/3 Ml Vial.neb 1 Vial NEB PRN Q4HRS 07/21/19 Reported Tylenol (Acetaminophen) 325 Mg Tablet 2 Tab PO BID 07/21/19 Reported Humalog (Insulin Lispro) 100 Unit/1 Ml Insuln.pen 0 Units SQ TIDWMEALS 14 06/06/19 Rx Zofran Odt (Ondansetron) 4 Mg Tab.rapdis 1 Tab SL Q6HRS PRN 08/19/16 Rx Comments CXR - 07/27/2019 IMPRESSION: 1. Improving left-sided airspace disease. 2. Possible small left pleural effusion. Impression . IMPRESSION: 1. Acute hypoxemic respiratory failure--resolved 2. Aspiration pneumonia. 3. Ooxym-ae-pivbwcr kidney disease. 4. Abnormal x-ray. 5. SARS-CoV-2 negative 6. 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 7. Severe protein malnutrition, present upon admission. 8. Hypokalemia. 9. Elevated liver chemistries. 10. wheezing-resolved 11. Hypernatermia Plan . 1. supplemental oxygen if needed, on room air, continue bronchodilators 2. Follow nephrology recs 3. COVID-19(-) 4. Cont. ABX 5. Continue TF , with HOB elevated 30 degrees 6. Monitor Electrolytes-- NA+ was improved on 07/26/2019 7. wound care as needed D/W RN DVT/GI PPX: lovenox/ ANJALI Womack MD July 30, 2019 11:39
[2019-07-30 15:00] VITALS: BP 150/94
--- NOTE | 2019-07-30 16:38 | NUR ---
Wound Care Wound Type/Assessment: See Wound Assessment. Right heel unstageable PU (Eschar and DTI), Right medial and lateral foot multiple DTI and unstageable PU's (dry slough and DTI) Coccyx unstageable PU (Slough covered). Treatment Recommendations/Plan: Coccyx dressing with medi-honey, Xeroform gauze covered with foam. Right foot and heel- all wounds painted with Betadine and covered with ABDs and Kerlix. Recommend to change all dressings every 3-4 days. Education provided: Pt unable to retain teaching due to mental status Offloading surface/device: Patient currently on a P500 bed, heel protector, pillows, will re-order Rooke boot Patient turned to the left side at this time. Discharge Recommendations for dressings: Continue as directed above
[2019-07-30 19:42] VITALS: BP 134/79
--- NOTE | 2019-07-30 21:56 | RAD ---
PORTABLE CHEST 1V INDICATION: Reason: pcc PLACEMENT / Spl. Instructions: / History: . COMPARISON STUDY: 07/27/2019. FINDINGS: Life Support Devices: Right PICC with tip overlying the upper right atrium. Lungs: Normal lung volume. Stable mild left greater than right basilar opacities. Normal pulmonary vasculature. Pleura: No pleural effusion or pneumothorax. Heart and Mediastinum: Stable cardiomediastinal silhouette and great vessels. IMPRESSION: 1. Right PICC with tip overlying the upper right atrium. 2. Stable mild left greater than right basilar opacities. Electronically signed by: Humberto Mccoy MD (07/30/2019 9:53 PM) [id number]
[2019-07-30] MEDS: ENOXAPARIN 40 MG/0.4 ML SYRINGE. SQ SCH (21:58)
[2019-07-30 22:38] VITALS: BP 137/106
[2019-07-31 02:51] VITALS: BP 166/80
[2019-07-31 05:29] LABS: CALCIUM 7.9 mg/dL (8.5-10.1); CREATININE 1.4 mg/dL (0.6-1.0); GFR 46.9; MAGNESIUM 1.9 mg/dL (1.8-2.4); PHOSPHORUS 3.3 mg/dL (2.6-4.7); POTASSIUM 4.3 mmol/L (3.5-5.1)
[2019-07-31] MEDS: INSULIN LISPRO 300 UNITS/3 ML VIAL. SQ SCH ×4 (06:12→18:00)
[2019-07-31 07:00] VITALS: BP 137/63
[2019-07-31] MEDS: IPRATRPIUM/ALBUTEROL 0.5/2.5MG 3 ML NEBU. NEB SCH ×4 (07:24→20:10)
[2019-07-31] MEDS ORDERED: ALBUMIN HUMAN 5% 500 ML IV ONE (08:45)
--- NOTE | 2019-07-31 08:45 | PDOC ---
PROGRESS NOTES Chief Complaint Chief Complaint A/P: Acute pneumonia, favor aspiration negative COVID testing Scattered opacities in the left lung, concerning for an infectious/inflammatory process. Hypernatremia secondary to severe dehydration acute hypoxic respiratory failure H/o CVA, peg feeding dependent, expressive aphasia HTN, DM GERD HyperKalemia- at presentation, Improved na =146 Developmental delay Acute hypoxemic respiratory failure. Aycwh-qh-kiynmvk kidney disease. Abnormal x-ray. COVID-19 suspected - negative Previous cerebrovascular accident with hemiparesis and expressive aphasia. Severe protein malnutrition, present upon admission. Hyperkalemia. Elevated liver chemistries. 28 MIN pt exam, chart review, > 50% of time spent with exam, chart review, pt care coordination History of Present Illness History of Present Illness Ms Parker is a 59 yo F w/ PMHx DM2, GERD, HLD, HTN, migraines, CVA with left- sided hemiparesis, expressive aphasia s/p PEG placement who presented to ED with acute respiratory distress, found to have O2 saturation of 57% on room air by EMS. Negative for SARS-CoV-2 during the COVID-19 pandemic, unable to obtain any information from the patient herself. 07/24: No acute events reported overnight, case discussed with nursing staff patient in no acute distress no complaints during my visit unable to have a meaningful conversation with the patient due to expressive aphasia as a consequence of her CVA 07/25: No acute events reported overnight, case discussed with nursing staff patient in no acute distress no complaints during my visit, electrolyte disturbance seems to be improving now that her feeding tubes have been restarted, appreciate nephrology recommendation 07/26: more coarse 07/27: Lost IV access. Afebrile. Some sputum this morning, unclear if it is emesis. 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 Faye MIRANDA, requests not to place another PICC line and informs me that she is FULL CODE but is on comfort care measures at her SNF and she would like her to return [place]. She wants patient to remain full code, states she is waiting for life insurance. She does note the patient had previously noted she would never want to be on a ventilator. 07/28: More emesis 07/29: PICC insertion, more emesis Afebrile overnight. Sodium 147, CR 1.4, on PPN. Albumin 1.7. Tube feeds on hold, no vomiting. Plan: Cont PO augmentin syrup TF on hold with emesis, will try free water bolus today, then add back TF slo wly. Would avoid metoclopramide given her contractures and mental status. Albumin x1 for ELISA on PPN Vitals Vitals Vital Signs Date Time Temp Pulse Resp B/P (MAP) Pulse Ox O2 Delivery O2 Flow Rate FiO2 07/31/19 07:24 94 Room Air 07/31/19 02:51 99.5 110 18 166/80 (108) 99.5 Physical Exam Physical Exam Well developed, well nourished, tachypnea with less increased work of breathing [] HENT: Normocephalic, atraumatic, bilateral external ears normal, oropharynx moist, nose normal. [] Eyes: PERRLA, EOMI, conjunctiva normal. [] Neck: Normal range of motion, no tenderness, supple. [] Cardiovascular:Heart rate regular rhythm, no murmur. [] Lungs & Thorax: Bilateral breath sounds coarse [] Abdomen: Bowel sounds normal, soft, non-distended, no grimacing in exam. [] Skin: Warm, dry. [] Neurologic: Alert, Left hemiparesis. [] General: Cooperative HEENT: Atraumatic Heart: RRR Breasts: Not examined Abdomen: Soft Rectal Exam: not examined PELVIC: Examination not indicated Extremities: No cyanosis, No edema General: Alert, Cooperative, No acute distress Heart: Regular rate Lungs: Other (coarse ) Abdomen: Soft, No tenderness Extremities: No cyanosis, No edema Skin: No rashes Labs LABS Laboratory Tests Test 07/30/19 11:34 07/30/19 17:51 07/30/19 23:57 07/31/19 04:28 Glucose (Fingerstick) 114 mg/dL (70-99) 149 mg/dL (70-99) 179 mg/dL (70-99) Sodium Level 147 mmol/L (136-145) Potassium Level 4.3 mmol/L (3.5-5.1) Chloride Level 111 mmol/L (98-107) Carbon Dioxide Level 26 mmol/L (21-32) Anion Gap 10 (6-14) Blood Urea Nitrogen 29 mg/dL (7-20) Creatinine 1.4 mg/dL (0.6-1.0) Estimated GFR (Cockcroft-Gault) 46.9 Glucose Level 214 mg/dL (70-99) Calcium Level 7.9 mg/dL (8.5-10.1) Phosphorus Level 3.3 mg/dL (2.6-4.7) Magnesium Level 1.9 mg/dL (1.8-2.4) Test 07/31/19 05:52 Glucose (Fingerstick) 202 mg/dL (70-99) Assessment and Plan Assessmemt and Plan Problems Medical Problems: (1) Aspiration into airway Status: Acute (2) Congestive heart failure Status: Acute (3) HCAP (healthcare-associated pneumonia) Status: Acute (4) Hyperkalemia Status: Acute Comment Review of Relevant I have reviewed the following items satish (where applicable) has been applied. Labs Laboratory Tests Test 07/29/19 12:09 07/30/19 00:13 07/30/19 02:23 07/30/19 06:23 Glucose (Fingerstick) 76 mg/dL (70-99) 124 mg/dL (70-99) 112 mg/dL (70-99) Sodium Level 146 mmol/L (136-145) Potassium Level 4.2 mmol/L (3.5-5.1) Chloride Level 108 mmol/L (98-107) Carbon Dioxide Level 27 mmol/L (21-32) Anion Gap 11 (6-14) Blood Urea Nitrogen 31 mg/dL (7-20) Creatinine 1.2 mg/dL (0.6-1.0) Estimated GFR (Cockcroft-Gault) 56.0 BUN/Creatinine Ratio 26 (6-20) Glucose Level 143 mg/dL (70-99) Calcium Level 8.2 mg/dL (8.5-10.1) Magnesium Level 1.8 mg/dL (1.8-2.4) Total Bilirubin 0.2 mg/dL (0.2-1.0) Aspartate Amino Transf (AST/SGOT) 17 U/L (15-37) Alanine Aminotransferase (ALT/SGPT) 27 U/L (14-59) Alkaline Phosphatase 115 U/L (46-116) Total Protein 6.8 g/dL (6.4-8.2) Albumin 1.6 g/dL (3.4-5.0) Albumin/Globulin Ratio 0.3 (1.0-1.7) Test 07/30/19 11:34 07/30/19 17:51 07/30/19 23:57 07/31/19 04:28 Glucose (Fingerstick) 114 mg/dL (70-99) 149 mg/dL (70-99) 179 mg/dL (70-99) Sodium Level 147 mmol/L (136-145) Potassium Level 4.3 mmol/L (3.5-5.1) Chloride Level 111 mmol/L (98-107) Carbon Dioxide Level 26 mmol/L (21-32) Anion Gap 10 (6-14) Blood Urea Nitrogen 29 mg/dL (7-20) Creatinine 1.4 mg/dL (0.6-1.0) Estimated GFR (Cockcroft-Gault) 46.9 Glucose Level 214 mg/dL (70-99) Calcium Level 7.9 mg/dL (8.5-10.1) Phosphorus Level 3.3 mg/dL (2.6-4.7) Magnesium Level 1.9 mg/dL (1.8-2.4) Test 07/31/19 05:52 Glucose (Fingerstick) 202 mg/dL (70-99) Laboratory Tests Test 07/30/19 11:34 07/30/19 17:51 07/30/19 23:57 07/31/19 04:28 Glucose (Fingerstick) 114 mg/dL (70-99) 149 mg/dL (70-99) 179 mg/dL (70-99) Sodium Level 147 mmol/L (136-145) Potassium Level 4.3 mmol/L (3.5-5.1) Chloride Level 111 mmol/L (98-107) Carbon Dioxide Level 26 mmol/L (21-32) Anion Gap 10 (6-14) Blood Urea Nitrogen 29 mg/dL (7-20) Creatinine 1.4 mg/dL (0.6-1.0) Estimated GFR (Cockcroft-Gault) 46.9 Glucose Level 214 mg/dL (70-99) Calcium Level 7.9 mg/dL (8.5-10.1) Phosphorus Level 3.3 mg/dL (2.6-4.7) Magnesium Level 1.9 mg/dL (1.8-2.4) Test 07/31/19 05:52 Glucose (Fingerstick) 202 mg/dL (70-99) Microbiology 07/26/19 Blood Culture - Final, Complete NO GROWTH AFTER 5 DAYS Medications Current Medications Ondansetron HCl (Zofran) 8 mg 1X ONCE IVP Last administered on 07/21/19at 07:42; Start 07/21/19 at 07:00; Stop 07/21/19 at 07:01; Status DC Ondansetron HCl (Zofran) 4 mg STK-MED ONCE .ROUTE ; Start 07/21/19 at 06:37; Stop 07/21/19 at 06:37; Status DC Insulin Human Regular (HumuLIN R VIAL) 10 unit 1X ONCE IV Last administered on 07/21/19at 07:30; Start 07/21/19 at 07:30; Stop 07/21/19 at 07:31; Status DC Sodium Bicarbonate (Sodium Bicarb Adult 8.4% Syr) 50 meq 1X ONCE IV Last administered on 07/21/19at 08:25; Start 07/21/19 at 07:30; Stop 07/21/19 at 07:31; Status DC Clindamycin Phosphate 50 ml @ 100 mls/hr 1X ONCE IV Last administered on 07/21/19at 08:31; Start 07/21/19 at 07:45; Stop 07/21/19 at 08:14; Status DC Cefepime HCl (Maxipime) 2 gm 1X ONCE IVP Last administered on 07/21/19at 07:47; Start 07/21/19 at 07:45; Stop 07/21/19 at 07:46; Status DC Metoclopramide HCl (Reglan Vial) 10 mg 1X ONCE IVP Last administered on 07/21/19at 09:05; Start 07/21/19 at 08:45; Stop 07/21/19 at 08:47; Status DC Iohexol (Omnipaque 300 Mg/ml) 75 ml 1X ONCE IV Last administered on 07/21/19at 10:01; Start 07/21/19 at 09:00; Stop 07/21/19 at 09:01; Status DC Ondansetron HCl (Zofran) 4 mg PRN Q8HRS PRN IV NAUSEA/VOMITING; Start 07/21/19 at 09:30; Stop 07/22/19 at 07:25; Status DC Albuterol/ Ipratropium (Duoneb) 3 ml RTQID NEB ; Start 07/21/19 at 12:00; Stop 07/22/19 at 06:42; Status DC Cefepime HCl (Maxipime) 2 gm Q12HR IVP Last administered on 07/27/19 22:03; Start 07/21/19 at 21:00; Stop 07/28/19 at 12:16; Status DC Sodium Chloride (Normal Saline Flush) 3 ml QSHIFT PRN IV AFTER MEDS AND BLOOD DRAWS; Start 07/21/19 at 11:30 Sodium Chloride 1,000 ml @ 100 mls/hr Q10H IV Last administered on 07/24/19at 09:14; Start 07/21/19 at 11:19; Stop 07/24/19 at 11:45; Status DC Ondansetron HCl (Zofran) 4 mg PRN Q4HRS PRN IV NAUSEA/VOMITING Last administered on 07/23/19at 10:05; Start 07/21/19 at 11:30 Acetaminophen (Tylenol) 650 mg PRN Q4HRS PRN GT TEMP OVER 100.4F OR MILD PAIN Last administered on 07/30/19at 10:51; Start 07/21/19 at 11:30 Acetaminophen (Tylenol Supp) 650 mg PRN Q4HRS PRN SD TEMP OVER 100.4F OR MILD PAIN Last administered on 07/23/19at 16:52; Start 07/21/19 at 11:30 Clonidine HCl (Catapres) 0.1 mg PRN Q6HRS PRN PO SBP>160 OR DBP>90 Last administered on 07/29/19at 22:21; Start 07/21/19 at 11:30 Sodium Monofluorophosphate (Fleet Adult) 133 ml PRN DAILY PRN SD CONSTIPATION; Start 07/21/19 at 11:30; Stop 07/26/19 at 13:25; Status DC Albuterol Sulfate (Ventolin Neb Soln) 2.5 mg PRN Q4HRS PRN NEB SHORTNESS OF BREATH; Start 07/21/19 at 11:30; Status Cancel Enoxaparin Sodium (Lovenox 40mg Syringe) 40 mg Q24H SQ Last administered on 07/30/19at 21:58; Start 07/21/19 at 21:00 Vancomycin HCl 1 gm/Dextrose 250 ml @ 250 mls/hr 1X ONCE IV Last administered on 07/21/19at 12:36; Start 07/21/19 at 11:30; Stop 07/21/19 at 12:29; Status DC Vancomycin HCl (Vanco Per Pharmacy) 1 each PRN DAILY PRN MC SEE COMMENTS Last administered on 07/27/19at 11:00; Start 07/21/19 at 11:45; Stop 07/28/19 at 12:16; Status DC Famotidine (Pepcid Vial) 20 mg DAILY IVP Last administered on 07/27/19at 09:18; Start 07/21/19 at 21:00 Insulin Human Lispro (HumaLOG) 0-5 UNITS Q6HRS SQ Last administered on 07/31/19at 06:12; Start 07/21/19 at 13:15 Dextrose (Dextrose 50%-Water Syringe) 12.5 gm PRN Q15MIN PRN IV SEE COMMENTS; Start 07/21/19 at 13:15 Vancomycin HCl 1 gm/Sodium Chloride 250 ml @ 250 mls/hr Q24H IV Last administered on 07/27/19at 14:11; Start 07/22/19 at 13:00; Stop 07/28/19 at 12:16; Status DC Vancomycin HCl (Vancomycin Trough Level) 1 each 1X ONCE MC Last administered on 07/23/19at 11:57; Start 07/23/19 at 12:30; Stop 07/23/19 at 12:31; Status DC Albuterol Sulfate (Ventolin Neb Soln) 2.5 mg PRN Q4HRS NEB ; Start 07/22/19 at 06:45; Stop 07/22/19 at 11:59; Status DC Insulin Glargine (Lantus Syringe) 8 unit BID SQ Last administered on 07/28/19at 20:51; Start 07/24/19 at 09:00 Potassium Chloride/Water 100 ml @ 75 mls/hr 1400,1520,1640 IV Last administered on 07/25/19at 17:33; Start 07/25/19 at 14:00; Stop 07/25/19 at 17:59; Status DC Dextrose 1,000 ml @ 100 mls/hr Q10H IV Last administered on 07/26/19at 00:20; Start 07/25/19 at 14:00; Stop 07/26/19 at 13:25; Status DC Potassium Chloride 30 meq/ Dextrose 1,015 ml @ 100 mls/hr Q10H9M IV Last administered on 07/26/19at 23:39; Start 07/26/19 at 13:30; Stop 07/27/19 at 13:44; Status DC Magnesium Sulfate 50 ml @ 25 mls/hr PRN DAILY PRN IV for Mag < 1.7 on am labs; Start 07/26/19 at 13:30; Stop 07/27/19 at 13:44; Status DC Vancomycin HCl (Vancomycin Trough Level) 1 each 1X ONCE MC ; Start 07/28/19 at 12:30; Stop 07/28/19 at 12:31; Status Cancel Albuterol/ Ipratropium (Duoneb) 3 ml RTQID NEB Last administered on 07/31/19at 07:24; Start 07/27/19 at 16:00 Magnesium Oxide (Magnesium Oxide) 400 mg BID PO Last administered on 07/28/19at 20:12; Start 07/27/19 at 15:00; Stop 07/28/19 at 21:01; Status DC Dextrose 1,000 ml @ 100 mls/hr Q10H IV Last administered on 07/27/19at 14:10; Start 07/27/19 at 14:00; Stop 07/29/19 at 13:16; Status DC Amoxicillin/ Clavulanate Potassium (Augmentin 400-57mg/5ml Susp) 5 ml Q12HR PEG Last administered on 07/30/19at 21:55; Start 07/28/19 at 13:00 Glucagon (Glucagen) 1 mg 1X ONCE IM Last administered on 07/29/19at 00:28; Start 07/29/19 at 01:00; Stop 07/29/19 at 01:01; Status DC Magnesium Sulfate/ Dextrose 100 ml @ 100 mls/hr 1X ONCE IV ; Start 07/29/19 at 13:15; Stop 07/29/19 at 13:16; Status DC Ondansetron HCl (Zofran Odt) 4 mg PRN Q8HRS PRN PEG NAUSEA/VOMITING; Start 07/29/19 at 17:45; Stop 07/29/19 at 17:46; Status DC Ondansetron HCl (Zofran Odt) 8 mg PRN Q4HRS PRN PEG NAUSEA/VOMITING Last administered on 07/30/19at 10:52; Start 07/29/19 at 17:45 Amino Acids/ Glycerin/ Electrolytes 1,000 ml @ 80 mls/hr [id number] IV Last administered on 07/30/19at 21:58; Start 07/30/19 at 11:15 Active Scripts Active Humalog (Insulin Lispro) 100 Unit/1 Ml Insuln.pen 0 Units SQ TIDWMEALS 14 Days Zofran Odt (Ondansetron) 4 Mg Tab.rapdis 1 Tab SL Q6HRS PRN Reported Zocor (Simvastatin) 40 Mg Tablet 1 Tab PO DAILY Tramadol Hcl 50 Mg Tablet 50 Mg PO BID PRN Senokot (Sennosides) 8.6 Mg Tablet 1 Tab PO BID 20 Days Polyethylene Glycol 3350 2,500 Gm Powder 17 Gm PO DAILY 30 Days Omeprazole 20 Mg Tablet.dr 1 Tab PO DAILY [place] 5-325 Tablet (Acetaminophen/Hydrocodone Bitart) 1 Each Tablet 1 Tab PO BID Metoprolol Tartrate 25 Mg Tablet 1 Tab PO BID Melatonin 3 Mg Tablet 2 Tab PO QHS Lantus Solostar (Insulin Glargine,Hum.rec.anlog) 100 Unit/1 Ml Insuln.pen 30 Unit SQ QHS Hydroxyzine Hcl 25 Mg Tablet 1 Tab PO TID Gabapentin 600 Mg Tablet 600 Mg PO BID Docusate Sodium 100 Mg Capsule 1 Cap PO BID 15 Days Cyclobenzaprine Hcl 5 Mg Tablet 1 Tab PO QHS Vitamin B-12 (Cyanocobalamin (Vitamin B-12)) 1,000 Mcg Tablet 1 Tab PO DAILY 30 Days Coreg (Carvedilol) 25 Mg Tablet 12.5 Mg PO BIDWMEALS Clopidogrel (Clopidogrel Bisulfate) 75 Mg Tablet 1 Tab PO DAILY Celexa (Citalopram Hydrobromide) 20 Mg Tablet 1 Tab PO DAILY D3-50 (Cholecalciferol (Vitamin D3)) 50,000 Unit Capsule 2,000 Unit PO DAILY Bisacodyl 10 Mg Supp.rect 10 Mg RC PRN DAILY PRN Aspirin 325 Mg Tablet 1 Tab PO DAILY Albuterol Sulfate Neb Soln (Albuterol Sulfate) 2.5 Mg/3 Ml Vial.neb 1 Vial NEB PRN Q4HRS Tylenol (Acetaminophen) 325 Mg Tablet 2 Tab PO BID Vitals/I & O Vital Sign - Last 24 Hours 07/30/19 07/30/19 07/30/19 07/30/19 11:10 11:27 15:00 15:43 Temp 97.0 99.4 97.0 99.4 Pulse 111 110 Resp 18 18 B/P (MAP) 150/73 (98) 150/94 (112) Pulse Ox 95 99 96 98 O2 Delivery Room Air Room Air 07/30/19 07/30/19 07/30/19 07/30/19 19:42 20:00 20:34 22:38 Temp 98.5 98.4 98.5 98.4 Pulse 109 114 Resp 18 18 B/P (MAP) 134/79 (97) 137/106 (116) Pulse Ox 97 100 98 O2 Delivery Room Air Room Air 07/31/19 07/31/19 02:51 07:24 Temp 99.5 99.5 Pulse 110 Resp 18 B/P (MAP) 166/80 (108) Pulse Ox 98 94 O2 Delivery Room Air Intake and Output 07/30/19 07/30/19 07/31/19 15:00 23:00 07:00 Intake Total 0 ml Balance 0 ml Nutrition Consultation Dietary Evaluation: Recommendations by RD: Dietary education by RD, Increase Calorie Intake, Protein supplementation Comments: REC TFs per order [facility]: Glucerna 1.5@goal rate 40 ml/hr w/120 ml water flushes q4 hrs REC Kalyan BID via PEG tube (wound healing), mix each packet w/4oz water to dissolve and flush tube w/~30 ml water after each packet REC liquid MVI via PEG (wound healing) Expected Outcomes/Goals: TF initiation/infusion to meet >75% est needs Malnutrition Findings: Body Fat Depletion (Non Severe: Mild Depletion Weight Status: Appropriate LINDSAY GARG MD July 31, 2019 08:45
[2019-07-31] MEDS: FAMOTIDINE 20 MG/2 ML VIAL IVP SCH (08:59)
[2019-07-31] MEDS: AMOXICILLIN/CLAV 400MG/57MG 5 ML ORAL.SUSP. PEG SCH ×2 (08:59→20:47)
[2019-07-31] MEDS: AMINO AC 3%/ELECTROLYTE/GLYCER 1,000 ML IV SCH ×2 (09:06→20:47)
[2019-07-31] MEDS: INSULIN GLARGINE SYRINGE. SQ SCH ×2 (09:15→20:55)
--- NOTE | 2019-07-31 10:01 | PDOC ---
PULMONARY PROGRESS NOTES Subjective Pt. doesn't verbally interact, awake and alert, on room air no S/S of distress had emesis, TF on hold. Vitals Vital Signs Date Time Temp Pulse Resp B/P (MAP) Pulse Ox O2 Delivery O2 Flow Rate FiO2 07/31/19 07:24 94 Room Air 07/31/19 07:00 97.7 118 18 137/63 (87) 97.7 Comments unable to report ROS 2/2 non-verbal General: Alert, No acute distress Lungs: Other (coarse ) Cardiovascular: S1, S2 Abdomen: Soft, Non-tender, Other (Peg in place ) Extremities: Other (Contractures muscle wasting, BLE wounds ) Skin: Warm Labs Laboratory Tests Test 07/29/19 12:09 07/30/19 00:13 07/30/19 02:23 07/30/19 06:23 Glucose (Fingerstick) 76 mg/dL (70-99) 124 mg/dL (70-99) 112 mg/dL (70-99) Sodium Level 146 mmol/L (136-145) Potassium Level 4.2 mmol/L (3.5-5.1) Chloride Level 108 mmol/L (98-107) Carbon Dioxide Level 27 mmol/L (21-32) Anion Gap 11 (6-14) Blood Urea Nitrogen 31 mg/dL (7-20) Creatinine 1.2 mg/dL (0.6-1.0) Estimated GFR (Cockcroft-Gault) 56.0 BUN/Creatinine Ratio 26 (6-20) Glucose Level 143 mg/dL (70-99) Calcium Level 8.2 mg/dL (8.5-10.1) Magnesium Level 1.8 mg/dL (1.8-2.4) Total Bilirubin 0.2 mg/dL (0.2-1.0) Aspartate Amino Transf (AST/SGOT) 17 U/L (15-37) Alanine Aminotransferase (ALT/SGPT) 27 U/L (14-59) Alkaline Phosphatase 115 U/L (46-116) Total Protein 6.8 g/dL (6.4-8.2) Albumin 1.6 g/dL (3.4-5.0) Albumin/Globulin Ratio 0.3 (1.0-1.7) Test 07/30/19 11:34 07/30/19 17:51 07/30/19 23:57 07/31/19 04:28 Glucose (Fingerstick) 114 mg/dL (70-99) 149 mg/dL (70-99) 179 mg/dL (70-99) Sodium Level 147 mmol/L (136-145) Potassium Level 4.3 mmol/L (3.5-5.1) Chloride Level 111 mmol/L (98-107) Carbon Dioxide Level 26 mmol/L (21-32) Anion Gap 10 (6-14) Blood Urea Nitrogen 29 mg/dL (7-20) Creatinine 1.4 mg/dL (0.6-1.0) Estimated GFR (Cockcroft-Gault) 46.9 Glucose Level 214 mg/dL (70-99) Calcium Level 7.9 mg/dL (8.5-10.1) Phosphorus Level 3.3 mg/dL (2.6-4.7) Magnesium Level 1.9 mg/dL (1.8-2.4) Test 07/31/19 05:52 Glucose (Fingerstick) 202 mg/dL (70-99) Laboratory Tests Test 07/30/19 11:34 07/30/19 17:51 07/30/19 23:57 07/31/19 04:28 Glucose (Fingerstick) 114 mg/dL (70-99) 149 mg/dL (70-99) 179 mg/dL (70-99) Sodium Level 147 mmol/L (136-145) Potassium Level 4.3 mmol/L (3.5-5.1) Chloride Level 111 mmol/L (98-107) Carbon Dioxide Level 26 mmol/L (21-32) Anion Gap 10 (6-14) Blood Urea Nitrogen 29 mg/dL (7-20) Creatinine 1.4 mg/dL (0.6-1.0) Estimated GFR (Cockcroft-Gault) 46.9 Glucose Level 214 mg/dL (70-99) Calcium Level 7.9 mg/dL (8.5-10.1) Phosphorus Level 3.3 mg/dL (2.6-4.7) Magnesium Level 1.9 mg/dL (1.8-2.4) Test 07/31/19 05:52 Glucose (Fingerstick) 202 mg/dL (70-99) Medications Active Scripts Medications Dose Route/Sig Max Daily Dose Days Date Category Zocor (Simvastatin) 40 Mg Tablet 1 Tab PO DAILY 07/21/19 Reported Tramadol Hcl 50 Mg Tablet 50 Mg PO BID PRN 07/21/19 Reported Senokot (Sennosides) 8.6 Mg Tablet 1 Tab PO BID 20 07/21/19 Reported Polyethylene Glycol 3350 2,500 Gm Powder 17 Gm PO DAILY 30 07/21/19 Reported Omeprazole 20 Mg Tablet.dr 1 Tab PO DAILY 07/21/19 Reported [place] 5-325 Tablet (Acetaminophen/Hydrocodone Bitart) 1 Each Tablet 1 Tab PO BID 07/21/19 Reported Metoprolol Tartrate 25 Mg Tablet 1 Tab PO BID 07/21/19 Reported Melatonin 3 Mg Tablet 2 Tab PO QHS 07/21/19 Reported Lantus Solostar (Insulin Glargine,Hum.rec.anlog) 100 Unit/1 Ml Insuln.pen 30 Unit SQ QHS 07/21/19 Reported Hydroxyzine Hcl 25 Mg Tablet 1 Tab PO TID 07/21/19 Reported Gabapentin 600 Mg Tablet 600 Mg PO BID 07/21/19 Reported Docusate Sodium 100 Mg Capsule 1 Cap PO BID 15 07/21/19 Reported Cyclobenzaprine Hcl 5 Mg Tablet 1 Tab PO QHS 07/21/19 Reported Vitamin B-12 (Cyanocobalamin (Vitamin B-12)) 1,000 Mcg Tablet 1 Tab PO DAILY 30 07/21/19 Reported Coreg (Carvedilol) 25 Mg Tablet 12.5 Mg PO BIDWMEALS 07/21/19 Reported Clopidogrel (Clopidogrel Bisulfate) 75 Mg Tablet 1 Tab PO DAILY 07/21/19 Reported Celexa (Citalopram Hydrobromide) 20 Mg Tablet 1 Tab PO DAILY 07/21/19 Reported D3-50 (Cholecalciferol (Vitamin D3)) 50,000 Unit Capsule 2,000 Unit PO DAILY 07/21/19 Reported Bisacodyl 10 Mg Supp.rect 10 Mg RC PRN DAILY PRN 07/21/19 Reported Aspirin 325 Mg Tablet 1 Tab PO DAILY 07/21/19 Reported Albuterol Sulfate Neb Soln (Albuterol Sulfate) 2.5 Mg/3 Ml Vial.neb 1 Vial NEB PRN Q4HRS 07/21/19 Reported Tylenol (Acetaminophen) 325 Mg Tablet 2 Tab PO BID 07/21/19 Reported Humalog (Insulin Lispro) 100 Unit/1 Ml Insuln.pen 0 Units SQ TIDWMEALS 14 06/06/19 Rx Zofran Odt (Ondansetron) 4 Mg Tab.rapdis 1 Tab SL Q6HRS PRN 08/19/16 Rx Comments CXR - 07/27/2019 IMPRESSION: 1. Improving left-sided airspace disease. 2. Possible small left pleural effusion. Impression . IMPRESSION: 1. Acute hypoxemic respiratory failure--resolved 2. Aspiration pneumonia. 3. Xqqpp-wo-iwymsih kidney disease. 4. Abnormal x-ray. mild bilateral infilt 07/29 5. SARS-CoV-2 negative 6. 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 7. Severe protein malnutrition, present upon admission. 8. Hypokalemia. 9. Elevated liver chemistries. 10. wheezing-resolved 11. Hypernatermia Plan . 1. supplemental oxygen if needed, on room air, continue bronchodilators 2. Follow nephrology recs 3. COVID-19(-) 4. Cont. ABX 5. Continue TF , with HOB elevated 30 degrees 6. Monitor Electrolytes-- NA+ was improved on 07/26/2019 7. wound care as needed D/W RN DVT/GI PPX: lovenox/ ANJALI Womack MD July 31, 2019 10:01
[2019-07-31 11:00] VITALS: BP 128/60
--- NOTE | 2019-07-31 12:42 | PDOC ---
Renal-Progress Notes Subjective Notes Notes NO NEW COMPLAINTS History of Present Illness Hx of present illness NO CHANGE Vitals Vitals Vital Signs Date Time Temp Pulse Resp B/P (MAP) Pulse Ox O2 Delivery O2 Flow Rate FiO2 07/31/19 11:33 Room Air 07/31/19 11:00 98.0 112 18 128/60 (82) 99 98.0 Weight Weight [ ] I.O. Intake and Output Intake and Output 07/31/19 07:00 Intake Total 0 ml Balance 0 ml Intake Oral 0 ml # Voids 1 Labs Labs Laboratory Tests Test 07/30/19 17:51 07/30/19 23:57 07/31/19 04:28 07/31/19 05:52 Glucose (Fingerstick) 149 mg/dL (70-99) 179 mg/dL (70-99) 202 mg/dL (70-99) Sodium Level 147 mmol/L (136-145) Potassium Level 4.3 mmol/L (3.5-5.1) Chloride Level 111 mmol/L (98-107) Carbon Dioxide Level 26 mmol/L (21-32) Anion Gap 10 (6-14) Blood Urea Nitrogen 29 mg/dL (7-20) Creatinine 1.4 mg/dL (0.6-1.0) Estimated GFR (Cockcroft-Gault) 46.9 Glucose Level 214 mg/dL (70-99) Calcium Level 7.9 mg/dL (8.5-10.1) Phosphorus Level 3.3 mg/dL (2.6-4.7) Magnesium Level 1.9 mg/dL (1.8-2.4) Test 07/31/19 11:46 Glucose (Fingerstick) 170 mg/dL (70-99) Micro Micro Microbiology 07/26/19 Blood Culture - Final, Complete NO GROWTH AFTER 5 DAYS Review of Systems Constitutional: yes: alert Ears/Nose/Throat: Yes: no symptom reported Eyes: Yes: no symptom reported Pulmonary: Yes dyspnea Cardiovascular: Yes no symptom reported Gastrointestional: Yes: constipation Genitourinary: Yes: no symptom reported Musculoskeletal: Yes: muscle stiffness Skin: Yes no symptom reported Psychiatric/Neurological: Yes: no symptom reported Endocrine: Yes: no symptom reported Physical Exam General Appearance: no apparent distress Skin: warm Respiratory: decreased breath sounds Heart: S1S2 Abdomen: soft, bowel sounds present Genitourinary: bladder flat Neurology: alert Musculoskeletal: low back pain Assessment Assessment IMP ELISA-CR BACK UP TO 1.4 HYPOMAGNESEMIA-RESOLVED DEHYDRATION ACUTE PNEUMONIA HYPERNATREMIA HX CVA WITH EXPRESSIVE APHASIA PLAN HYDRATION PPN FOR NOW NOT TOLERATING TF ANTIBIOTICS LOUISE SELBY MD July 31, 2019 12:42
[2019-07-31 15:00] VITALS: BP 128/62
[2019-07-31 19:30] VITALS: BP 132/65
[2019-07-31] MEDS: ENOXAPARIN 40 MG/0.4 ML SYRINGE. SQ SCH (20:48)
[2019-08-01] VITALS (10 sets, daily range): BP systolic 125–154; BP diastolic 48–88
[2019-08-01] MEDS: INSULIN LISPRO 300 UNITS/3 ML VIAL. SQ SCH ×4 (06:00→18:00)
[2019-08-01] MEDS: IPRATRPIUM/ALBUTEROL 0.5/2.5MG 3 ML NEBU. NEB SCH ×4 (07:04→19:52)
[2019-08-01] MEDS: AMOXICILLIN/CLAV 400MG/57MG 5 ML ORAL.SUSP. PEG SCH ×2 (08:16→21:23)
[2019-08-01] MEDS: FAMOTIDINE 20 MG/2 ML VIAL IVP SCH (08:16)
[2019-08-01] MEDS: AMINO AC 3%/ELECTROLYTE/GLYCER 1,000 ML IV SCH ×2 (08:27→21:21)
[2019-08-01 08:33] LABS: CALCIUM 8.1 mg/dL (8.5-10.1); CREATININE 1.4 mg/dL (0.6-1.0); GFR 46.9; POTASSIUM 4.4 mmol/L (3.5-5.1)
[2019-08-01] MEDS: INSULIN GLARGINE SYRINGE. SQ SCH ×2 (08:33→21:00)
--- NOTE | 2019-08-01 08:36 | PDOC ---
PROGRESS NOTES Chief Complaint Chief Complaint A/P: Acute pneumonia, favor aspiration negative COVID testing Scattered opacities in the left lung, concerning for an infectious/inflammatory process. Hypernatremia secondary to severe dehydration acute hypoxic respiratory failure H/o CVA, peg feeding dependent, expressive aphasia HTN, DM GERD HyperKalemia- at presentation, Improved na =146 Developmental delay Acute hypoxemic respiratory failure. Benkc-js-[id number] kidney disease. Abnormal x-ray. COVID-19 suspected - negative Previous cerebrovascular accident with hemiparesis and expressive aphasia. Severe protein malnutrition, present upon admission. Hyperkalemia. Elevated liver chemistries. 28 MIN pt exam, chart review, > 50% of time spent with exam, chart review, pt care coordination History of Present Illness History of Present Illness Ms Parker is a 59 yo F w/ PMHx DM2, GERD, HLD, HTN, migraines, CVA with left- sided hemiparesis, expressive aphasia s/p PEG placement who presented to ED with acute respiratory distress, found to have O2 saturation of 57% on room air by EMS. Negative for SARS-CoV-2 during the COVID-19 pandemic, unable to obtain any information from the patient herself. 07/24: No acute events reported overnight, case discussed with nursing staff patient in no acute distress no complaints during my visit unable to have a meaningful conversation with the patient due to expressive aphasia as a consequence of her CVA 07/25: No acute events reported overnight, case discussed with nursing staff patient in no acute distress no complaints during my visit, electrolyte disturbance seems to be improving now that her feeding tubes have been restarted, appreciate nephrology recommendation 07/26: more coarse 07/27: Lost IV access. Afebrile. Some sputum this morning, unclear if it is emesis. 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 Faye MIRANDA, requests not to place another PICC line and informs me that she is FULL CODE but is on comfort care measures at her SNF and she would like her to return [place]. She wants patient to remain full code, states she is waiting for life insurance. She does note the patient had previously noted she would never want to be on a ventilator. 07/28: More emesis 07/29: PICC insertion, more emesis Afebrile overnight. Sodium 147, CR 1.4, on PPN. Albumin 1.7. Tube feeds on hold, no vomiting. Plan: Cont PO augmentin syrup TF on hold with emesis, will try free water bolus today, then add back TF slo wly. Would avoid metoclopramide given her contractures and mental status. Albumin x1 for ELISA on PPN Vitals Vitals Vital Signs Date Time Temp Pulse Resp B/P (MAP) Pulse Ox O2 Delivery O2 Flow Rate FiO2 08/01/19 07:05 96 Room Air 08/01/19 03:29 98.3 110 21 154/78 (103) 98.3 08/01/19 00:00 87.0 Physical Exam Physical Exam Well developed, well nourished, tachypnea with less increased work of breathing [] HENT: Normocephalic, atraumatic, bilateral external ears normal, oropharynx moist, nose normal. [] Eyes: PERRLA, EOMI, conjunctiva normal. [] Neck: Normal range of motion, no tenderness, supple. [] Cardiovascular:Heart rate regular rhythm, no murmur. [] Lungs & Thorax: Bilateral breath sounds coarse [] Abdomen: Bowel sounds normal, soft, non-distended, no grimacing in exam. [] Skin: Warm, dry. [] Neurologic: Alert, Left hemiparesis. [] General: Cooperative HEENT: Atraumatic Heart: RRR Breasts: Not examined Abdomen: Soft Rectal Exam: not examined PELVIC: Examination not indicated Extremities: No cyanosis, No edema General: Alert, Cooperative, No acute distress Heart: Regular rate Lungs: Other (coarse ) Abdomen: Soft, No tenderness Extremities: No cyanosis, No edema Skin: No rashes Labs LABS Laboratory Tests Test 07/31/19 11:46 07/31/19 18:15 08/01/19 00:49 08/01/19 08:19 Glucose (Fingerstick) 170 mg/dL (70-99) 184 mg/dL (70-99) 178 mg/dL (70-99) Sodium Level 144 mmol/L (136-145) Potassium Level 4.4 mmol/L (3.5-5.1) Chloride Level 109 mmol/L (98-107) Carbon Dioxide Level 25 mmol/L (21-32) Anion Gap 10 (6-14) Blood Urea Nitrogen 33 mg/dL (7-20) Creatinine 1.4 mg/dL (0.6-1.0) Estimated GFR (Cockcroft-Gault) 46.9 Glucose Level 180 mg/dL (70-99) Calcium Level 8.1 mg/dL (8.5-10.1) Test 08/01/19 08:31 Glucose (Fingerstick) 160 mg/dL (70-99) Assessment and Plan Assessmemt and Plan Problems Medical Problems: (1) Aspiration into airway Status: Acute (2) Congestive heart failure Status: Acute (3) HCAP (healthcare-associated pneumonia) Status: Acute (4) Hyperkalemia Status: Acute Comment Review of Relevant I have reviewed the following items satish (where applicable) has been applied. Labs Laboratory Tests Test 07/30/19 11:34 07/30/19 17:51 07/30/19 23:57 07/31/19 04:28 Glucose (Fingerstick) 114 mg/dL (70-99) 149 mg/dL (70-99) 179 mg/dL (70-99) Sodium Level 147 mmol/L (136-145) Potassium Level 4.3 mmol/L (3.5-5.1) Chloride Level 111 mmol/L (98-107) Carbon Dioxide Level 26 mmol/L (21-32) Anion Gap 10 (6-14) Blood Urea Nitrogen 29 mg/dL (7-20) Creatinine 1.4 mg/dL (0.6-1.0) Estimated GFR (Cockcroft-Gault) 46.9 Glucose Level 214 mg/dL (70-99) Calcium Level 7.9 mg/dL (8.5-10.1) Phosphorus Level 3.3 mg/dL (2.6-4.7) Magnesium Level 1.9 mg/dL (1.8-2.4) Test 07/31/19 05:52 07/31/19 11:46 07/31/19 18:15 08/01/19 00:49 Glucose (Fingerstick) 202 mg/dL (70-99) 170 mg/dL (70-99) 184 mg/dL (70-99) 178 mg/dL (70-99) Test 08/01/19 08:19 08/01/19 08:31 Sodium Level 144 mmol/L (136-145) Potassium Level 4.4 mmol/L (3.5-5.1) Chloride Level 109 mmol/L (98-107) Carbon Dioxide Level 25 mmol/L (21-32) Anion Gap 10 (6-14) Blood Urea Nitrogen 33 mg/dL (7-20) Creatinine 1.4 mg/dL (0.6-1.0) Estimated GFR (Cockcroft-Gault) 46.9 Glucose Level 180 mg/dL (70-99) Calcium Level 8.1 mg/dL (8.5-10.1) Glucose (Fingerstick) 160 mg/dL (70-99) Laboratory Tests Test 07/31/19 11:46 07/31/19 18:15 08/01/19 00:49 08/01/19 08:19 Glucose (Fingerstick) 170 mg/dL (70-99) 184 mg/dL (70-99) 178 mg/dL (70-99) Sodium Level 144 mmol/L (136-145) Potassium Level 4.4 mmol/L (3.5-5.1) Chloride Level 109 mmol/L (98-107) Carbon Dioxide Level 25 mmol/L (21-32) Anion Gap 10 (6-14) Blood Urea Nitrogen 33 mg/dL (7-20) Creatinine 1.4 mg/dL (0.6-1.0) Estimated GFR (Cockcroft-Gault) 46.9 Glucose Level 180 mg/dL (70-99) Calcium Level 8.1 mg/dL (8.5-10.1) Test 08/01/19 08:31 Glucose (Fingerstick) 160 mg/dL (70-99) Microbiology 07/26/19 Blood Culture - Final, Complete NO GROWTH AFTER 5 DAYS Medications Current Medications Ondansetron HCl (Zofran) 8 mg 1X ONCE IVP Last administered on 07/21/19at 07:42; Start 07/21/19 at 07:00; Stop 07/21/19 at 07:01; Status DC Ondansetron HCl (Zofran) 4 mg STK-MED ONCE .ROUTE ; Start 07/21/19 at 06:37; Stop 07/21/19 at 06:37; Status DC Insulin Human Regular (HumuLIN R VIAL) 10 unit 1X ONCE IV Last administered on 07/21/19at 07:30; Start 07/21/19 at 07:30; Stop 07/21/19 at 07:31; Status DC Sodium Bicarbonate (Sodium Bicarb Adult 8.4% Syr) 50 meq 1X ONCE IV Last administered on 07/21/19at 08:25; Start 07/21/19 at 07:30; Stop 07/21/19 at 07:31; Status DC Clindamycin Phosphate 50 ml @ 100 mls/hr 1X ONCE IV Last administered on 07/21/19at 08:31; Start 07/21/19 at 07:45; Stop 07/21/19 at 08:14; Status DC Cefepime HCl (Maxipime) 2 gm 1X ONCE IVP Last administered on 07/21/19at 07:47; Start 07/21/19 at 07:45; Stop 07/21/19 at 07:46; Status DC Metoclopramide HCl (Reglan Vial) 10 mg 1X ONCE IVP Last administered on 07/21/19at 09:05; Start 07/21/19 at 08:45; Stop 07/21/19 at 08:47; Status DC Iohexol (Omnipaque 300 Mg/ml) 75 ml 1X ONCE IV Last administered on 07/21/19at 10:01; Start 07/21/19 at 09:00; Stop 07/21/19 at 09:01; Status DC Ondansetron HCl (Zofran) 4 mg PRN Q8HRS PRN IV NAUSEA/VOMITING; Start 07/21/19 at 09:30; Stop 07/22/19 at 07:25; Status DC Albuterol/ Ipratropium (Duoneb) 3 ml RTQID NEB ; Start 07/21/19 at 12:00; Stop 07/22/19 at 06:42; Status DC Cefepime HCl (Maxipime) 2 gm Q12HR IVP Last administered on 07/27/19at 22:03; Start 07/21/19 at 21:00; Stop 07/28/19 at 12:16; Status DC Sodium Chloride (Normal Saline Flush) 3 ml QSHIFT PRN IV AFTER MEDS AND BLOOD DRAWS; Start 07/21/19 at 11:30 Sodium Chloride 1,000 ml @ 100 mls/hr Q10H IV Last administered on 07/24/19at 09:14; Start 07/21/19 at 11:19; Stop 07/24/19 at 11:45; Status DC Ondansetron HCl (Zofran) 4 mg PRN Q4HRS PRN IV NAUSEA/VOMITING Last administered on 07/23/19 10:05; Start 07/21/19 at 11:30 Acetaminophen (Tylenol) 650 mg PRN Q4HRS PRN GT TEMP OVER 100.4F OR MILD PAIN Last administered on 07/30/19at 10:51; Start 07/21/19 at 11:30 Acetaminophen (Tylenol Supp) 650 mg PRN Q4HRS PRN OK TEMP OVER 100.4F OR MILD PAIN Last administered on 07/23/19 16:52; Start 07/21/19 at 11:30 Clonidine HCl (Catapres) 0.1 mg PRN Q6HRS PRN PO SBP>160 OR DBP>90 Last administered on 07/29/19 22:21; Start 07/21/19 at 11:30 Sodium Monofluorophosphate (Fleet Adult) 133 ml PRN DAILY PRN OK CONSTIPATION; Start 07/21/19 at 11:30; Stop 07/26/19 at 13:25; Status DC Albuterol Sulfate (Ventolin Neb Soln) 2.5 mg PRN Q4HRS PRN NEB SHORTNESS OF BREATH; Start 07/21/19 at 11:30; Status Cancel Enoxaparin Sodium (Lovenox 40mg Syringe) 40 mg Q24H SQ Last administered on 07/31/19at 20:48; Start 07/21/19 at 21:00 Vancomycin HCl 1 gm/Dextrose 250 ml @ 250 mls/hr 1X ONCE IV Last administered on 07/21/19at 12:36; Start 07/21/19 at 11:30; Stop 07/21/19 at 12:29; Status DC Vancomycin HCl (Vanco Per Pharmacy) 1 each PRN DAILY PRN MC SEE COMMENTS Last administered on 07/27/19 11:00; Start 07/21/19 at 11:45; Stop 07/28/19 at 12:16; Status DC Famotidine (Pepcid Vial) 20 mg DAILY IVP Last administered on 08/01/19 08:16; Start 07/21/19 at 21:00 Insulin Human Lispro (HumaLOG) 0-5 UNITS Q6HRS SQ Last administered on 5/28/20at 06:12; Start 07/21/19 at 13:15 Dextrose (Dextrose 50%-Water Syringe) 12.5 gm PRN Q15MIN PRN IV SEE COMMENTS; Start 07/21/19 at 13:15 Vancomycin HCl 1 gm/Sodium Chloride 250 ml @ 250 mls/hr Q24H IV Last administered on 07/27/19at 14:11; Start 07/22/19 at 13:00; Stop 07/28/19 at 12:16; Status DC Vancomycin HCl (Vancomycin Trough Level) 1 each 1X ONCE MC Last administered on 07/23/19at 11:57; Start 07/23/19 at 12:30; Stop 07/23/19 at 12:31; Status DC Albuterol Sulfate (Ventolin Neb Soln) 2.5 mg PRN Q4HRS NEB ; Start 07/22/19 at 06:45; Stop 07/22/19 at 11:59; Status DC Insulin Glargine (Lantus Syringe) 8 unit BID SQ Last administered on 08/01/19at 08:33; Start 07/24/19 at 09:00 Potassium Chloride/Water 100 ml @ 75 mls/hr 1400,1520,1640 IV Last administ ered on 07/25/19at 17:33; Start 07/25/19 at 14:00; Stop 07/25/19 at 17:59; Status DC Dextrose 1,000 ml @ 100 mls/hr Q10H IV Last administered on 07/26/19at 00:20; Start 07/25/19 at 14:00; Stop 07/26/19 at 13:25; Status DC Potassium Chloride 30 meq/ Dextrose 1,015 ml @ 100 mls/hr Q10H9M IV Last administered on 07/26/19at 23:39; Start 07/26/19 at 13:30; Stop 07/27/19 at 13:44; Status DC Magnesium Sulfate 50 ml @ 25 mls/hr PRN DAILY PRN IV for Mag < 1.7 on am labs; Start 07/26/19 at 13:30; Stop 07/27/19 at 13:44; Status DC Vancomycin HCl (Vancomycin Trough Level) 1 each 1X ONCE MC ; Start 07/28/19 at 12:30; Stop 07/28/19 at 12:31; Status Cancel Albuterol/ Ipratropium (Duoneb) 3 ml RTQID NEB Last administered on 08/01/19at 07:04; Start 07/27/19 at 16:00 Magnesium Oxide (Magnesium Oxide) 400 mg BID PO Last administered on 07/28/19at 20:12; Start 07/27/19 at 15:00; Stop 07/28/19 at 21:01; Status DC Dextrose 1,000 ml @ 100 mls/hr Q10H IV Last administered on 07/27/19at 14:10; Start 07/27/19 at 14:00; Stop 07/29/19 at 13:16; Status DC Amoxicillin/ Clavulanate Potassium (Augmentin 400-57mg/5ml Susp) 5 ml Q12HR PEG Last administered on 08/01/19at 08:16; Start 07/28/19 at 13:00 Glucagon (Glucagen) 1 mg 1X ONCE IM Last administered on 07/29/19at 00:28; Start 07/29/19 at 01:00; Stop 07/29/19 at 01:01; Status DC Magnesium Sulfate/ Dextrose 100 ml @ 100 mls/hr 1X ONCE IV ; Start 07/29/19 at 13:15; Stop 07/29/19 at 13:16; Status DC Ondansetron HCl (Zofran Odt) 4 mg PRN Q8HRS PRN PEG NAUSEA/VOMITING; Start 07/04 08/22 at 17:45; Stop 07/29/19 at 17:46; Status DC Ondansetron HCl (Zofran Odt) 8 mg PRN Q4HRS PRN PEG NAUSEA/VOMITING Last admi nistered on 07/30/19at 10:52; Start 07/29/19 at 17:45 Amino Acids/ Glycerin/ Electrolytes 1,000 ml @ 80 mls/hr [id number] IV Last administered on 08/01/19at 08:27; Start 07/30/19 at 11:15 Albumin Human 500 ml @ 125 mls/hr 1X ONCE IV Last administered on 07/31/19at 09:00; Start 07/31/19 at 08:45; Stop 07/31/19 at 12:44; Status DC Active Scripts Active Humalog (Insulin Lispro) 100 Unit/1 Ml Insuln.pen 0 Units SQ TIDWMEALS 14 Days Zofran Odt (Ondansetron) 4 Mg Tab.rapdis 1 Tab SL Q6HRS PRN Reported Zocor (Simvastatin) 40 Mg Tablet 1 Tab PO DAILY Tramadol Hcl 50 Mg Tablet 50 Mg PO BID PRN Senokot (Sennosides) 8.6 Mg Tablet 1 Tab PO BID 20 Days Polyethylene Glycol 3350 2,500 Gm Powder 17 Gm PO DAILY 30 Days Omeprazole 20 Mg Tablet.dr 1 Tab PO DAILY [place] 5-325 Tablet (Acetaminophen/Hydrocodone Bitart) 1 Each Tablet 1 Tab PO BID Metoprolol Tartrate 25 Mg Tablet 1 Tab PO BID Melatonin 3 Mg Tablet 2 Tab PO QHS Lantus Solostar (Insulin Glargine,Hum.rec.anlog) 100 Unit/1 Ml Insuln.pen 30 Unit SQ QHS Hydroxyzine Hcl 25 Mg Tablet 1 Tab PO TID Gabapentin 600 Mg Tablet 600 Mg PO BID Docusate Sodium 100 Mg Capsule 1 Cap PO BID 15 Days Cyclobenzaprine Hcl 5 Mg Tablet 1 Tab PO QHS Vitamin B-12 (Cyanocobalamin (Vitamin B-12)) 1,000 Mcg Tablet 1 Tab PO DAILY 30 Days Coreg (Carvedilol) 25 Mg Tablet 12.5 Mg PO BIDWMEALS Clopidogrel (Clopidogrel Bisulfate) 75 Mg Tablet 1 Tab PO DAILY Celexa (Citalopram Hydrobromide) 20 Mg Tablet 1 Tab PO DAILY D3-50 (Cholecalciferol (Vitamin D3)) 50,000 Unit Capsule 2,000 Unit PO DAILY Bisacodyl 10 Mg Supp.rect 10 Mg RC PRN DAILY PRN Aspirin 325 Mg Tablet 1 Tab PO DAILY Albuterol Sulfate Neb Soln (Albuterol Sulfate) 2.5 Mg/3 Ml Vial.neb 1 Vial NEB PRN Q4HRS Tylenol (Acetaminophen) 325 Mg Tablet 2 Tab PO BID Vitals/I & O Vital Sign - Last 24 Hours 07/31/19 07/31/19 07/31/19 07/31/19 11:00 11:33 15:00 15:37 Temp 98.0 98.1 98.0 98.1 Pulse 112 73 Resp 18 18 B/P (MAP) 128/60 (82) 128/62 (84) Pulse Ox 99 98 O2 Delivery Room Air Room Air Room Air Room Air 07/31/19 07/31/19 07/31/1907/31/20 19:30 20:00 20:11 00:00 Temp 98.4 98.4 98.4 98.4 Pulse 114 68 Resp 22 18 B/P (MAP) 132/65 (87) 125/48 (73) Pulse Ox 98 93 O2 Delivery Room Air Room Air Room Air Nasal Cannula O2 Flow Rate 87.0 08/01/19 08/01/19 03:29 07:05 Temp 98.3 98.3 Pulse 110 Resp 21 B/P (MAP) 154/78 (103) Pulse Ox 93 96 O2 Delivery Room Air Intake and Output 07/31/19 07/31/19 08/01/19 15:00 23:00 07:00 Intake Total 0 ml Balance 0 ml Nutrition Consultation Dietary Evaluation: Recommendations by RD: Dietary education by RD, Increase Calorie Intake, Protein supplementation Comments: REC TFs per order at long-term: Glucerna 1.5@goal rate 40 ml/hr w/120 ml water flushes q4 hrs REC Kalyan BID via PEG tube (wound healing), mix each packet w/4oz water to dissolve and flush tube w/~30 ml water after each packet REC liquid MVI via PEG (wound healing) Expected Outcomes/Goals: TF initiation/infusion to meet >75% est needs Malnutrition Findings: Body Fat Depletion (Non Severe: Mild Depletion Weight Status: Appropriate LINDSAY GARG MD August 01, 2019 08:36
[2019-08-01] MEDS: METOCLOPRAMIDE ORAL SOLN 10 MG/10 ML SOLUTION. PO SCH ×4 (09:32→21:23)
--- NOTE | 2019-08-01 10:03 | PDOC ---
PULMONARY PROGRESS NOTES Subjective Pt. doesn't verbally interact, awake and alert, on room air no S/S of distress had emesis, TF on hold. Vitals Vital Signs Date Time Temp Pulse Resp B/P (MAP) Pulse Ox O2 Delivery O2 Flow Rate FiO2 08/01/19 07:05 96 Room Air 08/01/19 07:00 98.2 112 18 128/60 (82) 98.2 08/01/19 00:00 87.0 Comments unable to report ROS 2/2 non-verbal General: Alert, No acute distress Lungs: Other (coarse ) Cardiovascular: S1, S2 Abdomen: Soft, Non-tender, Other (Peg in place ) Extremities: Other (Contractures muscle wasting, BLE wounds ) Skin: Warm Labs Laboratory Tests Test 07/30/19 11:34 07/30/19 17:51 07/30/19 23:57 07/31/19 04:28 Glucose (Fingerstick) 114 mg/dL (70-99) 149 mg/dL (70-99) 179 mg/dL (70-99) Sodium Level 147 mmol/L (136-145) Potassium Level 4.3 mmol/L (3.5-5.1) Chloride Level 111 mmol/L (98-107) Carbon Dioxide Level 26 mmol/L (21-32) Anion Gap 10 (6-14) Blood Urea Nitrogen 29 mg/dL (7-20) Creatinine 1.4 mg/dL (0.6-1.0) Estimated GFR (Cockcroft-Gault) 46.9 Glucose Level 214 mg/dL (70-99) Calcium Level 7.9 mg/dL (8.5-10.1) Phosphorus Level 3.3 mg/dL (2.6-4.7) Magnesium Level 1.9 mg/dL (1.8-2.4) Test 07/31/19 05:52 07/31/19 11:46 07/31/19 18:15 08/01/19 00:49 Glucose (Fingerstick) 202 mg/dL (70-99) 170 mg/dL (70-99) 184 mg/dL (70-99) 178 mg/dL (70-99) Test 08/01/19 08:19 08/01/19 08:31 Sodium Level 144 mmol/L (136-145) Potassium Level 4.4 mmol/L (3.5-5.1) Chloride Level 109 mmol/L (98-107) Carbon Dioxide Level 25 mmol/L (21-32) Anion Gap 10 (6-14) Blood Urea Nitrogen 33 mg/dL (7-20) Creatinine 1.4 mg/dL (0.6-1.0) Estimated GFR (Cockcroft-Gault) 46.9 Glucose Level 180 mg/dL (70-99) Calcium Level 8.1 mg/dL (8.5-10.1) Glucose (Fingerstick) 160 mg/dL (70-99) Laboratory Tests Test 07/31/19 11:46 07/31/19 18:15 08/01/19 00:49 08/01/19 08:19 Glucose (Fingerstick) 170 mg/dL (70-99) 184 mg/dL (70-99) 178 mg/dL (70-99) Sodium Level 144 mmol/L (136-145) Potassium Level 4.4 mmol/L (3.5-5.1) Chloride Level 109 mmol/L (98-107) Carbon Dioxide Level 25 mmol/L (21-32) Anion Gap 10 (6-14) Blood Urea Nitrogen 33 mg/dL (7-20) Creatinine 1.4 mg/dL (0.6-1.0) Estimated GFR (Cockcroft-Gault) 46.9 Glucose Level 180 mg/dL (70-99) Calcium Level 8.1 mg/dL (8.5-10.1) Test 08/01/19 08:31 Glucose (Fingerstick) 160 mg/dL (70-99) Medications Active Scripts Medications Dose Route/Sig Max Daily Dose Days Date Category Zocor (Simvastatin) 40 Mg Tablet 1 Tab PO DAILY 07/21/19 Reported Tramadol Hcl 50 Mg Tablet 50 Mg PO BID PRN 07/21/19 Reported Senokot (Sennosides) 8.6 Mg Tablet 1 Tab PO BID 20 07/21/19 Reported Polyethylene Glycol 3350 2,500 Gm Powder 17 Gm PO DAILY 30 07/21/19 Reported Omeprazole 20 Mg Tablet.dr 1 Tab PO DAILY 07/21/19 Reported [place] 5-325 Tablet (Acetaminophen/Hydrocodone Bitart) 1 Each Tablet 1 Tab PO BID 07/21/19 Reported Metoprolol Tartrate 25 Mg Tablet 1 Tab PO BID 07/21/19 Reported Melatonin 3 Mg Tablet 2 Tab PO QHS 07/21/19 Reported Lantus Solostar (Insulin Glargine,Hum.rec.anlog) 100 Unit/1 Ml Insuln.pen 30 Unit SQ QHS 07/21/19 Reported Hydroxyzine Hcl 25 Mg Tablet 1 Tab PO TID 07/21/19 Reported Gabapentin 600 Mg Tablet 600 Mg PO BID 07/21/19 Reported Docusate Sodium 100 Mg Capsule 1 Cap PO BID 15 07/21/19 Reported Cyclobenzaprine Hcl 5 Mg Tablet 1 Tab PO QHS 07/21/19 Reported Vitamin B-12 (Cyanocobalamin (Vitamin B-12)) 1,000 Mcg Tablet 1 Tab PO DAILY 30 07/21/19 Reported Coreg (Carvedilol) 25 Mg Tablet 12.5 Mg PO BIDWMEALS 07/21/19 Reported Clopidogrel (Clopidogrel Bisulfate) 75 Mg Tablet 1 Tab PO DAILY 07/21/19 Reported Celexa (Citalopram Hydrobromide) 20 Mg Tablet 1 Tab PO DAILY 07/21/19 Reported D3-50 (Cholecalciferol (Vitamin D3)) 50,000 Unit Capsule 2,000 Unit PO DAILY 07/21/19 Reported Bisacodyl 10 Mg Supp.rect 10 Mg RC PRN DAILY PRN 07/21/19 Reported Aspirin 325 Mg Tablet 1 Tab PO DAILY 07/21/19 Reported Albuterol Sulfate Neb Soln (Albuterol Sulfate) 2.5 Mg/3 Ml Vial.neb 1 Vial NEB PRN Q4HRS 07/21/19 Reported Tylenol (Acetaminophen) 325 Mg Tablet 2 Tab PO BID 07/21/19 Reported Humalog (Insulin Lispro) 100 Unit/1 Ml Insuln.pen 0 Units SQ TIDWMEALS 14 06/06/19 Rx Zofran Odt (Ondansetron) 4 Mg Tab.rapdis 1 Tab SL Q6HRS PRN 08/19/16 Rx Comments CXR - 07/27/2019 IMPRESSION: 1. Improving left-sided airspace disease. 2. Possible small left pleural effusion. Impression . IMPRESSION: 1. Acute hypoxemic respiratory failure--resolved 2. Aspiration pneumonia. 3. Jsllu-if-lmjpuly kidney disease. 4. Abnormal x-ray. mild bilateral infilt 07/29 5. SARS-CoV-2 negative 6. 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 7. Severe protein malnutrition, present upon admission. 8. Hypokalemia. 9. Elevated liver chemistries. 10. wheezing-resolved 11. Hypernatermia Plan . 1. supplemental oxygen if needed, on room air, continue bronchodilators 2. Follow nephrology recs 3. COVID-19(-) 4. Cont. ABX 5. holding TF , 6. Monitor Electrolytes-- NA+ was improved on 07/26/2019 7. wound care as needed D/W RN DVT/GI PPX: lovenox/ ANJALI Womack MD August 01, 2019 10:03
--- NOTE | 2019-08-01 11:06 | PDOC ---
Renal-Progress Notes Subjective Notes Notes CONFUSED History of Present Illness Hx of present illness STABLE Vitals Vitals Vital Signs Date Time Temp Pulse Resp B/P (MAP) Pulse Ox O2 Delivery O2 Flow Rate FiO2 08/01/19 11:02 97 Room Air 08/01/19 07:00 98.2 112 18 128/60 (82) 98.2 08/01/19 00:00 87.0 Weight Weight [ ] I.O. Intake and Output Intake and Output 08/01/19 07:00 Intake Total 0 ml Balance 0 ml Intake Oral 0 ml Labs Labs Laboratory Tests Test 07/31/19 11:46 07/31/19 18:15 08/01/19 00:49 08/01/19 08:19 Glucose (Fingerstick) 170 mg/dL (70-99) 184 mg/dL (70-99) 178 mg/dL (70-99) Sodium Level 144 mmol/L (136-145) Potassium Level 4.4 mmol/L (3.5-5.1) Chloride Level 109 mmol/L (98-107) Carbon Dioxide Level 25 mmol/L (21-32) Anion Gap 10 (6-14) Blood Urea Nitrogen 33 mg/dL (7-20) Creatinine 1.4 mg/dL (0.6-1.0) Estimated GFR (Cockcroft-Gault) 46.9 Glucose Level 180 mg/dL (70-99) Calcium Level 8.1 mg/dL (8.5-10.1) Test 08/01/19 08:31 Glucose (Fingerstick) 160 mg/dL (70-99) Micro Micro Microbiology 07/26/19 Blood Culture - Final, Complete NO GROWTH AFTER 5 DAYS Review of Systems Constitutional: yes: alert Ears/Nose/Throat: Yes: no symptom reported Eyes: Yes: no symptom reported Pulmonary: Yes dyspnea Cardiovascular: Yes no symptom reported Gastrointestional: Yes: constipation Genitourinary: Yes: no symptom reported Musculoskeletal: Yes: muscle stiffness Skin: Yes no symptom reported Psychiatric/Neurological: Yes: no symptom reported Endocrine: Yes: no symptom reported Physical Exam General Appearance: no apparent distress Skin: warm Respiratory: decreased breath sounds Heart: S1S2 Abdomen: soft, bowel sounds present Genitourinary: bladder flat Neurology: alert Musculoskeletal: low back pain Assessment Assessment IMP ELISA-CR OF 1.5 HYPOMAGNESEMIA-RESOLVED DEHYDRATION ACUTE PNEUMONIA HYPERNATREMIA HX CVA WITH EXPRESSIVE APHASIA PLAN HYDRATION PPN FOR NOW NOT TOLERATING TF ANTIBIOTICS LOUISE SELBY MD August 01, 2019 11:06
[2019-08-01] MEDS: ENOXAPARIN 40 MG/0.4 ML SYRINGE. SQ SCH (21:23)
[2019-08-02 03:40] VITALS: BP 144/82
[2019-08-02 05:01] LABS: CALCIUM 7.9 mg/dL (8.5-10.1); CREATININE 1.2 mg/dL (0.6-1.0); POTASSIUM 4.5 mmol/L (3.5-5.1)
[2019-08-02] MEDS: INSULIN LISPRO 300 UNITS/3 ML VIAL. SQ SCH ×4 (06:00→18:00)
[2019-08-02] MEDS: IPRATRPIUM/ALBUTEROL 0.5/2.5MG 3 ML NEBU. NEB SCH ×4 (07:42→19:58)
[2019-08-02 07:49] VITALS: BP 146/79
--- NOTE | 2019-08-02 07:49 | PDOC ---
PROGRESS NOTES Chief Complaint Chief Complaint A/P: Acute pneumonia, favor aspiration negative COVID testing Scattered opacities in the left lung, concerning for an infectious/inflammatory process. Hypernatremia secondary to severe dehydration acute hypoxic respiratory failure H/o CVA, peg feeding dependent, expressive aphasia HTN, DM GERD HyperKalemia- at presentation, Improved na =146 Developmental delay Acute hypoxemic respiratory failure. Qxovs-[id number]-rbozotj kidney disease. Abnormal x-ray. COVID-19 suspected - negative Previous cerebrovascular accident with hemiparesis and expressive aphasia. Severe protein malnutrition, present upon admission. Hyperkalemia. Elevated liver chemistries. 28 MIN pt exam, chart review, > 50% of time spent with exam, chart review, pt care coordination History of Present Illness History of Present Illness Ms Parker is a 59 yo F w/ PMHx DM2, GERD, HLD, HTN, migraines, CVA with left- sided hemiparesis, expressive aphasia s/p PEG placement who presented to ED with acute respiratory distress, found to have O2 saturation of 57% on room air by EMS. Negative for SARS-CoV-2 during the COVID- pandemic, unable to obtain any information from the patient herself. 07/24: No acute events reported overnight, case discussed with nursing staff patient in no acute distress no complaints during my visit unable to have a meaningful conversation with the patient due to expressive aphasia as a consequence of her CVA 07/25: No acute events reported overnight, case discussed with nursing staff patient in no acute distress no complaints during my visit, electrolyte disturbance seems to be improving now that her feeding tubes have been restarted, appreciate nephrology recommendation 07/26: more coarse 07/27: Lost IV access. Afebrile. Some sputum this morning, unclear if it is emesis. 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 Faye MIRANDA, requests not to place another PICC line and informs me that she is FULL CODE but is on comfort care measures at her SNF and she would like her to return [place]. She wants patient to remain full code, states she is waiting for life insurance. She does note the patient had previously noted she would never want to be on a ventilator. 07/28: More emesis 07/29: PICC insertion, more emesis 07/31: Afebrile overnight. Sodium 147, CR 1.4, on PPN. Albumin 1.7. Tube feeds on hold, no vomiting. Afebrile, CR 1.2, NA 145. Glucose 120. She does not interact. Plan: Cont PO augmentin syrup TF on hold with emesis, will try free water bolus today, then add back TF slowly. Would avoid metoclopramide given her contractures and mental status. Albumin x1 for ELISA on PPN Vitals Vitals Vital Signs Date Time Temp Pulse Resp B/P (MAP) Pulse Ox O2 Delivery O2 Flow Rate FiO2 08/02/19 07:43 98 Room Air 08/02/19 03:40 98.1 90 20 144/82 (102) 98.1 08/01/19 17:15 4.0 Physical Exam Physical Exam Well developed, well nourished, tachypnea with less increased work of breathing [] HENT: Normocephalic, atraumatic, bilateral external ears normal, oropharynx moist, nose normal. [] Eyes: PERRLA, EOMI, conjunctiva normal. [] Neck: Normal range of motion, no tenderness, supple. [] Cardiovascular:Heart rate regular rhythm, no murmur. [] Lungs & Thorax: Bilateral breath sounds coarse [] Abdomen: Bowel sounds normal, soft, non-distended, no grimacing in exam. [] Skin: Warm, dry. [] Neurologic: Alert, Left hemiparesis. [] General: Cooperative HEENT: Atraumatic Heart: RRR Breasts: Not examined Abdomen: Soft Rectal Exam: not examined PELVIC: Examination not indicated Extremities: No cyanosis, No edema General: Alert, Cooperative, No acute distress Heart: Regular rate Lungs: Other (coarse ) Abdomen: Soft, No tenderness Extremities: No cyanosis, No edema Skin: No rashes Labs LABS Laboratory Tests Test 08/01/19 08:19 08/01/19 08:31 08/01/19 11:30 08/01/19 18:11 Sodium Level 144 mmol/L (136-145) Potassium Level 4.4 mmol/L (3.5-5.1) Chloride Level 109 mmol/L (98-107) Carbon Dioxide Level 25 mmol/L (21-32) Anion Gap 10 (6-14) Blood Urea Nitrogen 33 mg/dL (7-20) Creatinine 1.4 mg/dL (0.6-1.0) Estimated GFR (Cockcroft-Gault) 46.9 Glucose Level 180 mg/dL (70-99) Calcium Level 8.1 mg/dL (8.5-10.1) Glucose (Fingerstick) 160 mg/dL (70-99) 183 mg/dL (70-99) 145 mg/dL (70-99) Test 08/02/19 01:24 08/02/19 04:06 Glucose (Fingerstick) 123 mg/dL (70-99) Sodium Level 145 mmol/L (136-145) Potassium Level 4.5 mmol/L (3.5-5.1) Chloride Level 110 mmol/L (98-107) Carbon Dioxide Level 24 mmol/L (21-32) Anion Gap 11 (6-14) Blood Urea Nitrogen 33 mg/dL (7-20) Creatinine 1.2 mg/dL (0.6-1.0) Estimated GFR (Cockcroft-Gault) 56.0 Glucose Level 120 mg/dL (70-99) Calcium Level 7.9 mg/dL (8.5-10.1) Assessment and Plan Assessmemt and Plan Problems Medical Problems: (1) Aspiration into airway Status: Acute (2) Congestive heart failure Status: Acute (3) HCAP (healthcare-associated pneumonia) Status: Acute (4) Hyperkalemia Status: Acute Comment Review of Relevant I have reviewed the following items satish (where applicable) has been applied. Labs Laboratory Tests Test 07/31/19 11:46 07/31/19 18:15 08/01/19 00:49 08/01/19 08:19 Glucose (Fingerstick) 170 mg/dL (70-99) 184 mg/dL (70-99) 178 mg/dL (70-99) Sodium Level 144 mmol/L (136-145) Potassium Level 4.4 mmol/L (3.5-5.1) Chloride Level 109 mmol/L (98-107) Carbon Dioxide Level 25 mmol/L (21-32) Anion Gap 10 (6-14) Blood Urea Nitrogen 33 mg/dL (7-20) Creatinine 1.4 mg/dL (0.6-1.0) Estimated GFR (Cockcroft-Gault) 46.9 Glucose Level 180 mg/dL (70-99) Calcium Level 8.1 mg/dL (8.5-10.1) Test 08/01/19 08:31 08/01/19 11:30 08/01/19 18:11 08/02/19 01:24 Glucose (Fingerstick) 160 mg/dL (70-99) 183 mg/dL (70-99) 145 mg/dL (70-99) 123 mg/dL (70-99) Test 08/02/19 04:06 Sodium Level 145 mmol/L (136-145) Potassium Level 4.5 mmol/L (3.5-5.1) Chloride Level 110 mmol/L (98-107) Carbon Dioxide Level 24 mmol/L (21-32) Anion Gap 11 (6-14) Blood Urea Nitrogen 33 mg/dL (7-20) Creatinine 1.2 mg/dL (0.6-1.0) Estimated GFR (Cockcroft-Gault) 56.0 Glucose Level 120 mg/dL (70-99) Calcium Level 7.9 mg/dL (8.5-10.1) Laboratory Tests Test 08/01/19 08:19 08/01/19 08:31 08/01/19 11:30 08/01/19 18:11 Sodium Level 144 mmol/L (136-145) Potassium Level 4.4 mmol/L (3.5-5.1) Chloride Level 109 mmol/L (98-107) Carbon Dioxide Level 25 mmol/L (21-32) Anion Gap 10 (6-14) Blood Urea Nitrogen 33 mg/dL (7-20) Creatinine 1.4 mg/dL (0.6-1.0) Estimated GFR (Cockcroft-Gault) 46.9 Glucose Level 180 mg/dL (70-99) Calcium Level 8.1 mg/dL (8.5-10.1) Glucose (Fingerstick) 160 mg/dL (70-99) 183 mg/dL (70-99) 145 mg/dL (70-99) Test 08/02/19 01:24 08/02/19 04:06 Glucose (Fingerstick) 123 mg/dL (70-99) Sodium Level 145 mmol/L (136-145) Potassium Level 4.5 mmol/L (3.5-5.1) Chloride Level 110 mmol/L (98-107) Carbon Dioxide Level 24 mmol/L (21-32) Anion Gap 11 (6-14) Blood Urea Nitrogen 33 mg/dL (7-20) Creatinine 1.2 mg/dL (0.6-1.0) Estimated GFR (Cockcroft-Gault) 56.0 Glucose Level 120 mg/dL (70-99) Calcium Level 7.9 mg/dL (8.5-10.1) Microbiology 07/26/19 Blood Culture - Final, Complete NO GROWTH AFTER 5 DAYS Medications Current Medications Ondansetron HCl (Zofran) 8 mg 1X ONCE IVP Last administered on 07/21/19at 07:42; Start 07/21/19 at 07:00; Stop 07/21/19 at 07:01; Status DC Ondansetron HCl (Zofran) 4 mg STK-MED ONCE .ROUTE ; Start 07/21/19 at 06:37; Stop 07/21/19 at 06:37; Status DC Insulin Human Regular (HumuLIN R VIAL) 10 unit 1X ONCE IV Last administered on 07/21/19at 07:30; Start 07/21/19 at 07:30; Stop 07/21/19 at 07:31; Status DC Sodium Bicarbonate (Sodium Bicarb Adult 8.4% Syr) 50 meq 1X ONCE IV Last administered on 07/21/19at 08:25; Start 07/21/19 at 07:30; Stop 07/21/19 at 07:31; Status DC Clindamycin Phosphate 50 ml @ 100 mls/hr 1X ONCE IV Last administered on 07/21/19at 08:31; Start 07/21/19 at 07:45; Stop 07/21/19 at 08:14; Status DC Cefepime HCl (Maxipime) 2 gm 1X ONCE IVP Last administered on 07/21/19at 07:47; Start 07/21/19 at 07:45; Stop 07/21/19 at 07:46; Status DC Metoclopramide HCl (Reglan Vial) 10 mg 1X ONCE IVP Last administered on 07/21/19at 09:05; Start 07/21/19 at 08:45; Stop 07/21/19 at 08:47; Status DC Iohexol (Omnipaque 300 Mg/ml) 75 ml 1X ONCE IV Last administered on 07/21/19at 10:01; Start 07/21/19 at 09:00; Stop 07/21/19 at 09:01; Status DC Ondansetron HCl (Zofran) 4 mg PRN Q8HRS PRN IV NAUSEA/VOMITING; Start 07/21/19 at 09:30; Stop 07/22/19 at 07:25; Status DC Albuterol/ Ipratropium (Duoneb) 3 ml RTQID NEB ; Start 07/21/19 at 12:00; Stop 07/22/19 at 06:42; Status DC Cefepime HCl (Maxipime) 2 gm Q12HR IVP Last administered on 07/27/19at 22:03; Start 07/21/19 at 21:00; Stop 07/28/19 at 12:16; Status DC Sodium Chloride (Normal Saline Flush) 3 ml QSHIFT PRN IV AFTER MEDS AND BLOOD DRAWS; Start 07/21/19 at 11:30 Sodium Chloride 1,000 ml @ 100 mls/hr Q10H IV Last administered on 07/24/19at 09:14; Start 07/21/19 at 11:19; Stop 07/24/19 at 11:45; Status DC Ondansetron HCl (Zofran) 4 mg PRN Q4HRS PRN IV NAUSEA/VOMITING Last administered on 07/23/19at 10:05; Start 07/21/19 at 11:30 Acetaminophen (Tylenol) 650 mg PRN Q4HRS PRN GT TEMP OVER 100.4F OR MILD PAIN Last administered on 07/30/19at 10:51; Start 07/21/19 at 11:30 Acetaminophen (Tylenol Supp) 650 mg PRN Q4HRS PRN GA TEMP OVER 100.4F OR MILD PAIN Last administered on 07/23/19at 16:52; Start 07/21/19 at 11:30 Clonidine HCl (Catapres) 0.1 mg PRN Q6HRS PRN PO SBP>160 OR DBP>90 Last administered on 07/29/19at 22:21; Start 07/21/19 at 11:30 Sodium Monofluorophosphate (Fleet Adult) 133 ml PRN DAILY PRN GA CONSTIPATION; Start 07/21/19 at 11:30; Stop 07/26/19 at 13:25; Status DC Albuterol Sulfate (Ventolin Neb Soln) 2.5 mg PRN Q4HRS PRN NEB SHORTNESS OF BREATH; Start 07/21/19 at 11:30; Status Cancel Enoxaparin Sodium (Lovenox 40mg Syringe) 40 mg Q24H SQ Last administered on 08/01/19at 21:23; Start 07/21/19 at 21:00 Vancomycin HCl 1 gm/Dextrose 250 ml @ 250 mls/hr 1X ONCE IV Last administered on 07/21/19at 12:36; Start 07/21/19 at 11:30; Stop 07/21/19 at 12:29; Status DC Vancomycin HCl (Vanco Per Pharmacy) 1 each PRN DAILY PRN MC SEE COMMENTS Last administered on 07/27/19at 11:00; Start 07/21/19 at 11:45; Stop 07/28/19 at 12:16; Status DC Famotidine (Pepcid Vial) 20 mg DAILY IVP Last administered on 08/01/19at 08:16; Start 07/21/19 at 21:00 Insulin Human Lispro (HumaLOG) 0-5 UNITS Q6HRS SQ Last administered on 07/31/19at 06:12; Start 07/21/19 at 13:15 Dextrose (Dextrose 50%-Water Syringe) 12.5 gm PRN Q15MIN PRN IV SEE COMMENTS; Start 07/21/19 at 13:15 Vancomycin HCl 1 gm/Sodium Chloride 250 ml @ 250 mls/hr Q24H IV Last administered on 07/27/19at 14:11; Start 07/22/19 at 13:00; Stop 07/28/19 at 12:16; Status DC Vancomycin HCl (Vancomycin Trough Level) 1 each 1X ONCE MC Last administered on 07/23/19at 11:57; Start 07/23/19 at 12:30; Stop 07/23/19 at 12:31; Status DC Albuterol Sulfate (Ventolin Neb Soln) 2.5 mg PRN Q4HRS NEB ; Start 07/22/19 at 06:45; Stop 07/22/19 at 11:59; Status DC Insulin Glargine (Lantus Syringe) 8 unit BID SQ Last administered on 08/01/19at 08:33; Start 07/24/19 at 09:00 Potassium Chloride/Water 100 ml @ 75 mls/hr 1400,1520,1640 IV Last administered on 07/25/19at 17:33; Start 07/25/19 at 14:00; Stop 07/25/19 at 17:59; Status DC Dextrose 1,000 ml @ 100 mls/hr Q10H IV Last administered on 07/26/19at 00:20; Start 07/25/19 at 14:00; Stop 07/26/19 at 13:25; Status DC Potassium Chloride 30 meq/ Dextrose 1,015 ml @ 100 mls/hr Q10H9M IV Last administered on 07/26/19at 23:39; Start 07/26/19 at 13:30; Stop 07/27/19 at 13:44; Status DC Magnesium Sulfate 50 ml @ 25 mls/hr PRN DAILY PRN IV for Mag < 1.7 on am labs; Start 07/26/19 at 13:30; Stop 07/27/19 at 13:44; Status DC Vancomycin HCl (Vancomycin Trough Level) 1 each 1X ONCE MC ; Start 07/28/19 at 12:30; Stop 07/28/19 at 12:31; Status Cancel Albuterol/ Ipratropium (Duoneb) 3 ml RTQID NEB Last administered on 08/02/19at 07:42; Start 07/27/19 at 16:00 Magnesium Oxide (Magnesium Oxide) 400 mg BID PO Last administered on 07/28/19at 20:12; Start 07/27/19 at 15:00; Stop 07/28/19 at 21:01; Status DC Dextrose 1,000 ml @ 100 mls/hr Q10H IV Last administered on 07/27/19at 14:10; Start 07/27/19 at 14:00; Stop 07/29/19 at 13:16; Status DC Amoxicillin/ Clavulanate Potassium (Augmentin 400-57mg/5ml Susp) 5 ml Q12HR PEG Last administered on 08/01/19at 21:23; Start 07/28/19 at 13:00 Glucagon (Glucagen) 1 mg 1X ONCE IM Last administered on 07/29/19at 00:28; Start 07/29/19 at 01:00; Stop 07/29/19 at 01:01; Status DC Magnesium Sulfate/ Dextrose 100 ml @ 100 mls/hr 1X ONCE IV ; Start 07/29/19 at 13:15; Stop 07/29/19 at 13:16; Status DC Ondansetron HCl (Zofran Odt) 4 mg PRN Q8HRS PRN PEG NAUSEA/VOMITING; Start 07/29/19 at 17:45; Stop 07/29/19 at 17:46; Status DC Ondansetron HCl (Zofran Odt) 8 mg PRN Q4HRS PRN PEG NAUSEA/VOMITING Last administered on 07/30/19at 10:52; Start 07/29/19 at 17:45 Amino Acids/ Glycerin/ Electrolytes 1,000 ml @ 80 mls/hr [id number] IV Last administered on 08/01/19at 21:21; Start 07/30/19 at 11:15 Albumin Human 500 ml @ 125 mls/hr 1X ONCE IV Last administered on 07/31/19at 09:00; Start 07/31/19 at 08:45; Stop 07/31/19 at 12:44; Status DC Metoclopramide HCl (Reglan Oral Solution) 5 mg TIDACHC PO Last administered on 08/01/19at 21:23; Start 08/01/19 at 08:45 Active Scripts Active Humalog (Insulin Lispro) 100 Unit/1 Ml Insuln.pen 0 Units SQ TIDWMEALS 14 Days Zofran Odt (Ondansetron) 4 Mg Tab.rapdis 1 Tab SL Q6HRS PRN Reported Zocor (Simvastatin) 40 Mg Tablet 1 Tab PO DAILY Tramadol Hcl 50 Mg Tablet 50 Mg PO BID PRN Senokot (Sennosides) 8.6 Mg Tablet 1 Tab PO BID 20 Days Polyethylene Glycol 3350 2,500 Gm Powder 17 Gm PO DAILY 30 Days Omeprazole 20 Mg Tablet.dr 1 Tab PO DAILY [place] 5-325 Tablet (Acetaminophen/Hydrocodone Bitart) 1 Each Tablet 1 Tab PO BID Metoprolol Tartrate 25 Mg Tablet 1 Tab PO BID Melatonin 3 Mg Tablet 2 Tab PO QHS Lantus Solostar (Insulin Glargine,Hum.rec.anlog) 100 Unit/1 Ml Insuln.pen 30 Unit SQ QHS Hydroxyzine Hcl 25 Mg Tablet 1 Tab PO TID Gabapentin 600 Mg Tablet 600 Mg PO BID Docusate Sodium 100 Mg Capsule 1 Cap PO BID 15 Days Cyclobenzaprine Hcl 5 Mg Tablet 1 Tab PO QHS Vitamin B-12 (Cyanocobalamin (Vitamin B-12)) 1,000 Mcg Tablet 1 Tab PO DAILY 30 Days Coreg (Carvedilol) 25 Mg Tablet 12.5 Mg PO BIDWMEALS Clopidogrel (Clopidogrel Bisulfate) 75 Mg Tablet 1 Tab PO DAILY Celexa (Citalopram Hydrobromide) 20 Mg Tablet 1 Tab PO DAILY D3-50 (Cholecalciferol (Vitamin D3)) 50,000 Unit Capsule 2,000 Unit PO DAILY Bisacodyl 10 Mg Supp.rect 10 Mg RC PRN DAILY PRN Aspirin 325 Mg Tablet 1 Tab PO DAILY Albuterol Sulfate Neb Soln (Albuterol Sulfate) 2.5 Mg/3 Ml Vial.neb 1 Vial NEB PRN Q4HRS Tylenol (Acetaminophen) 325 Mg Tablet 2 Tab PO BID Vitals/I & O Vital Sign - Last 24 Hours 08/01/19 08/01/19 08/01/19 08/01/19 08:05 11:00 11:02 15:00 Temp 98.0 98.3 98.0 98.3 Pulse 104 110 Resp 18 16 B/P (MAP) 152/73 (99) 147/70 (95) Pulse Ox 99 97 99 O2 Delivery Room Air Room Air Room Air Room Air 08/01/19 08/01/19 08/01/19 08/01/19 15:02 16:45 17:00 17:15 Pulse 82 79 79 B/P (MAP) 134/60 (84) 147/74 (98) 149/78 (101) Pulse Ox 94 90 90 90 O2 Delivery Room Air Nasal Cannula Nasal Cannula Nasal Cannula O2 Flow Rate 4.0 4.0 4.0 08/01/19 08/01/19 08/01/19 08/01/19 19:30 19:54 20:20 23:29 Temp 98.0 98.1 98.0 98.1 Pulse 80 107 Resp 20 20 B/P (MAP) 140/74 (96) 148/88 (108) Pulse Ox 97 95 97 O2 Delivery Room Air Room Air Room Air Room Air 08/02/19 08/02/19 03:40 07:43 Temp 98.1 98.1 Pulse 90 Resp 20 B/P (MAP) 144/82 (102) Pulse Ox 98 98 O2 Delivery Room Air Room Air Intake and Output 08/01/19 08/01/19 08/02/19 15:00 23:00 07:00 Intake Total 1040 ml Balance 1040 ml Nutrition Consultation Dietary Evaluation: Recommendations by RD: Dietary education by RD, Increase Calorie Intake, Protein supplementation Comments: REC TFs as tolerated per order at correction: Glucerna 1.5@goal rate 40 ml/hr w/120 ml water flushes q4 hrs REC Kalyan BID via PEG tube (wound healing), mix each packet w/4oz water to dissolve and flush tube w/~30 ml water after each packet REC liquid MVI via PEG (wound healing) Expected Outcomes/Goals: TF tolerance Malnutrition Findings: Body Fat Depletion (Non Severe: Mild Depletion Weight Status: Appropriate LINDSAY GARG MD August 02, 2019 07:49
[2019-08-02] MEDS: METOCLOPRAMIDE ORAL SOLN 10 MG/10 ML SOLUTION. PO SCH ×4 (09:29→22:14)
[2019-08-02] MEDS: AMOXICILLIN/CLAV 400MG/57MG 5 ML ORAL.SUSP. PEG SCH ×2 (09:29→22:13)
[2019-08-02] MEDS: FAMOTIDINE 20 MG/2 ML VIAL IVP SCH (09:30)
[2019-08-02] MEDS: INSULIN GLARGINE SYRINGE. SQ SCH ×2 (09:33→22:25)
[2019-08-02] MEDS: AMINO AC 3%/ELECTROLYTE/GLYCER 1,000 ML IV SCH ×2 (09:37→23:38)
--- NOTE | 2019-08-02 11:17 | PDOC ---
PULMONARY PROGRESS NOTES Subjective Pt. doesn't verbally interact, on 02, appears comfortable no S/S of distress Vitals Vital Signs Date Time Temp Pulse Resp B/P (MAP) Pulse Ox O2 Delivery O2 Flow Rate FiO2 08/02/19 08:00 Room Air 08/02/19 07:49 98.0 89 20 146/79 (101) 98 98.0 08/01/19 17:15 4.0 Comments unable to report ROS 2/2 non-verbal General: No acute distress Lungs: Other (coarse ) Cardiovascular: S1, S2 Abdomen: Soft, Non-tender, Other (Peg in place ) Extremities: Other (Contractures muscle wasting, BLE wounds ) Skin: Warm Labs Laboratory Tests Test 07/31/19 11:46 07/31/19 18:15 08/01/19 00:49 08/01/19 08:19 Glucose (Fingerstick) 170 mg/dL (70-99) 184 mg/dL (70-99) 178 mg/dL (70-99) Sodium Level 144 mmol/L (136-145) Potassium Level 4.4 mmol/L (3.5-5.1) Chloride Level 109 mmol/L (98-107) Carbon Dioxide Level 25 mmol/L (21-32) Anion Gap 10 (6-14) Blood Urea Nitrogen 33 mg/dL (7-20) Creatinine 1.4 mg/dL (0.6-1.0) Estimated GFR (Cockcroft-Gault) 46.9 Glucose Level 180 mg/dL (70-99) Calcium Level 8.1 mg/dL (8.5-10.1) Test 08/01/19 08:31 08/01/19 11:30 08/01/19 18:11 08/02/19 01:24 Glucose (Fingerstick) 160 mg/dL (70-99) 183 mg/dL (70-99) 145 mg/dL (70-99) 123 mg/dL (70-99) Test 08/02/19 04:06 08/02/19 09:31 Sodium Level 145 mmol/L (136-145) Potassium Level 4.5 mmol/L (3.5-5.1) Chloride Level 110 mmol/L (98-107) Carbon Dioxide Level 24 mmol/L (21-32) Anion Gap 11 (6-14) Blood Urea Nitrogen 33 mg/dL (7-20) Creatinine 1.2 mg/dL (0.6-1.0) Estimated GFR (Cockcroft-Gault) 56.0 Glucose Level 120 mg/dL (70-99) Calcium Level 7.9 mg/dL (8.5-10.1) Glucose (Fingerstick) 132 mg/dL (70-99) Laboratory Tests Test 08/01/19 11:30 08/01/19 18:11 08/02/19 01:24 08/02/19 04:06 Glucose (Fingerstick) 183 mg/dL (70-99) 145 mg/dL (70-99) 123 mg/dL (70-99) Sodium Level 145 mmol/L (136-145) Potassium Level 4.5 mmol/L (3.5-5.1) Chloride Level 110 mmol/L (98-107) Carbon Dioxide Level 24 mmol/L (21-32) Anion Gap 11 (6-14) Blood Urea Nitrogen 33 mg/dL (7-20) Creatinine 1.2 mg/dL (0.6-1.0) Estimated GFR (Cockcroft-Gault) 56.0 Glucose Level 120 mg/dL (70-99) Calcium Level 7.9 mg/dL (8.5-10.1) Test 08/02/19 09:31 Glucose (Fingerstick) 132 mg/dL (70-99) Medications Active Scripts Medications Dose Route/Sig Max Daily Dose Days Date Category Zocor (Simvastatin) 40 Mg Tablet 1 Tab PO DAILY 07/21/19 Reported Tramadol Hcl 50 Mg Tablet 50 Mg PO BID PRN 07/21/19 Reported Senokot (Sennosides) 8.6 Mg Tablet 1 Tab PO BID 20 07/21/19 Reported Polyethylene Glycol 3350 2,500 Gm Powder 17 Gm PO DAILY 30 07/21/19 Reported Omeprazole 20 Mg Tablet.dr 1 Tab PO DAILY 07/21/19 Reported [place] 5-325 Tablet (Acetaminophen/Hydrocodone Bitart) 1 Each Tablet 1 Tab PO BID 07/21/19 Reported Metoprolol Tartrate 25 Mg Tablet 1 Tab PO BID 07/21/19 Reported Melatonin 3 Mg Tablet 2 Tab PO QHS 07/21/19 Reported Lantus Solostar (Insulin Glargine,Hum.rec.anlog) 100 Unit/1 Ml Insuln.pen 30 Unit SQ QHS 07/21/19 Reported Hydroxyzine Hcl 25 Mg Tablet 1 Tab PO TID 07/21/19 Reported Gabapentin 600 Mg Tablet 600 Mg PO BID 07/21/19 Reported Docusate Sodium 100 Mg Capsule 1 Cap PO BID 15 07/21/19 Reported Cyclobenzaprine Hcl 5 Mg Tablet 1 Tab PO QHS 07/21/19 Reported Vitamin B-12 (Cyanocobalamin (Vitamin B-12)) 1,000 Mcg Tablet 1 Tab PO DAILY 30 07/21/19 Reported Coreg (Carvedilol) 25 Mg Tablet 12.5 Mg PO BIDWMEALS 07/21/19 Reported Clopidogrel (Clopidogrel Bisulfate) 75 Mg Tablet 1 Tab PO DAILY 07/21/19 Reported Celexa (Citalopram Hydrobromide) 20 Mg Tablet 1 Tab PO DAILY 07/21/19 Reported D3-50 (Cholecalciferol (Vitamin D3)) 50,000 Unit Capsule 2,000 Unit PO DAILY 07/21/19 Reported Bisacodyl 10 Mg Supp.rect 10 Mg RC PRN DAILY PRN 07/21/19 Reported Aspirin 325 Mg Tablet 1 Tab PO DAILY 07/21/19 Reported Albuterol Sulfate Neb Soln (Albuterol Sulfate) 2.5 Mg/3 Ml Vial.neb 1 Vial NEB PRN Q4HRS 07/21/19 Reported Tylenol (Acetaminophen) 325 Mg Tablet 2 Tab PO BID 07/21/19 Reported Humalog (Insulin Lispro) 100 Unit/1 Ml Insuln.pen 0 Units SQ TIDWMEALS 14 06/06/19 Rx Zofran Odt (Ondansetron) 4 Mg Tab.rapdis 1 Tab SL Q6HRS PRN 08/19/16 Rx Comments CXR - 07/27/2019 IMPRESSION: 1. Improving left-sided airspace disease. 2. Possible small left pleural effusion. Impression . IMPRESSION: 1. Acute hypoxemic respiratory failure- 2. Aspiration pneumonia. 3. Bjwyq-yx-msnaotw kidney disease. 4. Abnormal x-ray. mild bilateral infilt 07/29 5. SARS-CoV-2 negative 6. 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 7. Severe protein malnutrition, present upon admission. 8. Hypokalemia. resolved 9. Elevated liver chemistries. 10. wheezing-resolved 11. Hypernatermia, resolved Plan . 1. supplemental oxygen if needed, continue bronchodilators 2. Follow nephrology recs 3. COVID-19(-) 4. Cont. ABX 5. TF on hold 6. Monitor Electrolytes-- NA+ was improved on 07/26/2019 7. wound care as needed D/W RN DVT/GI PPX: love[facility]ian[facility]/ MANUEL Lobo MD August 02, 2019 11:17
[2019-08-02 11:40] VITALS: BP 139/64
--- NOTE | 2019-08-02 12:59 | PDOC ---
SUBJECTIVE ROS stable OBJECTIVE Vital Signs Vital Signs Date Time Temp Pulse Resp B/P (MAP) Pulse Ox O2 Delivery O2 Flow Rate FiO2 08/02/19 11:49 98 Room Air 08/02/19 11:40 98.0 88 20 139/64 (89) 2.0 98.0 I & 0 Intake and Output 08/02/19 07:00 Intake Total 1040 ml Balance 1040 ml IV Total 1000 ml Tube Feeding 40 ml # Voids 3 PHYSICAL EXAM Physical Exam GEN: nad HEEN: Om moist , O2 by NC NECK: supple CVS: RRR RESP: decreased at bases, Nonlabored GI: BS + ve Non Tender, PEG + : No CVA tenderness, No Suprapubic Tenderness, No stapleton Neuro- Non verbal Ext No edema DIAGNOSIS/ASSESSMENT Assessment & Plan ELISA-CR OF 1.5 Resolved CKD stage 3 - Baseline 1.5-1.8 since at least 2014, stable renal function Supportive care, strict I/O , Avoid nephrotoxins, Monitor Recd IV contrast with CT on 07/20 Acute hypoxic respiratory failure /Pneumonia COVID negative Scattered opacities in the left lung, concerning for an infectious/inflammatory process. H/o CVA with Expressive aphasia peg feeding dependent HTN- stable DM HYPOMAGNESEMIA-RESOLVED HYPERNATREMIA- Resolved COMMENT/RELEVANT DATA Meds Current Medications Medications (Trade) Dose Ordered Sig/Shirley Start Time Stop Time Status Last Admin Dose Admin Acetaminophen (Tylenol Supp) 650 mg PRN Q4HRS PRN 07/21/19 11:30 07/23/19 16:52 650 MG Acetaminophen (Tylenol) 650 mg PRN Q4HRS PRN 07/21/19 11:30 07/30/19 10:51 650 MG Albumin Human 500 ml @ 125 mls/hr 1X ONCE 07/31/19 08:45 07/31/19 12:44 DC 07/31/19 09:00 125 MLS/HR Albuterol Sulfate (Ventolin Neb Soln) 2.5 mg PRN Q4HRS 07/22/19 06:45 07/22/19 11:59 DC Albuterol/ Ipratropium (Duoneb) 3 ml RTQID 07/27/19 16:00 08/02/19 11:48 3 ML Amino Acids/ Glycerin/ Electrolytes 1,000 ml @ 80 mls/hr [id number] 07/30/19 11:15 08/02/19 09:37 80 MLS/HR Amoxicillin/ Clavulanate Potassium (Augmentin 400-57mg/5ml Susp) 5 ml Q12HR 07/28/19 13:00 08/02/19 09:29 5 ML Cefepime HCl (Maxipime) 2 gm Q12HR 07/21/19 21:00 07/28/19 12:16 DC 07/27/19 22:03 2 GM Clindamycin Phosphate 50 ml @ 100 mls/hr 1X ONCE 07/21/19 07:45 07/21/19 08:14 DC 07/21/19 08:31 100 MLS/HR Clonidine HCl (Catapres) 0.1 mg PRN Q6HRS PRN 07/21/19 11:30 07/29/19 22:21 0.1 MG Dextrose 1,000 ml @ 100 mls/hr Q10H 07/27/19 14:00 07/29/19 13:16 DC 07/27/19 14:10 100 MLS/HR Dextrose (Dextrose 50%-Water Syringe) 12.5 gm PRN Q15MIN PRN 07/21/19 13:15 Enoxaparin Sodium (Lovenox 40mg Syringe) 40 mg Q24H 07/21/19 21:00 08/01/19 21:23 40 MG Famotidine (Pepcid Vial) 20 mg DAILY 07/21/19 21:00 08/02/19 09:30 20 MG Glucagon (Glucagen) 1 mg 1X ONCE 07/29/19 01:00 07/29/19 01:01 DC 07/29/19 00:28 1 MG Insulin Glargine (Lantus Syringe) 8 unit BID 07/24/19 09:00 08/02/19 09:33 8 UNIT Insulin Human Lispro (HumaLOG) 0-5 UNITS Q6HRS 07/21/19 13:15 07/31/19 06:12 3 UNITS Insulin Human Regular (HumuLIN R VIAL) 10 unit 1X ONCE 07/21/19 07:30 07/21/19 07:31 DC 07/21/19 07:30 10 UNIT Iohexol (Omnipaque 300 Mg/ml) 75 ml 1X ONCE 07/21/19 09:00 5/18/20 09:01 DC 07/21/19 10:01 75 ML Magnesium Oxide (Magnesium Oxide) 400 mg BID 07/27/19 15:00 07/28/19 21:01 DC 07/28/19 20:12 400 MG Magnesium Sulfate 50 ml @ 25 mls/hr PRN DAILY PRN 07/26/19 13:30 07/27/19 13:44 DC Magnesium Sulfate/ Dextrose 100 ml @ 100 mls/hr 1X ONCE 07/29/19 13:15 07/29/19 13:16 DC Metoclopramide HCl (Reglan Oral Solution) 5 mg TIDACHC 08/01/19 08:45 08/02/19 09:29 5 MG Metoclopramide HCl (Reglan Vial) 10 mg 1X ONCE 07/21/19 08:45 07/21/19 08:47 DC 07/21/19 09:05 10 MG Ondansetron HCl (Zofran Odt) 8 mg PRN Q4HRS PRN 07/29/19 17:45 07/30/19 10:52 8 MG Ondansetron HCl (Zofran) 4 mg PRN Q4HRS PRN 07/21/19 11:30 07/23/19 10:05 4 MG Potassium Chloride 30 meq/ Dextrose 1,015 ml @ 100 mls/hr Q10H9M 07/26/19 13:30 07/27/19 13:44 DC 07/26/19 23:39 100 MLS/HR Potassium Chloride/Water 100 ml @ 75 mls/hr 1400,1520,1640 07/25/19 14:00 07/25/19 17:59 DC 07/25/19 17:33 75 MLS/HR Sodium Monofluorophosphate (Fleet Adult) 133 ml PRN DAILY PRN 07/21/19 11:30 07/26/19 13:25 DC Sodium Bicarbonate (Sodium Bicarb Adult 8.4% Syr) 50 meq 1X ONCE 07/21/19 07:30 07/21/19 07:31 DC 07/21/19 08:25 50 MEQ Sodium Chloride 1,000 ml @ 100 mls/hr Q10H 07/21/19 11:19 07/24/19 11:45 DC 07/24/19 09:14 100 MLS/HR Sodium Chloride (Normal Saline Flush) 3 ml QSHIFT PRN 07/21/19 11:30 Vancomycin HCl (Vanco Per Pharmacy) 1 each PRN DAILY PRN 07/21/19 11:45 07/28/19 12:16 DC 07/27/19 11:00 1 EACH Vancomycin HCl (Vancomycin Trough Level) 1 each 1X ONCE 07/28/19 12:30 07/28/19 12:31 Cancel Vancomycin HCl 1 gm/Dextrose 250 ml @ 250 mls/hr 1X ONCE 07/21/19 11:30 07/21/19 12:29 DC 07/21/19 12:36 250 MLS/HR Vancomycin HCl 1 gm/Sodium Chloride 250 ml @ 250 mls/hr Q24H 07/22/19 13:00 07/28/19 12:16 DC 07/27/19 14:11 250 MLS/HR Lab Laboratory Tests Test 08/01/19 18:11 08/02/19 01:24 08/02/19 04:06 08/02/19 09:31 Glucose (Fingerstick) 145 mg/dL (70-99) 123 mg/dL (70-99) 132 mg/dL (70-99) Sodium Level 145 mmol/L (136-145) Potassium Level 4.5 mmol/L (3.5-5.1) Chloride Level 110 mmol/L (98-107) Carbon Dioxide Level 24 mmol/L (21-32) Anion Gap 11 (6-14) Blood Urea Nitrogen 33 mg/dL (7-20) Creatinine 1.2 mg/dL (0.6-1.0) Estimated GFR (Cockcroft-Gault) 56.0 Glucose Level 120 mg/dL (70-99) Calcium Level 7.9 mg/dL (8.5-10.1) Test 08/02/19 11:59 Glucose (Fingerstick) 118 mg/dL (70-99) Results All relevant outside records, renal labs, imaging studies, telemetry/EKG's were reviewed. CHUY MITCHELL MD August 02, 2019 12:59
[2019-08-02 15:36] VITALS: BP 142/71
[2019-08-02 19:00] VITALS: BP 131/71
[2019-08-02] MEDS: ENOXAPARIN 40 MG/0.4 ML SYRINGE. SQ SCH (22:15)
[2019-08-02 23:00] VITALS: BP 155/69
[2019-08-03 03:00] VITALS: BP 135/89
[2019-08-03] MEDS: INSULIN LISPRO 300 UNITS/3 ML VIAL. SQ SCH ×4 (06:00→18:00)
--- NOTE | 2019-08-03 06:00 | NUR ---
Glucose was 56 this am, RN administered 25ml of dextrose, glucose was rechecked and went up to 140.
[2019-08-03] MEDS: DEXTROSE 50% 25 GM / 50ML DISP.SYRIN. IV PRN ×2 (06:03→18:05)
[2019-08-03 07:00] VITALS: BP 107/48
[2019-08-03] MEDS: IPRATRPIUM/ALBUTEROL 0.5/2.5MG 3 ML NEBU. NEB SCH ×4 (07:32→20:30)
--- NOTE | 2019-08-03 08:06 | PDOC ---
PROGRESS NOTES Chief Complaint Chief Complaint A/P: Acute pneumonia, favor aspiration negative COVID testing Scattered opacities in the left lung, concerning for an infectious/inflammatory process. Hypernatremia secondary to severe dehydration acute hypoxic respiratory failure H/o CVA, peg feeding dependent, expressive aphasia HTN, DM GERD HyperKalemia- at presentation, Improved na =146 Developmental delay Acute hypoxemic respiratory failure. [id number] kidney disease. Abnormal x-ray. COVID-19 suspected - negative Previous cerebrovascular accident with hemiparesis and expressive aphasia. Severe protein malnutrition, present upon admission. Hyperkalemia. Elevated liver chemistries. 28 MIN pt exam, chart review, > 50% of time spent with exam, chart review, pt care coordination History of Present Illness History of Present Illness Ms Parker is a 59 yo F w/ PMHx DM2, GERD, HLD, HTN, migraines, CVA with left- sided hemiparesis, expressive aphasia s/p PEG placement who presented to ED with acute respiratory distress, found to have O2 saturation of 57% on room air by EMS. Negative for SARS-CoV-2 during the COVID- pandemic, unable to obtain any information from the patient herself. 07/24: No acute events reported overnight, case discussed with nursing staff patient in no acute distress no complaints during my visit unable to have a meaningful conversation with the patient due to expressive aphasia as a consequence of her CVA 07/25: No acute events reported overnight, case discussed with nursing staff patient in no acute distress no complaints during my visit, electrolyte disturbance seems to be improving now that her feeding tubes have been restarted, appreciate nephrology recommendation 07/26: more coarse 07/27: Lost IV access. Afebrile. Some sputum this morning, unclear if it is emesis. 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 Faye MIRANDA, requests not to place another PICC line and informs me that she is FULL CODE but is on comfort care measures at her SNF and she would like her to return [place]. She wants patient to remain full code, states she is waiting for life insurance. She does note the patient had previously noted she would never want to be on a ventilator. 07/28: More emesis 07/29: PICC insertion, more emesis 07/31: Afebrile overnight. Sodium 147, CR 1.4, on PPN. Albumin 1.7. Tube feeds on hold, no vomiting. 08/01; Afebrile, CR 1.2, NA 145. Glucose 120. She does not interact. Afebrile overnight, off NC O2. Glucose 56 this morning. Restarted slowly on tube feeds and free water flushes with no further vomiting. She appears much more comfortable. Opening eyes, no meaningful interaction does not follow commands. Plan: Cont PO augmentin syrup Add back TF slowly. Would avoid metoclopramide given her contractures and mental status. Can stop PPN as TF advances Likely d/c in next 24-48 hours Vitals Vitals Vital Signs Date Time Temp Pulse Resp B/P (MAP) Pulse Ox O2 Delivery O2 Flow Rate FiO2 08/03/19 07:34 100 Room Air 08/03/19 03:00 99.1 101 18 135/89 (104) 99.1 08/02/19 19:30 2.0 Physical Exam Physical Exam Well developed, well nourished, tachypnea with less increased work of breathing [] HENT: Normocephalic, atraumatic, bilateral external ears normal, oropharynx moist, nose normal. [] Eyes: PERRLA, EOMI, conjunctiva normal. [] Neck: Normal range of motion, no tenderness, supple. [] Cardiovascular:Heart rate regular rhythm, no murmur. [] Lungs & Thorax: Bilateral breath sounds coarse [] Abdomen: Bowel sounds normal, soft, non-distended, no grimacing in exam. [] Skin: Warm, dry. [] Neurologic: Alert, Left hemiparesis. [] General: Cooperative HEENT: Atraumatic Heart: RRR Breasts: Not examined Abdomen: Soft Rectal Exam: not examined PELVIC: Examination not indicated Extremities: No cyanosis, No edema General: Alert, Cooperative, No acute distress Heart: Regular rate Lungs: Other (coarse ) Abdomen: Soft, No tenderness Extremities: No cyanosis, No edema Skin: No rashes Labs LABS Laboratory Tests Test 08/02/19 09:31 08/02/19 11:59 08/02/19 18:38 08/02/19 23:52 Glucose (Fingerstick) 132 mg/dL (70-99) 118 mg/dL (70-99) 117 mg/dL (70-99) 128 mg/dL (70-99) Test 08/03/19 06:00 08/03/19 06:12 Glucose (Fingerstick) 56 mg/dL (70-99) 140 mg/dL (70-99) Assessment and Plan Assessmemt and Plan Problems Medical Problems: (1) Aspiration into airway Status: Acute (2) Congestive heart failure Status: Acute (3) HCAP (healthcare-associated pneumonia) Status: Acute (4) Hyperkalemia Status: Acute Comment Review of Relevant I have reviewed the following items satish (where applicable) has been applied. Labs Laboratory Tests Test 08/01/19 08:19 08/01/19 08:31 08/01/19 11:30 08/01/19 18:11 Sodium Level 144 mmol/L (136-145) Potassium Level 4.4 mmol/L (3.5-5.1) Chloride Level 109 mmol/L (98-107) Carbon Dioxide Level 25 mmol/L (21-32) Anion Gap 10 (6-14) Blood Urea Nitrogen 33 mg/dL (7-20) Creatinine 1.4 mg/dL (0.6-1.0) Estimated GFR (Cockcroft-Gault) 46.9 Glucose Level 180 mg/dL (70-99) Calcium Level 8.1 mg/dL (8.5-10.1) Glucose (Fingerstick) 160 mg/dL (70-99) 183 mg/dL (70-99) 145 mg/dL (70-99) Test 08/02/19 01:24 08/02/19 04:06 08/02/19 09:31 08/02/19 11:59 Glucose (Fingerstick) 123 mg/dL (70-99) 132 mg/dL (70-99) 118 mg/dL (70-99) Sodium Level 145 mmol/L (136-145) Potassium Level 4.5 mmol/L (3.5-5.1) Chloride Level 110 mmol/L (98-107) Carbon Dioxide Level 24 mmol/L (21-32) Anion Gap 11 (6-14) Blood Urea Nitrogen 33 mg/dL (7-20) Creatinine 1.2 mg/dL (0.6-1.0) Estimated GFR (Cockcroft-Gault) 56.0 Glucose Level 120 mg/dL (70-99) Calcium Level 7.9 mg/dL (8.5-10.1) Test 08/02/19 18:38 08/02/19 23:52 08/03/19 06:00 08/03/19 06:12 Glucose (Fingerstick) 117 mg/dL (70-99) 128 mg/dL (70-99) 56 mg/dL (70-99) 140 mg/dL (70-99) Laboratory Tests Test 08/02/19 09:31 08/02/19 11:59 08/02/19 18:38 08/02/19 23:52 Glucose (Fingerstick) 132 mg/dL (70-99) 118 mg/dL (70-99) 117 mg/dL (70-99) 128 mg/dL (70-99) Test 08/03/19 06:00 08/03/19 06:12 Glucose (Fingerstick) 56 mg/dL (70-99) 140 mg/dL (70-99) Microbiology 07/26/19 Blood Culture - Final, Complete NO GROWTH AFTER 5 DAYS Medications Current Medications Ondansetron HCl (Zofran) 8 mg 1X ONCE IVP Last administered on 07/21/19at 07:42; Start 07/21/19 at 07:00; Stop 07/21/19 at 07:01; Status DC Ondansetron HCl (Zofran) 4 mg STK-MED ONCE .ROUTE ; Start 07/21/19 at 06:37; Stop 07/21/19 at 06:37; Status DC Insulin Human Regular (HumuLIN R VIAL) 10 unit 1X ONCE IV Last administered on 07/21/19at 07:30; Start 07/21/19 at 07:30; Stop 07/21/19 at 07:31; Status DC Sodium Bicarbonate (Sodium Bicarb Adult 8.4% Syr) 50 meq 1X ONCE IV Last administered on 07/21/19at 08:25; Start 07/21/19 at 07:30; Stop 07/21/19 at 07:31; Status DC Clindamycin Phosphate 50 ml @ 100 mls/hr 1X ONCE IV Last administered on 07/21/19at 08:31; Start 07/21/19 at 07:45; Stop 07/21/19 at 08:14; Status DC Cefepime HCl (Maxipime) 2 gm 1X ONCE IVP Last administered on 07/21/19at 07:47; Start 07/21/19 at 07:45; Stop 07/21/19 at 07:46; Status DC Metoclopramide HCl (Reglan Vial) 10 mg 1X ONCE IVP Last administered on 07/21/19at 09:05; Start 07/21/19 at 08:45; Stop 07/21/19 at 08:47; Status DC Iohexol (Omnipaque 300 Mg/ml) 75 ml 1X ONCE IV Last administered on 07/21/19at 10:01; Start 07/21/19 at 09:00; Stop 07/21/19 at 09:01; Status DC Ondansetron HCl (Zofran) 4 mg PRN Q8HRS PRN IV NAUSEA/VOMITING; Start 07/21/19 at 09:30; Stop 07/22/19 at 07:25; Status DC Albuterol/ Ipratropium (Duoneb) 3 ml RTQID NEB ; Start 07/21/19 at 12:00; Stop 07/22/19 at 06:42; Status DC Cefepime HCl (Maxipime) 2 gm Q12HR IVP Last administered on 07/27/19at 22:03; Start 07/21/19 at 21:00; Stop 07/28/19 at 12:16; Status DC Sodium Chloride (Normal Saline Flush) 3 ml QSHIFT PRN IV AFTER MEDS AND BLOOD DRAWS; Start 07/21/19 at 11:30 Sodium Chloride 1,000 ml @ 100 mls/hr Q10H IV Last administered on 07/24/19at 09:14; Start 07/21/19 at 11:19; Stop 07/24/19 at 11:45; Status DC Ondansetron HCl (Zofran) 4 mg PRN Q4HRS PRN IV NAUSEA/VOMITING Last administered on 07/23/19at 10:05; Start 07/21/19 at 11:30 Acetaminophen (Tylenol) 650 mg PRN Q4HRS PRN GT TEMP OVER 100.4F OR MILD PAIN Last administered on 07/30/19at 10:51; Start 07/21/19 at 11:30 Acetaminophen (Tylenol Supp) 650 mg PRN Q4HRS PRN LA TEMP OVER 100.4F OR MILD PAIN Last administered on 07/23/19at 16:52; Start 07/21/19 at 11:30 Clonidine HCl (Catapres) 0.1 mg PRN Q6HRS PRN PO SBP>160 OR DBP>90 Last administered on 07/29/19at 22:21; Start 07/21/19 at 11:30 Sodium Monofluorophosphate (Fleet Adult) 133 ml PRN DAILY PRN LA CONSTIPATION; Start 07/21/19 at 11:30; Stop 07/26/19 at 13:25; Status DC Albuterol Sulfate (Ventolin Neb Soln) 2.5 mg PRN Q4HRS PRN NEB SHORTNESS OF BREATH; Start 07/21/19 at 11:30; Status Cancel Enoxaparin Sodium (Lovenox 40mg Syringe) 40 mg Q24H SQ Last administered on 08/02/19at 22:15; Start 07/21/19 at 21:00 Vancomycin HCl 1 gm/Dextrose 250 ml @ 250 mls/hr 1X ONCE IV Last administered on 07/21/19at 12:36; Start 07/21/19 at 11:30; Stop 07/21/19 at 12:29; Status DC Vancomycin HCl (Vanco Per Pharmacy) 1 each PRN DAILY PRN MC SEE COMMENTS Last administered on 07/27/19at 11:00; Start 07/21/19 at 11:45; Stop 07/28/19 at 12:16; Status DC Famotidine (Pepcid Vial) 20 mg DAILY IVP Last administered on 08/02/19at 09:30; Start 07/21/19 at 21:00 Insulin Human Lispro (HumaLOG) 0-5 UNITS Q6HRS SQ Last administered on 07/31/19 at 06:12; Start 07/21/19 at 13:15 Dextrose (Dextrose 50%-Water Syringe) 12.5 gm PRN Q15MIN PRN IV SEE COMMENTS Last administered on 08/03/19at 06:03; Start 07/21/19 at 13:15 Vancomycin HCl 1 gm/Sodium Chloride 250 ml @ 250 mls/hr Q24H IV Last administered on 07/27/19at 14:11; Start 07/22/19 at 13:00; Stop 07/28/19 at 12:16; Status DC Vancomycin HCl (Vancomycin Trough Level) 1 each 1X ONCE MC Last administered on 07/23/19at 11:57; Start 07/23/19 at 12:30; Stop 07/23/19 at 12:31; Status DC Albuterol Sulfate (Ventolin Neb Soln) 2.5 mg PRN Q4HRS NEB ; Start 07/22/19 at 06:45; Stop 07/22/19 at 11:59; Status DC Insulin Glargine (Lantus Syringe) 8 unit BID SQ Last administered on 08/02/19at 22:25; Start 07/24/19 at 09:00 Potassium Chloride/Water 100 ml @ 75 mls/hr 1400,1520,1640 IV Last administered on 07/25/19at 17:33; Start 07/25/19 at 14:00; Stop 07/25/19 at 17:59; Status DC Dextrose 1,000 ml @ 100 mls/hr Q10H IV Last administered on 07/26/19at 00:20; Start 07/25/19 at 14:00; Stop 07/26/19 at 13:25; Status DC Potassium Chloride 30 meq/ Dextrose 1,015 ml @ 100 mls/hr Q10H9M IV Last administered on 07/26/19at 23:39; Start 07/26/19 at 13:30; Stop 07/27/19 at 13:44; Status DC Magnesium Sulfate 50 ml @ 25 mls/hr PRN DAILY PRN IV for Mag < 1.7 on am labs; Start 07/26/19 at 13:30; Stop 07/27/19 at 13:44; Status DC Vancomycin HCl (Vancomycin Trough Level) 1 each 1X ONCE MC ; Start 07/28/19 at 12:30; Stop 07/28/19 at 12:31; Status Cancel Albuterol/ Ipratropium (Duoneb) 3 ml RTQID NEB Last administered on 08/03/19at 07:32; Start 07/27/19 at 16:00 Magnesium Oxide (Magnesium Oxide) 400 mg BID PO Last administered on 07/28/19at 20:12; Start 07/27/19 at 15:00; Stop 07/28/19 at 21:01; Status DC Dextrose 1,000 ml @ 100 mls/hr Q10H IV Last administered on 07/27/19at 14:10; Start 07/27/19 at 14:00; Stop 07/29/19 at 13:16; Status DC Amoxicillin/ Clavulanate Potassium (Augmentin 400-57mg/5ml Susp) 5 ml Q12HR PEG Last administered on 08/02/19at 22:13; Start 07/28/19 at 13:00 Glucagon (Glucagen) 1 mg 1X ONCE IM Last administered on 07/29/19at 00:28; Start 07/29/19 at 01:00; Stop 07/29/19 at 01:01; Status DC Magnesium Sulfate/ Dextrose 100 ml @ 100 mls/hr 1X ONCE IV ; Start 07/29/19 at 13:15; Stop 07/29/19 at 13:16; Status DC Ondansetron HCl (Zofran Odt) 4 mg PRN Q8HRS PRN PEG NAUSEA/VOMITING; Start 07/29/19 at 17:45; Stop 07/29/19 at 17:46; Status DC Ondansetron HCl (Zofran Odt) 8 mg PRN Q4HRS PRN PEG NAUSEA/VOMITING Last administered on 07/30/19at 10:52; Start 07/29/19 at 17:45 Amino Acids/ Glycerin/ Electrolytes 1,000 ml @ 80 mls/hr [id number] IV Last administered on 08/02/19at 23:38; Start 07/30/19 at 11:15 Albumin Human 500 ml @ 125 mls/hr 1X ONCE IV Last administered on 07/31/19at 09:00; Start 07/31/19 at 08:45; Stop 07/31/19 at 12:44; Status DC Metoclopramide HCl (Reglan Oral Solution) 5 mg TIDACHC PO Last administered on 08/02/19at 22:14; Start 08/01/19 at 08:45 Active Scripts Active Humalog (Insulin Lispro) 100 Unit/1 Ml Insuln.pen 0 Units SQ TIDWMEALS 14 Days Zofran Odt (Ondansetron) 4 Mg Tab.rapdis 1 Tab SL Q6HRS PRN Reported Zocor (Simvastatin) 40 Mg Tablet 1 Tab PO DAILY Tramadol Hcl 50 Mg Tablet 50 Mg PO BID PRN Senokot (Sennosides) 8.6 Mg Tablet 1 Tab PO BID 20 Days Polyethylene Glycol 3350 2,500 Gm Powder 17 Gm PO DAILY 30 Days Omeprazole 20 Mg Tablet.dr 1 Tab PO DAILY [place] 5-325 Tablet (Acetaminophen/Hydrocodone Bitart) 1 Each Tablet 1 Tab PO BID Metoprolol Tartrate 25 Mg Tablet 1 Tab PO BID Melatonin 3 Mg Tablet 2 Tab PO QHS Lantus Solostar (Insulin Glargine,Hum.rec.anlog) 100 Unit/1 Ml Insuln.pen 30 Unit SQ QHS Hydroxyzine Hcl 25 Mg Tablet 1 Tab PO TID Gabapentin 600 Mg Tablet 600 Mg PO BID Docusate Sodium 100 Mg Capsule 1 Cap PO BID 15 Days Cyclobenzaprine Hcl 5 Mg Tablet 1 Tab PO QHS Vitamin B-12 (Cyanocobalamin (Vitamin B-12)) 1,000 Mcg Tablet 1 Tab PO DAILY 30 Days Coreg (Carvedilol) 25 Mg Tablet 12.5 Mg PO BIDWMEALS Clopidogrel (Clopidogrel Bisulfate) 75 Mg Tablet 1 Tab PO DAILY Celexa (Citalopram Hydrobromide) 20 Mg Tablet 1 Tab PO DAILY D3-50 (Cholecalciferol (Vitamin D3)) 50,000 Unit Capsule 2,000 Unit PO DAILY Bisacodyl 10 Mg Supp.rect 10 Mg RC PRN DAILY PRN Aspirin 325 Mg Tablet 1 Tab PO DAILY Albuterol Sulfate Neb Soln (Albuterol Sulfate) 2.5 Mg/3 Ml Vial.neb 1 Vial NEB PRN Q4HRS Tylenol (Acetaminophen) 325 Mg Tablet 2 Tab PO BID Vitals/I & O Vital Sign - Last 24 Hours 08/02/19 08/02/19 08/02/19 08/02/19 11:40 11:49 15:36 15:37 Temp 98.0 98.0 98.0 98.0 Pulse 88 83 Resp 20 20 B/P (MAP) 139/64 (89) 142/71 (94) Pulse Ox 98 98 98 98 O2 Delivery Nasal Cannula Room Air Nasal Cannula Room Air O2 Flow Rate 2.0 2.0 08/02/19 08/02/19 08/02/19 08/02/19 19:00 19:30 19:58 23:00 Temp 98.9 99.0 98.9 99.0 Pulse 91 107 Resp 20 18 B/P (MAP) 131/71 (91) 155/69 (97) Pulse Ox 94 98 94 O2 Delivery Nasal Cannula Nasal Cannula Room Air Room Air O2 Flow Rate 2.0 2.0 08/03/19 08/03/19 03:00 07:34 Temp 99.1 99.1 Pulse 101 Resp 18 B/P (MAP) 135/89 (104) Pulse Ox 95 100 O2 Delivery Room Air Room Air Intake and Output 08/02/19 08/02/19 08/03/19 15:00 23:00 07:00 Intake Total 350 ml Balance 350 ml Nutrition Consultation Dietary Evaluation: Recommendations by RD: Dietary education by RD, Increase Calorie Intake, Protein supplementation Comments: REC TFs as tolerated [facility]: Glucerna 1.5@goal rate 40 ml/hr w/120 ml water flushes q4 hrs REC Kalyan BID via PEG tube (wound healing), mix each packet w/4oz water to dissolve and flush tube w/~30 ml water after each packet REC liquid MVI via PEG (wound healing) Expected Outcomes/Goals: TF tolerance Malnutrition Findings: Body Fat Depletion (Non Severe: Mild Depletion Weight Status: Appropriate LINDSAY GARG MD August 03, 2019 08:06
[2019-08-03] MEDS: METOCLOPRAMIDE ORAL SOLN 10 MG/10 ML SOLUTION. PO SCH ×4 (08:14→21:19)
[2019-08-03] MEDS: FAMOTIDINE 20 MG/2 ML VIAL IVP SCH (08:15)
[2019-08-03] MEDS: INSULIN GLARGINE SYRINGE. SQ SCH (08:15)
[2019-08-03] MEDS: AMOXICILLIN/CLAV 400MG/57MG 5 ML ORAL.SUSP. PEG SCH ×2 (08:16→21:19)
[2019-08-03 11:00] VITALS: BP 110/52
--- NOTE | 2019-08-03 11:44 | PDOC ---
SUBJECTIVE ROS stable OBJECTIVE Vital Signs Vital Signs Date Time Temp Pulse Resp B/P (MAP) Pulse Ox O2 Delivery O2 Flow Rate FiO2 08/03/19 11:00 97.6 98 18 110/52 (71) 96 Room Air 97.6 08/02/19 19:30 2.0 I & 0 Intake and Output 08/03/19 06:59 Intake Total 350 ml Balance 350 ml Tube Feeding 350 ml # Voids 1 # Bowel Movements 3 PHYSICAL EXAM Physical Exam GEN: nad HEEN: Om moist , O2 by NC NECK: supple CVS: RRR RESP: decreased at bases, Nonlabored GI: BS + ve Non Tender, PEG + : No CVA tenderness, No Suprapubic Tenderness, No stapleton Neuro- Non verbal Ext No edema DIAGNOSIS/ASSESSMENT Assessment & Plan ELISA-Resolved Supportive care, strict I/O , Avoid nephrotoxins, Monitor CKD stage 3 - Baseline 1.5-1.8 since at least 2014, stable renal function Recd IV contrast with CT on 07/20 Acute hypoxic respiratory failure /Pneumonia COVID negative Scattered opacities in the left lung, concerning for an infectious/inflammatory process. H/o CVA with Expressive aphasia peg feeding dependent HTN- stable DM HYPOMAGNESEMIA-RESOLVED HYPERNATREMIA- Resolved COMMENT/RELEVANT DATA Meds Current Medications Medications (Trade) Dose Ordered Sig/Shirley Start Time Stop Time Status Last Admin Dose Admin Acetaminophen (Tylenol Supp) 650 mg PRN Q4HRS PRN 07/21/19 11:30 07/23/19 16:52 650 MG Acetaminophen (Tylenol) 650 mg PRN Q4HRS PRN 07/21/19 11:30 07/30/19 10:51 650 MG Albumin Human 500 ml @ 125 mls/hr 1X ONCE 07/31/19 08:45 07/31/19 12:44 DC 07/31/19 09:00 125 MLS/HR Albuterol Sulfate (Ventolin Neb Soln) 2.5 mg PRN Q4HRS 07/22/19 06:45 07/22/19 11:59 DC Albuterol/ Ipratropium (Duoneb) 3 ml RTQID 07/27/19 16:00 08/03/19 07:32 3 ML Amino Acids/ Glycerin/ Electrolytes 1,000 ml @ 80 mls/hr [id number] 07/30/19 11:15 08/03/19 09:59 DC 08/02/19 23:38 80 MLS/HR Amoxicillin/ Clavulanate Potassium (Augmentin 400-57mg/5ml Susp) 5 ml Q12HR 07/28/19 13:00 08/03/19 08:16 5 ML Cefepime HCl (Maxipime) 2 gm Q12HR 07/21/19 21:00 07/28/19 12:16 DC 07/27/19 22:03 2 GM Clindamycin Phosphate 50 ml @ 100 mls/hr 1X ONCE 07/21/19 07:45 07/21/19 08:14 DC 07/21/19 08:31 100 MLS/HR Clonidine HCl (Catapres) 0.1 mg PRN Q6HRS PRN 07/21/19 11:30 07/29/19 22:21 0.1 MG Dextrose 1,000 ml @ 100 mls/hr Q10H 07/27/19 14:00 07/29/19 13:16 DC 07/27/19 14:10 100 MLS/HR Dextrose (Dextrose 50%-Water Syringe) 12.5 gm PRN Q15MIN PRN 07/21/19 13:15 08/03/19 06:03 12.5 GM Enoxaparin Sodium (Lovenox 40mg Syringe) 40 mg Q24H 07/21/19 21:00 08/02/19 22:15 40 MG Famotidine (Pepcid Vial) 20 mg DAILY 07/21/19 21:00 08/03/19 08:15 20 MG Glucagon (Glucagen) 1 mg 1X ONCE 07/29/19 01:00 07/29/19 01:01 DC 07/29/19 00:28 1 MG Insulin Glargine (Lantus Syringe) 8 unit BID 07/24/19 09:00 08/02/19 22:25 8 UNIT Insulin Human Lispro (HumaLOG) 0-5 UNITS Q6HRS 07/21/19 13:15 07/31/19 06:12 3 UNITS Insulin Human Regular (HumuLIN R VIAL) 10 unit 1X ONCE 07/21/19 07:30 07/21/19 07:31 DC 07/21/19 07:30 10 UNIT Iohexol (Omnipaque 300 Mg/ml) 75 ml 1X ONCE 07/21/19 09:00 07/21/19 09:01 DC 07/21/19 10:01 75 ML Magnesium Oxide (Magnesium Oxide) 400 mg BID 07/27/19 15:00 07/28/19 21:01 DC 07/28/19 20:12 400 MG Magnesium Sulfate 50 ml @ 25 mls/hr PRN DAILY PRN 07/26/19 13:30 07/27/19 13:44 DC Magnesium Sulfate/ Dextrose 100 ml @ 100 mls/hr 1X ONCE 07/29/19 13:15 07/29/19 13:16 DC Metoclopramide HCl (Reglan Oral Solution) 5 mg TIDACHC 08/01/19 08:45 08/03/19 08:14 5 MG Metoclopramide HCl (Reglan Vial) 10 mg 1X ONCE 07/21/19 08:45 07/21/19 08:47 DC 07/21/19 09:05 10 MG Ondansetron HCl (Zofran Odt) 8 mg PRN Q4HRS PRN 07/29/19 17:45 07/30/19 10:52 8 MG Ondansetron HCl (Zofran) 4 mg PRN Q4HRS PRN 07/21/19 11:30 07/23/19 10:05 4 MG Potassium Chloride 30 meq/ Dextrose 1,015 ml @ 100 mls/hr Q10H9M 07/26/19 13:30 07/27/19 13:44 DC 07/26/19 23:39 100 MLS/HR Potassium Chloride/Water 100 ml @ 75 mls/hr 1400,1520,1640 07/25/19 14:00 07/25/19 17:59 DC 07/25/19 17:33 75 MLS/HR Sodium Monofluorophosphate (Fleet Adult) 133 ml PRN DAILY PRN 07/21/19 11:30 07/26/19 13:25 DC Sodium Bicarbonate (Sodium Bicarb Adult 8.4% Syr) 50 meq 1X ONCE 07/21/19 07:30 07/21/19 07:31 DC 07/21/19 08:25 50 MEQ Sodium Chloride 1,000 ml @ 100 mls/hr Q10H 07/21/19 11:19 07/24/19 11:45 DC 07/24/19 09:14 100 MLS/HR Sodium Chloride (Normal Saline Flush) 3 ml QSHIFT PRN 07/21/19 11:30 Vancomycin HCl (Vanco Per Pharmacy) 1 each PRN DAILY PRN 07/21/19 11:45 07/28/19 12:16 DC 07/27/19 11:00 1 EACH Vancomycin HCl (Vancomycin Trough Level) 1 each 1X ONCE 07/28/19 12:30 07/28/19 12:31 Cancel Vancomycin HCl 1 gm/Dextrose 250 ml @ 250 mls/hr 1X ONCE 07/21/19 11:30 07/21/19 12:29 DC 07/21/19 12:36 250 MLS/HR Vancomycin HCl 1 gm/Sodium Chloride 250 ml @ 250 mls/hr Q24H 07/22/19 13:00 07/28/19 12:16 DC 07/27/19 14:11 250 MLS/HR Lab Laboratory Tests Test 08/02/19 11:59 08/02/19 18:38 08/02/19 23:52 08/03/19 06:00 Glucose (Fingerstick) 118 mg/dL (70-99) 117 mg/dL (70-99) 128 mg/dL (70-99) 56 mg/dL (70-99) Test 08/03/19 06:12 Glucose (Fingerstick) 140 mg/dL (70-99) Results All relevant outside records, renal labs, imaging studies, telemetry/EKG's were reviewed. CHUY MITCHELL MD August 03, 2019 11:44
--- NOTE | 2019-08-03 12:44 | PDOC ---
PULMONARY PROGRESS NOTES Subjective answers some Qs, on ra, no nausea, sob no S/S of distress Vitals Vital Signs Date Time Temp Pulse Resp B/P (MAP) Pulse Ox O2 Delivery O2 Flow Rate FiO2 08/03/19 11:54 Room Air 08/03/19 11:00 97.6 98 18 110/52 (71) 96 97.6 08/02/19 19:30 2.0 Comments unable to report ROS 2/2 non-verbal General: Alert, No acute distress Lungs: Other (coarse ) Cardiovascular: S1, S2 Abdomen: Soft, Non-tender, Other (Peg in place ) Extremities: Other (Contractures muscle wasting, BLE wounds ) Skin: Warm Labs Laboratory Tests Test 08/01/19 18:11 08/02/19 01:24 08/02/19 04:06 08/02/19 09:31 Glucose (Fingerstick) 145 mg/dL (70-99) 123 mg/dL (70-99) 132 mg/dL (70-99) Sodium Level 145 mmol/L (136-145) Potassium Level 4.5 mmol/L (3.5-5.1) Chloride Level 110 mmol/L (98-107) Carbon Dioxide Level 24 mmol/L (21-32) Anion Gap 11 (6-14) Blood Urea Nitrogen 33 mg/dL (7-20) Creatinine 1.2 mg/dL (0.6-1.0) Estimated GFR (Cockcroft-Gault) 56.0 Glucose Level 120 mg/dL (70-99) Calcium Level 7.9 mg/dL (8.5-10.1) Test 08/02/19 11:59 08/02/19 18:38 08/02/19 23:52 08/03/19 06:00 Glucose (Fingerstick) 118 mg/dL (70-99) 117 mg/dL (70-99) 128 mg/dL (70-99) 56 mg/dL (70-99) Test 08/03/19 06:12 08/03/19 11:46 Glucose (Fingerstick) 140 mg/dL (70-99) 77 mg/dL (70-99) Laboratory Tests Test 08/02/19 18:38 08/02/19 23:52 08/03/19 06:00 08/03/19 06:12 Glucose (Fingerstick) 117 mg/dL (70-99) 128 mg/dL (70-99) 56 mg/dL (70-99) 140 mg/dL (70-99) Test 08/03/19 11:46 Glucose (Fingerstick) 77 mg/dL (70-99) Medications Active Scripts Medications Dose Route/Sig Max Daily Dose Days Date Category Zocor (Simvastatin) 40 Mg Tablet 1 Tab PO DAILY 07/21/19 Reported Tramadol Hcl 50 Mg Tablet 50 Mg PO BID PRN 07/21/19 Reported Senokot (Sennosides) 8.6 Mg Tablet 1 Tab PO BID 20 07/21/19 Reported Polyethylene Glycol 3350 2,500 Gm Powder 17 Gm PO DAILY 30 07/21/19 Reported Omeprazole 20 Mg Tablet.dr 1 Tab PO DAILY 07/21/19 Reported Basalt 5-325 Tablet (Acetaminophen/Hydrocodone Bitart) 1 Each Tablet 1 Tab PO BID 07/21/19 Reported Metoprolol Tartrate 25 Mg Tablet 1 Tab PO BID 07/21/19 Reported Melatonin 3 Mg Tablet 2 Tab PO QHS 07/21/19 Reported Lantus Solostar (Insulin Glargine,Hum.rec.anlog) 100 Unit/1 Ml Insuln.pen 30 Unit SQ QHS 07/21/19 Reported Hydroxyzine Hcl 25 Mg Tablet 1 Tab PO TID 07/21/19 Reported Gabapentin 600 Mg Tablet 600 Mg PO BID 07/21/19 Reported Docusate Sodium 100 Mg Capsule 1 Cap PO BID 15 07/21/19 Reported Cyclobenzaprine Hcl 5 Mg Tablet 1 Tab PO QHS 07/21/19 Reported Vitamin B-12 (Cyanocobalamin (Vitamin B-12)) 1,000 Mcg Tablet 1 Tab PO DAILY 30 07/21/19 Reported Coreg (Carvedilol) 25 Mg Tablet 12.5 Mg PO BIDWMEALS 07/21/19 Reported Clopidogrel (Clopidogrel Bisulfate) 75 Mg Tablet 1 Tab PO DAILY 07/21/19 Reported Celexa (Citalopram Hydrobromide) 20 Mg Tablet 1 Tab PO DAILY 07/21/19 Reported D3-50 (Cholecalciferol (Vitamin D3)) 50,000 Unit Capsule 2,000 Unit PO DAILY 07/21/19 Reported Bisacodyl 10 Mg Supp.rect 10 Mg RC PRN DAILY PRN 07/21/19 Reported Aspirin 325 Mg Tablet 1 Tab PO DAILY 07/21/19 Reported Albuterol Sulfate Neb Soln (Albuterol Sulfate) 2.5 Mg/3 Ml Vial.neb 1 Vial NEB PRN Q4HRS 07/21/19 Reported Tylenol (Acetaminophen) 325 Mg Tablet 2 Tab PO BID 07/21/19 Reported Humalog (Insulin Lispro) 100 Unit/1 Ml Insuln.pen 0 Units SQ TIDWMEALS 14 06/06/19 Rx Zofran Odt (Ondansetron) 4 Mg Tab.rapdis 1 Tab SL Q6HRS PRN 08/19/16 Rx Comments CXR - 07/27/2019 IMPRESSION: 1. Improving left-sided airspace disease. 2. Possible small left pleural effusion. Impression . IMPRESSION: 1. Acute hypoxemic respiratory failure- 2. Aspiration pneumonia. 3. Bngji-ls-cnezxeo kidney disease. 4. Abnormal x-ray. mild bilateral infilt 07/29 5. SARS-CoV-2 negative 6. 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 7. Severe protein malnutrition, present upon admission. 8. Hypokalemia. resolved 9. Elevated liver chemistries. 10. wheezing-resolved 11. Hypernatermia, resolved Plan . 1. supplemental oxygen if needed, continue bronchodilators 2. Follow nephrology recs 3. COVID-19(-) 4. Cont. ABX 5. TF 6. Monitor Electrolytes-- NA+ was improved on 07/26/2019 7. wound care as needed D/W RN DVT/GI PPX: lovenox/ MANUEL Lobo MD August 03, 2019 12:44
[2019-08-03 15:00] VITALS: BP 106/58
[2019-08-03 19:00] VITALS: BP 135/98
[2019-08-03] MEDS ORDERED: INSULIN GLARGINE SYRINGE. SQ SCH (21:00)
[2019-08-03] MEDS: ENOXAPARIN 40 MG/0.4 ML SYRINGE. SQ SCH (21:20)
[2019-08-03 23:00] VITALS: BP 130/64
[2019-08-04 03:00] VITALS: BP 132/67
[2019-08-04] MEDS: INSULIN LISPRO 300 UNITS/3 ML VIAL. SQ SCH ×3 (06:00→12:00)
[2019-08-04 06:17] LABS: BASO # 0.1 x10^3/uL (0.0-0.2); BASO % 1 % (0-3); EOS # 0.1 x10^3/uL (0.0-0.7); EOS % 2 % (0-3); HEMATOCRIT 23.1 % (36.0-47.0); HEMOGLOBIN 7.4 g/dL (12.0-15.5); LYMPH # 1.5 x10^3/uL (1.0-4.8); LYMPH % 19 % (24-48); MEAN CORPUSCULAR HEMOGLOBIN 28 pg (25-35); MEAN CORPUSCULAR HGB CONC 32 g/dL (31-37); MEAN CORPUSCULAR VOLUME 86 fL (79-100); MONO # 0.7 x10^3/uL (0.0-1.1); MONO % 8 % (0-9); NEUT # 5.6 x10^3/uL (1.8-7.7); NEUT % 70 % (31-73); PLATELET COUNT 522 x10^3/uL (140-400); RED BLOOD COUNT 2.69 x10^6/uL (3.50-5.40); WHITE BLOOD COUNT 7.9 x10^3/uL (4.0-11.0)
[2019-08-04 06:29] LABS: ALBUMIN 1.6 g/dL (3.4-5.0); ALBUMIN/GLOBULIN RATIO 0.4 (1.0-1.7); CALCIUM 7.6 mg/dL (8.5-10.1); GFR 69.1; POTASSIUM 4.1 mmol/L (3.5-5.1); TOTAL BILIRUBIN 0.2 mg/dL (0.2-1.0); TOTAL PROTEIN 5.7 g/dL (6.4-8.2)
[2019-08-04 07:00] VITALS: BP 132/75
[2019-08-04] MEDS: IPRATRPIUM/ALBUTEROL 0.5/2.5MG 3 ML NEBU. NEB SCH ×3 (07:15→15:41)
[2019-08-04] MEDS: AMOXICILLIN/CLAV 400MG/57MG 5 ML ORAL.SUSP. PEG SCH (09:20)
[2019-08-04] MEDS: METOCLOPRAMIDE ORAL SOLN 10 MG/10 ML SOLUTION. PO SCH ×2 (09:20→13:07)
[2019-08-04] MEDS: FAMOTIDINE 20 MG/2 ML VIAL IVP SCH (09:20)
--- NOTE | 2019-08-04 09:26 | PDOC ---
SUBJECTIVE ROS stable OBJECTIVE Vital Signs Vital Signs Date Time Temp Pulse Resp B/P (MAP) Pulse Ox O2 Delivery O2 Flow Rate FiO2 08/04/19 07:15 100 Nasal Cannula 1.5 08/04/19 07:00 97.0 97 16 132/75 (94) 97.0 I & 0 Intake and Output0 08/04/19 06:59 Intake Total 1015 ml Balance 1015 ml Tube Feeding 590 ml Other 425 ml # Voids 3 PHYSICAL EXAM Physical Exam GEN: nad HEEN: Om moist , O2 by NC NECK: supple CVS: RRR RESP: decreased at bases, Nonlabored GI: BS + ve Non Tender, PEG + : No CVA tenderness, No Suprapubic Tenderness, No stapleton Neuro- Non verbal Ext No edema DIAGNOSIS/ASSESSMENT Assessment & Plan ELISA-CR OF 1.5 Resolved CKD stage 3 - Baseline 1.5-1.8 since at least 2014, stable renal function Supportive care, strict I/O , Avoid nephrotoxins, Monitor Recd IV contrast with CT on 07/20 Acute hypoxic respiratory failure /Pneumonia COVID negative Scattered opacities in the left lung, concerning for an infectious/inflammatory process. H/o CVA with Expressive aphasia peg feeding dependent HTN- stable DM HYPOMAGNESEMIA-RESOLVED HYPERNATREMIA- Resolved Will sign off COMMENT/RELEVANT DATA Meds Current Medications Medications (Trade) Dose Ordered Sig/Shirley Start Time Stop Time Status Last Admin Dose Admin Acetaminophen (Tylenol Supp) 650 mg PRN Q4HRS PRN 07/21/19 11:30 07/23/19 16:52 650 MG Acetaminophen (Tylenol) 650 mg PRN Q4HRS PRN 07/21/19 11:30 07/30/19 10:51 650 MG Albumin Human 500 ml @ 125 mls/hr 1X ONCE 07/31/19 08:45 07/31/19 12:44 DC 07/31/19 09:00 125 MLS/HR Albuterol Sulfate (Ventolin Neb Soln) 2.5 mg PRN Q4HRS 07/22/19 06:45 07/22/19 11:59 DC Albuterol/ Ipratropium (Duoneb) 3 ml RTQID 07/27/19 16:00 08/04/19 07:15 3 ML Amino Acids/ Glycerin/ Electrolytes 1,000 ml @ 80 mls/hr [id number] 07/30/19 11:15 08/03/19 09:59 DC 08/02/19 23:38 80 MLS/HR Amoxicillin/ Clavulanate Potassium (Augmentin 400-57mg/5ml Susp) 5 ml Q12HR 07/28/19 13:00 08/03/19 21:19 5 ML Cefepime HCl (Maxipime) 2 gm Q12HR 07/21/19 21:00 07/28/19 12:16 DC 07/27/19 22:03 2 GM Clindamycin Phosphate 50 ml @ 100 mls/hr 1X ONCE 07/21/19 07:45 07/21/19 08:14 DC 07/21/19 08:31 100 MLS/HR Clonidine HCl (Catapres) 0.1 mg PRN Q6HRS PRN 07/21/19 11:30 07/29/19 22:21 0.1 MG Dextrose 1,000 ml @ 100 mls/hr Q10H 07/27/19 14:00 07/29/19 13:16 DC 07/27/19 14:10 100 MLS/HR Dextrose (Dextrose 50%-Water Syringe) 12.5 gm PRN Q15MIN PRN 07/21/19 13:15 08/03/19 18:05 12.5 GM Enoxaparin Sodium (Lovenox 40mg Syringe) 40 mg Q24H 07/21/19 21:00 08/03/19 21:20 40 MG Famotidine (Pepcid Vial) 20 mg DAILY 07/21/19 21:00 08/03/19 08:15 20 MG Glucagon (Glucagen) 1 mg 1X ONCE 07/29/19 01:00 07/29/19 01:01 DC 07/29/19 00:28 1 MG Insulin Glargine (Lantus Syringe) 8 unit QHS 08/03/19 21:00 08/03/19 21:26 8 UNIT Insulin Human Lispro (HumaLOG) 0-5 UNITS Q6HRS 07/21/19 13:15 07/31/19 06:12 3 UNITS Insulin Human Regular (HumuLIN R VIAL) 10 unit 1X ONCE 07/21/19 07:30 07/21/19 07:31 DC 07/21/19 07:30 10 UNIT Iohexol (Omnipaque 300 Mg/ml) 75 ml 1X ONCE 07/21/19 09:00 07/21/19 09:01 DC 07/21/19 10:01 75 ML Magnesium Oxide (Magnesium Oxide) 400 mg BID 07/27/19 15:00 07/28/19 21:01 DC 07/28/19 20:12 400 MG Magnesium Sulfate 50 ml @ 25 mls/hr PRN DAILY PRN 07/26/19 13:30 07/27/19 13:44 DC Magnesium Sulfate/ Dextrose 100 ml @ 100 mls/hr 1X ONCE 07/29/19 13:15 07/29/19 13:16 DC Metoclopramide HCl (Reglan Oral Solution) 5 mg TIDACHC 08/01/19 08:45 08/03/19 21:19 5 MG Metoclopramide HCl (Reglan Vial) 10 mg 1X ONCE 07/21/19 08:45 07/21/19 08:47 DC 07/21/19 09:05 10 MG Ondansetron HCl (Zofran Odt) 8 mg PRN Q4HRS PRN 07/29/19 17:45 07/30/19 10:52 8 MG Ondansetron HCl (Zofran) 4 mg PRN Q4HRS PRN 07/21/19 11:30 07/23/19 10:05 4 MG Potassium Chloride 30 meq/ Dextrose 1,015 ml @ 100 mls/hr Q10H9M 07/26/19 13:30 07/27/19 13:44 DC 07/26/19 23:39 100 MLS/HR Potassium Chloride/Water 100 ml @ 75 mls/hr 1400,1520,1640 07/25/19 14:00 07/25/19 17:59 DC 07/25/19 17:33 75 MLS/HR Sodium Monofluorophosphate (Fleet Adult) 133 ml PRN DAILY PRN 07/21/19 11:30 07/26/19 13:25 DC Sodium Bicarbonate (Sodium Bicarb Adult 8.4% Syr) 50 meq 1X ONCE 07/21/19 07:30 07/21/19 07:31 DC 07/21/19 08:25 50 MEQ Sodium Chloride 1,000 ml @ 100 mls/hr Q10H 07/21/19 11:19 07/24/19 11:45 DC 07/24/19 09:14 100 MLS/HR Sodium Chloride (Normal Saline Flush) 3 ml QSHIFT PRN 07/21/19 11:30 Vancomycin HCl (Vanco Per Pharmacy) 1 each PRN DAILY PRN 07/21/19 11:45 07/28/19 12:16 DC 07/27/19 11:00 1 EACH Vancomycin HCl (Vancomycin Trough Level) 1 each 1X ONCE 07/28/19 12:30 07/28/19 12:31 Cancel Vancomycin HCl 1 gm/Dextrose 250 ml @ 250 mls/hr 1X ONCE 07/21/19 11:30 07/21/19 12:29 DC 07/21/19 12:36 250 MLS/HR Vancomycin HCl 1 gm/Sodium Chloride 250 ml @ 250 mls/hr Q24H 07/22/19 13:00 07/28/19 12:16 DC 07/27/19 14:11 250 MLS/HR Lab Laboratory Tests Test 08/03/19 11:46 08/03/19 18:00 08/03/19 20:52 08/04/19 00:04 Glucose (Fingerstick) 77 mg/dL (70-99) 66 mg/dL (70-99) 113 mg/dL (70-99) 97 mg/dL (70-99) Test 08/04/19 06:00 08/04/19 06:06 Glucose (Fingerstick) 73 mg/dL (70-99) White Blood Count 7.9 x10^3/uL (4.0-11.0) Red Blood Count 2.69 x10^6/uL (3.50-5.40) Hemoglobin 7.4 g/dL (12.0-15.5) Hematocrit 23.1 % (36.0-47.0) Mean Corpuscular Volume 86 fL (79-100) Mean Corpuscular Hemoglobin 28 pg (25-35) Mean Corpuscular Hemoglobin Concent 32 g/dL (31-37) Red Cell Distribution Width 17.0 % (11.5-14.5) Platelet Count 522 x10^3/uL (140-400) Neutrophils (%) (Auto) 70 % (31-73) Lymphocytes (%) (Auto) 19 % (24-48) Monocytes (%) (Auto) 8 % (0-9) Eosinophils (%) (Auto) 2 % (0-3) Basophils (%) (Auto) 1 % (0-3) Neutrophils # (Auto) 5.6 x10^3/uL (1.8-7.7) Lymphocytes # (Auto) 1.5 x10^3/uL (1.0-4.8) Monocytes # (Auto) 0.7 x10^3/uL (0.0-1.1) Eosinophils # (Auto) 0.1 x10^3/uL (0.0-0.7) Basophils # (Auto) 0.1 x10^3/uL (0.0-0.2) Sodium Level 141 mmol/L (136-145) Potassium Level 4.1 mmol/L (3.5-5.1) Chloride Level 108 mmol/L (98-107) Carbon Dioxide Level 24 mmol/L (21-32) Anion Gap 9 (6-14) Blood Urea Nitrogen 26 mg/dL (7-20) Creatinine 1.0 mg/dL (0.6-1.0) Estimated GFR (Cockcroft-Gault) 69.1 BUN/Creatinine Ratio 26 (6-20) Glucose Level 81 mg/dL (70-99) Calcium Level 7.6 mg/dL (8.5-10.1) Total Bilirubin 0.2 mg/dL (0.2-1.0) Aspartate Amino Transf (AST/SGOT) 16 U/L (15-37) Alanine Aminotransferase (ALT/SGPT) 19 U/L (14-59) Alkaline Phosphatase 128 U/L (46-116) Total Protein 5.7 g/dL (6.4-8.2) Albumin 1.6 g/dL (3.4-5.0) Albumin/Globulin Ratio 0.4 (1.0-1.7) Results All relevant outside records, renal labs, imaging studies, telemetry/EKG's were reviewed. CHUY MITCHELL MD Aug 04, 2019 09:26
[2019-08-04] MEDS ORDERED: AMOX400S PEG (10:28)
--- NOTE | 2019-08-04 10:29 | SNU/HH DC ---
DISCHARGE ORDERS DISCHARGE INFORMATION: DISCHARGE DATE: Aug 04, 2019 FINAL DIAGNOSIS Problems Medical Problems: (1) Aspiration into airway Status: Acute (2) Congestive heart failure Status: Acute (3) HCAP (healthcare-associated pneumonia) Status: Acute (4) Hyperkalemia Status: Acute CONDITION ON DISCHARGE: Stable CODE STATUS: Code Status: Full FPC: SNF STAY <30 DAYS: Yes POST DISCHARGE ORDERS: ACTIVITY ORDERS: No restrictions WEIGHT BEARING STATUS: No restrictions DIET AFTER DISCHARGE: PEG feeds per dietary recommendation WOUND/INCISION CARE: No wound care needed CHECKS AFTER DISCHARGE: CHECKS AFTER DISCHARGE: Check blood press - daily TREATMENT/EQUIPMENT ORDERS: ADAPTIVE EQUIPMENT NEEDED: None Physical Therapy For: Evalulation/Treatment Occupational Therapy For: Evaluation/Treatment Speech Language Pathology For: Evaluation/Treatment DISCHARGE MEDICATIONS: Home Meds Active Scripts Amoxicillin/Potassium Clav (AMOX TR-K CLV 400-57/5 SUSP) 400 Mg/5 Ml Susp.recon, 5 ML PEG Q12HR for pneumonia for 3 Days, #30 ML Prov:DOT LUONG MD 08/04/19 Insulin Lispro (HUMALOG) 100 Unit/1 Ml Insuln.pen, 0 UNITS SQ TIDWMEALS for DIABETES for 14 Days, #1 EACH Prov:FAUSTO MARCIAL MD 06/06/19 Ondansetron (ZOFRAN ODT) 4 Mg Tab.rapdis, 1 TAB SL Q6HRS PRN for NAUSEA, #12 TAB Prov:MIGUEL ANGEL BENITEZ MD 08/19/16 Reported Medications Simvastatin (ZOCOR) 40 Mg Tablet, 1 TAB PO DAILY for LIPID, #90 TAB 1 Refill 07/21/19 Sennosides (SENOKOT) 8.6 Mg Tablet, 1 TAB PO BID for constipation for 20 Days, #40 TAB 0 Refills 07/21/19 Polyethylene Glycol 3350 (POLYETHYLENE GLYCOL 3350) 2,500 Gm Powder, 17 GM PO DAILY for constipation for 30 Days, #527 GM 0 Refills 07/21/19 Omeprazole (OMEPRAZOLE) 20 Mg Tablet.dr, 1 TAB PO DAILY for REFLUX, #90 TAB 1 Refill 20 Metoprolol Tartrate (METOPROLOL TARTRATE) 25 Mg Tablet, 1 TAB PO BID for BP, #60 TAB 5 Refills 20 Melatonin (MELATONIN) 3 Mg Tablet, 2 TAB PO QHS for SLEEP, #30 TAB 2 Refills 5/18/20 Insulin Glargine,Hum.rec.anlog (LANTUS SOLOSTAR) 100 Unit/1 Ml Insuln.pen, 30 UNIT SQ QHS for DM, #15 ML 3 Refills 07/21/19 Hydroxyzine Hcl (HYDROXYZINE HCL) 25 Mg Tablet, 1 TAB PO TID for ANXIETY, #30 TAB 07/21/19 Gabapentin (GABAPENTIN) 600 Mg Tablet, 600 MG PO BID for NEUROGENIC PAIN, TAB 07/21/19 Docusate Sodium (DOCUSATE SODIUM) 100 Mg Capsule, 1 CAP PO BID for constipation for 15 Days, #30 CAP 0 Refills 07/21/19 Cyclobenzaprine Hcl (CYCLOBENZAPRINE HCL) 5 Mg Tablet, 1 TAB PO QHS for SKELETAL PAIN, #30 TAB 07/21/19 Cyanocobalamin (Vitamin B-12) (VITAMIN B-12) 1,000 Mcg Tablet, 1 TAB PO DAILY for VIT for 30 Days, #30 TAB 0 Refills 07/21/19 Carvedilol (COREG) 25 Mg Tablet, 12.5 MG PO BIDWMEALS for CARDIAC, TAB 07/21/19 Clopidogrel Bisulfate (CLOPIDOGREL) 75 Mg Tablet, 1 TAB PO DAILY for CLOTTING, #90 TAB 1 Refill 07/21/19 Citalopram Hydrobromide (CELEXA) 20 Mg Tablet, 1 TAB PO DAILY for DEPRESSION, #90 TAB 3 Refills 07/21/19 Cholecalciferol (Vitamin D3) (D3-50) 50,000 Unit Capsule, 2000 UNIT PO DAILY for VIT, CAP 07/21/19 Bisacodyl (BISACODYL) 10 Mg Supp.rect, 10 MG RC PRN DAILY PRN for CONSTIPATION, SUPP.RECT 0 Refills 07/21/19 Aspirin (ASPIRIN) 325 Mg Tablet, 1 TAB PO DAILY for HEART, #30 TAB 5 Refills 07/21/19 Albuterol Sulfate (ALBUTEROL SULFATE NEB SOLN) 2.5 Mg/3 Ml Vial.neb, 1 VIAL NEB PRN Q4HRS for BREATHING, #50 VIAL 07/21/19 Acetaminophen (TYLENOL) 325 Mg Tablet, 2 TAB PO BID for PAIM, #30 TAB 07/21/19 Discontinued Reported Medications Tramadol Hcl (TRAMADOL HCL) 50 Mg Tablet, 50 MG PO BID PRN for PAIN, TAB 0 Refills 07/21/19 Hydrocodone/Apap 5-325 (NORCO 5-325 TABLET) 1 Each Tablet, 1 TAB PO BID for PAIN, #60 TAB 07/21/19 DOT LUONG MD Aug 04, 2019 10:29
--- NOTE | 2019-08-04 10:37 | PDOC3 ---
Discharge Summary Visit Information Date of Admission: July 21, 2019 Date of Discharge: Aug 04, 2019 Admitting Diagnosis Comment: Acute pneumonia, favor aspiration cannot exclude covid-19 Scattered opacities in the left lung, concerning for an infectious/inflammatory process. acute hypoxic respiratory failure H/o CVA, peg feeding dependent HTN, DM GERD CKD STAGE 3-4 severe hyperkalemia Final Diagnosis Problems Medical Problems: Acute pneumonia, favor aspiration negative COVID testing Scattered opacities in the left lung, concerning for an infectious/inflammatory process. Hypernatremia secondary to severe dehydration acute hypoxic respiratory failure H/o CVA, peg feeding dependent, expressive aphasia HTN, DM GERD HyperKalemia- at presentation, Improved na =146 Developmental delay Acute hypoxemic respiratory failure. Cadxx-xx-xtqeotk kidney disease. Abnormal x-ray. COVID-19 suspected - negative Previous cerebrovascular accident with hemiparesis and expressive aphasia. Severe protein malnutrition, present upon admission. Hyperkalemia. Elevated liver chemistries. Brief Hospital Course Allergies Allergies Coded Allergies Type Severity Reaction Last Updated Verified No Known Drug Allergies 06/17/19 No Vital Signs Vital Signs Date Time Temp Pulse Resp B/P (MAP) Pulse Ox O2 Delivery O2 Flow Rate FiO2 08/04/19 07:30 Room Air 08/04/19 07:15 100 1.5 08/04/19 07:00 97.0 97 16 132/75 (94) 97.0 Lab Results Laboratory Tests Test 08/02/19 11:59 08/02/19 18:38 08/02/19 23:52 08/03/19 06:00 Glucose (Fingerstick) 118 mg/dL (70-99) 117 mg/dL (70-99) 128 mg/dL (70-99) 56 mg/dL (70-99) Test 08/03/19 06:12 08/03/19 11:46 08/03/19 18:00 08/03/19 20:52 Glucose (Fingerstick) 140 mg/dL (70-99) 77 mg/dL (70-99) 66 mg/dL (70-99) 113 mg/dL (70-99) Test 08/04/19 00:04 08/04/19 06:00 08/04/19 06:06 Glucose (Fingerstick) 97 mg/dL (70-99) 73 mg/dL (70-99) White Blood Count 7.9 x10^3/uL (4.0-11.0) Red Blood Count 2.69 x10^6/uL (3.50-5.40) Hemoglobin 7.4 g/dL (12.0-15.5) Hematocrit 23.1 % (36.0-47.0) Mean Corpuscular Volume 86 fL (79-100) Mean Corpuscular Hemoglobin 28 pg (25-35) Mean Corpuscular Hemoglobin Concent 32 g/dL (31-37) Red Cell Distribution Width 17.0 % (11.5-14.5) Platelet Count 522 x10^3/uL (140-400) Neutrophils (%) (Auto) 70 % (31-73) Lymphocytes (%) (Auto) 19 % (24-48) Monocytes (%) (Auto) 8 % (0-9) Eosinophils (%) (Auto) 2 % (0-3) Basophils (%) (Auto) 1 % (0-3) Neutrophils # (Auto) 5.6 x10^3/uL (1.8-7.7) Lymphocytes # (Auto) 1.5 x10^3/uL (1.0-4.8) Monocytes # (Auto) 0.7 x10^3/uL (0.0-1.1) Eosinophils # (Auto) 0.1 x10^3/uL (0.0-0.7) Basophils # (Auto) 0.1 x10^3/uL (0.0-0.2) Sodium Level 141 mmol/L (136-145) Potassium Level 4.1 mmol/L (3.5-5.1) Chloride Level 108 mmol/L (98-107) Carbon Dioxide Level 24 mmol/L (21-32) Anion Gap 9 (6-14) Blood Urea Nitrogen 26 mg/dL (7-20) Creatinine 1.0 mg/dL (0.6-1.0) Estimated GFR (Cockcroft-Gault) 69.1 BUN/Creatinine Ratio 26 (6-20) Glucose Level 81 mg/dL (70-99) Calcium Level 7.6 mg/dL (8.5-10.1) Total Bilirubin 0.2 mg/dL (0.2-1.0) Aspartate Amino Transf (AST/SGOT) 16 U/L (15-37) Alanine Aminotransferase (ALT/SGPT) 19 U/L (14-59) Alkaline Phosphatase 128 U/L (46-116) Total Protein 5.7 g/dL (6.4-8.2) Albumin 1.6 g/dL (3.4-5.0) Albumin/Globulin Ratio 0.4 (1.0-1.7) Laboratory Tests Test 08/03/19 11:46 08/03/19 18:00 08/03/19 20:52 08/04/19 00:04 Glucose (Fingerstick) 77 mg/dL (70-99) 66 mg/dL (70-99) 113 mg/dL (70-99) 97 mg/dL (70-99) Test 08/04/19 06:00 08/04/19 06:06 Glucose (Fingerstick) 73 mg/dL (70-99) White Blood Count 7.9 x10^3/uL (4.0-11.0) Red Blood Count 2.69 x10^6/uL (3.50-5.40) Hemoglobin 7.4 g/dL (12.0-15.5) Hematocrit 23.1 % (36.0-47.0) Mean Corpuscular Volume 86 fL (79-100) Mean Corpuscular Hemoglobin 28 pg (25-35) Mean Corpuscular Hemoglobin Concent 32 g/dL (31-37) Red Cell Distribution Width 17.0 % (11.5-14.5) Platelet Count 522 x10^3/uL (140-400) Neutrophils (%) (Auto) 70 % (31-73) Lymphocytes (%) (Auto) 19 % (24-48) Monocytes (%) (Auto) 8 % (0-9) Eosinophils (%) (Auto) 2 % (0-3) Basophils (%) (Auto) 1 % (0-3) Neutrophils # (Auto) 5.6 x10^3/uL (1.8-7.7) Lymphocytes # (Auto) 1.5 x10^3/uL (1.0-4.8) Monocytes # (Auto) 0.7 x10^3/uL (0.0-1.1) Eosinophils # (Auto) 0.1 x10^3/uL (0.0-0.7) Basophils # (Auto) 0.1 x10^3/uL (0.0-0.2) Sodium Level 141 mmol/L (136-145) Potassium Level 4.1 mmol/L (3.5-5.1) Chloride Level 108 mmol/L (98-107) Carbon Dioxide Level 24 mmol/L (21-32) Anion Gap 9 (6-14) Blood Urea Nitrogen 26 mg/dL (7-20) Creatinine 1.0 mg/dL (0.6-1.0) Estimated GFR (Cockcroft-Gault) 69.1 BUN/Creatinine Ratio 26 (6-20) Glucose Level 81 mg/dL (70-99) Calcium Level 7.6 mg/dL (8.5-10.1) Total Bilirubin 0.2 mg/dL (0.2-1.0) Aspartate Amino Transf (AST/SGOT) 16 U/L (15-37) Alanine Aminotransferase (ALT/SGPT) 19 U/L (14-59) Alkaline Phosphatase 128 U/L (46-116) Total Protein 5.7 g/dL (6.4-8.2) Albumin 1.6 g/dL (3.4-5.0) Albumin/Globulin Ratio 0.4 (1.0-1.7) Brief Hospital Course PROGRESS NOTES Chief Complaint Chief Complaint A/P: Acute pneumonia, favor aspiration negative COVID testing Scattered opacities in the left lung, concerning for an infectious/inflammatory process. Hypernatremia secondary to severe dehydration acute hypoxic respiratory failure H/o CVA, peg feeding dependent, expressive aphasia HTN, DM GERD HyperKalemia- at presentation, Improved na =146 Developmental delay Acute hypoxemic respiratory failure. Ayuuo-fo-pwcbxhz kidney disease. Abnormal x-ray. COVID-19 suspected - negative Previous cerebrovascular accident with hemiparesis and expressive aphasia. Severe protein malnutrition, present upon admission. Hyperkalemia. Elevated liver chemistries. 28 MIN pt exam, chart review, > 50% of time spent with exam, chart review, pt care coordination History of Present Illness History of Present Illness Ms Villa is a 59 yo F w/ PMHx DM2, GERD, HLD, HTN, migraines, CVA with left- sided hemiparesis, expressive aphasia s/p PEG placement who presented to ED with acute respiratory distress, found to have O2 saturation of 57% on room air by EMS. Negative for SARS-CoV-2 during the COVID-19 pandemic, unable to obtain any information from the patient herself. 07/24: No acute events reported overnight, case discussed with nursing staff patient in no acute distress no complaints during my visit unable to have a meaningful conversation with the patient due to expressive aphasia as a consequence of her CVA 07/25: No acute events reported overnight, case discussed with nursing staff patient in no acute distress no complaints during my visit, electrolyte disturbance seems to be improving now that her feeding tubes have been restarted, appreciate nephrology recommendation 07/26: more coarse 07/27: Lost IV access. Afebrile. Some sputum this morning, unclear if it is emesis. 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 Faye MIRANDA, requests not to lex ce another PICC line and informs me that she is FULL CODE but is on comfort care measures at her SNF and she would like her to return [place]. She wants patient to remain full code, states she is waiting for life insurance. She does note the patient had previously noted she would never want to be on a ventilator. 07/28: More emesis 07/29: PICC insertion, more emesis 07/31: Afebrile overnight. Sodium 147, CR 1.4, on PPN. Albumin 1.7. Tube feeds on hold, no vomiting. 08/01; Afebrile, CR 1.2, NA 145. Glucose 120. She does not interact. 08/02: Afebrile overnight, off NC O2. Glucose 56 this morning. Restarted slowly on tube feeds and free water flushes with no further vomiting. She appears much more comfortable. Opening eyes, no meaningful interaction does not follow commands. 08/13: Patient did well onvernight, she is tolerating her tube feeds and no concerns voiced by nursing staff, she is hemodynamically stable and medically optimized in orderto discharge patient back to her living arrangements she had at the time of the Pandemia. Plan: Cont PO augmentin syrup Add back TF slowly. Would avoid metoclopramide given her contractures and mental status. D/C to SNF Assessment Assessment IMAGING REPORT Signed PATIENT: ROBERT VILLA ACCOUNT: [id number] : 1960 LOCATION: [facility] ICU AGE: 59 SEX: F EXAM STATUS: ADM IN ORD. PHYSICIAN: CHANEL PARSONS DO REASON: abdominal pain, vomiting PROCEDURE: CT ABD PELV W/ IV CONTRST ONLY PQRS Compliance Statement: One or more of the following individualized dose reduction techniques were utilized for this examination: 1. Automated exposure control 2. Adjustment of the mA and/or kV according to patient size 3. Use of iterative reconstruction technique CT abdomen/pelvis with contrast 07/21/2019 8:26 AM INDICATION: Abdominal pain, vomiting COMPARISON: None available TECHNIQUE: Multiple axial CT images of the abdomen and pelvis were obtained after the intravenous administration of 60 mL Omnipaque 300. Coronal and sagittal reformats are provided. FINDINGS: Patchy nodular airspace disease identified in the inferior lingula, left lower lobe and to lesser extent right lower lobe suspicious for pulmonary infiltrates. Heart size within normal limits. Liver, spleen, bilateral adrenal glands, pancreas and gallbladder are normal in appearance. Abdominal aorta is tortuous, normal in caliber with moderate calcified and noncalcified atheromatous plaque. No free fluid or free intraperitoneal air. Kidneys are normal in appearance. No suspicious renal mass is identified. No hydronephrosis. No calculi are identified in the kidneys, ureters or urinary bladder. Phleboliths are identified within the pelvis. Urinary bladder is within normal limits given degree of distention. Uterus contains coarse calcifications within the fundus measuring up to 11 mm which may reflect underlying uterine fibroid. No suspicious adnexal mass is identified. Gastrostomy tube is present. There are no dilated loops of small or large bowel. No bowel obstruction or inflammation. Appendix is not definitively visualized. No pericecal inflammatory changes are identified. No suspicious osseous abnormality is identified. Mild subcutaneous edema is noted along the right gluteal region without definite ulceration. IMPRESSION: 1. Patchy nodular consolidative changes identified predominantly involving the left lower lobe, however involving the inferior lingula and right middle lobe to lesser extent. Findings are most suggestive of pneumonia in the appropriate clinical setting. Aspiration pneumonitis may have similar appearance. Recommend follow-up to ensure resolution and exclude underlying neoplastic causes. 2. No acute abnormalities identified in abdomen and pelvis. Mild subcutis edema noted along the right gluteal region without ulceration. Correlate with any pressure related effect or trauma. Electronically signed by: Brittny Patel MD (07/21/2019 10:42 AM) [facility] IMAGING REPORT Signed PATIENT: ROBERT VILLA ACCOUNT: [id number] : 1960 LOCATION: [facility] AGE: 59 SEX: F EXAM STATUS: ADM IN ORD. PHYSICIAN: FAUSTO MARCIAL MD REASON: pcc PLACEMENT PROCEDURE: PORTABLE CHEST 1V PORTABLE CHEST 1V INDICATION: Reason: pcc PLACEMENT / Spl. Instructions: / History: . COMPARISON STUDY: 07/27/2019. FINDINGS: Life Support Devices: Right PICC with tip overlying the upper right atrium. Lungs: Normal lung volume. Stable mild left greater than right basilar opacities. Normal pulmonary vasculature. Pleura: No pleural effusion or pneumothorax. Heart and Mediastinum: Stable cardiomediastinal silhouette and great vessels. IMPRESSION: 1. Right PICC with tip overlying the upper right atrium. 2. Stable mild left greater than right basilar opacities. Discharge Information Follow Up: Weeks Disposition/Orders: D/C to Home Scheduled Acetaminophen (Tylenol) 325 Mg Tablet, 2 TAB PO BID for PAIM, #30 (Reported) Entered as Reported by: ELMO PRUITT on 07/21/191123 Last Action: New Order on 07/21/191123 by ELMO PRUITT Albuterol Sulfate (Albuterol Sulfate Neb Soln) 2.5 Mg/3 Ml Vial.neb, 1 VIAL NEB PRN Q4HRS for BREATHING, #50 (Reported) Entered as Reported by: ELMO PRUITT on 07/21/191123 Last Action: New Order on 07/21/191123 by ELMO PRUITT Amoxicillin/Potassium Clav (Amox Tr-K Clv 400-57/5 Susp) 400 Mg/5 Ml Susp.recon, 5 ML PEG Q12HR for pneumonia for 3 Days, #30 Prescribed by: DOT LUONG MD on 08/04/19 1028 Aspirin (Aspirin) 325 Mg Tablet, 1 TAB PO DAILY for HEART, #30 Ref 5 (Reported) Entered as Reported by: ELMO PRUITT on 07/21/191123 Last Action: New Order on 07/21/191123 by ELMO PRUITT Carvedilol (Coreg) 25 Mg Tablet, 12.5 MG PO BIDWMEALS for CARDIAC, (Reported) Entered as Reported by: ELMO PRUITT on 07/21/191123 Last Action: New Order on 07/21/191123 by ELMO PRUITT Cholecalciferol (Vitamin D3) (D3-50) 50,000 Unit Capsule, 2,000 UNIT PO DAILY for VIT, (Reported) Entered as Reported by: LEMO PRUITT on 07/21/191123 Last Action: New Order on 07/21/191123 by ELMO PRUITT Citalopram Hydrobromide (Celexa) 20 Mg Tablet, 1 TAB PO DAILY for DEPRESSION, #90 Ref 3 (Reported) Entered as Reported by: ELMO PRUITT on 07/21/191123 Last Action: New Order on 07/21/191123 by ELMO PRUITT Clopidogrel Bisulfate (Clopidogrel) 75 Mg Tablet, 1 TAB PO DAILY for CLOTTING, #90 Ref 1 (Reported) Entered as Reported by: ELMO PRUITT on 07/21/191123 Last Action: New Order on 07/21/191123 by ELMO PRUITT Cyanocobalamin (Vitamin B-12) (Vitamin B-12) 1,000 Mcg Tablet, 1 TAB PO DAILY for VIT for 30 Days, #30 Ref 0 (Reported) Entered as Reported by: ELMO PRUITT on 07/21/191123 Last Action: New Order on 07/21/191123 by ELMO PRUITT Cyclobenzaprine Hcl (Cyclobenzaprine Hcl) 5 Mg Tablet, 1 TAB PO QHS for SKELETAL PAIN, #30 (Reported) Entered as Reported by: ELMO PRUITT on 07/21/191123 Last Action: New Order on 07/21/191123 by ELMO PRUITT Docusate Sodium (Docusate Sodium) 100 Mg Capsule, 1 CAP PO BID for constipation for 15 Days, #30 Ref 0 (Reported) Entered as Reported by: ELMO PRUITT on 07/21/191123 Last Action: New Order on 07/21/191123 by ELMO PRUITT Gabapentin (Gabapentin) 600 Mg Tablet, 600 MG PO BID for NEUROGENIC PAIN, (Reported) Entered as Reported by: ELMO PRUITT on 07/21/191123 Last Action: New Order on 07/21/191123 by ELMO PRUITT Hydroxyzine Hcl (Hydroxyzine Hcl) 25 Mg Tablet, 1 TAB PO TID for ANXIETY, #30 (Reported) Entered as Reported by: ELMO PRUITT on 07/21/191123 Last Action: New Order on 07/21/191123 by ELMO PRUITT Insulin Glargine,Hum.rec.anlog (Lantus Solostar) 100 Unit/1 Ml Insuln.pen, 30 UNIT SQ QHS for DM, #15 Ref 3 (Reported) Entered as Reported by: ELMO PRUITT on 07/21/191123 Last Action: New Order on 07/21/191123 by ELMO PRUITT Insulin Lispro (Humalog) 100 Unit/1 Ml Insuln.pen, 0 UNITS SQ TIDWMEALS for DIABETES for 14 Days, #1 Prescribed by: FAUSTO MARCIAL MD on 06/06/19 1309 Last Action: Reviewed on 07/21/191126 by ELMO PRUITT Melatonin (Melatonin) 3 Mg Tablet, 2 TAB PO QHS for SLEEP, #30 Ref 2 (Reported) Entered as Reported by: ELMO PRUITT on 07/21/191123 Last Action: New Order on 07/21/191123 by ELMO PRUITT Metoprolol Tartrate (Metoprolol Tartrate) 25 Mg Tablet, 1 TAB PO BID for BP, #60 Ref 5 (Reported) Entered as Reported by: ELMO PRUITT on 07/21/191123 Last Action: New Order on 07/21/191123 by ELMO PRUITT Omeprazole (Omeprazole) 20 Mg Tablet.dr, 1 TAB PO DAILY for REFLUX, #90 Ref 1 (Reported) Entered as Reported by: ELMO PRUITT on 07/21/191123 Last Action: New Order on 07/21/191123 by ELMO PRUITT Polyethylene Glycol 3350 (Polyethylene Glycol 3350) 2,500 Gm Powder, 17 GM PO DAILY for constipation for 30 Days, #527 Ref 0 (Reported) Entered as Reported by: ELMO PRUITT on 07/21/191123 Last Action: New Order on 07/21/191123 by ELMO PRUITT Sennosides (Senokot) 8.6 Mg Tablet, 1 TAB PO BID for constipation for 20 Days, #40 Ref 0 (Reported) Entered as Reported by: ELMO PRUITT on 07/21/191123 Last Action: New Order on 07/21/191123 by ELMO PRUITT Simvastatin (Zocor) 40 Mg Tablet, 1 TAB PO DAILY for LIPID, #90 Ref 1 (Reported) Entered as Reported by: ELMO PRUITT on 07/21/191123 Last Action: New Order on 07/21/191123 by ELMO PRUITT Scheduled PRN Bisacodyl (Bisacodyl) 10 Mg Supp.rect, 10 MG RC PRN DAILY PRN for CONSTIPATION, Ref 0 (Reported) Entered as Reported by: ELMO PRUITT on 07/21/191123 Last Action: New Order on 07/21/191123 by ELMO PRUITT Ondansetron (Zofran Odt) 4 Mg Tab.rapdis, 1 TAB SL Q6HRS PRN for NAUSEA, #12 Prescribed by: MIGUEL ANGEL BENITEZ MD on 08/19/16 0508 Discontinued Medications Hydrocodone/Apap 5-325 (Exchange 5-325 Tablet) 1 Each Tablet, 1 TAB PO BID for PAIN, #60 (Reported) Entered as Reported by: ELMO PRUITT on 07/21/191123 Last Action: New Order on 07/21/191123 by ELMO PRUITT Tramadol Hcl (Tramadol Hcl) 50 Mg Tablet, 50 MG PO BID PRN for PAIN, Ref 0 (Reported) Entered as Reported by: ELMO PRUITT on 07/21/191123 Last Action: New Order on 07/21/191123 by ELMO PRUITT Justicifation of Admission Dx: Justifications for Admission: Justification of Admission Dx: Yes Aspiration Pneumonia: Hypoxemia DOT LUONG MD Aug 04, 2019 10:37
[2019-08-04 10:40] VITALS: BP 130/72
--- NOTE | 2019-08-04 13:41 | PDOC ---
PULMONARY PROGRESS NOTES Subjective answers some Qs, on ra, no nausea, sob no S/S of distress Vitals Vital Signs Date Time Temp Pulse Resp B/P (MAP) Pulse Ox O2 Delivery O2 Flow Rate FiO2 08/04/19 11:14 Room Air 08/04/19 10:40 97.4 94 16 130/72 (91) 95 1.0 97.4 Comments unable to report ROS 2/2 non-verbal General: Alert, No acute distress Lungs: Other (coarse ) Cardiovascular: S1, S2 Abdomen: Soft, Non-tender, Other (Peg in place ) Extremities: Other (Contractures muscle wasting, BLE wounds ) Skin: Warm Labs Laboratory Tests Test 08/02/19 18:38 08/02/19 23:52 08/03/19 06:00 08/03/19 06:12 Glucose (Fingerstick) 117 mg/dL (70-99) 128 mg/dL (70-99) 56 mg/dL (70-99) 140 mg/dL (70-99) Test 08/03/19 11:46 08/03/19 18:00 08/03/19 20:52 08/04/19 00:04 Glucose (Fingerstick) 77 mg/dL (70-99) 66 mg/dL (70-99) 113 mg/dL (70-99) 97 mg/dL (70-99) Test 08/04/19 06:00 08/04/19 06:06 08/04/19 11:08 Glucose (Fingerstick) 73 mg/dL (70-99) 85 mg/dL (70-99) White Blood Count 7.9 x10^3/uL (4.0-11.0) Red Blood Count 2.69 x10^6/uL (3.50-5.40) Hemoglobin 7.4 g/dL (12.0-15.5) Hematocrit 23.1 % (36.0-47.0) Mean Corpuscular Volume 86 fL (79-100) Mean Corpuscular Hemoglobin 28 pg (25-35) Mean Corpuscular Hemoglobin Concent 32 g/dL (31-37) Red Cell Distribution Width 17.0 % (11.5-14.5) Platelet Count 522 x10^3/uL (140-400) Neutrophils (%) (Auto) 70 % (31-73) Lymphocytes (%) (Auto) 19 % (24-48) Monocytes (%) (Auto) 8 % (0-9) Eosinophils (%) (Auto) 2 % (0-3) Basophils (%) (Auto) 1 % (0-3) Neutrophils # (Auto) 5.6 x10^3/uL (1.8-7.7) Lymphocytes # (Auto) 1.5 x10^3/uL (1.0-4.8) Monocytes # (Auto) 0.7 x10^3/uL (0.0-1.1) Eosinophils # (Auto) 0.1 x10^3/uL (0.0-0.7) Basophils # (Auto) 0.1 x10^3/uL (0.0-0.2) Sodium Level 141 mmol/L (136-145) Potassium Level 4.1 mmol/L (3.5-5.1) Chloride Level 108 mmol/L (98-107) Carbon Dioxide Level 24 mmol/L (21-32) Anion Gap 9 (6-14) Blood Urea Nitrogen 26 mg/dL (7-20) Creatinine 1.0 mg/dL (0.6-1.0) Estimated GFR (Cockcroft-Gault) 69.1 BUN/Creatinine Ratio 26 (6-20) Glucose Level 81 mg/dL (70-99) Calcium Level 7.6 mg/dL (8.5-10.1) Total Bilirubin 0.2 mg/dL (0.2-1.0) Aspartate Amino Transf (AST/SGOT) 16 U/L (15-37) Alanine Aminotransferase (ALT/SGPT) 19 U/L (14-59) Alkaline Phosphatase 128 U/L (46-116) Total Protein 5.7 g/dL (6.4-8.2) Albumin 1.6 g/dL (3.4-5.0) Albumin/Globulin Ratio 0.4 (1.0-1.7) Laboratory Tests Test 08/03/19 18:00 08/03/19 20:52 08/04/19 00:04 08/04/19 06:00 Glucose (Fingerstick) 66 mg/dL (70-99) 113 mg/dL (70-99) 97 mg/dL (70-99) 73 mg/dL (70-99) Test 08/04/19 06:06 08/04/19 11:08 White Blood Count 7.9 x10^3/uL (4.0-11.0) Red Blood Count 2.69 x10^6/uL (3.50-5.40) Hemoglobin 7.4 g/dL (12.0-15.5) Hematocrit 23.1 % (36.0-47.0) Mean Corpuscular Volume 86 fL (79-100) Mean Corpuscular Hemoglobin 28 pg (25-35) Mean Corpuscular Hemoglobin Concent 32 g/dL (31-37) Red Cell Distribution Width 17.0 % (11.5-14.5) Platelet Count 522 x10^3/uL (140-400) Neutrophils (%) (Auto) 70 % (31-73) Lymphocytes (%) (Auto) 19 % (24-48) Monocytes (%) (Auto) 8 % (0-9) Eosinophils (%) (Auto) 2 % (0-3) Basophils (%) (Auto) 1 % (0-3) Neutrophils # (Auto) 5.6 x10^3/uL (1.8-7.7) Lymphocytes # (Auto) 1.5 x10^3/uL (1.0-4.8) Monocytes # (Auto) 0.7 x10^3/uL (0.0-1.1) Eosinophils # (Auto) 0.1 x10^3/uL (0.0-0.7) Basophils # (Auto) 0.1 x10^3/uL (0.0-0.2) Sodium Level 141 mmol/L (136-145) Potassium Level 4.1 mmol/L (3.5-5.1) Chloride Level 108 mmol/L (98-107) Carbon Dioxide Level 24 mmol/L (21-32) Anion Gap 9 (6-14) Blood Urea Nitrogen 26 mg/dL (7-20) Creatinine 1.0 mg/dL (0.6-1.0) Estimated GFR (Cockcroft-Gault) 69.1 BUN/Creatinine Ratio 26 (6-20) Glucose Level 81 mg/dL (70-99) Calcium Level 7.6 mg/dL (8.5-10.1) Total Bilirubin 0.2 mg/dL (0.2-1.0) Aspartate Amino Transf (AST/SGOT) 16 U/L (15-37) Alanine Aminotransferase (ALT/SGPT) 19 U/L (14-59) Alkaline Phosphatase 128 U/L (46-116) Total Protein 5.7 g/dL (6.4-8.2) Albumin 1.6 g/dL (3.4-5.0) Albumin/Globulin Ratio 0.4 (1.0-1.7) Glucose (Fingerstick) 85 mg/dL (70-99) Medications Active Scripts Medications Dose Route/Sig Max Daily Dose Days Date Category Zocor (Simvastatin) 40 Mg Tablet 1 Tab PO DAILY 07/21/19 Reported Tramadol Hcl 50 Mg Tablet 50 Mg PO BID PRN 07/21/19 Reported Senokot (Sennosides) 8.6 Mg Tablet 1 Tab PO BID 20 07/21/19 Reported Polyethylene Glycol 3350 2,500 Gm Powder 17 Gm PO DAILY 30 07/21/19 Reported Omeprazole 20 Mg Tablet.dr 1 Tab PO DAILY 07/21/19 Reported [place] 5-325 Tablet (Acetaminophen/Hydrocodone Bitart) 1 Each Tablet 1 Tab PO BID 07/21/19 Reported Metoprolol Tartrate 25 Mg Tablet 1 Tab PO BID 07/21/19 Reported Melatonin 3 Mg Tablet 2 Tab PO QHS 07/21/19 Reported Lantus Solostar (Insulin Glargine,Hum.rec.anlog) 100 Unit/1 Ml Insuln.pen 30 Unit SQ QHS 07/21/19 Reported Hydroxyzine Hcl 25 Mg Tablet 1 Tab PO TID 07/21/19 Reported Gabapentin 600 Mg Tablet 600 Mg PO BID 07/21/19 Reported Docusate Sodium 100 Mg Capsule 1 Cap PO BID 15 07/21/19 Reported Cyclobenzaprine Hcl 5 Mg Tablet 1 Tab PO QHS 07/21/19 Reported Vitamin B-12 (Cyanocobalamin (Vitamin B-12)) 1,000 Mcg Tablet 1 Tab PO DAILY 30 07/21/19 Reported Coreg (Carvedilol) 25 Mg Tablet 12.5 Mg PO BIDWMEALS 07/21/19 Reported Clopidogrel (Clopidogrel Bisulfate) 75 Mg Tablet 1 Tab PO DAILY 07/21/19 Reported Celexa (Citalopram Hydrobromide) 20 Mg Tablet 1 Tab PO DAILY 07/21/19 Reported D3-50 (Cholecalciferol (Vitamin D3)) 50,000 Unit Capsule 2,000 Unit PO DAILY 07/21/19 Reported Bisacodyl 10 Mg Supp.rect 10 Mg RC PRN DAILY PRN 07/21/19 Reported Aspirin 325 Mg Tablet 1 Tab PO DAILY 07/21/19 Reported Albuterol Sulfate Neb Soln (Albuterol Sulfate) 2.5 Mg/3 Ml Vial.neb 1 Vial NEB PRN Q4HRS 07/21/19 Reported Tylenol (Acetaminophen) 325 Mg Tablet 2 Tab PO BID 07/21/19 Reported Humalog (Insulin Lispro) 100 Unit/1 Ml Insuln.pen 0 Units SQ TIDWMEALS 14 06/06/19 Rx Zofran Odt (Ondansetron) 4 Mg Tab.rapdis 1 Tab SL Q6HRS PRN 08/19/16 Rx Comments CXR - 07/27/2019 IMPRESSION: 1. Improving left-sided airspace disease. 2. Possible small left pleural effusion. Impression . IMPRESSION: 1. Acute hypoxemic respiratory failure- 2. Aspiration pneumonia. 3. Xzrlg-jy-rvkluan kidney disease. 4. Abnormal x-ray. mild bilateral infilt 07/29 5. SARS-CoV-2 negative 6. 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 7. Severe protein malnutrition, present upon admission. 8. Hypokalemia. resolved 9. Elevated liver chemistries. 10. wheezing-resolved 11. Hypernatermia, resolved Plan . 1. supplemental oxygen if needed, continue bronchodilators 2. Follow nephrology recs 3. COVID-19(-) 4. Cont. ABX 5. TF 6. Monitor Electrolytes-- NA+ was improved on 07/26/2019 7. wound care as needed D/W RN stable pulmonary rahman. will sign off ANJALI TEIXEIRA MD Aug 04, 2019 13:41
[2019-08-04 15:00] VITALS: BP 126/70
--- NOTE | 2019-08-04 15:39 | NUR ---
Attempt made to reach [place], no answer at number given.
--- NOTE | 2019-08-04 17:06 | NUR ---
Pt. discharged to [facility] via stretcher per transportation service. Addendum: 08/04/19 at 1707 by CHRISTELLE FERMIN RN Peg tube intact.
== END 2019-08-04 17:08 | DRG 177 ==
LOC: ER 05:46 → 1 WEST ICU 09:00 → 6 SOUTH 07-22 18:08 → 4 NORTH 07-23 19:35
PROVIDERS: ADMIT Family Medicine; ATTEND Family Medicine
PROC: 02H633Z Insertion of Infusion Device into Right Atrium, Percutaneous Approach (ICD-10-PCS; principal; 2019-07-21)
PROC: 30233N1 Transfusion of Nonautologous Red Blood Cells into Peripheral Vein, Percutaneous Approach (ICD-10-PCS; 2019-07-21)
DX: J69.0 Pneumonitis due to inhalation of food and vomit (principal); J96.01 Acute respiratory failure with hypoxia; E43 Unspecified severe protein-calorie malnutrition; E87.0 Hyperosmolality and hypernatremia; I13.0 Hypertensive heart and chronic kidney disease with heart failure and stage 1 through stage 4 chronic kidney disease, or unspecified chronic kidney disease; I69.354 Hemiplegia and hemiparesis following cerebral infarction affecting left non-dominant side; N17.9 Acute kidney failure, unspecified; N18.4 Chronic kidney disease, stage 4 (severe); G43.909 Migraine, unspecified, not intractable, without status migrainosus; E11.22 Type 2 diabetes mellitus with diabetic chronic kidney disease; E78.00 Pure hypercholesterolemia, unspecified; E78.5 Hyperlipidemia, unspecified; E83.42 Hypomagnesemia; E86.0 Dehydration; E87.5 Hyperkalemia; E87.6 Hypokalemia; I50.9 Heart failure, unspecified; I69.320 Aphasia following cerebral infarction; K21.9 Gastro-esophageal reflux disease without esophagitis; Y95 Nosocomial condition; Z20.828 Contact with and (suspected) exposure to other viral communicable diseases; Z51.5 Encounter for palliative care; Z82.49 Family history of ischemic heart disease and other diseases of the circulatory system; Z87.891 Personal history of nicotine dependence; Z90.49 Acquired absence of other specified parts of digestive tract; Z93.1 Gastrostomy status; Z68.22 Body mass index [BMI] 22.0-22.9, adult
CPT/HCPCS: 36415; 36569; 36600; 71045; 74177; 80048; 80053; 80202; 82565; 82805; 82962; 83605; 83735; 83880; 84100; 84132; 84484; 85007; 85014; 85018; 85025; 86850; 86900; 86901; 86920; 87040; 93005; 94640; 94760; 96365; 96375; 99285; J0692; J1610; J1650; J1815; J2405; J2765; J3370; J3480; J3490; J7030; J7050; J7060; P9016; P9045; Q0162; Q9967; G0378; J8597; U0003-CS